=== PATIENT | female | born 1945 | race Caucasian/White ===

== ENCOUNTER 2017-04-23 22:03 | Emergency (ER) | payer MEDICARE ==
[~2017-04-23] VITALS: Ht 154.9 cm; Wt 93.9 kg
[~2017-04-23 22:03] MED LIST: ASPIR 8181 MG PO; ASPIRIN81 MG PO; ATORVASTATIN CA40 MG PO; BENAZEPRIL; BENAZEPRIL-HCT1 EA11 PO; CYMBALTA30 MG PO; DIAZEPAM5 MG PO; GEMFIBROZIL600 MG PO; GLIMEPIRIDE2 MG PO; HUMALOG MI100 UNITS/ SQ; HYDROCHLOROTHIA25 MG PO; HYDROCODONE; HYDROCODONE-AP1 EAC1 PO; LEVOTHYROXINE; MACRODANTIN100 MG PO; METFORMIN HCL500 MG PO; METOPROLOL PO; NORCO 7.5-3251 EACH PO; NOVOLOG; NOVOLOG 70100 UNITS/; OXYBUTYNIN CHLOR5 MG PO; PREMARIN; SYMBICORT 80-10.2 GM INH; TRICOR; ULTRAM50 MG PO; Z.0.GABAPENTIN600 MG; Z.0.TRICOR48 MG; Z.0.VESICARE10 MG PO; Z.1.LEVOTHYROXINE100 PO
[2017-04-23] MEDS ORDERED: ASPIRIN 81 MG CHEW TAB PO ONE (23:15)
[2017-04-23 23:24] LABS: BASOPHILS % 0.4 % (0.0-1.0); EOSINOPHILS # (AUTO) 0.2 (0.0-0.4); EOSINOPHILS % 1.6 % (0.0-6.0); HEMATOCRIT 41.4 % (34.2-44.1); HEMOGLOBIN 14.1 g/dL (12.0-16.0); LYMPHOCYTES # (AUTO) 4.1 (1.0-3.2); LYMPHOCYTES % 42.8 % (18.0-39.1); MEAN CORPUSCULAR HEMOGLOBIN 33.6 pg (28-32); MEAN CORPUSCULAR HGB CONC 34.1 g/dL (31-35); MEAN CORPUSCULAR VOLUME 98.6 fL (81-99); MONOCYTES # (AUTO) 0.6 (0.2-0.8); MONOCYTES % 6.2 % (4.4-11.3); NEUTROPHILS # (AUTO) 4.6 (2.1-6.9); NEUTROPHILS % 48.6 % (38.7-80.0); PLATELET COUNT 227 x10e3/uL (140-360); RED CELL DISTRIBUTION WIDTH 13.5 % (11.7-14.4)
[2017-04-23 23:28] LABS: INR 0.8; PARTIAL THROMBOPLASTIN TIME 29.9 seconds (23.8-35.5); PROTHROMBIN TIME 11.5 seconds (11.9-14.5)
[2017-04-23 23:40] LABS: ALANINE AMINOTRANSFERASE 43 IU/L (0-55); ALBUMIN 3.6 g/dL (3.5-5.0); ALBUMIN/GLOBULIN RATIO 0.8 (0.8-2.0); ALKALINE PHOSPHATASE 75 IU/L (40-150); BLOOD UREA NITROGEN 16 mg/dL (7-26); BUN/CREATININE RATIO 20 (6-25); CALCIUM 10.1 mg/dL (8.4-10.2); CARBON DIOXIDE 23 mmol/L (22-29); CHLORIDE 104 mmol/L (98-107); CREATINE KINASE 78 IU/L (29-168); CREATININE, SERUM 0.82 mg/dL (0.57-1.11); EST GLOMERULAR FILTRATION RATE > 60 ML/MIN (60-); GLUCOSE 73 mg/dL (74-118); SODIUM 138 mmol/L (136-145)
[2017-04-23 23:47] LABS: TROPONIN I 0.062 ng/mL (0-0.300)
--- NOTE | 2017-04-23 23:59 | Diagnostic Imaging Report ---
EXAMINATION: Head CT without contrast. HISTORY:Dizziness, headache and left-sided numbness. COMPARISON:Multiple prior studies, most recent CT brain from 12/06/2016 and MRI brain from 05/27/2016. TECHNIQUE: Multidetector axial images were obtained from the foramen magnum to the vertex without contrast. The images were reconstructed using brain and bone algorithms. Thin section brain images were reformatted into coronal and sagittal planes. Intravenous contrast: None IMAGE QUALITY: Acceptable. FINDINGS: Skull/scalp: No abnormality. Parenchyma: Nonspecific bilateral frontoparietal patchy white matter hypodensity are likely related to small vessel ischemic changes. Old lacunar infarct in left cerebellar hemisphere, right striato-capsular region, left thalamus, left stokes radiata and bilateral putamen. No acute hemorrhage, mass or acute major vascular territorial infarct. Arteries: Atherosclerotic calcification in bilateral carotid siphon and V4 segment of left vertebral artery. Dural sinuses: No abnormal density suggestive of thrombosis. Ventricles: No hydrocephalus or displacement. Extra-axial spaces: No abnormal density. Brain volume: Normal for age. Craniocervical junction: No mass, Chiari malformation, or basilar invagination. Sella: No mass. Paranasal/mastoid sinuses: Imaged portions unremarkable. IMPRESSION: No acute intracranial abnormality, particularly no acute hemorrhage, mass or acute major vascular territorial infarct. Chronic findings: Mild supratentorial white matter microvascular ischemic changes. Multifocal chronic lacunar infarcts as detailed above. Signed by: Dr. María Gee M.D. on 04/23/2017 11:56 PM
[2017-04-24 04:11] VITALS: BP 154/65
[2017-04-24 04:11] LABS: BILIRUBIN,URINE NEGATIVE (NEGATIVE); KETONES,URINE NEGATIVE (NEGATIVE); LEUKOCYTE ESTERASE ,URINE NEGATIVE (NEGATIVE); NITRITE,URINE NEGATIVE (NEGATIVE); URINE UROBILINOGEN 0.2 mg/dL (0.2 - 1)
[2017-04-24 04:13] LABS: CLARITY,URINE CLEAR (CLEAR); COLOR,URINE YELLOW (YELLOW); PROTEIN,URINE DIPSTICK 2+ (NEGATIVE)
[2017-04-24] MEDS ORDERED: ACETAMINOPHEN 325 MG TAB PO ONE (04:15)
[2017-04-24 04:16] LABS: AMPHETAMINES SCREEN,URINE NEGATIVE (NEGATIVE); BENZODIAZEPINES SCREEN,URINE POSITIVE (NEGATIVE); CANNABINOIDS SCREEN,URINE NEGATIVE (NEGATIVE); PHENCYCLIDINE SCREEN,URINE NEGATIVE (NEGATIVE)
[2017-04-24 04:25] LABS: BACTERIA,URINE RARE /HPF; EPITHELIAL CELLS,URINE RARE /LPF; RBC,URINE 0-5 /HPF (0-5)
== END 2017-04-24 04:25 | disposition home or self-care (01) ==
LOC: ER 22:11
DX: R20.2 Paresthesia of skin (principal); R51 Headache; I10 Essential (primary) hypertension; E11.9 Type 2 diabetes mellitus without complications; E03.9 Hypothyroidism, unspecified; Z86.73 Personal history of transient ischemic attack (TIA), and cerebral infarction without residual deficits
CPT/HCPCS: 36415; 70450; 80053; 80307; 81001; 82550; 82553; 84484; 85025; 85610; 85730; 87086; 93005; 99284

== ENCOUNTER 2017-08-26 17:26 | Inpatient (IN) | payer MEDICARE ==
[~2017-08-26] VITALS: Ht 152.4 cm; Wt 98.6 kg
--- OUTSIDE RECORDS SUMMARY | 2017-08-26 17:30 | XMS REPORT ---
Author Author [facility] Address Unknown Phone Unavailable Care Team Providers Care Tuber Operator Name Role Phone HANNAH MCDERMOTT Unavailable Unavailable Problems This patient has no known problems. Allergies, Adverse Reactions, Alerts This patient has no known allergies or adverse reactions. Medications This patient has no known medications. Results Test Description Test Time Test Comments Text Results Atomic Results Result Comments CT BRAIN WO [place] [address] Patient Name: IKE JEROME MR #: [id number] : 1945 Age/Sex: 72/F Req #: [id number] Adm Physician: Ordered by: HANNAH MCDERMOTT MD Report #: [id number] Location: ER Room/Bed: Procedure: [id number] CT/CT BRAIN WO Exam Date: 04/23/17 Exam Time: 2325 REPORT STATUS: Signed EXAMINATION: Head CT without contrast. HISTORY:Dizziness, headache and left-sided numbness. COMPARISON:Multiple prior studies, most recent CT brain from 12/06/2016 and MRI brain from 2016. TECHNIQUE: Multidetector axial images were obtained from the foramen magnum to the vertex without contrast. The images were reconstructed using brain and bone algorithms. Thin section brain images were reformatted into coronal and sagittal planes. Intravenous contrast: None IMAGE QUALITY: Acceptable. FINDINGS: Skull/scalp: No abnormality. Parenchyma: Nonspecific bilateral frontoparietal patchy white matter hypodensity are likely related to small vessel ischemic changes. Old lacunar infarct in left cerebellar hemisphere, right striato-capsular region, left thalamus, left stokes radiata and bilateral putamen. No acute hemorrhage, mass or acute major vascular territorial infarct. Arteries: Atherosclerotic calcification in bilateral carotid siphon and V4 segment of left vertebral artery. Dural sinuses: No abnormal density suggestive of thrombosis. Ventricles: No hydrocephalus or displacement. Extra- axial spaces: No abnormal density. Brain volume: Normal for age. Craniocervical junction: No mass, Chiari malformation, or basilar invagination. Sella: No mass. Paranasal/mastoid sinuses: Imaged portions unremarkable. IMPRESSION: No acute intracranial abnormality, particularly no acute hemorrhage, mass or acute major vascular territorial infarct. Chronic findings: Mild supratentorial white matter microvascular ischemic changes. Multifocal chronic lacunar infarcts as detailed above. Signed by: Dr. María Gee M.D. on 04/23/2017 11:56 PM Dictated By: MARÍA GEE MD [id number] Transcribed By: AURELIA on 04/23/17 9038 COPY TO: HANNAH MCDERMOTT MD
[2017-08-26] MEDS ORDERED: SODIUM CHLORIDE 0.9% 1000ML 1,000 ML IV STA (17:55)
[2017-08-26 18:48] LABS: BASOPHILS % 0.3 % (0.0-1.0); EOSINOPHILS # (AUTO) 0.1 (0.0-0.4); EOSINOPHILS % 2.1 % (0.0-6.0); HEMATOCRIT 40.1 % (34.2-44.1); HEMOGLOBIN 13.9 g/dL (12.0-16.0); LYMPHOCYTES # (AUTO) 1.9 (1.0-3.2); LYMPHOCYTES % 29.5 % (18.0-39.1); MEAN CORPUSCULAR HEMOGLOBIN 33.3 pg (28-32); MEAN CORPUSCULAR HGB CONC 34.7 g/dL (31-35); MEAN CORPUSCULAR VOLUME 96.2 fL (81-99); MONOCYTES # (AUTO) 0.4 (0.2-0.8); MONOCYTES % 5.3 % (4.4-11.3); NEUTROPHILS # (AUTO) 4.1 (2.1-6.9); NEUTROPHILS % 62.2 % (38.7-80.0); PLATELET COUNT 244 x10e3/uL (140-360); RED BLOOD COUNT 4.17 x10e6/uL (3.6-5.1); RED CELL DISTRIBUTION WIDTH 13.1 % (11.7-14.4)
[2017-08-26 18:54] LABS: INR 0.93; PROTHROMBIN TIME 11.7 seconds (11.9-14.5)
[2017-08-26 19:02] LABS: ALBUMIN 3.5 g/dL (3.5-5.0); ALBUMIN/GLOBULIN RATIO 0.8 (0.8-2.0); ANION GAP 18.7 mmol/L (8-16); CALCIUM 10.6 mg/dL (8.4-10.2); CREATININE, SERUM 1.15 mg/dL (0.57-1.11); MAGNESIUM 1.4 MG/DL (1.3-2.1); POTASSIUM 4.7 mmol/L (3.5-5.1)
[2017-08-26 19:08] LABS: CREATINE KINASE MB 2.1 ng/mL (0-5.0)
[2017-08-26] MEDS ORDERED: ASPIRIN 325 MG TAB PO ONE (19:15)
--- NOTE | 2017-08-26 19:42 | Diagnostic Imaging Report ---
EXAMINATION: Head CT without contrast. HISTORY:Altered mental status. COMPARISON:Multiple prior studies, most recent CT brain from 12/06/2016. TECHNIQUE: Multidetector axial images were obtained from the foramen magnum to the vertex without contrast. The images were reconstructed using brain and bone algorithms. Thin section brain images were reformatted into coronal and sagittal planes. Intravenous contrast: None IMAGE QUALITY: Acceptable. FINDINGS: Skull/scalp: No lytic or blastic. lesions. No surgical changes. Parenchyma: Unchanged nonspecific bilateral frontoparietal patchy white matter hypodensity are likely related to small vessel ischemic changes. Multifocal unchanged chronic lacunar infarcts in left stokes radiata, left thalamus, left putamen, right striata capsular region and left cerebellar hemisphere No acute hemorrhage, mass or acute major vascular territorial infarct.. Arteries: Atherosclerotic calcification in bilateral carotid siphon and V4 segment of left vertebral artery. Dural sinuses: No abnormal density suggestive of thrombosis. Ventricles: No hydrocephalus or displacement. Extra-axial spaces: No abnormal density. Brain volume: Normal for age. Craniocervical junction: No mass, Chiari malformation, or basilar invagination. Sella: No mass. Paranasal/mastoid sinuses: Imaged portions unremarkable. IMPRESSION: No acute intracranial abnormality. No change since CT brain from 12/06/2016. Chronic findings: 1. Mild supratentorial white matter microvascular ischemic changes. 2. Multifocal chronic lacunar infarcts as detailed above. 3. Mild generalized cerebral volume loss. Preliminary report was given by Neuroradiology fellow Dr. Alvarado at 6:39 PM on 08/26/2017. I have reviewed the study and agree with the findings in the preliminary report. Signed by: Dr. María Gee M.D. on 08/26/2017 7:38 PM
[2017-08-26] MEDS: SODIUM CHLORIDE 0.9% 1000ML 1,000 ML IV SCH (22:18)
[2017-08-26] MEDS ORDERED: NITROGLYCERIN 2% OINT 1 GM PKT TOP ONE (23:00)
[2017-08-27] VITALS (8 sets, daily range): BP systolic 157–221; BP diastolic 71–86
--- NOTE | 2017-08-27 02:04 | Diagnostic Imaging Report ---
CHEST XRAY LINE PLACEMENT, 08/27/2017 1:17 AM Technique: CHEST XRAY LINE PLACEMENT Comparison: 05/27/2016 Clinical history: PICC line placement Findings: See Impression Impression: Limited portable technique with soft tissue attenuation. 1. Lines/Tubes: Right PICC overlies the distal SVC. 2. Stable enlarged cardiomediastinal silhouette. 3. Mild bibasilar opacity may reflect vascular crowding/atelectasis. Aspiration/infection not excluded in the proper clinical context. 4. No pneumothorax or effusion. Signed by: Dr Alba Holman MD on 08/27/2017 2:00 AM
--- NOTE | 2017-08-27 03:30 | Diagnostic Imaging Report ---
EXAMINATION: CT angio of the neck and head with contrast. HISTORY:TIA. COMPARISON:MRA head and neck from 05/28/[address] brain from 08/26/2017. TECHNIQUE: Multidetector helical axial images were acquired through the neck and head during infusion of iodinated contrast material. Images were reviewed in multiplanar and 3-dimensional format. Contrast: 100 mL of Isovue-370. . FINDINGS: AORTIC ARCH: Moderate atherosclerotic calcification in the aortic arch and at the origin of the great vessels. Mixed atherosclerotic plaque at the origin of left subclavian artery without significant vascular stenosis. NECK: If carotid bulb stenosis is present, stenosis is measured with respect to the distal extracranial internal carotid artery. Right Carotid: Punctate focal hard atherosclerotic plaque in right carotid bulb without significant vascular stenosis. Right internal carotid artery is patent without abnormality. Left Carotid: Mild to moderate hard atherosclerotic plaque in the left carotid bulb extending to the proximal left internal carotid artery results in approximately 30% vascular stenosis. Vertebrals: Patent, no abnormality. HEAD: Anterior Circulation: Mild atherosclerotic calcification in the bilateral carotid siphon with patent M1 and A1 segments. Posterior Circulation: Focal hard atherosclerotic plaque in the proximal right V4 segment of the vertebral artery results in approximately 20% vascular stenosis with irregularity in the caliber of patent distal V4 segment. 2 focal hard atherosclerotic plaque in proximal left V4 segment results in approximately 70% vascular stenosis (image 306, series 3) origin of left posterior cerebral artery with hypoplastic left P1 segment. Age indeterminate occlusion of at the junction of left P2/P3 segment. Anatomical variants: Anterior communicating artery :Patent Posterior communicating arteries: Patent Vertebral arteries: Codominant. IMPRESSION: 1. Moderate atherosclerotic calcification in the aortic arch and at the origin of the great vessels. 2. Hard atherosclerotic plaque in left carotid bulb and proximal left internal carotid artery results in approximately 30% vascular stenosis. Focal hard atherosclerotic plaque in right carotid bulb without significant vascular stenosis. 3. Mild atherosclerotic plaque in bilateral carotid siphon. 4. Focal hard atherosclerotic plaque in proximal bilateral V4 segments, results in approximately 20% focal vascular stenosis on the right and 70% focal vascular stenosis on the left with distal flow. Irregularity in caliber of distal right V4 segment due to atherosclerosis. 5. Age indeterminate occlusion at the junction of left P2/P3 segment. Signed by: Dr. María Gee M.D. on 08/27/2017 3:26 AM
[2017-08-27] MEDS: SODIUM CHLORIDE 0.9% 1000ML 1,000 ML IV SCH ×3 (04:45→13:10)
[2017-08-27] MEDS ORDERED: DULOXETINE HCL 30 MG DELAYED RELEASE PO PRN (05:00)
[2017-08-27] MEDS ORDERED: SODIUM CHLORIDE 0.9% 100 ML ONE (06:08)
[2017-08-27] MEDS ORDERED: IOPAMIDOL 370 MG/ML 200 ML INFUS..BTL INJ ONE (06:08)
[2017-08-27 06:55] LABS: BASOPHILS % 0.2 % (0.0-1.0); EOSINOPHILS # (AUTO) 0.1 (0.0-0.4); EOSINOPHILS % 0.9 % (0.0-6.0); HEMATOCRIT 35.9 % (34.2-44.1); HEMOGLOBIN 12.5 g/dL (12.0-16.0); LYMPHOCYTES # (AUTO) 3.8 (1.0-3.2); LYMPHOCYTES % 43.1 % (18.0-39.1); MEAN CORPUSCULAR HEMOGLOBIN 33.3 pg (28-32); MEAN CORPUSCULAR HGB CONC 34.8 g/dL (31-35); MEAN CORPUSCULAR VOLUME 95.7 fL (81-99); MONOCYTES # (AUTO) 0.6 (0.2-0.8); MONOCYTES % 6.6 % (4.4-11.3); NEUTROPHILS # (AUTO) 4.3 (2.1-6.9); NEUTROPHILS % 48.9 % (38.7-80.0); PLATELET COUNT 233 x10e3/uL (140-360); RED BLOOD COUNT 3.75 x10e6/uL (3.6-5.1); RED CELL DISTRIBUTION WIDTH 13.1 % (11.7-14.4)
[2017-08-27 07:32] LABS: ALANINE AMINOTRANSFERASE 35 IU/L (0-55); ALBUMIN 3.1 g/dL (3.5-5.0); ALBUMIN/GLOBULIN RATIO 0.9 (0.8-2.0); ALKALINE PHOSPHATASE 72 IU/L (40-150); ANION GAP 13.7 mmol/L (8-16); BLOOD UREA NITROGEN 14 mg/dL (7-26); BUN/CREATININE RATIO 18 (6-25); CALCIUM 9.6 mg/dL (8.4-10.2); CARBON DIOXIDE 26 mmol/L (22-29); CHLORIDE 100 mmol/L (98-107); CREATINE KINASE 69 IU/L (29-168); CREATININE, SERUM 0.79 mg/dL (0.57-1.11); EST GLOMERULAR FILTRATION RATE > 60 ML/MIN (60-); GLUCOSE 127 mg/dL (74-118); POTASSIUM 3.7 mmol/L (3.5-5.1); SODIUM 136 mmol/L (136-145)
[2017-08-27] MEDS ORDERED: ASPIRIN 81 MG CHEW TAB PO SCH (09:00)
[2017-08-27] MEDS: ASPIRIN 325 MG TAB EC PO SCH (09:06)
[2017-08-27] MEDS: HYDROCHLOROTHIAZIDE 25 MG TAB PO SCH (09:06)
[2017-08-27] MEDS: GEMFIBROZIL 600 MG TAB PO SCH ×2 (09:07→17:15)
[2017-08-27] MEDS: METFORMIN HCL 500 MG TAB PO SCH ×2 (09:07→17:30)
[2017-08-27] MEDS: INS LISP PRO/LISP HUMAN 75/25 100 UNITS/ML VIAL SC SCH ×2 (09:22→18:39)
[2017-08-27] MEDS ORDERED: LORAZEPAM INJ 2 MG/ML VIAL IV PRN (17:15)
[2017-08-27 17:29] LABS: CHOL/HDL RATIO 7.1 (3.0-3.6); CHOLESTEROL 184 MD/DL (0-199); HDL CHOLESTEROL 26 MG/DL (40-60); TRIGLYCERIDES 528 MG/DL (0-149)
[2017-08-27] MEDS: HYDRALAZINE HCL 20 MG/ML VIAL IV PRN (18:37)
[2017-08-27] MEDS: OXYBUTYNIN CHLORIDE 5 MG TAB PO SCH (21:00)
[2017-08-27] MEDS: TRAMADOL HCL 50 MG TAB PO PRN (21:33)
[2017-08-28] VITALS (8 sets, daily range): BP systolic 148–208; BP diastolic 59–100
--- NOTE | 2017-08-28 00:08 | Consultation ---
DATE OF CONSULTATION: August 27, 2017 NEUROLOGY CONSULT HISTORY OF PRESENT ILLNESS: Ms. Nielsen is a 72-year-old [id number]-upsuyjlf woman with past medical history significant for hypertension, hyperlipidemia, diabetes mellitus type 2, and prior transient ischemic attacks/strokes, who presented to the emergency center at [facility] on the evening of August 26, 2017, with symptoms concerning for a transient ischemic attack/stroke. On the day of admission, the patient reports the gradual onset of tingling affecting the tips of the fingers of both hands. She endorses a headache which is described as follows: The pain was across the forehead and did not radiate. The pain was described as sharp and rated an 8 out of 10. There was no photophobia, phonophobia, or dizziness associated with headache. Ms. Nielsen does report mild nausea. The patient does not report a visual field cut or other disturbance, dysarthria, facial droop, weakness, numbness, or confusion. She does report mixed expressive and receptive aphasia. The patient's daughters, who are at the bedside, endorse mixed aphasia as well as a right facial droop. As stated above, Ms. Nielsen reports her symptoms came on gradually on the day of admission. On the evening of August 26, 2017, the patient decided to drive herself to the emergency center for further evaluation. Within minutes of leaving her home, the patient called her daughters because she was lost. One daughter reports the patient was speaking gibberish and could not understand when her daughter told her to hang up and call 9-1-1. A 2nd daughter, her son and his girlfriend drove around the patient's neighborhood until they were able to find Ms. Nielsen in her car. Ms. Nielsen refused to exit her car so her daughter and other family members could take her to the emergency center. At one point, while her daughter was moving her car, the patient drove off in her own car, unaccompanied. Ms. Nielsen drove herself to the emergency center at [facility] for further evaluation. Upon admission to the emergency center, the patient's blood pressure was 207/85 mmHg with a pulse of 87 beats per minute. The patient's neurological examination was documented as nonfocal. A CT of the brain without contrast was performed and did not show evidence of recent large territorial ischemia or hemorrhage. Ms. Nielsen was admitted to the hospital under observation status for further evaluation and treatment of her symptoms. Ms. Nielsen reports the symptoms described above lasted for approximately 1 day. She does report a prior stroke in February of 2015 as well as multiple transient ischemic attacks, with the most recent transient ischemic attack occurring approximately 1 year ago. The patient does report a history of a single migraine during adolescence. However, the patient reports having severe headaches as an adolescent and young adult, which were attributed to poor visual acuity. REVIEW OF SYSTEMS: Nausea, diarrhea, mixed aphasia, right facial weakness, tingling at the tips of the fingers of both hands, chronic low back pain, headache. Otherwise, the 12-point review of systems is negative. PAST MEDICAL HISTORY: Hypertension, hyperlipidemia, diabetes mellitus type 2, asthma, thyroid disease, prior peptic ulcer disease, mixed depression and anxiety disorder, prior history of migraine and other severe headaches, seizures beginning at the age of 14 years and resolving at 29 years secondary to "mental stress," multiple transient ischemic attacks, strokes, obesity, chronic pancreatitis. PAST SURGICAL HISTORY: Appendectomy, tonsillectomy, total hysterectomy, cholecystectomy, right knee surgery, Lap Band surgery, bilateral cataract surgery, bilateral corneal transplants. PAST HOSPITALIZATIONS: Surgeries/procedures listed, childbirth times 3, stroke in February 2015. FAMILY HISTORY: The patient's paternal and maternal grandparents are . Their medical histories are unknown. Ms. Nielsen' father is from COPD. Her mother is from COPD. One sister is from COPD. The sister had hypertension, diabetes mellitus, arthritis, and diverticulitis as well. The patient has 3 daughters. The oldest daughter has hypertension and had breast cancer. The second oldest daughter has thyroid disease. SOCIAL HISTORY: The patient is . Ms. Nielsen is a high school graduate. 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 The patient does not report current or prior tobacco or recreational drug use. She endorses rare alcohol use. HOME MEDICATIONS: Aspirin 81 mg by mouth daily, Symbicort 1 puff inhaled every 6 hours as needed for shortness of breath, Cymbalta 60 mg by mouth daily as needed, gemfibrozil 1200 mg by mouth twice daily, hydrochlorothiazide 25 mg daily, Humalog mix 75/25 at 140 units subcutaneously twice daily, levothyroxine 100 mcg by mouth daily, metformin 500 mg by mouth twice daily, oxybutynin 10 mg by mouth at bedtime daily, tramadol 50 mg by mouth every 6 hours as needed for pain. ALLERGIES: ALBUTEROL, CODEINE, POSSIBLE ALLERGY TO SULFA DRUGS. NO KNOWN FOOD ALLERGIES. THE PATIENT DOES REPORT AN ALLERGY TO THE ADHESIVE ON BAND-AIDS WELL LATEX. NO KNOWN ALLERGIES TO IODINE OR OTHER CONTRAST MATERIALS. PHYSICAL EXAMINATION VITAL SIGNS: Height 60 inches, weight 226 pounds, BMI 44.2 kg per meter squared. Blood pressure 197/72 mmHg, pulse 72 beats per minute, respiratory rate 20 breaths per minute, oxygen saturation 97% on room air. GENERAL: The patient is awake and alert, does not appear distressed. Obese. HEENT: Normocephalic, atraumatic. Pupils are surgical. Moist mucous membranes. NECK: Supple. No appreciable thyromegaly. No appreciable carotid bruits. CARDIOVASCULAR: S1, S2, regular rate and rhythm. Low-grade systolic ejection murmur. RESPIRATORY: Clear to auscultation bilaterally. No wheezes, rhonchi, or rales. EXTREMITIES: The skin is warm and dry. No clubbing, cyanosis, or edema. The posterior tibial and dorsalis pedis pulses are 1+ and symmetric. SKIN: No rashes or lesions. NEUROLOGIC Memory/Attention: The patient is awake and alert, oriented to person, place, time, and situation. Cranial Nerves: Cranial nerve 1--Not tested. Cranial nerve 2, 3, 4 and 6--Pupils are surgical, extraocular movements intact, no nystagmus. Cranial nerve 5--Sensation to light touch and pinprick is intact in the bilateral V1 through V3 distributions. Strength of the temporalis and masseter muscles was within normal limits. Cranial nerve 7--Flattening of the right nasolabial fold. Facial movements are symmetric. Strength is within normal limits. Cranial nerve 8--Hearing is intact to finger rub bilaterally. Cranial nerve 9, 10--The soft palate elevates equally and symmetrically. Cranial nerve 11--Normal strength of the bilateral sternocleidomastoid and trapezius muscles. Cranial nerve 12--The tongue protrudes midline and moves symmetrically from side to side. Strength: Bulk is normal. The patient is able to hold her arms against gravity for more than 10 seconds each. She is able to hold her legs against gravity for more than 5 seconds each. Strength is grossly 5/5 throughout. Tone is normal. DTRs: Deep tendon reflexes are 1+ and symmetric at the triceps, biceps, and brachioradialis. Deep tendon reflexes are absent and symmetric at the patellas and Achilles. The plantar responses are flexor bilaterally. Absent clonus. Sensation: Sensation is intact to light touch and pinprick in both arms and legs. Cerebellar: Wzzlak-jimp-lgajha and heel-de luna movements are intact without dysmetria or other impairment. Rapid alternating movements are intact. Gait: Deferred. Speech: Spontaneous speech is normal without appreciable dysarthria or aphasia. Repetition is intact. Involuntary Movements: None. Pronator Drift: None. LABORATORY DATA: Sodium 136, potassium 3.7, chloride 100, carbon dioxide 26, anion gap 13.7, BUN 14, creatinine 0.79, estimated GFR greater than 60, glucose 127, calcium 9.6. AST 26, ALT 35, alkaline phosphatase 72. Total protein 6.3, albumin 3.1, globulin 3.5, albumin to globulin ratio 0.9. B-natriuretic peptide 116.8. Creatine kinase 71, 69. CK-MB 2.10, 1.60. Troponin I 0.048, 0.089. The CBC with differential and platelets reveals a white blood cell count of 8.81 with 48.9% neutrophils, 43.1% lymphocytes, 6.6% monocytes, 0.9% eosinophils, and 0.2% basophils. The hemoglobin and hematocrit are 12.5 and 35.9, respectively. The platelet count is 233. PT 11.7, INR 0.93, PTT 29.0. DIAGNOSTIC STUDIES EKG August 26, 2017: Normal sinus rhythm at [address] of the brain without contrast August 26, 2017: On my review, there is no evidence of recent large territorial ischemia, hemorrhage, mass or mass effect. Remote lacunar infarcts are seen in the left stokes radiata, left thalamus, left putamen, right striata capsular region and left cerebellar hemisphere. There is mild to moderate chronic small-vessel ischemic disease. There is mild diffuse cerebral atrophy. CTA of the brain and neck on August 27, 2017: Moderate atherosclerotic calcification in the aortic arch and at the origin of the great vessels. Hard atherosclerotic plaque in left carotid bulb and proximal left internal carotid artery results in approximately 30% vascular stenosis. Focal hard atherosclerotic plaque in right carotid bulb without significant vascular stenosis. Mild atherosclerotic plaque in bilateral carotid siphon. Focal hard atherosclerotic plaque in proximal bilateral V4 segments results in approximately 20% focal vascular stenosis on the right and 70% focal vascular stenosis on the left with distal flow. Irregularity in caliber of distal right V4 segment due to atherosclerosis. Age-indeterminate occlusion at the junction of the left P2/P3 segments. ASSESSMENT AND PLAN: Ms. Nielsen is a 72-year-old pigdv-fonc-hfoxousu woman with multiple vascular risk factors, admitted to [facility] on August 26, 2017, with a transient ischemic attack/stroke. The patient's neurological examination is significant for surgical pupils, flattening of the right nasolabial fold, absent or diminished deep tendon reflexes in the legs and arms. The patient's laboratory data and diagnostic studies have been reviewed and are documented above. RECOMMENDATIONS ARE FOLLOWS 1. Lipid panel and hemoglobin A1c. 2. MRI brain without contrast. Ativan 1 mg IV immigration services officer for MRI of the brain has been ordered. May repeat dose x1 if needed. 3. Echocardiogram. 4. Aspirin 325 mg by mouth daily for stroke prophylaxis. 5. Given the findings of the patient's CTA of the brain and neck, allow permissive hypertension for the next 24 to 48 hours. An order for hydralazine 10 mg IV every 4 hours as needed for systolic blood pressure greater than 200 mmHg has been placed. 6. Follow up lipid panel. Continue home medication of gemfibrozil. 7. Follow up hemoglobin A1c. Tight glycemic control. 8. Speech and physical therapy consultations have been ordered. 9. Defer treatment of the remaining medical comorbidities to the primary and other services. Thank you for this consultation. I will continue to follow this patient while she remains in the hospital. Time spent: 70 minutes. Job#: [id number] EV DALE
[2017-08-28] MEDS: TRAMADOL HCL 50 MG TAB PO PRN (03:04)
[2017-08-28] MEDS: SODIUM CHLORIDE 0.9% 1000ML 1,000 ML IV SCH ×4 (03:13→21:11)
[2017-08-28] MEDS: HYDRALAZINE HCL 20 MG/ML VIAL IV PRN ×2 (03:17→20:47)
[2017-08-28] MEDS: METFORMIN HCL 500 MG TAB PO SCH ×2 (09:13→18:55)
[2017-08-28] MEDS: GEMFIBROZIL 600 MG TAB PO SCH ×2 (09:13→18:55)
[2017-08-28] MEDS: HYDROCHLOROTHIAZIDE 25 MG TAB PO SCH (09:13)
[2017-08-28] MEDS: ASPIRIN 325 MG TAB EC PO SCH (09:13)
[2017-08-28] MEDS: INS LISP PRO/LISP HUMAN 75/25 100 UNITS/ML VIAL SC SCH ×2 (09:21→18:55)
[2017-08-28] MEDS ORDERED: LORAZEPAM INJ 2 MG/ML VIAL IV PRN (11:45)
[2017-08-28] MEDS ORDERED: LORAZEPAM INJ 2 MG/ML VIAL IV ONE (16:00)
[2017-08-28] MEDS: OXYBUTYNIN CHLORIDE 5 MG TAB PO SCH (20:29)
[2017-08-29] VITALS (7 sets, daily range): BP systolic 158–205; BP diastolic 66–84
[2017-08-29] MEDS: TRAMADOL HCL 50 MG TAB PO PRN ×3 (04:12→22:18)
[2017-08-29] MEDS: HYDRALAZINE HCL 20 MG/ML VIAL IV PRN ×2 (08:03→12:13)
[2017-08-29] MEDS: INS LISP PRO/LISP HUMAN 75/25 100 UNITS/ML VIAL SC SCH ×2 (09:00→17:25)
[2017-08-29] MEDS: HYDROCHLOROTHIAZIDE 25 MG TAB PO SCH (09:51)
[2017-08-29] MEDS: GEMFIBROZIL 600 MG TAB PO SCH ×2 (09:51→16:33)
[2017-08-29] MEDS: ASPIRIN 325 MG TAB EC PO SCH (09:51)
[2017-08-29] MEDS: METFORMIN HCL 500 MG TAB PO SCH ×2 (09:51→16:33)
[2017-08-29] MEDS: ONDANSETRON HCL 4 MG ORAL DISINTEGRATING TAB SL PRN ×2 (11:06→13:36)
[2017-08-29] MEDS: SODIUM CHLORIDE 0.9% 1000ML 1,000 ML IV SCH (11:13)
[2017-08-29] MEDS: AMLODIPINE BESYLATE 10 MG TAB PO SCH (12:13)
[2017-08-29] MEDS ORDERED: DEXTROSE 50% SYRINGE 50 ML IV PRN (12:30)
[2017-08-29] MEDS ORDERED: ACETAMINOPHEN 325 MG TAB PO PRN (16:00)
[2017-08-29] MEDS: INSULIN LISPRO 100 UNIT/1 ML 3ML VIAL SQ SCH ×2 (17:25→21:50)
[2017-08-29] MEDS: OXYBUTYNIN CHLORIDE 5 MG TAB PO SCH (21:50)
[2017-08-30] VITALS: BP 162/70
[2017-08-30 04:00] VITALS: BP 171/72
[2017-08-30] MEDS ORDERED: KETOROLAC TROMETHAMINE 30 MG/ML VIAL IV STA (06:07)
[2017-08-30] MEDS: INSULIN LISPRO 100 UNIT/1 ML 3ML VIAL SQ SCH ×3 (07:30→16:30)
[2017-08-30 07:58] VITALS: BP 157/65
[2017-08-30] MEDS: GEMFIBROZIL 600 MG TAB PO SCH ×2 (08:44→17:15)
[2017-08-30] MEDS: METFORMIN HCL 500 MG TAB PO SCH ×2 (08:44→17:15)
[2017-08-30] MEDS: AMLODIPINE BESYLATE 10 MG TAB PO SCH (08:44)
[2017-08-30] MEDS: ASPIRIN 325 MG TAB EC PO SCH (08:44)
[2017-08-30] MEDS: INS LISP PRO/LISP HUMAN 75/25 100 UNITS/ML VIAL SC SCH ×2 (08:44→17:15)
[2017-08-30] MEDS: HYDROCHLOROTHIAZIDE 25 MG TAB PO SCH (08:44)
[2017-08-30 08:50] VITALS: BP 157/65
[2017-08-30 12:18] VITALS: BP 137/59
[2017-08-30] MEDS: ONDANSETRON HCL 4 MG ORAL DISINTEGRATING TAB SL PRN (14:53)
[2017-08-30] MEDS ORDERED: LISINOPRIL10 MG PO (16:53)
== END 2017-08-30 17:30 | disposition home or self-care (01) | DRG 68 ==
LOC: ER 17:40 → ERHOLD 21:00 → IMCU 08-27 04:03 → OBSVTOIN 08-29 08:21 → MED/SURG 08-29 13:23
PROVIDERS: ADMIT Internal Medicine; ATTEND Internal Medicine
PROC: 02HV33Z Insertion of Infusion Device into Superior Vena Cava, Percutaneous Approach (ICD-10-PCS; principal; 2017-08-27)
DX: I65.22 Occlusion and stenosis of left carotid artery (principal); R47.01 Aphasia; I10 Essential (primary) hypertension; E78.00 Pure hypercholesterolemia, unspecified; E11.65 Type 2 diabetes mellitus with hyperglycemia; J45.909 Unspecified asthma, uncomplicated; F41.8 Other specified anxiety disorders; Z91.11 Patient's noncompliance with dietary regimen; Z98.84 Bariatric surgery status; Z86.73 Personal history of transient ischemic attack (TIA), and cerebral infarction without residual deficits; Z79.82 Long term (current) use of aspirin; Z79.4 Long term (current) use of insulin; Z91.040 Latex allergy status; Z88.5 Allergy status to narcotic agent; Z88.2 Allergy status to sulfonamides; Z88.8 Allergy status to other drugs, medicaments and biological substances; Z91.048 Other nonmedicinal substance allergy status
CPT/HCPCS: 36415; 36569; 70450; 70496; 70498; 71045; 80053; 80061; 82550; 82553; 82948; 83036; 83735; 83880; 84484; 85025; 85610; 85730; 92523; 93005; 93306; 97139; 99284; G0378; J0360; J1815; J2060; J7030; J7050; Q9967

== ENCOUNTER 2018-01-12 03:38 | Inpatient (IN) | payer MEDICARE ==
[~2018-01-12] VITALS: Ht 154.9 cm; Wt 96.2 kg
[2018-01-12] VITALS (10 sets, daily range): BP systolic 166–187; BP diastolic 56–100
[~2018-01-12 03:38] MED LIST changes: +LISINOPRIL10 MG PO
[2018-01-12] MEDS ORDERED: SODIUM CHLORIDE 0.9% 1000ML 1,000 ML IV STA (03:42)
[2018-01-12] MEDS ORDERED: INSULIN REGULAR, HUMAN 100 UNIT/1 ML 3ML VIAL IV ONE (03:45)
[2018-01-12 04:12] LABS: INR 0.77; PROTHROMBIN TIME 11.5 seconds (11.9-14.5)
[2018-01-12 04:19] LABS: BASOPHILS % 0.2 % (0.0-1.0); EOSINOPHILS # (AUTO) 0.2 (0.0-0.4); EOSINOPHILS % 1.7 % (0.0-6.0); HEMATOCRIT 39.7 % (34.2-44.1); HEMOGLOBIN 14.3 g/dL (12.0-16.0); LYMPHOCYTES # (AUTO) 3.4 (1.0-3.2); MEAN CORPUSCULAR HEMOGLOBIN 33.6 pg (28-32); MEAN CORPUSCULAR VOLUME 93.2 fL (81-99); MONOCYTES # (AUTO) 0.5 (0.2-0.8); MONOCYTES % 5.4 % (4.4-11.3); NEUTROPHILS # (AUTO) 5.4 (2.1-6.9); NEUTROPHILS % 56.2 % (38.7-80.0); PLATELET COUNT 358 x10e3/uL (140-360); RED BLOOD COUNT 4.26 x10e6/uL (3.6-5.1); RED CELL DISTRIBUTION WIDTH 12.9 % (11.7-14.4)
[2018-01-12 04:22] LABS: ALBUMIN 4.1 g/dL (3.5-5.0); ALBUMIN/GLOBULIN RATIO 0.9 (0.8-2.0); ANION GAP 23.3 mmol/L (8-16); CALCIUM 11.1 mg/dL (8.4-10.2); CREATININE, SERUM 1.11 mg/dL (0.57-1.11); MAGNESIUM 2.1 MG/DL (1.3-2.1); POTASSIUM 4.3 mmol/L (3.5-5.1)
[2018-01-12] MEDS ORDERED: LORAZEPAM INJ 2 MG/ML VIAL ONE (04:28)
--- NOTE | 2018-01-12 04:32 | Diagnostic Imaging Report ---
EXAMINATION: Head CT without contrast. HISTORY:Aphasia, rule out possible stroke. COMPARISON:CT brain from 12/06/2016. TECHNIQUE: Multidetector axial images were obtained from the foramen magnum to the vertex without contrast. The images were reconstructed using brain and bone algorithms. Thin section brain images were reformatted into coronal and sagittal planes. Dose modulation, iterative reconstruction, and/or weight based adjustment of the mA/kV was utilized to reduce the radiation dose to as low as reasonably achievable. Intravenous contrast: None IMAGE QUALITY: Suboptimal evaluation due to motion artifacts. FINDINGS: Skull/scalp: No lytic or blastic. lesions. No surgical changes. Parenchyma: Nonspecific few, scattered supratentorial white matter patchy hypodensity are likely related to small vessel ischemic changes. Focal hypodensity in left stokes radiata, right caudate head, anterior limb of right internal capsule, left thalamus, left lentiform nucleus and left cerebellar hemisphere represents age indeterminate lacunar infarcts. No acute hemorrhage, mass or acute major vascular territorial infarct. Arteries: No density suggestive of thrombosis. Dural sinuses: No abnormal density suggestive of thrombosis. Ventricles: No hydrocephalus or displacement. Extra-axial spaces: No abnormal density. Brain volume: Mild generalized cerebral volume loss. Craniocervical junction: No mass, Chiari malformation, or basilar invagination. Sella: No mass. Paranasal/mastoid sinuses: Imaged portions unremarkable. IMPRESSION: 1. Mild supratentorial white matter microvascular ischemic changes. 2. Multifocal age indeterminate lacunar infarcts as detailed above. 3. Generalized age-related cerebral volume loss. Signed by: Dr. María Gee M.D. on 01/12/2018 4:26 AM
[2018-01-12 04:40] LABS: BILIRUBIN,URINE NEGATIVE (NEGATIVE); CLARITY,URINE CLEAR (CLEAR); COLOR,URINE YELLOW (YELLOW); KETONES,URINE NEGATIVE (NEGATIVE); LEUKOCYTE ESTERASE ,URINE NEGATIVE (NEGATIVE); NITRITE,URINE NEGATIVE (NEGATIVE); PROTEIN,URINE DIPSTICK 3+ (NEGATIVE); URINE UROBILINOGEN 0.2 mg/dL (0.2 - 1)
[2018-01-12] MEDS ORDERED: LORAZEPAM INJ 2 MG/ML VIAL IV ONE (04:45)
--- NOTE | 2018-01-12 04:51 | Diagnostic Imaging Report ---
CHEST SINGLE (PORTABLE), 01/12/2018 3:42 AM Technique: CHEST SINGLE (PORTABLE) Comparison: 08/27/2017 Clinical history: \S\aphasia \[id number] \S\0400 Findings: See Impression Impression: 1. Stable mildly enlarged cardiomediastinal silhouette. 2. Central vascular congestion. No consolidation. 3. No effusion or pneumothorax. Signed by: Dr Alba Holman MD on 01/12/2018 4:46 AM
[2018-01-12 04:58] LABS: RBC,URINE 0-5 /HPF (0-5)
[2018-01-12] MEDS ORDERED: ASPIRIN 325 MG TAB EC PO STA (05:21)
[2018-01-12] MEDS ORDERED: HYDRALAZINE HCL 20 MG/ML VIAL IV PRN (05:30)
[2018-01-12] MEDS ORDERED: DEXTROSE 50% SYRINGE 50 ML IV PRN (05:30)
[2018-01-12] MEDS: CEFTRIAXONE SOD 1 GM VIAL IV SCH (05:30)
[2018-01-12] MEDS ORDERED: MELOXICAM15 MG PO (05:41)
[2018-01-12] MEDS ORDERED: LEVOTHYROXINE100 MCG PO (05:41)
[2018-01-12] MEDS ORDERED: LISINOPRIL20 MG PO (05:41)
[2018-01-12] MEDS ORDERED: METOPROLOL TART50 MG PO (05:41)
[2018-01-12] MEDS ORDERED: ESIDRIX25 MG PO (05:41)
[2018-01-12] MEDS ORDERED: OXYBUTYNIN CHLO10 MG PO (05:41)
[2018-01-12] MEDS: SODIUM CHLORIDE 0.9% 1000ML 1,000 ML IV SCH ×3 (07:45→21:16)
[2018-01-12] MEDS: ACETAMINOPHEN 1000 MG/100 ML IV PRN (08:20)
[2018-01-12] MEDS: INSULIN REGULAR, HUMAN 100 UNIT/1 ML 3ML VIAL SQ SCH ×4 (08:25→21:15)
[2018-01-12 09:44] LABS: CHOLESTEROL 309 MD/DL (0-199); HDL CHOLESTEROL 28 MG/DL (40-60)
[2018-01-12 09:46] LABS: TRIGLYCERIDES > 1420 MG/DL (0-149)
--- NOTE | 2018-01-12 11:07 | Consultation ---
DATE OF CONSULTATION: January 12, 2018 NEUROLOGY CONSULTATION HISTORY OF PRESENT ILLNESS: Unfortunately, the patient is encephalopathic and unable to provide an accurate medical history. There are no family members present at the bedside. Therefore, history is obtained from the hospital staff, review of the electronic medical records, and prior notes dictated by myself. At approximately 2330 on January 11, 2018, Ms. Nielsen went to bed in her usual state of health. Several hours later, at approximately 0500, the patient awakened and came out of her bedroom. At that time, she said a few words which seemed "normal." Ms. Nielsen then began wandering in and out of rooms in the house, and her daughter noticed the patient was not "putting sentences together." According to documentation from the Emergency Center at [facility], no other symptoms were witnessed. Specifically, no weakness, numbness, tingling, visual disturbance, or impaired swallowing was noted. Ms. Nielsen has experienced transient ischemic attacks/strokes in the past. Concerned her difficulty with speech represented another transient ischemic attack or stroke, her daughter brought her to the Emergency Center at [facility] for further evaluation. Upon arrival in the Emergency Center, the patient was afebrile with a blood pressure of 227/101 mmHg and pulse of 77 beats per minute. In the Emergency Center, the patient's neurological examination was significant for expressive aphasia. No other deficits were noted. A CT of the brain without contrast was performed while the patient was in the Emergency Center. This study did not reveal new large territorial ischemia or hemorrhage. Ms. Nielsen was admitted to [facility] under observation status for further evaluation and treatment of her symptoms. While on the floor, the patient developed a fever documented as 102.1 degrees Fahrenheit. She has been intermittently tachycardic and diaphoretic. An infectious disease evaluation has been ordered and is pending. Ms. Nielsen was last seen by myself in August 2017 for a transient ischemic attack, the predominant symptom during that time being expressive aphasia. REVIEW OF SYSTEMS: Unable to obtain secondary to the patient being encephalopathic. PAST MEDICAL HISTORY: Hypertension, hyperlipidemia, diabetes mellitus type 2, asthma, thyroid disease, prior peptic ulcer disease, mixed depression and anxiety disorder, prior history of migraines, seizures beginning at the age of 14 years and resolving at approximately 29 years secondary to "mental stress," multiple transient ischemic attacks/strokes, obesity, chronic pancreatitis. PAST SURGICAL HISTORY: Appendectomy, tonsillectomy, total hysterectomy, cholecystectomy, right knee surgery, Lap-Band surgery, bilateral cataract removal, and bilateral corneal transplants. PAST HOSPITALIZATIONS: Surgeries/procedures as listed, childbirth times 3, stroke in February 2015, transient ischemic attack in August 2017. FAMILY MEDICAL HISTORY: Patient's paternal and maternal grandparents are . Their medical histories are unknown. Ms. Nielsen' father is from COPD. Her mother is from COPD. One sister is from COPD. That sister had hypertension, diabetes mellitus, arthritis, and diverticulitis as well. Ms. Nielsen has 3 daughters. The oldest daughter has hypertension and a history of breast cancer. The second oldest daughter has thyroid disease. The youngest daughter is reportedly healthy. SOCIAL HISTORY: Ms. Nielsen is . She is a high school graduate. 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 The patient does not report current or prior tobacco or recreational drug use. She does endorse rare alcohol use. HOME MEDICATIONS: Please see the list of home medications available in the electronic medical record. Of note, the patient does not have aspirin, statin or other cholesterol-lowering medications listed as part of her home medication regimen. These medications were prescribed during her prior hospitalization in August 2017. ALLERGIES: ALBUTEROL, CODEINE. NO KNOWN FOOD ALLERGIES. PATIENT DOES REPORT AN ALLERGY TO LATEX WELL THE ADHESIVE ON BAND-AIDS. NO KNOWN ALLERGIES TO IODINE OR OTHER CONTRAST MATERIALS. PHYSICAL EXAMINATION VITAL SIGNS: Height 61 inches, weight 217 pounds. BMI of 41.0 kg per meter squared. Blood pressure was 180/73 mmHg. Pulse 96 beats per minute. Respiratory rate 20 breaths per minute. Oxygen saturation 95% on 2 liters by nasal cannula. GENERAL: The patient is encephalopathic, does not appear distressed. Obese. HEENT: Normocephalic, atraumatic. Pupils are surgical. Moist mucous membranes. NECK: Supple. No appreciable thyromegaly. No appreciable carotid bruits. CARDIOVASCULAR: S1 and S2, mildly tachycardiac, regular rhythm. A low-grade systolic ejection murmur is appreciated. RESPIRATORY: Clear to auscultation bilaterally. No wheezes, rhonchi or rales. EXTREMITIES: The skin is warm. Diaphoretic. No clubbing, cyanosis, or edema. The posterior tibial and dorsalis pedis pulses are 1+ and symmetric. SKIN: No rashes or lesions. NEUROLOGIC EXAMINATION MEMORY/ATTENTION: The patient is encephalopathic. CRANIAL NERVES: Cranial nerve I: Not tested. Cranial nerves II, III, IV, and : Pupils are surgical. Extraocular movements are grossly intact. No nystagmus. Cranial nerve V: Sensation to light touch is grossly intact in the bilateral V1 through V3 distributions. Strength of the temporalis and masseter muscles appears to be within normal limits. Cranial nerve VII: There is flattening of the right nasolabial fold. Facial movements appear symmetric. Cranial nerve VIII: Hearing is grossly intact bilaterally. Cranial nerves IX and X: The soft palate elevates equally and symmetrically. Cranial nerve XI: Unable to assess secondary to encephalopathy. Cranial nerve XII: The tongue protrudes midline and moves symmetrically from side to side. STRENGTH: Bulk is normal. There are normal functional movements of both arms and both legs. Tone is normal. DTRs: Deep tendon reflexes are 1+ and symmetric at the triceps, biceps, brachial radialis. Deep tendon reflexes are absent and symmetric at the patellas and Achilles. Plantar responses are flexor bilaterally. SENSATION: The patient withdraws all 4 extremities to peripheral noxious stimulation. CEREBELLAR: Unable to assess secondary to patient being encephalopathic. GAIT: Deferred. SPEECH: Spontaneous speech is limited. The only word said by the patient is "okay." At present, Ms. Nielsen appears to have a mixed aphasia. Dysarthria cannot be adequately assessed for. INVOLUNTARY MOVEMENTS: None. PRONATOR DRIFT: As per motor examination. LABORATORY DATA: The patient's comprehensive metabolic panel is significant for hyponatremia with sodium 126, chloride 90, carbon dioxide 17, elevated anion gap of 23.3, estimated GFR 48, and serum glucose of 452. Calcium is mildly elevated at 11.1 as well. Cardiac enzymes are negative times 1. B-type natriuretic peptide is 99.3. CBC with differential and platelets reveals a white blood cell count of 9.55 with a normal differential. The hemoglobin and hematocrit are 14.3 and 39.7, respectively. The platelet count is 358. PT is 11.5, INR 0.77, PTT 32.0. A urinalysis is significant for 3+ protein, 3+ glucose, trace blood, and 6 to 10 white blood cells. Blood and urine cultures have been collected and are pending. DIAGNOSTIC STUDIES 1. Electrocardiogram of 01/12/2018: Normal sinus rhythm at 96 beats per minute. 2. Chest x-ray, 01/12/2018: 1) Stable, mildly enlarged cardiomediastinal silhouette. 2) Central venous congestion. No consolidation. 3) No effusion or pneumothorax. 3. CT of the brain without contrast, 01/12/2018: On my review, there is no evidence of recent large territorial ischemia, hemorrhage, mass, or mass effect. The patient has multiple chronic lacunar infarcts bilaterally. Cerebral volumes are appropriate for age. There are findings compatible with mild to moderate chronic small vessel ischemic disease. ASSESSMENT AND PLAN: Ms. Nielsen is a 72-year-old, [id number]-[id number] woman with an extensive past medical history admitted to [facility] with expressive aphasia in the setting of fever and tachycardia. Patient has undergone a thorough neurological examination with findings detailed above. Ms. Partida laboratory data and other diagnostic studies have been reviewed and are documented above. As stated in history of present illness, this is the 2nd time I have evaluated the patient for patient for expressive aphasia. Unlike her prior evaluation, the patient is afebrile with tachycardia and diaphoresis. She is hyponatremic and hyperglycemic. Therefore, it is less likely the patient is experiencing another transient acute ischemic attack or stroke. It is more likely the patient's expressive aphasia is due to recrudescence of prior deficits in the setting of probable infection, etiology to be determined, hyponatremia, and hyperglycemia. As noted previously, aspirin, a statin medication, and other cholesterol-lowering medications are not listed amongst the patient's home medications, though they were prescribed during Ms. Nielsen' prior hospitalization. Treatment with aspirin 325 mg by mouth daily for stroke prophylaxis will be resumed. A lipid panel and hemoglobin A1c will be ordered for evaluation of the patient's cardiovascular risk factors for stroke. The patient's nurse will make an effort to speak with the patient's daughter and obtain a current medication list. All other treatment is deferred to primary service. Thank you for this consultation. I will continue to follow this patient while she remains in the hospital. Time spent: 70 minutes. Job#: [id number] DALE
[2018-01-12 13:53] LABS: CREATINE KINASE MB 1.1 ng/mL (0-5.0)
[2018-01-12] MEDS ORDERED: HUMALOG MI100 UNITS/ SC (15:01)
[2018-01-12] MEDS ORDERED: PANTOPRAZOLE SO40 MG PO (15:01)
[2018-01-12] MEDS ORDERED: ZYZAL PO (15:01)
[2018-01-12] MEDS ORDERED: CYMBALTA30 MG PO (15:01)
[2018-01-12] MEDS ORDERED: ASPIRIN ENTERI325 MG PO (15:01)
[2018-01-12] MEDS ORDERED: VITAMIN D400 UNIT PO (15:01)
[2018-01-12] MEDS ORDERED: METFORMIN HCL500 MG PO (15:01)
[2018-01-12] MEDS ORDERED: GEMFIBROZIL600 MG PO (15:01)
[2018-01-12] MEDS ORDERED: TEMAZEPAM15 MG PO (15:01)
[2018-01-12] MEDS ORDERED: DIAZEPAM5 MG PO (15:01)
[2018-01-12] MEDS ORDERED: VOLTAREN-XR100 MG PO (15:01)
[2018-01-12] MEDS ORDERED: VITAMIN C500 M4 PO (15:01)
[2018-01-12] MEDS ORDERED: DICYCLOMINE HCL10 MG PO (15:01)
[2018-01-12] MEDS ORDERED: CLONIDINE HCL0.1 MG PO (15:01)
[2018-01-13] VITALS (8 sets, daily range): BP systolic 125–199; BP diastolic 47–85
[2018-01-13] MEDS: ACETAMINOPHEN 1000 MG/100 ML IV PRN (00:28)
[2018-01-13] MEDS: CEFTRIAXONE SOD 1 GM VIAL IV SCH (04:42)
[2018-01-13] MEDS ORDERED: TEMAZEPAM 15 MG CAP PO PRN (05:00)
[2018-01-13] MEDS ORDERED: DIAZEPAM 5 MG TAB PO PRN (05:00)
[2018-01-13 05:50] LABS: BASOPHILS % 0.2 % (0.0-1.0); EOSINOPHILS # (AUTO) 0.1 (0.0-0.4); EOSINOPHILS % 1.3 % (0.0-6.0); HEMATOCRIT 38.4 % (34.2-44.1); HEMOGLOBIN 13.3 g/dL (12.0-16.0); LYMPHOCYTES # (AUTO) 3.3 (1.0-3.2); MEAN CORPUSCULAR HEMOGLOBIN 33.3 pg (28-32); MEAN CORPUSCULAR HGB CONC 34.6 g/dL (31-35); MEAN CORPUSCULAR VOLUME 96.2 fL (81-99); MONOCYTES # (AUTO) 0.5 (0.2-0.8); MONOCYTES % 6.4 % (4.4-11.3); NEUTROPHILS # (AUTO) 4.5 (2.1-6.9); NEUTROPHILS % 52.9 % (38.7-80.0); PLATELET COUNT 299 x10e3/uL (140-360); RED BLOOD COUNT 3.99 x10e6/uL (3.6-5.1); RED CELL DISTRIBUTION WIDTH 13.2 % (11.7-14.4)
[2018-01-13 08:53] LABS: ALANINE AMINOTRANSFERASE 30 IU/L (0-55); ALBUMIN 3.4 g/dL (3.5-5.0); ALBUMIN/GLOBULIN RATIO 0.9 (0.8-2.0); ALKALINE PHOSPHATASE 77 IU/L (40-150); BLOOD UREA NITROGEN 10 mg/dL (7-26); BUN/CREATININE RATIO 12 (6-25); CALCIUM 9.3 mg/dL (8.4-10.2); CARBON DIOXIDE 20 mmol/L (22-29); CHLORIDE 101 mmol/L (98-107); CHOL/HDL RATIO 8.8 (3.0-3.6); CHOLESTEROL 228 MD/DL (0-199); CREATININE, SERUM 0.83 mg/dL (0.57-1.11); EST GLOMERULAR FILTRATION RATE > 60 ML/MIN (60-); GLUCOSE 392 mg/dL (74-118); HDL CHOLESTEROL 26 MG/DL (40-60); SODIUM 134 mmol/L (136-145); TRIGLYCERIDES 771 MG/DL (0-149)
[2018-01-13] MEDS: INSULIN REGULAR, HUMAN 100 UNIT/1 ML 3ML VIAL SQ SCH ×4 (08:59→20:50)
[2018-01-13] MEDS: ASPIRIN 325 MG TAB PO SCH (09:00)
[2018-01-13] MEDS: PANTOPRAZOLE SOD 40 MG TABEC PO SCH ×2 (09:00→21:00)
[2018-01-13] MEDS: LEVOTHYROXINE SODIUM 100 MCG TAB PO SCH (09:00)
[2018-01-13] MEDS: DICYCLOMINE HCL 10 MG CAP PO SCH ×2 (09:00→21:00)
[2018-01-13] MEDS ORDERED: PANTOPRAZOLE SOD 40 MG TABEC PO SCH (09:00)
[2018-01-13] MEDS: HYDROCHLOROTHIAZIDE 25 MG TAB PO SCH (09:00)
[2018-01-13] MEDS ORDERED: GEMFIBROZIL 600 MG TAB PO SCH (09:00)
[2018-01-13] MEDS: GEMFIBROZIL 600 MG TAB PO SCH ×2 (09:00→21:00)
[2018-01-13] MEDS: METFORMIN HCL 500 MG TAB PO SCH ×2 (09:00→17:00)
[2018-01-13] MEDS ORDERED: DICYCLOMINE HCL 10 MG CAP PO SCH (09:00)
[2018-01-13] MEDS ORDERED: ASPIRIN 325 MG TAB EC PO SCH (09:00)
[2018-01-13] MEDS ORDERED: ONDANSETRON HCL INJ 2 MG/ML VIAL ONE (09:02)
[2018-01-13] MEDS: ONDANSETRON HCL INJ 2 MG/ML VIAL IV PRN ×2 (09:10→17:42)
[2018-01-13] MEDS: INS LISP PRO/LISP HUMAN 75/25 100 UNITS/ML VIAL SC SCH ×3 (09:30→17:30)
[2018-01-13] MEDS ORDERED: INSULIN REGULAR, HUMAN 100 UNIT/1 ML 3ML VIAL SQ ONE (11:00)
[2018-01-13] MEDS: SODIUM CHLORIDE 0.9% 1000ML 1,000 ML IV SCH ×2 (11:48→21:30)
[2018-01-13] MEDS: DULOXETINE HCL 30 MG DELAYED RELEASE PO SCH (12:36)
[2018-01-13] MEDS: LISINOPRIL 20 MG TAB PO SCH (12:36)
[2018-01-13] MEDS: CLONIDINE HCL 0.1 MG TAB PO SCH ×3 (12:36→21:00)
[2018-01-13] MEDS ORDERED: LOPERAMIDE HCL 2 MG CAP PO PRN (19:00)
[2018-01-13] MEDS: ATORVASTATIN 20 MG TAB PO SCH (21:00)
[2018-01-14] VITALS (8 sets, daily range): BP systolic 132–136; BP diastolic 49–69
[2018-01-14] MEDS: CEFTRIAXONE SOD 1 GM VIAL IV SCH (05:28)
[2018-01-14] MEDS: SODIUM CHLORIDE 0.9% 1000ML 1,000 ML IV SCH ×2 (05:28→17:21)
[2018-01-14] MEDS: INSULIN REGULAR, HUMAN 100 UNIT/1 ML 3ML VIAL SQ SCH ×5 (05:39→21:14)
[2018-01-14] MEDS: INS LISP PRO/LISP HUMAN 75/25 100 UNITS/ML VIAL SC SCH ×3 (08:01→16:00)
[2018-01-14] MEDS: DICYCLOMINE HCL 10 MG CAP PO SCH ×2 (08:29→21:13)
[2018-01-14] MEDS: PANTOPRAZOLE SOD 40 MG TABEC PO SCH ×2 (08:29→21:14)
[2018-01-14] MEDS: HYDROCHLOROTHIAZIDE 25 MG TAB PO SCH (08:29)
[2018-01-14] MEDS: LISINOPRIL 20 MG TAB PO SCH (08:29)
[2018-01-14] MEDS: GEMFIBROZIL 600 MG TAB PO SCH ×2 (08:29→21:13)
[2018-01-14] MEDS: ASPIRIN 325 MG TAB PO SCH (08:29)
[2018-01-14] MEDS: CLONIDINE HCL 0.1 MG TAB PO SCH ×3 (08:29→21:13)
[2018-01-14] MEDS: METFORMIN HCL 500 MG TAB PO SCH ×2 (08:29→08:48)
[2018-01-14] MEDS: DULOXETINE HCL 30 MG DELAYED RELEASE PO SCH (08:29)
[2018-01-14] MEDS: LEVOTHYROXINE SODIUM 100 MCG TAB PO SCH (08:30)
[2018-01-14 10:41] LABS: BASOPHILS % 0.2 % (0.0-1.0); EOSINOPHILS # (AUTO) 0.2 (0.0-0.4); EOSINOPHILS % 2.5 % (0.0-6.0); HEMATOCRIT 34.3 % (34.2-44.1); HEMOGLOBIN 11.5 g/dL (12.0-16.0); LYMPHOCYTES # (AUTO) 2.6 (1.0-3.2); LYMPHOCYTES % 32.7 % (18.0-39.1); MEAN CORPUSCULAR HEMOGLOBIN 33.4 pg (28-32); MEAN CORPUSCULAR HGB CONC 33.5 g/dL (31-35); MEAN CORPUSCULAR VOLUME 99.7 fL (81-99); MONOCYTES # (AUTO) 0.6 (0.2-0.8); MONOCYTES % 6.9 % (4.4-11.3); NEUTROPHILS # (AUTO) 4.6 (2.1-6.9); NEUTROPHILS % 57.6 % (38.7-80.0); PLATELET COUNT 233 x10e3/uL (140-360); RED BLOOD COUNT 3.44 x10e6/uL (3.6-5.1); RED CELL DISTRIBUTION WIDTH 13.6 % (11.7-14.4)
[2018-01-14 11:02] LABS: ALBUMIN 3.1 g/dL (3.5-5.0); ALBUMIN/GLOBULIN RATIO 0.9 (0.8-2.0); ANION GAP 15.4 mmol/L (8-16); CALCIUM 8.8 mg/dL (8.4-10.2); CREATININE, SERUM 1.34 mg/dL (0.57-1.11); POTASSIUM 4.4 mmol/L (3.5-5.1)
[2018-01-14] MEDS: ATORVASTATIN 20 MG TAB PO SCH (21:13)
[2018-01-15] VITALS: BP_SYST 121; BP_SYST 139; BP_DIAS 52; BP_DIAS 66
[2018-01-15] MEDS: SODIUM CHLORIDE 0.9% 1000ML 1,000 ML IV SCH (03:30)
[2018-01-15] MEDS: CEFTRIAXONE SOD 1 GM VIAL IV SCH (06:15)
[2018-01-15 08:00] VITALS: BP 141/52
[2018-01-15] MEDS: INS LISP PRO/LISP HUMAN 75/25 100 UNITS/ML VIAL SC SCH ×3 (08:00→16:25)
[2018-01-15] MEDS: INSULIN REGULAR, HUMAN 100 UNIT/1 ML 3ML VIAL SQ SCH ×4 (08:11→20:52)
[2018-01-15] MEDS: METFORMIN HCL 500 MG TAB PO SCH ×3 (09:00→16:11)
[2018-01-15] MEDS: DULOXETINE HCL 30 MG DELAYED RELEASE PO SCH (09:35)
[2018-01-15] MEDS: CLONIDINE HCL 0.1 MG TAB PO SCH ×3 (09:35→20:51)
[2018-01-15] MEDS: DICYCLOMINE HCL 10 MG CAP PO SCH ×2 (09:35→20:51)
[2018-01-15] MEDS: HYDROCHLOROTHIAZIDE 25 MG TAB PO SCH (09:35)
[2018-01-15] MEDS: LEVOTHYROXINE SODIUM 100 MCG TAB PO SCH (09:35)
[2018-01-15] MEDS: ASPIRIN 325 MG TAB PO SCH (09:35)
[2018-01-15] MEDS: PANTOPRAZOLE SOD 40 MG TABEC PO SCH ×2 (09:36→20:51)
[2018-01-15] MEDS: GEMFIBROZIL 600 MG TAB PO SCH ×2 (09:36→20:51)
[2018-01-15] MEDS: LISINOPRIL 20 MG TAB PO SCH (09:36)
[2018-01-15 10:05] VITALS: BP 141/52
[2018-01-15] MEDS ORDERED: ACETAMINOPHEN 325 MG TAB PO PRN (10:15)
[2018-01-15 11:57] VITALS: BP 149/57
[2018-01-15 16:08] VITALS: BP 171/82
[2018-01-15 19:31] VITALS: BP 166/62
[2018-01-15] MEDS: ATORVASTATIN 20 MG TAB PO SCH (20:51)
[2018-01-16] VITALS: BP 158/70
[2018-01-16 04:00] VITALS: BP 166/68
[2018-01-16] MEDS: LEVOTHYROXINE SODIUM 100 MCG TAB PO SCH (05:58)
[2018-01-16] MEDS: CEFTRIAXONE SOD 1 GM VIAL IV SCH (05:58)
[2018-01-16] MEDS: INS LISP PRO/LISP HUMAN 75/25 100 UNITS/ML VIAL SC SCH ×2 (08:00→11:46)
[2018-01-16] MEDS: INSULIN REGULAR, HUMAN 100 UNIT/1 ML 3ML VIAL SQ SCH ×2 (08:00→11:40)
[2018-01-16 08:28] VITALS: BP 155/63
[2018-01-16] MEDS: ASPIRIN 325 MG TAB PO SCH (08:34)
[2018-01-16] MEDS: DICYCLOMINE HCL 10 MG CAP PO SCH (08:35)
[2018-01-16] MEDS: PANTOPRAZOLE SOD 40 MG TABEC PO SCH (08:35)
[2018-01-16] MEDS: CLONIDINE HCL 0.1 MG TAB PO SCH (08:36)
[2018-01-16] MEDS: HYDROCHLOROTHIAZIDE 25 MG TAB PO SCH (08:36)
[2018-01-16] MEDS: GEMFIBROZIL 600 MG TAB PO SCH (08:37)
[2018-01-16] MEDS: DULOXETINE HCL 30 MG DELAYED RELEASE PO SCH (08:38)
[2018-01-16] MEDS: LISINOPRIL 20 MG TAB PO SCH (08:38)
[2018-01-16] MEDS: METFORMIN HCL 500 MG TAB PO SCH (08:48)
[2018-01-16 08:52] VITALS: BP 155/63
[2018-01-16 12:04] VITALS: BP 164/60
[2018-01-16] MEDS ORDERED: CLONIDINE HCL 0.2 MG TAB PO SCH (15:00)
[2018-01-16] MEDS ORDERED: ATORVASTATIN 40 MG TAB PO SCH (21:00)
== END 2018-01-16 13:05 | disposition home or self-care (01) | DRG 689 ==
LOC: ER 03:38 → ERHOLD 05:53 → IMCU 05:55 → MED/SURG 01-15 21:25
PROVIDERS: ADMIT Internal Medicine; ATTEND Internal Medicine
DX: N30.00 Acute cystitis without hematuria (principal); G93.41 Metabolic encephalopathy; N17.9 Acute kidney failure, unspecified; E87.1 Hypo-osmolality and hyponatremia; K86.1 Other chronic pancreatitis; R47.01 Aphasia; B96.1 Klebsiella pneumoniae [K. pneumoniae] as the cause of diseases classified elsewhere; E11.22 Type 2 diabetes mellitus with diabetic chronic kidney disease; I12.9 Hypertensive chronic kidney disease with stage 1 through stage 4 chronic kidney disease, or unspecified chronic kidney disease; N18.3 Chronic kidney disease, stage 3 (moderate); E78.5 Hyperlipidemia, unspecified; E11.65 Type 2 diabetes mellitus with hyperglycemia; E03.9 Hypothyroidism, unspecified; E83.52 Hypercalcemia; F41.8 Other specified anxiety disorders; E66.9 Obesity, unspecified; G40.909 Epilepsy, unspecified, not intractable, without status epilepticus; G43.909 Migraine, unspecified, not intractable, without status migrainosus; Z87.11 Personal history of peptic ulcer disease; Z91.19 Patient's noncompliance with other medical treatment and regimen; Z79.4 Long term (current) use of insulin; Z68.41 Body mass index [BMI] 40.0-44.9, adult; Z98.84 Bariatric surgery status; Z79.82 Long term (current) use of aspirin; Z94.7 Corneal transplant status; Z88.5 Allergy status to narcotic agent; Z88.8 Allergy status to other drugs, medicaments and biological substances; Z91.040 Latex allergy status; Z86.73 Personal history of transient ischemic attack (TIA), and cerebral infarction without residual deficits
CPT/HCPCS: 36415; 51700; 70450; 71045; 80053; 80061; 81001; 82550; 82553; 82947; 82948; 83036; 83735; 83880; 84484; 85025; 85610; 85730; 87040; 87086; 87186; 93005; 96372; 97139; 99285; J0360; J0696; J1815; J2060; J2405; J7030

== ENCOUNTER → 2018-02-11 | Outpatient (CLI) | payer MEDICARE ==
[~2018-02-11] MED LIST changes: +ASPIRIN ENTERI325 MG PO; +CLONIDINE HCL0.1 MG PO; +DICYCLOMINE HCL10 MG PO; +ESIDRIX25 MG PO; +HUMALOG MI100 UNITS/ SC; +LEVOTHYROXINE100 MCG PO; +LISINOPRIL20 MG PO; +MELOXICAM15 MG PO; +METOPROLOL TART50 MG PO; +OXYBUTYNIN CHLO10 MG PO; +PANTOPRAZOLE SO40 MG PO; +TEMAZEPAM15 MG PO; +VITAMIN C500 M4 PO; +VITAMIN D400 UNIT PO; +VOLTAREN-XR100 MG PO; +ZYZAL PO
--- NOTE | 2018-03-03 08:28 | Diagnostic Imaging Report ---
#[id number] - [id number] #BILATERAL DIGITAL SCREENING MAMMOGRAM WITH CAD: 02/11/2018 CLINICAL: Routine screening. Comparison is made to exams dated: 12/08/2014 mammogram and 04/06/2014 mammogram - [facility]. Current study contains 7 films. The tissue of both breasts is heterogeneously dense. This may lower the sensitivity of mammography. Current study was also evaluated with a Computer Aided Detection (CAD) system. There are benign vascular calcifications in both breasts. There also are benign scattered calcifications in both breasts. Additionally there are post operative findings in the right breast with several scar markers present. There also is a biopsy clip in the left breast. No significant masses, calcifications, or other findings are seen in either breast. There has been no significant interval change. IMPRESSION: BENIGN There is no mammographic evidence of malignancy. A 1 year screening mammogram is recommended. The patient will be notified by letter of the results. Sang Lemons Jr., D.O. cw/:02/28/2018 16:43:17 Logistics Solution Manager: Hiral WESLEY(R)(M), [facility] letter sent: Compared to Prior B9 Mammogram BI-RADS: 2 Benign
== END ==
LOC: MAMMO 15:39
PROVIDERS: ATTEND Internal Medicine
DX: Z12.31 Encounter for screening mammogram for malignant neoplasm of breast (principal)
CPT/HCPCS: 77067

== ENCOUNTER 2020-01-10 01:57 | Observation (INO) | payer MEDICARE ==
[~2020-01-10] VITALS: Ht 154.9 cm; Wt 96.2 kg
[2020-01-10] VITALS (9 sets, daily range): BP systolic 105–166; BP diastolic 40–66
[2020-01-10] MEDS ORDERED: ONDANSETRON HCL INJ 2MG/ML 2ML 2 MG/ML VIAL IV STA (02:09)
[2020-01-10] MEDS ORDERED: MORPHINE SULFATE INJ 4 MG/ML INJ 1ML IV PRN (02:15)
[2020-01-10 02:33] LABS: BASOPHILS % 0.2 % (0.0-1.0); EOSINOPHILS # (AUTO) 0.3 (0.0-0.4); EOSINOPHILS % 2.5 % (0.0-6.0); HEMATOCRIT 33.2 % (34.2-44.1); HEMOGLOBIN 10.5 g/dL (12.0-16.0); LYMPHOCYTES # (AUTO) 3.1 (1.0-3.2); LYMPHOCYTES % 24.1 % (18.0-39.1); MEAN CORPUSCULAR HGB CONC 31.6 g/dL (31-35); MEAN CORPUSCULAR VOLUME 88.5 fL (81-99); MONOCYTES # (AUTO) 0.8 (0.2-0.8); MONOCYTES % 5.8 % (4.4-11.3); NEUTROPHILS # (AUTO) 8.6 (2.1-6.9); NEUTROPHILS % 66.9 % (38.7-80.0); PLATELET COUNT 328 x10e3/uL (140-360); RED BLOOD COUNT 3.75 x10e6/uL (3.6-5.1); RED CELL DISTRIBUTION WIDTH 15.4 % (11.7-14.4)
[2020-01-10 02:49] LABS: ALBUMIN 4.7 g/dL (3.5-5.0); ALBUMIN/GLOBULIN RATIO 1.3 (0.8-2.0); ANION GAP 18.1 mmol/L (8-16); CALCIUM 10.1 mg/dL (8.4-10.2); CREATININE, SERUM 1.23 mg/dL (0.57-1.11); POTASSIUM 4.1 mmol/L (3.5-5.1)
[2020-01-10 02:51] LABS: BACTERIA,URINE FEW /HPF; BILIRUBIN,URINE NEGATIVE (NEGATIVE); CLARITY,URINE SL CLOUDY (CLEAR); COLOR,URINE YELLOW (YELLOW); EPITHELIAL CELLS,URINE FEW /LPF; KETONES,URINE NEGATIVE (NEGATIVE); LEUKOCYTE ESTERASE ,URINE 1+ (NEGATIVE); NITRITE,URINE NEGATIVE (NEGATIVE); PROTEIN,URINE DIPSTICK NEGATIVE (NEGATIVE); URINE UROBILINOGEN 0.2 mg/dL (0.2 - 1); WBC,URINE (MAN) >50 /HPF (0-5)
[2020-01-10 03:01] LABS: AMPHETAMINES SCREEN,URINE NEGATIVE (NEGATIVE); BENZODIAZEPINES SCREEN,URINE POSITIVE (NEGATIVE); PHENCYCLIDINE SCREEN,URINE NEGATIVE (NEGATIVE)
[2020-01-10 03:12] LABS: CREATINE KINASE MB 1.5 ng/mL (0-5.0)
[2020-01-10] MEDS ORDERED: SODIUM CHLORIDE 0.9% 50ML 50 ML ONE (03:15)
[2020-01-10] MEDS ORDERED: IOPAMIDOL 370 MG/ML 200 ML INFUS..BTL INJ ONE (03:16)
--- NOTE | 2020-01-10 03:43 | Emergency Department Note ---
History of Present Illnes History of Present Illness Chief Complaint: Abdominal Complaints History of Present Illness This is a 74 year old female . 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 Historian: Patient Arrival Mode: Car Onset (how long ago): day(s) Radiation: Reports back Severity: moderate Onset quality: gradual ( ) Duration (how long): day(s) Timing of current episode: constant Progression: worsening Context: Reports trauma/injury Past Medical/Family History Physician Review I have reviewed the patient's past medical and family history. Any updates have been documented here. Past Medical History Recent Fever: No Clinical Suspicion of Infectio: No New/Unexplained Change in Ment: No Past Medical History: Hypertension, Diabetes, CHF, NE, CVA, Depression, Hyperlipedemia, Chronic Back Pain Other Medical History: CHRONIC BACK PAIN UNDER THE CARE OF PAIN MANAGMENT PCP DEPRESSION INCONTINECE "ACUTE SPASMATIC BACK' Past Surgical History: Cholecysctectomy, Appendectomy, Hysterectomy, T&A, Knee Replacement Other Surgery: LAP BAND RIGHT KNEE CARDIAC STENTS X3 Other Last Tetanus: unk Review of Systems Review of Systems Constitutional: Reports no symptoms EENTM: Reports no symptoms Cardiovascular: Reports no symptoms Respiratory: Reports no symptoms Gastrointestinal: Reports as per HPI, Reports abdominal pain Genitourinary: Reports no symptoms Musculoskeletal: Reports no symptoms Integumentary: Reports no symptoms Neurological: Reports no symptoms Psychological: Reports no symptoms Endocrine: Reports no symptoms Hematological/Lymphatic: Reports no symptoms Physical Exam Related Data Allergies: Coded Allergies: lisinopril (Verified Allergy, Severe, ANGIOEDEMA, 01/10/20) Sulfa (Sulfonamide Antibiotics) (Verified Allergy, Intermediate, 01/12/18) albuterol (Verified Allergy, Intermediate, rash, 12/06/16) codeine (Verified Allergy, Mild, 12/06/16) adhesive (Verified Allergy, Unknown, 12/06/16) Uncoded Allergies: STATIN (Allergy, Unknown, 01/10/20) Triage Vital Signs Vital Signs Date Time Temp Pulse Resp B/P (MAP) Pulse Ox O2 Delivery O2 Flow Rate FiO2 01/10/20 02:00 98.7 68 20 156/68 97 Room Air Vital signs reviewed: Yes Physical Exam CONSTITUTIONAL Constitutional: Present well-developed, Present well-nourished, Present morbidly obese HENT HENT: Present normocephalic, Present atraumatic, Present oropharynx clear/moist, Present nose normal HENT L/R: Present left ext ear normal, Present right ext ear normal EYES Eyes: Reports PERRL, Reports conjunctivae normal NECK Neck: Present ROM normal PULMONARY Pulmonary: Present effort normal, Present breath sounds normal CARDIOVASCULAR Cardiovascular: Present regular rhythm, Present heart sounds normal, Present capillary refill normal, Present normal rate GASTROINTESTINAL Abdominal: Present soft, Present bowel sounds normal, Present tender GENITOURINARY Genitourinary: Present exam deferred SKIN Skin: Present warm, Present dry MUSCULOSKELETAL Musculoskeletal: Present ROM normal NEUROLOGICAL Neurological: Present alert, Present oriented x 3, Present no gross motor or sensory deficits PSYCHOLOGICAL Psychological: Present mood/affect normal, Present judgement normal Results Laboratory Result Diagram: 01/10/20 0217 01/10/20 0217 Laboratory Laboratory Tests Test 01/10/20 02:17 White Blood Count 12.85 x10e3/uL (4.8-10.8) Red Blood Count 3.75 x10e6/uL (3.6-5.1) Hemoglobin 10.5 g/dL (12.0-16.0) Hematocrit 33.2 % (34.2-44.1) Mean Corpuscular Volume 88.5 fL (81-99) Mean Corpuscular Hemoglobin 28.0 pg (28-32) Mean Corpuscular Hemoglobin Concent 31.6 g/dL (31-35) Red Cell Distribution Width 15.4 % (11.7-14.4) Platelet Count 328 x10e3/uL (140-360) Neutrophils (%) (Auto) 66.9 % (38.7-80.0) Lymphocytes (%) (Auto) 24.1 % (18.0-39.1) Monocytes (%) (Auto) 5.8 % (4.4-11.3) Eosinophils (%) (Auto) 2.5 % (0.0-6.0) Basophils (%) (Auto) 0.2 % (0.0-1.0) Neutrophils # (Auto) 8.6 (2.1-6.9) Lymphocytes # (Auto) 3.1 (1.0-3.2) Monocytes # (Auto) 0.8 (0.2-0.8) Eosinophils # (Auto) 0.3 (0.0-0.4) Basophils # (Auto) 0.0 (0.0-0.1) Absolute Immature Granulocyte (auto 0.06 x10e3/uL (0-0.1) Urine Color Yellow (YELLOW) Urine Clarity Sl cloudy (CLEAR) Urine pH 7 (5 - 7) Urine Specific [place] 1.015 (1.010-1.025) Urine Protein Negative (NEGATIVE) Urine Glucose (UA) Negative (NEGATIVE) Urine Ketones Negative (NEGATIVE) Urine Blood Negative (NEGATIVE) Urine Nitrite Negative (NEGATIVE) Urine Bilirubin Negative (NEGATIVE) Urine Urobilinogen 0.2 mg/dL (0.2 - 1) Urine Leukocyte Esterase 1+ (NEGATIVE) Urine RBC 6-10 /HPF (0-5) Urine WBC >50 /HPF (0-5) Urine Epithelial Cells Few /LPF (NONE) Urine Bacteria Few /HPF (NONE) Sodium Level 133 mmol/L (136-145) Potassium Level 4.1 mmol/L (3.5-5.1) Chloride Level 94 mmol/L (98-107) Carbon Dioxide Level 25 mmol/L (22-29) Anion Gap 18.1 mmol/L (8-16) Blood Urea Nitrogen 42 mg/dL (7-26) Creatinine 1.23 mg/dL (0.57-1.11) Estimat Glomerular Filtration Rate 43 ML/MIN (60-) BUN/Creatinine Ratio 34 (6-25) Glucose Level 233 mg/dL (74-118) Calcium Level 10.1 mg/dL (8.4-10.2) Total Bilirubin 0.3 mg/dL (0.2-1.2) Aspartate Amino Transf (AST/SGOT) 9 IU/L (5-34) Alanine Aminotransferase (ALT/SGPT) 7 IU/L (0-55) Alkaline Phosphatase 112 IU/L (40-150) Creatine Kinase 71 IU/L (29-168) Total Protein 8.3 g/dL (6.5-8.1) Albumin 4.7 g/dL (3.5-5.0) Globulin 3.6 g/dL (2.3-3.5) Albumin/Globulin Ratio 1.3 (0.8-2.0) Lipase 22 U/L (8-78) Urine Opiates Screen Negative (NEGATIVE) Urine Methadone Screen Negative (NEGATIVE) Urine Barbiturates Screen Negative (NEGATIVE) Urine Phencyclidine Screen Negative (NEGATIVE) Urine Amphetamines Screen Negative (NEGATIVE) Urine Methamphetamines Screen Negative (NEGATIVE) Urine Benzodiazepines Screen Positive (NEGATIVE) Urine Cocaine Screen Negative (NEGATIVE) Urine Cannabinoids Screen Negative (NEGATIVE) Lab results reviewed: Yes Imaging Imaging results reviewed: Yes Impressions IMPRESSION: No acute abdominopelvic process. Signed by: Claude Hair MD on 01/10/2020 3:58 AM Assessment & Plan Medical Decision Making MDM 74 yo F arrived to the ED with abdominal pain, continued to complain of pain despite narcotics. Pt admitted for pain control. Assessment & Plan Final Impression: (1) Intractable abdominal pain Depart Disposition: ADMITTED Last Vital Signs Date Time Temp Pulse Resp B/P (MAP) Pulse Ox O2 Delivery O2 Flow Rate FiO2 01/10/20 02:00 98.7 68 20 156/68 97 Room Air Home Meds Reported Medications Ascorbate Calcium (VITAMIN C) 500 Mg Tablet, 500 MG PO DAILY 01/12/18 Cholecalciferol (Vitamin D3) (VITAMIN D) 400 Unit Capsule, 400 UNITS PO DAILY, #30 CAP 01/12/18 [Zyzal] No Conflict Check, 5 MG PO DAILY PRN for ALLERGY 01/12/18 Clonidine Hcl (CLONIDINE HCL) 0.1 Mg Tablet, 1 TAB PO TID, TAB 01/12/18 Dicyclomine Hcl (DICYCLOMINE HCL) 10 Mg Capsule, 20 MG PO BID 01/12/18 Diclofenac Sodium (VOLTAREN-XR) 100 Mg Tab.er.24h, 75 MG PO BID 01/12/18 Gemfibrozil (GEMFIBROZIL) 600 Mg Tablet, 600 MG PO BID 01/12/18 Aspirin (ASPIRIN ENTERIC COATED) 325 Mg Tabec, 325 MG PO DAILY, #30 TAB 01/12/18 Duloxetine Hcl (CYMBALTA) 30 Mg Capsule.dr, 60 MG PO DAILY, #30 CAP 01/12/18 Diazepam (DIAZEPAM) 5 Mg Tablet, 5 MG PO Daily PRN for ANXIETY, #30 TAB 01/12/18 Temazepam (TEMAZEPAM) 15 Mg Capsule, 30 MG PO HS PRN for INSOMNIA 01/12/18 Pantoprazole Sodium* (PROTONIX) 40 Mg Tablet.dr, 40 MG PO BID, TAB 01/12/18 Insulin Lisp Protam/Lisp Human (HUMALOG MIX 75-25 VIAL) 100 Units/Ml Ml, 140 SC QAM AND HS 01/12/18 Lisinopril (PRINAVIL / ZESTRIL) 20 Mg Tablet, 20 MG PO DAILY, #30 01/12/18 Levothyroxine Sodium (LEVOTHYROXINE SODIUM) 100 Mcg Tablet, 100 MCG PO DAILY, #90 01/12/18 Hydrochlorothiazide* (ESIDRIX*) 25 Mg Tab, 25 MG PO DAILY, #90 01/12/18 Oxybutynin Chloride (OXYBUTYNIN CHLORIDE ER) 10 Mg Tab.er.24, 10 MG PO DAILY, #90 01/12/18 Medications in the ED Morphine Sulfate 4 mg ONCE PRN IV SEVERE PAIN (7-10); Start 01/10/20 at 02:15; Stop 01/10/20 at 02:38; Status DC Ondansetron HCl 4 mg NOW STAT IV Last administered on 01/10/20at 02:53; Admin Dose 4 MG; Start 01/10/20 at 02:09; Stop 01/10/20 at 02:19; Status DC Sodium Chloride 50 ml @ ud STK-MED ONCE .ROUTE ; Start 01/10/20 at 03:15; Stop 01/10/20 at 03:09; Status DC Iopamidol 74,000 mg STK-MED ONCE INJ ; Start 01/10/20 at 03:16; Stop 01/10/20 at 03:09; Status DC TATIANA WARNER DO Jan 10, 2020 03:43
[2020-01-10] MEDS ORDERED: SODIUM CHLORIDE 0.9% 1000ML 1,000 ML IV ONE (03:45)
--- NOTE | 2020-01-10 04:02 | Diagnostic Imaging Report ---
EXAM: CT Abdomen and Pelvis WITH contrast INDICATION: abd pain COMPARISON: None. TECHNIQUE: Abdomen and pelvis were scanned utilizing a multidetector helical scanner from the lung base to the pubic symphysis after administration of IV contrast. Coronal and sagittal reformations were obtained. Routine protocol was performed. Scan was performed when during portal venous phase. IV CONTRAST: 100 mL of Isovue 370 ORAL CONTRAST: None COMPLICATIONS: None FINDINGS: LOWER THORAX: Mild dependent atelectasis. Mild cardiomegaly. HEPATOBILIARY: No focal hepatic lesions. No biliary ductal dilation. GALLBLADDER: Cholecystectomy clips. SPLEEN: No splenomegaly. PANCREAS: No focal masses or ductal dilatation. ADRENALS: No adrenal nodules KIDNEYS/URETERS: Kidneys enhance symmetrically. No hydronephrosis. 1 cm simple appearing cyst at the inferior pole the left kidney. No stones. GI TRACT: No abnormal distention, wall thickening, or evidence of bowel obstruction. Appendix is not clearly identified. There is however no fat stranding or adenopathy in the right lower quadrant to suggest appendicitis. Gastric band. PELVIC ORGANS/BLADDER: Hysterectomy. Urinary bladder is partially distended. LYMPH NODES: No lymphadenopathy. VESSELS: Mixed eccentric plaque in the SMA produce moderate stenosis. PERITONEUM / RETROPERITONEUM: No free air or fluid. BONES: Unremarkable. SOFT TISSUES: Small fat-containing umbilical hernia. IMPRESSION: No acute abdominopelvic process. Signed by: Claude Hair MD on 01/10/2020 3:58 AM
--- NOTE | 2020-01-10 05:12 | NUR ---
REPORT RECEIVED FROM ELECTION JUDGE. PT CAME IN WITH BACK PAIN. PT REPORTS SHE COULD NOT SLEEP AFTER AMBIEN. PT IS ALERT AND ORIENTED X3. RESPIRATIONS EVEN AND UNLABORED. PT HAD BACK SPASMS IN PAST WHICH REQUIRE DILAUDID SHOT. PT VOID PER BEDSIDE COMMODE. HX DIABETES.LAST BM DIARRHEA YESTERDAY.CALL LIGHT WITHIN REACH. BED LOCKED AND IN LOW POSITION.20 G SL IN RT FOREARM.
[2020-01-10] MEDS ORDERED: MORPHINE SULFATE 2 MG/ML SYR 1ML IV PRN (05:15)
[2020-01-10] MEDS ORDERED: AMBIEN10 MG PO (06:05)
--- NOTE | 2020-01-10 07:00 | NUR ---
RCD PT AT BED PT IS ALERT AND ORIENTED PT RESTING ON BED IV PATENT BY SALINE FLUSH BED LOW AND LOCKED CALL LIGHT IN REACH
[2020-01-10] MEDS ORDERED: SODIUM CHLORIDE 0.9% 1000ML 1,000 ML IV SCH (07:15)
[2020-01-10] MEDS ORDERED: INSULIN GLARGINE 100 UNITS/ML VIAL SQ SCH (07:15)
[2020-01-10] MEDS: TICAGRELOR 90 MG TABLET PO SCH ×2 (07:30→16:30)
[2020-01-10] MEDS: HYDROMORPHONE 1MG/1ML INJ IV PRN (07:40)
[2020-01-10] MEDS: INSULIN LISPRO 100 UNIT/1 ML 3ML VIAL SQ SCH ×3 (08:00→17:00)
--- NOTE | 2020-01-10 08:40 | NUR ---
PAGED AND NOTIFIED THE BNP REPORT TO DR EATON GOT THE ORDER TO DC IV FLUID
[2020-01-10] MEDS ORDERED: LASIX40 MG PO (10:55)
[2020-01-10] MEDS ORDERED: HYDRALAZINE HCL25 MG PO (10:55)
[2020-01-10] MEDS ORDERED: ATIVAN1 MG PO (10:55)
[2020-01-10] MEDS ORDERED: GABAPENTIN300 MG PO (10:55)
[2020-01-10] MEDS ORDERED: ATROVASTATIN (10:55)
[2020-01-10] MEDS ORDERED: AMLODIPINE BESY10 MG PO (10:55)
[2020-01-10] MEDS ORDERED: MONTELUKAST SOD10 MG PO (10:55)
[2020-01-10] MEDS ORDERED: SEROQUEL XR1 EACH PO (10:55)
[2020-01-10] MEDS ORDERED: BRILINTA90 MG PO (10:55)
--- NOTE | 2020-01-10 11:00 | NUR ---
TALKED TO PHARMACIST ON [facility] AT [place] ( [place]) AND UPDATE THE HOME MEDS AND NOTIFIED DR EATON GOT THE ORDER TO RENEW THW THE MEDICATIONS
--- NOTE | 2020-01-10 11:28 | History and Physical ---
CHIEF COMPLAINT: A 74-year-old female, who comes in with abdominal pain and back pain. HISTORY PRESENT ILLNESS: A 74-year-old female, who started out with abdominal pain in epigastric area and also back pain with muscle spasms, started after eating last night. The patient's pain got up to 10/10 with right-sided back pain and patient came into the emergency room, given history of pancreatitis, was admitted for back pain and pancreatitis, and intractable pain with nausea. Currently, patient has a pain scale of about 8/10 post morphine. PAST MEDICAL HISTORY: 1. History of hypertension. 2. History of hyperlipidemia. 3. History of pancreatitis in the past. 4. History of MO in the past. 5. History of diabetes mellitus. 6. History of depression. 7. History of chronic low back pain. PAST SURGICAL HISTORY: 1. History of right total knee replacement. 2. History of cholecystectomy. 3. History of appendectomy. 4. History of hysterectomy. 5. History of lap band surgery. 6. History of cardiac stents x3 by Dr. Abreu in September. MEDICATIONS: She takes at home include: 1. Amlodipine, dose unknown. 2. Aspirin once a day. 3. Brilinta once a day. 4. Vitamin D3. 5. Lasix, unknown dose. 6. Gabapentin 100 mg twice a day. 7. Gemfibrozil. 8. Hydralazine. 9. Oxybutynin. 10. Pantoprazole 40. 11. Ambien 10 mg at night time. 12. Question on whether she takes or not. ALLERGIES: ALLERGIC TO STATIN AND ALSO ADHESIVES, ALBUTEROL, CODEINE, AND LISINOPRIL. REVIEW OF SYSTEMS: Negative for chest pain, positive for shortness of breath. Positive for nausea. No vomiting. No diarrhea. No constipation. No rectal bleeding. Positive low back pain. Positive abdominal pain. No diplopia. No blurry vision either. PHYSICAL EXAMINATION: VITAL SIGNS: Temperature is 98.0, pulse of 68, respirations of 18, blood pressure is 166/60, pulse oximetry of 98% on 2 L of nasal cannula. HEENT: Normocephalic and atraumatic. The patient is in pain, grimacing in pain. CVS: S1 and S2, normal regular rhythm. ABDOMEN: Soft. There is a presence of a lap band port and otherwise nontender. BACK: Tender in the L4-L5 area and also thoracic area. EXTREMITIES: No clubbing, no cyanosis. Positive for 1+ edema. LABORATORY VALUES: Sodium was 133, potassium of 4.1, BUN of 42, creatinine of 1.23, total bilirubin of 0.3. Troponin was less than 0.037. Rest of the cardiac enzymes are normal. TOXICOLOGY: Positive for benzodiazepines, which she takes. SEROLOGY: Coronavirus is pending. Urine was more than WBCs and RBCs with positive. No new knee leukocyte esterase or nitrites present. IMAGING STUDIES: Abdominal CT done this morning shows no acute abdominal pelvic process. ASSESSMENT: This is . Donya Nielsen with abdominal pain, possibly radicular in nature. PLAN: 1. Continue with gabapentin. The patient will be given pain medication to control the pain. 2. Intractable pain with nausea. Stop the morphine. Give the patient Dilaudid which has helped her in the past 1 mg q.3 hours. Continue the same. 3. Hypertension, we will have to get the dosages of her medications, restart when dose is available. 4. History of congestive heart failure, continue with Lasix and strict I's and O's. 5. Hypertension, continue current medication. 6. Hyperlipidemia, continue with statin after doses determined. Further recommendation per clinical course. We will continue to monitor the patient. The patient's additional diagnosis includes acute on chronic renal failure. Trend her creatinine levels. Further recommendation per clinical course. MD JESSICA Agustin/GEORGIEL /[id number]
[2020-01-10] MEDS: QUETIAPINE FUMARATE 25 MG TAB PO SCH ×2 (11:30→16:35)
[2020-01-10] MEDS: FUROSEMIDE 40 MG TAB PO SCH (11:30)
[2020-01-10] MEDS ORDERED: LORAZEPAM 1 MG TAB PO PRN (12:00)
[2020-01-10] MEDS: HYDRALAZINE HCL 25 MG TAB PO SCH ×3 (13:00→21:00)
[2020-01-10] MEDS: PANTOPRAZOLE SOD 40 MG TABEC PO SCH (16:30)
[2020-01-10] MEDS: AMLODIPINE BESYLATE 10 MG TAB PO SCH (16:35)
[2020-01-10] MEDS: GABAPENTIN 300 MG CAP PO SCH (16:35)
[2020-01-10] MEDS: GEMFIBROZIL 600 MG TAB PO SCH (16:35)
--- NOTE | 2020-01-10 18:41 | NUR ---
PT RESTING ON BED BED SIDE REPORT GIVEN TO ONCOMING NURSE
--- NOTE | 2020-01-10 19:50 | NUR ---
RECEIVED PT IN BED AOX3 ,RESPIRATIONS ARE EVEN AND UNLABORED ,,TELE SHOWS SR ,CALL LIGHT WITH IN REACH CONTINUE TO MONITOR
[2020-01-10] MEDS: MONTELUKAST SODIUM 10 MG TAB PO SCH (20:55)
[2020-01-10] MEDS ORDERED: ZOLPIDEM TARTRATE 10 MG TAB PO PRN (21:00)
[2020-01-10] MEDS: ATORVASTATIN 20 MG TAB PO SCH (21:01)
[2020-01-11] VITALS (8 sets, daily range): BP systolic 126–168; BP diastolic 46–52
[2020-01-11] MEDS: HYDROMORPHONE 1MG/1ML INJ IV PRN (04:00)
--- NOTE | 2020-01-11 05:24 | NUR ---
PT C/O PAIN AND ANXIETY ,GIVEN DILAUDID AND ATIVAN .PT RESTING ,CALL LIGHT WITH IN REACH ,CONTINUE TO MONITOR
[2020-01-11] MEDS: LEVOTHYROXINE SODIUM 100 MCG TAB PO SCH (05:37)
[2020-01-11 06:09] LABS: BASOPHILS % 0.2 % (0.0-1.0); EOSINOPHILS # (AUTO) 0.2 (0.0-0.4); EOSINOPHILS % 1.9 % (0.0-6.0); HEMATOCRIT 32.7 % (34.2-44.1); HEMOGLOBIN 9.9 g/dL (12.0-16.0); LYMPHOCYTES # (AUTO) 1.8 (1.0-3.2); LYMPHOCYTES % 16.7 % (18.0-39.1); MEAN CORPUSCULAR HEMOGLOBIN 28.4 pg (28-32); MEAN CORPUSCULAR HGB CONC 30.3 g/dL (31-35); MONOCYTES # (AUTO) 0.5 (0.2-0.8); MONOCYTES % 4.9 % (4.4-11.3); NEUTROPHILS # (AUTO) 8.2 (2.1-6.9); PLATELET COUNT 315 x10e3/uL (140-360); RED BLOOD COUNT 3.48 x10e6/uL (3.6-5.1); RED CELL DISTRIBUTION WIDTH 15.6 % (11.7-14.4)
[2020-01-11 06:32] LABS: ALBUMIN 4.4 g/dL (3.5-5.0); ALBUMIN/GLOBULIN RATIO 1.4 (0.8-2.0); ANION GAP 16.8 mmol/L (8-16); CALCIUM 9.2 mg/dL (8.4-10.2); CREATININE, SERUM 1.29 mg/dL (0.57-1.11); POTASSIUM 4.8 mmol/L (3.5-5.1)
[2020-01-11 06:53] LABS: MAGNESIUM 2.3 MG/DL (1.3-2.1)
--- NOTE | 2020-01-11 07:11 | NUR ---
BEDSIDE REPORT GIVEN TO THE ONCOMING NURSE
[2020-01-11] MEDS: INSULIN GLARGINE 100 UNITS/ML VIAL SQ SCH (08:01)
[2020-01-11] MEDS: INSULIN LISPRO 100 UNIT/1 ML 3ML VIAL SQ SCH ×3 (08:03→17:25)
--- NOTE | 2020-01-11 09:05 | NUR ---
Pt. expressed no spiritual or emotional concerns at this time. Marketing Communications Specialist provided hospitality and information on how to reach rail car driver, if needed. No need to follow at this time. JOSE HANEY Marketing Communications Specialist Spiritual Care Department O: [phone]
[2020-01-11] MEDS: ONDANSETRON HCL INJ 2MG/ML 2ML 2 MG/ML VIAL IV PRN (10:35)
[2020-01-11] MEDS: TICAGRELOR 90 MG TABLET PO SCH ×2 (10:39→18:03)
[2020-01-11] MEDS: PANTOPRAZOLE SOD 40 MG TABEC PO SCH ×2 (10:39→18:03)
[2020-01-11] MEDS: ASPIRIN 325 MG TAB EC PO SCH (10:51)
[2020-01-11] MEDS: HYDRALAZINE HCL 25 MG TAB PO SCH ×4 (10:51→21:02)
[2020-01-11] MEDS: FUROSEMIDE 40 MG TAB PO SCH (10:52)
[2020-01-11] MEDS: OXYBUTYNIN CHLORIDE XL 5 MG TAB PO SCH (10:52)
[2020-01-11] MEDS: GABAPENTIN 300 MG CAP PO SCH ×2 (10:53→18:03)
[2020-01-11] MEDS: AMLODIPINE BESYLATE 10 MG TAB PO SCH (10:53)
[2020-01-11] MEDS: GEMFIBROZIL 600 MG TAB PO SCH ×2 (10:53→18:03)
[2020-01-11] MEDS: QUETIAPINE FUMARATE 25 MG TAB PO SCH ×2 (10:54→18:03)
[2020-01-11] MEDS: CHOLECALCIFEROL 400 UNIT TAB PO SCH (10:55)
[2020-01-11] MEDS: MONTELUKAST SODIUM 10 MG TAB PO SCH (18:04)
[2020-01-11] MEDS ORDERED: QUETIAPINE FUMARATE 25 MG TAB PO SCH (18:15)
[2020-01-11] MEDS ORDERED: LORAZEPAM 0.5 MG TAB PO PRN (18:15)
--- NOTE | 2020-01-11 19:20 | Consultation ---
DATE OF CONSULTATION: 01/11/2020 Psychiatric Consultation REASON FOR CONSULTATION: To evaluate the patient's anxiety. HISTORY OF PRESENT ILLNESS: The patient is a 74-year-old female, admitted to the hospital for intractable abdominal pain. Psychiatric consultation is called to evaluate the patient's mood. As per the medical record, the patient has history of hypertension, hyperlipidemia, pancreatitis in the past, NM in the past, diabetes, depression, and chronic lower back pain. Upon evaluation today, the patient is found to be in the room. She is alert, awake, and oriented to situation. The patient falls asleep easily multiple times during the assessment. She claims that she is depressed and she is anxious due to heart issues. She denies any feeling of hopelessness or helplessness. She denies any suicidal or homicidal ideation. She denies any hallucination. She complained of poor sleep and poor appetite. PAST PSYCHIATRIC HISTORY: The patient denies past psychiatric history. She denies past suicide attempts. She denies alcohol or drug use. The patient denies past psychiatric history, although as per record, the patient has history of depression. FAMILY HISTORY: Possible father with some psychiatric illness. SOCIAL HISTORY: The patient states she lives with her daughter. MENTAL STATUS EXAM: The patient is an elderly female. The patient is oriented to situation. She is obese. Mood is anxious and depressed. Affect is blunt. Psychomotor state is retardation. Denies suicidal or homicidal ideation. Denies any hallucination. Thought process is concrete. No delusion elicited. Insight and judgment are fair. Memory appears to be grossly intact. CURRENT MEDICATIONS: 1. Singulair. 2. Hydralazine. 3. Seroquel 25 mg p.o. b.i.d. 4. Pantoprazole. 5. Lopid. 6. Neurontin 300 mg p.o. b.i.d. 7. Insulin. 8. Vitamin D3. 9. Norvasc. 10. Oxybutynin. 11. Lasix. 12. Aspirin. 13. Ondansetron. 14. Levothyroxine. 15. Ativan 1 mg p.o. q.6 hours as needed. 16. Dilaudid. 17. Atorvastatin. 18. Ambien p.r.n. CURRENT LABORATORY DATA: WBC 10.77, RBC 3.48, hemoglobin 9.9, hematocrit 32.7, and platelets 315. Sodium 137, potassium 4.8, chloride 97, BUN 38, and creatinine 1.29. AST 11 and ALT 8. ASSESSMENT: Major depressive disorder, recurrent, moderate. PLAN: 1. To discontinue Seroquel. Reduce Ativan to 0.5 mg p.o. q.6 hours as needed for anxiety. Add low-dose Remeron. 2. Monitor for mood. 3. Supportive therapy. Dictated by Mihaela Holt PA-C Peng Shultz MD QTV/MODL /[id number]
[2020-01-11] MEDS ORDERED: MIRTAZAPINE 15 MG TAB PO SCH (21:00)
[2020-01-11] MEDS: ATORVASTATIN 20 MG TAB PO SCH (21:02)
[2020-01-12] VITALS: BP 131/46
--- NOTE | 2020-01-12 02:57 | NUR ---
Pt used BSC, back in bed, bed alarm on, call light within reach. denied pain at this time. no needs voiced.
[2020-01-12 04:00] VITALS: BP 123/45
[2020-01-12] MEDS ORDERED: ATIVAN1 MG PO (05:29)
[2020-01-12] MEDS: LEVOTHYROXINE SODIUM 100 MCG TAB PO SCH (05:59)
[2020-01-12] MEDS: INSULIN GLARGINE 100 UNITS/ML VIAL SQ SCH (06:01)
--- NOTE | 2020-01-12 07:00 | NUR ---
bedside shift report received from PM nurse. pt in stable condition.
[2020-01-12 07:14] VITALS: BP 123/45
[2020-01-12 08:01] VITALS: BP 131/52
[2020-01-12] MEDS: INSULIN LISPRO 100 UNIT/1 ML 3ML VIAL SQ SCH ×2 (08:15→12:00)
--- NOTE | 2020-01-12 08:25 | NUR ---
pt eating breakfast, tolerating well. pt denies any complaints at this time. in stable condition.
[2020-01-12] MEDS: ONDANSETRON HCL INJ 2MG/ML 2ML 2 MG/ML VIAL IV PRN (09:38)
[2020-01-12] MEDS: HYDROMORPHONE 1MG/1ML INJ IV PRN (09:39)
[2020-01-12 12:08] VITALS: BP 129/51
[2020-01-12] MEDS: PANTOPRAZOLE SOD 40 MG TABEC PO SCH (12:59)
[2020-01-12] MEDS: ASPIRIN 325 MG TAB EC PO SCH (12:59)
[2020-01-12] MEDS: OXYBUTYNIN CHLORIDE XL 5 MG TAB PO SCH (12:59)
[2020-01-12] MEDS: TICAGRELOR 90 MG TABLET PO SCH (12:59)
[2020-01-12] MEDS: HYDRALAZINE HCL 25 MG TAB PO SCH ×2 (12:59→13:00)
[2020-01-12] MEDS: FUROSEMIDE 40 MG TAB PO SCH (13:00)
[2020-01-12] MEDS: CHOLECALCIFEROL 400 UNIT TAB PO SCH (13:00)
[2020-01-12] MEDS: AMLODIPINE BESYLATE 10 MG TAB PO SCH (13:00)
[2020-01-12] MEDS: GEMFIBROZIL 600 MG TAB PO SCH (13:00)
[2020-01-12] MEDS: GABAPENTIN 300 MG CAP PO SCH (13:00)
--- NOTE | 2020-01-13 10:23 | Discharge Summary ---
DISCHARGE DIAGNOSES: 1. Pancreatitis. 2. Anxiety disorder. 3. Diabetes. HISTORY OF PRESENT ILLNESS AND HOSPITAL COURSE: The patient is a lady, who has history of pancreatitis, came in with severe abdominal pain, started about a day prior to admission, that she says that is similar to her previous pancreatitis attack, so she was brought in, placed on IV fluids, n.p.o., and pain medicine. Her chemical analysis for pancreatitis is unremarkable, but of note, the patient has been having lot of severe anxiety recently due to the of her brother, her failing health, and the COVID issues and family issues. So, I had the Psychiatry come see the patient while she was in the hospital since few things that we tried as an outpatient having seem to really help her much from her anxiety standpoint. They came and placed her on some Remeron, which the patient stated helped tremendously, so at the time of discharge, she was eating well. Abdominal pain resolved. She was feeling much better, wanting to go home, so she was discharged home with continuation of her home medication with the addition of Remeron and decrease of her Ativan to half a dose, and she will follow up with me in 1 to 2 weeks. Please see hospital chart for full details. MD ANTON Daniels/LENNOX /[id number]
--- OUTSIDE RECORDS SUMMARY | 2020-01-17 14:18 | XMS REPORT | Continuity of Care Document ---
Author Author [facility] t Organization [facility] Address [address] [place] [address] Phone Unavailable Care Team Providers Care Bulk Receiver Name Role Phone SAI BOWMAN, MD PAEZ PCP Harpal WARNER AMBICA Attphys Unavailable JEANNINE GIBBS Attphys Unavailable George MCDERMOTT LAIRD Attphys Unavailable JEANNINE GIBBS Admphys Unavailable Payers Payer Name Policy Type Policy Number Effective Date Expiration Date Harpal Gaytan Medicare Advantage [id number] 2016 00:00:00 [facility] Problems Condition Name Condition Details Condition Category Status Onset Date Resolution Date Last Treatment Date Treating Clinician Comments Source Cerebrovascular accident (CVA) Stroke Problem Active 2015-03-04 00:00: 00 [facility] Hypertension Hypertension Problem Active 2015-03-04 00:00:00 [facility] Allergic reaction Allergic reaction Problem Active [facility] Paresthesia Paresthesia Problem Active [facility] Aphasia Aphasia Problem Active [facility] Hypercalcemia Hypercalcemia Problem Active [facility] Type 2 diabetes mellitus with hyperglycemia Hyperglyce mena due to type 2 diabetes mellitus Problem Active [facility] Hyponatremia Hyponatremia Problem Active [facility] Noncompliance with treatment Non compliance with medical treatme nt Problem Active [facility] Transient cerebral ischemia Problem Active [facility] Intractable abdominal pain Problem Active [facility] Allergies, Adverse Reactions, Alerts Allergy Name Allergy Type Status Severity Reaction(s) Onset Date Inacti ve Date Treating Clinician Comments Source Lisinopril Allergy to substance Active Severe ANGIOEDEMA 2020-01-10 00 :00:00 [facility] STATIN Allergy to substance Active 2020-01-10 00:00:00 [facility] Sulfa (Sulfonamide Antibiotics) Allergy to substance Active Moder ate 2018-01-12 00:00:00 [facility] Codeine Allergy to substance Active Mild 2016-12-06 00:00:00 [facility] Albuterol Allergy to substance Active Moderate rash 2016-12-06 00:00:00 [facility] Adhesive Allergy to substance Active 2016-12-06 00:00:00 [facility] Family History Family Member Diagnosis Comments Start Date Stop Date Source 33 FATHER Family history of chronic obstructive pulmonary disease [facility] 32 MOTHER Family history of chronic obstructive pulmonary disease [facility] 32 MOTHER Family history of asthma [facility] 09 BROTHER Family history of chronic obstructive pulmonary disease [facility] 09 BROTHER Family history of diabetes mellitus [facility] 09 SISTER Family history of diabetes mellitus [facility] 09 SISTER Family history of chronic obstructive pulmonary disease [facility] 09 SISTER Family history of asthma [facility] 18 DAUGHTER Family history of malignant neoplasm of breast [facility] Social History Social Habit Start Date Stop Date Quantity Comments Source Sex Assigned At 1945 00:00:00 1945 00:00:00 Female [facility] Medications Ordered Medication Name Filled Medication Name Start Date Stop Da te Current Medication? Ordering Clinician Indication Dosage Frequency Signature (SIG) Comments Components Source Lorazepam (Ativan) 1 Mg TABLET Lorazepam (Ativan) 1 Mg TABLE T 2020-01-12 05:29:00 Yes .5 Every 6 Hours as needed for A nxiety [facility] Amlodipine Besylate Amlodipine Besylate Yes 10 Daily [facility] Aspirin (Aspirin Enteric Coated) 325 Mg TABEC Aspirin (Aspirin Enteric Coated) 325 Mg TABEC Yes 81 Daily [facility] Atrovastatin Atrovastatin Yes 40 Bedtime [facility] Cholecalciferol (Vitamin D3) (Vitamin D) 400 Unit CAPS ULE Cholecalciferol (Vitamin D3) (Vitamin D) 400 Unit CAPSULE Yes 400 Daily [facility] Furosemide (Lasix) 40 Mg TABLET Furosemide (Lasix) 40 Mg TABLET Yes 40 Daily [facility] Gabapentin Gabapentin Yes 300 Twice A Day [facility] Gemfibrozil Gemfibrozil Yes 600 Twice A Day [facility] Hydralazine Hcl Hydralazine Hcl Yes 25 [place] es Daily [facility] Levothyroxine Sodium Levothyroxine Sodium Yes 100 Daily [facility] Montelukast Sodium Montelukast Sodium Yes 10 Da gómez [facility] Oxybutynin Chloride (Oxybutynin Chloride Er) 10 Mg TAB .ER.24 Oxybutynin Chloride (Oxybutynin Chloride Er) 10 Mg TAB.ER.24 Yes 10 Daily [facility] Pantoprazole Sodium (Protonix) 40 Mg TABLET. Pantopr azole Sodium (Protonix) 40 Mg TABLET. Yes 40 Twice A Day C [facility] [place] [place] Ticagrelor (Brilinta) 90 Mg TABLET Ticagrelor (Brilinta) 90 Mg TABLET Yes Twice A Day [facility] Zolpidem Tartrate (Ambien) 10 Mg TABLET Zolpidem Tartrate (A mbien) 10 Mg TABLET Yes 5 Bedtime as needed for Sleep [facility] Lorazepam (Ativan) 1 Mg TABLET Lorazepam (Ativan) 1 Mg TABLET 2020-01-12 00:00:00 No Every [address] [facility] [place] [place] Quetiapine Fumarate (Seroquel Xr) 1 Each [id number] Qu etiapine Fumarate (Seroquel Xr) 1 Each [id number] 2020-01-12 00:00:00 No 25 Twice A Day [facility] Ascorbate Calcium (Vitamin C) 500 Mg TABLET Ascorbate Calcium (Vitamin C) 500 Mg TABLET 2020-01-10 00:00:00 No 500 Daily [facility] Clonidine Hcl Clonidine Hcl 2020-01-10 00:00:00 No 1 Three Times A Day [facility] Diazepam Diazepam 2020-01-10 00:00:00 No 5 Daily as needed for Anxiety [facility] Diclofenac Sodium (Voltaren-Xr) 100 Mg TAB.ER.24H Dicl ofenac Sodium (Voltaren- Xr) 100 Mg TAB.ER.24H 2020-01-10 00:00:00 No 75 Tw ice A Day [facility] Dicyclomine Hcl Dicyclomine Hcl 2020-01-10 00:00:00 No 20 Twice A Day [facility] Duloxetine Hcl (Cymbalta) 30 Mg CAPSULE. Duloxetine Hcl (Cymbalta) 30 Mg CAPSULE. 2020-01-10 00:00:00 No 60 Daily [facility] Hydrochlorothiazide (Esidrix*) 25 Mg TAB Hydrochloroth iazide (Esidrix*) 25 Mg TAB 2020-01-10 00:00:00 No 25 Daily [facility] Insulin Lisp Protam/Lisp Human (Humalog Mix 75-25 Vial ) 100 Units/Ml ML Insulin Lisp Protam/Lisp Human (Humalog Mix 75-25 Vial) 100 Units/Ml ML 2020-01-10 00:00:00 No 140 Qam And Hs [facility] Lisinopril (Prinavil / Zestril) 20 Mg TABLET Lisinopri l (Prinavil / Zestril) 20 Mg TABLET 2020-01-10 00:00:00 No 20 Daily [facility] Temazepam Temazepam 2020-01-10 00:00:00 No 30 Bedtime as needed for Insomnia [facility] Metformin Hcl Metformin Hcl 2018-01-16 00:00:00 No 500 Twice A Day [facility] Duloxetine Hcl (Cymbalta) 30 Mg CAPSULE. Duloxetine Hcl (Cymbalta) 30 Mg CAPSULE. 2018-01-12 00:00:00 No 60 Daily as need ed for Anxiety [facility] Meloxicam Meloxicam 2018-01-12 00:00:00 No 15 Daily [facility] Atorvastatin Calcium Atorvastatin Calcium 2016-12-06 00:00:00 No 1 Bedtime [facility] Nitrofurantoin Macrocrystal (Macrodantin) 100 Mg CAPSU LE Nitrofurantoin Macrocrystal (Macrodantin) 100 Mg CAPSULE 2016-12-06 00:00:00 No 100 Twice A Day [facility] Aspirin Aspirin 2016-05-27 00:00:00 No 81 Daily [facility] Benazepril/Hydrochlorothiazide (Benazepril-Hctz 20-25 Mg Tab) 1 Each TABLET Benazepril/Hydrochlorothiazide (Benazepril-Hctz 20-25 Mg Tab) 1 Each TABLET 2015-07-30 00:00:00 No 1 Daily [facility] Diazepam Diazepam 2015-07-30 00:00:00 No 5 Daily [facility] Glimepiride Glimepiride 2015-07-30 00:00:00 No 4 T wice A Day [facility] Hydrocodone Bit/Acetaminophen (Gerry 7.5-325 Tablet) 1 Each TABLET Hydrocodone Bit/Acetaminophen (Gerry 7.5-325 Tablet) 1 Each TABLET 00:00:00 No 1 [facility] Metoprolol Metoprolol 2015-07-30 00:00:00 No 50 Twi ce A Day [facility] Solifenacin Succinate (Vesicare) 10 Mg TABLET Solifena juan jose Succinate (Vesicare) 10 Mg TABLET 2015-07-30 00:00:00 No 10 Daily [facility] Hydrocodone Hydrocodone 2013-11-26 00:00:00 No [facility] Hydrocodone Bit/Acetaminophen (Hydrocodone-Apap 10-325 Tablet) 1 Each TABLET Hydrocodone Bit/Acetaminophen (Hydrocodone-Apap 10-325 Tablet) 1 Each TABLET 2013-11-26 00:00:00 No 1 As Needed [facility] Fenofibrate Nanocrystallized (Tricor) 48 Mg TABLET Fen ofibrate Nanocrystallized (Tricor) 48 Mg TABLET 2013-04-16 00:00:00 [facility] Gabapentin Gabapentin 2013-04-16 00:00:00 [facility] Insulin Aspart (Novolog 70/30 10ML Vial) 100 Units/Ml ML Insulin Aspart (Novolog 70/30 10ML Vial) 100 Units/Ml ML 2013-04-16 00:00:00 [facility] Benazepril Benazepril 2011-05-20 00:00:00 [facility] Levothyroxine Levothyroxine 2011-05-20 00:00:00 [facility] Novolog Novolog 2011-05-20 00:00:00 [facility] Premarin Premarin 2011-05-20 00:00:00 [facility] Tricor Tricor 2011-05-20 00:00:00 [facility] Vital Signs Vital Name Observation Time Observation Value Comments Source Body Temperature 2020-01-12 12:08:00 97.5 [degF] [facility] BMI (Body Mass Index) 2020-01-10 05:07:00 40.1 kg/m2 [facility] Weight 2020-01-10 02:00:00 212 [lb_av] [facility] Procedures Procedure Date / Time Performed Performing Clinician [facility] e Computed tomography of abdomen and pelvis with contrast 00:00:00 [facility] Plan of Care Planned Activity Planned Date Details Comments Source Instructions Abdominal [facility] Instructions Back Pain [facility] Encounters Start Date/Time End Date/Time Encounter Type Admission Type Attendi [facility] Facility Care Department Encounter ID Source 2020-01-10 04:44:00 2020-01-12 13:25:00 Discharged Inpatient (obs) 1 TATIANA WARNER [facility] [id number] [facility] 2019-11-20 20:54:00 2019-11-20 16:42:00 Inpatient E [id number] 2019-09-22 15:51:00 2019-09-21 15:26:00 Inpatient U [facility] CAR [id number] 2019-09-01 05:15:00 2019-09-01 02:55:00 Inpatient E [id number] 2018-01-12 05:53:00 2018-01-16 13:05:00 Discharged Inpatient 1 HANNAH MCDERMOTT [facility] [id number] [facility] 2017-08-29 08:21:00 2017-08-30 17:30:00 Discharged Inpatient ER JEANNINE GIBBS [facility] [id number] [facility] 2017-04-23 22:11:00 2017-04-24 04:25:00 Departed Emergency Room ER HANNAH MCDERMOTT [facility] [id number] [facility] 2016-12-06 15:45:00 2016-12-07 13:40:00 Discharged Inpatient (obs) [facility] [id number] [facility] Results Test Description Test Time Test Comments Results Result Comments Source Blood leukocytes automated count (number/volume) 2020-01-11 05:15:00 Test Item White Blood Count (test code = 6690-2) 10.77 4.8-10.8 [facility] automated count (number/volume)2020-01-11 05:15:00* Test Item Value Reference Range Interpretation Comments Red Blood Count (test code = 789-8) 3.48 3.6-5.1 [facility] hemoglobin measurement (moles/volume)2020-01-11 05:15:00* Test Item Value Reference Range Interpretation Comments Hemoglobin (test code = 26772-5) 9.9 12.0-16.0 [facility] Club[facility] blood hematocrit (volume fraction)2020-01-11 05:15:00* Test Item Value Reference Range Interpretation Comments Hematocrit (test code = 4544-3) 32.7 34.2-44.1 [facility] Club[facility] erythrocyte mean corpuscular [id number] 05:15:00* Test Item Value Reference Range Interpretation Comments Mean Corpuscular Volume (test code = 787-2) 94.0 81-99 [facility] erythrocyte mean corpuscular hemoglobin (mass per erythrocyte)2020-01-11 05:15:00* Test Item Value Reference Range Interpretation Comments Mean Corpuscular Hemoglobin (test code = 785-6) 28.4 28-32 [facility] Club[facility] erythrocyte mean corpuscular hemoglobin concentration measurement (mass/volume)2020-01-11 05:15:00* Test Item Value Reference Range Interpretation Comments Mean Corpuscular Hemoglobin Concent (test code = 786-4) 30.3 31-35 [facility] ClubRDW [id number] 05:15:00* Test Item Value Reference Range Interpretation Comments Red Cell Distribution Width (test code = 48350-3) 15.6 11.7 -14.4 [facility] Club[facility] blood platelet count (count/volume)2020-01-11 05:15:00* Test Item Value Reference Range Interpretation Comments Platelet Count (test code = 777-3) 315 140-360 [facility] ClubAutcritical access hospitaled blood segmented neutrophil count as percentage of total [id number] 05:15:00* Test Item Value Reference Range Interpretation Comments Neutrophils (%) (Auto) (test code = 89578-3) 76.0 38.7-80.0 [facility] Club[facility] blood lymphocyte count as percentage ot total [id number] 05:15:00* Test Item Value Reference Range Interpretation Comments Lymphocytes (%) (Auto) (test code = 736-9) 16.7 18.0-39.1 [facility] ClubAutom[facility] blood monocyte count as percentage of total [id number] 05:15:00* Test Item Value Reference Range Interpretation Comments Monocytes (%) (Auto) (test code = 5905-5) 4.9 4.4-11.3 [facility] Club[facility] blood eosinophil count as percentage of total [id number] 05:15:00* Test Item Value Reference Range Interpretation Comments Eosinophils (%) (Auto) (test code = 713-8) 1.9 0.0-6.0 [facility] ClubAutom[facility] blood basophil count as percentage of total veqbvgnuoh9670-48-23 05:15:00* Test Item Value Reference Range Interpretation Comments Basophils (%) (Auto) (test code = 706-2) 0.2 0.0-1.0 [facility] ClubFluoroscopic procedure less than one hour [id number] 05:15:00* Test Item Value Reference Range Interpretation Comments IM GRANULOCYTES % (test code = IM GRANULOCYTES %) 0.3 0.0- 1.0 [facility] ClubAutom[facility] blood neutrophil count 2020-01-11 05:15:00* Test Item Value Reference Range Interpretation Comments Neutrophils # (Auto) (test code = 751-8) 8.2 2.1-6.9 [facility] Club[facility] lymphocytes count (number/volume) 2020-01-11 05:15:00* Test Item Value Reference Range Interpretation Comments Lymphocytes # (Auto) (test code = 87273-0) 1.8 1.0-3.2 [facility] ClubBlood monocytes automated count (number/volume)2020-01-11 05:15:00* Test Item Value Reference Range Interpretation Comments Monocytes # (Auto) (test code = 742-7) 0.5 0.2-0.8 [facility] ClubAutomated blood eosinophil count 2020-01-11 05:15:00* Test Item Value Reference Range Interpretation Comments Eosinophils # (Auto) (test code = 711-2) 0.2 0.0-0.4 [facility] ClubAutomated blood basophil count (count/volume)2020-01-11 05:15:00* Test Item Value Reference Range Interpretation Comments Basophils # (Auto) (test code = 704-7) 0.0 0.0-0.1 [facility] ClubFluoroscopic procedure less than one hour [id number] 05:15:00* Test Item Value Reference Range Interpretation Comments Absolute Immature Granulocyte (auto (lalitha t code = Absolute Immature Granulocyte (auto) 0.03 0-0.1 [facility] sodium measurement (moles/volume)2020-01-11 05:15:00* Test Item Value Reference Range Interpretation Comments Sodium Level (test code = 2951-2) 137 136-145 [facility]er[facility] plasma potassium measurement (moles/volume)2020-01-11 05:15:00* Test Item Value Reference Range Interpretation Comments Potassium Level (test code = 2823-3) 4.8 3.5-5.1 [facility] plasma chloride measurement (moles/volume)2020-01-11 05:15:00* Test Item Value Reference Range Interpretation Comments Chloride Level (test code = 2075-0) 97 98-107 [facility]er[facility] or plasma carbon dioxide, total measurement (moles/volume)2020-01-11 05:15:00* Test Item Value Reference Range Interpretation Comments Carbon Dioxide Level (test code = 2028-9) 28 22-29 [facility] or plasma anion [id number] 05:15:00* Test Item Value Reference Range Interpretation Comments Anion Gap (test code = 85231-7) 16.8 8-16 [facility] plasma urea nitrogen measurement (mass/volume)2020-01-11 05:15:00* Test Item Value Reference Range Interpretation Comments Blood Urea Nitrogen (test code = 3094-0) 38 7-26 [facility] Hospitaler[facility] or plasma creatinine measurement (mass/volume)2020-01-11 05:15:00* Test Item Value Reference Range Interpretation Comments Creatinine (test code = 2160-0) 1.29 0.57-1.11 [facility]er[facility] or plasma urea nitrogen/creatinine mass [id number] 05:15:00* Test Item Value Reference Range Interpretation Comments BUN/Creatinine Ratio (test code = 3097-3) 29 6-25 [facility] ClubEstimated glomerular filtration rate (GFR) nnblqijrphkwx2806-56-15 05:15:00* Test Item Value Reference Range Interpretation Comments Estimat Glomerular Filtration Rate (test code = 488132609) 41 >60 Ranges were taken from the National Kidney Disease Education Program and the [facility] literature.Reference ranges:60 or greater: Oaqlvb25-55 ( for 3 consecutive months): Chronic kidney disease 15 or less: Kidney failureB[facility] ClubGlucose ctkusrbvgzg7005-81-06 05:15:00* Test Item Value Reference Range Interpretation Comments Glucose Level (test code = KCM7056) 226 74-118 [facility]er[facility] or plasma calcium measurement (mass/volume)2020-01-11 05:15:00* Test Item Value Reference Range Interpretation Comments Calcium Level (test code = 28475-8) 9.2 8.4-10.2 [facility] Hospitaler[facility] or plasma magnesium measurement (mass/volume)2020-01-11 05:15:00* Test Item Value Reference Range Interpretation Comments Magnesium Level (test code = 11563-7) 2.3 1.3-2.1 [facility] Hospitaler[facility] or plasma total bilirubin measurement (mass/volume)2020-01-11 05:15:00* Test Item Value Reference Range Interpretation Comments Total Bilirubin (test code = 1975-2) 0.3 0.2-1.2 [facility] ClubFluoroscopic procedure less than one hour [id number] 05:15:00* Test Item Value Reference Range Interpretation Comments Aspartate Amino Transf (AST/SGOT) (test code = Aspartate Amino Transf (AST/SGOT)) 11 5-34 [facility]er[facility] or plasma alanine aminotransferase measurement (enzymatic activity/volume)2020-01-11 05:15:00* Test Item Value Reference Range Interpretation Comments Alanine Aminotransferase (ALT/SGPT) (test code = 1742-6) 8 0-55 [facility] Hospitalerum or plasma protein measurement (mass/volume)2020-01-11 05:15:00* Test Item Value Reference Range Interpretation Comments Total Protein (test code = 2885-2) 7.6 6.5-8.1 [facility] Hospitaler[facility] or plasma albumin measurement (mass/volume)2020-01-11 05:15:00* Test Item Value Reference Range Interpretation Comments Albumin (test code = 1751-7) 4.4 3.5-5.0 [facility] ClubPlasma globulin measurement (mass/volume) 2020-01-11 05:15:00* Test Item Value Reference Range Interpretation Comments Globulin (test code = 76840-2) 3.2 2.3-3.5 [facility] or plasma albumin/globulin mass [id number] 05:15:00* Test Item Value Reference Range Interpretation Comments Albumin/Globulin Ratio (test code = 1759-0) 1.4 0.8-2.0 [facility] Hospitaler[facility] or plasma alkaline phosphatase measurement (enzymatic activity/volume)2020-01-11 05:15:00* Test Item Value Reference Range Interpretation Comments Alkaline Phosphatase (test code = 6768-6) 107 40-150 [facility]er[facility] or plasma amylase measurement (enzymatic activity/volume)2020-01-11 05:15:00* Test Item Value Reference Range Interpretation Comments Amylase Level (test code = 1798-8) 24 25-125 [facility]er[facility] or plasma lipase measurement (enzymatic activity/volume)2020-01-11 05:15:00* Test Item Value Reference Range Interpretation Comments Lipase (test code = 3040-3) 14 8-78 [facility] ClubFluoroscopic procedure less than one hour [id number] 04:40:00* Test Item Value Reference Range Interpretation Comments Coronavirus (PCR) (test code = Coronavirus (PCR)) NOT DETECTED NOTD ETECTED SARS-CoV-2 PCRHologic Aptima SARS-CoV-2 assay is a nucleic amplification test in tended for the qualitative detection of RNA from SARS-CoV-2 from nasopharyngeal ([employer]) specimens. It is used under Emergency Use Authorization (EUA) by FDA.A posi tive result is indicative of the presence of SARS-CoV-2 RNA. Clinical correlatio n with patient history and other diagnostic information is necessary to determin e patient infection status.A negative (Not Detected) result does not preclude SA RS-CoV-2 infection. Clinical Correlation with patient history and other diagnost ic information should be used in patient management decisions.Invalid: Unable to generate a valid result on this specimen. Please submit a new specimen for repr at testing oc clinically indicated.Tesing performed by:[facility] Laboratory Services[address] [facility] [id number], Talha valdovinos MD, PhDBaylor Scott & White [facility] Center – Trophy ClubCT ABDOMEN/PELVIS W 2020-01-10 03:47:00 [facility] [address] [address] Patient Name: IKE JEROME MR #: [id number] : 1945 Age/Sex: 74/F Req #: [id number] Adm Physician: Ordered by: TATIANA WARNER DO Report #: [id number] Location: ER Room/Bed: Procedure: [id number] CT/CT ABDOME N/PELVIS W Exam Date: 01/10/20 Exam Time: 0320 REPORT STATUS: Signed EXAM: CT Abdome n and Pelvis WITH contrast INDICATION: abd pain COMPARISON: None. TECH NIQUE: Abdomen and pelvis were scanned utilizing a multidetector helical scann er from the lung base to the pubic symphysis after administration of IV contra st. Coronal and sagittal reformations were obtained. Routine protocol was perf ormed. Scan was performed when during portal venous phase. IV CONTRAS T: 100 mL of Isovue 370 ORAL CONTRAST: None COMPLICATION S: None FINDINGS: LOWER THORAX: Mild dependent atelectasis. Mild card iomegaly. HEPATOBILIARY: No focal hepatic lesions. No biliary ductal dilat ion. GALLBLADDER: Cholecystectomy clips. SPLEEN: No splenomegaly . PANCREAS: No focal masses or ductal dilatation. ADRENALS: No adre nal nodules KIDNEYS/URETERS: Kidneys enhance symmetrically. No hydrone phrosis. 1 cm simple appearing cyst at the inferior pole the left kidney. No stones. GI TRACT: No abnormal distention, wall thickening, or evidence of b owel obstruction. Appendix is not clearly identified. There is however n o fat stranding or adenopathy in the right lower quadrant to suggest appendici tis. Gastric band. PELVIC ORGANS/BLADDER: Hysterectomy. Urinary bladder i s partially distended. LYMPH NODES: No lymphadenopathy. VESSELS: Mixed eccentric plaque in the SMA produce moderate stenosis. PERITONEUM / RETROP ERITONEUM: No free air or fluid. BONES: Unremarkable. SOFT TISSUES: Sm all fat-containing umbilical hernia. IMPRESSION: No acute abdominopel geoffrey process. Signed by: Kiya Hair MD on 01/10/2020 3:58 AM Dicta sridhar By: KIYA HAIR MD 7 Transcribed By: AURELIA on 01/10/20357 COPY TO: TATIANA WARNER DO Urine color kuujdazkeidbe5069-64-96 02:17:00* Test Item Value Reference Range Interpretation Comments Urine Color (test code = 5778-6) YELLOW YELLOW [facility] Trophy ClubUrine yjlwhvj4645-03-17 02:17:00* Test Item Value Reference Range Interpretation Comments Urine Clarity (test code = 89478-1) SL CLOUDY CLEAR [facility] Hospitalpecific gravity of Urine by Test strip 2020-01-10 02:17:00* Test Item Value Reference Range Interpretation Comments Urine Specific [place] (test code = 5811-5) 1.015 1.010-1.02 5 [facility] Trophy ClubUrine pH measurement by automated test lubmk1370-79-51 02:17:00* Test Item Value Reference Range Interpretation Comments Urine pH (test code = 58715-6) 7 5-7 [facility] ClubUrine leukocyte esterase detection by izmpnvov1191-25-25 02:17:00* Test Item Value Reference Range Interpretation Comments Urine Leukocyte Esterase (test code = 5799-2) 1+ NEGATIVE [facility] Trophy ClubUrine nitrite hglijtsbi6490-55-43 02:17:00* Test Item Value Reference Range Interpretation Comments Urine Nitrite (test code = 99500-6) NEGATIVE NEGATIVE [facility] ClubUrine protein measurement by test strip (mass/volume)2020-01-10 02:17:00* Test Item Value Reference Range Interpretation Comments Urine Protein (test code = 5804-0) NEGATIVE NEGATIVE [facility] ClubUrine glucose zppjjdoqr9989-26-62 02:17:00* Test Item Value Reference Range Interpretation Comments Urine Glucose (UA) (test code = 2349-9) NEGATIVE NEGATIVE [facility] ClubUrine ketones detection by automated test tvbqq4215-07-80 02:17:00* Test Item Value Reference Range Interpretation Comments Urine Ketones (test code = 18393-2) NEGATIVE NEGATIVE [facility] Trophy ClubUrine opiates screening gcen0171-77-09 02:17:00* Test Item Value Reference Range Interpretation Comments Urine Opiates Screen (test code = 40231-3) NEGATIVE NEGATIVE ALL TESTS PERFORMED MANUALLY ON [employer] TOX/SEE TESTBaylor Scott & [facility] Medical Center – Trophy ClubBarbiturates screen, vgbos0689-42-04 02:17:00* Test Item Value Reference Range Interpretation Comments Urine Barbiturates Screen (test code = 294747851) NEGATIVE NEGA TIVE [facility] Trophy ClubUrine phencyclidine detection by screening beiccl7119-21-56 02:17:00* Test Item Value Reference Range Interpretation Comments Urine Phencyclidine Screen (test code = 06739-8) NEGATIVE NEGAT CECILY [facility] Trophy ClubUrine amphetamines detection by screen method > 1000 ng/xF4109-97-56 02:17:00* Test Item Value Reference Range Interpretation Comments Urine Amphetamines Screen (test code = 71594-5) NEGATIVE NEGATI VE [facility] Trophy ClubFluoroscopic procedure less than one hour voxiebnu6385-73-58 02:17:00* Test Item Value Reference Range Interpretation Comments Urine Methamphetamines Screen (test code = Urine Metha mphetamines Screen) NEGATIVE NEGATIVE [facility] Trophy ClubUrine benzodiazepines detection by screening hvbprb7639-52-10 02:17:00* Test Item Value Reference Range Interpretation Comments Urine Benzodiazepines Screen (test code = 39613-8) POSITIVE NEG ATIVE This test provides only a screen. Positive results should be repeated by a confi rmatory test.[facility] ClubUrine cocaine measurement (mass/volume)2020-01-10 02:17:00* Test Item Value Reference Range Interpretation Comments Urine Cocaine Screen (test code = 3398-5) NEGATIVE NEGATIVE [facility] ClubUrine cannabinoids detection by screening fpxygv2365-92-98 02:17:00* Test Item Value Reference Range Interpretation Comments Urine Cannabinoids Screen (test code = 71782-6) NEGATIVE NEGATI VE THESE RESULTS ARE FOR MEDICAL TREATMENT ONLYTHIS REPORT CONTAINS UNCONFIR MED SCREENING RESULTS*POSITIVE RESULTS WILL BE CONFIRMED BY REFERENCE LAB UPON R EQUEST CUT-OFFDRUG CLASS CONCENTRATION ng/mLAmphetamines 1000Methamphetamines 1000Cocaine 300Opiate 300Phencyc lidine 25Cannabinoid 50Barbiturates 300Benzodiazepine 300Methadone 300[facility] Trophy ClubUrine methadone cjvmoh1745-19-56 02:17:00* Test Item Value Reference Range Interpretation Comments Urine Methadone Screen (test code = 74609-9) NEGATIVE NEGATIVE THESE RESULTS ARE FOR MEDICAL TREATMENT ONLYTHIS REPORT CONTAINS UNCONFIR MED SCREENING RESULTS*POSITIVE RESULTS WILL BE CONFIRMED BY REFERENCE LAB UPON R EQUEST CUT-OFFDRUG CLASS CONCENTRATION ng/mLAmphetamines 1000Methamphetamines 1000Cocaine Metabolite 300Opiate 300Phencyc lidine 25Cannabinoid 50Barbiturates 300Benzodiazepine 300Methadone 300[facility] ClubUrine urobilinogen measurement by test strip (mass/volume)2020-01-10 02:17:00* Test Item Value Reference Range Interpretation Comments Urine Urobilinogen (test code = 31349-1) 0.2 0.2-1 [facility] ClubUrine total bilirubin measurement (mass/volume)2020-01-10 02:17:00* Test Item Value Reference Range Interpretation Comments Urine Bilirubin (test code = 1978-6) NEGATIVE NEGATIVE [facility] ClubUrine erythrocytes nypdxljhg8262-78-63 02:17:00* Test Item Value Reference Range Interpretation Comments Urine Blood (test code = 35637-7) NEGATIVE NEGATIVE [facility] Trophy ClubAutomated urine sediment leukocyte count by microscopy (number/high power field)2020-01-10 02:17:00* Test Item Value Reference Range Interpretation Comments Urine WBC (test code = 5821-4) >50 0-5 [facility] ClubErythrocytes detection in urine sediment by light nweylpqlgi6639-60-44 02:17:00* Test Item Value Reference Range Interpretation Comments Urine RBC (test code = 21696-6) 6-10 0-5 [facility] ClubBacteria detection in urine sediment by light wkjoywtgyx6413-43-51 02:17:00* Test Item Value Reference Range Interpretation Comments Urine Bacteria (test code = 26852-7) FEW NONE [facility] Trophy ClubEpithelial cells detection in urine sediment by light bhicubrpsa7029-79-39 02:17:00* Test Item Value Reference Range Interpretation Comments Urine Epithelial Cells (test code = 05964-0) FEW NONE [facility] Trophy ClubBNP Xop-jOzd5191-22-20 02:17:00* Test Item Value Reference Range Interpretation Comments B-Type Natriuretic Peptide (test code = 13980-7) 148.1 0-100 [facility] Hospitalerum or plasma creatine kinase measurement (enzymatic activity/volume)2020-01-10 02:17:00* Test Item Value Reference Range Interpretation Comments Creatine Kinase (test code = 2157-6) 71 29-168 [facility] Hospitalerum or plasma creatine kinase MB measurement (mass/volume)2020-01-10 02:17:00* Test Item Value Reference Range Interpretation Comments Creatine Kinase MB (test code = 46443-4) 1.50 0-5.0 [facility] Trophy ClubTroponin I measurement by highly sensitive enzyme lajomeltvhu2752-94-78 02:17:00* Test Item Value Reference Range Interpretation Comments Troponin I (test code = 64371-9) 0.037 0-0.300 [facility] Hospitalerum or plasma thyrotropin measurement by detection limit <= 0.005 miu/l (units/volume)2020-01-10 02:17:00* Test Item Value Reference Range Interpretation Comments Thyroid Stimulating Hormone (TSH) (test code = 99127-3) 2.392 0.350-4.940 [facility] CIDWV6367-32-09 16:45:00 [facility] [address] [address] Patient Name: IKE JEROME MR #: [id number] : 1945 Age/Sex: 73/F Req #: [id number] Adm Physician: Ordered by: JEANNINE GIBBS MD Report #: [id number] Location: MAMMO Room/Bed: Procedure: [id number] MG/MA MMOGRAPHY DIGITAL SCR BILAT Exam Date: 02/11/18 Exam Time: 1600 REPORT STATUS: Signed #[id number] - MGSCRBIL #BILATERAL DIGITAL SCREENING MAMMOGRAM WITH CAD : 02/11/2018 CLINICAL: Routine screening. Comparison is made to exams d ated: 12/08/2014 mammogram and 04/06/2014 mammogram - [facility]. Current study contains 7 films. The tissue of both breasts is heterogeneously dense. This may lower the sensitivity of mammography. Curr ent study was also evaluated with a Computer Aided Detection (CAD) system. T here are benign vascular calcifications in both breasts. There also are benign scattered calcifications in both breasts. Additionally there are post operat cecily findings in the right breast with several scar markers present. There also is a biopsy clip in the left breast. No significant masses, calcificati ons, or other findings are seen in either breast. There has been no signific ant interval change. IMPRESSION: BENIGN There is no mammographic evidence of malignancy. A 1 year screening mammogram is recommended. The patient deepti l be notified by letter of the results. Sang Padilla Jr., D.O. cw/:02/28/2018 16:43:17 Human Factors Ergonomist: Hiral BARRETTR)(M) , [facility] letter sent: Compared to Prior B9 [facility] graceram BI-RADS: 2 Benign Dictated By: SANG PADILLA DO Electronically Miryam d By: SANG PADILLA DO on 02/28/181642 Transcribed By: ADONIS on 02/28/181642 COPY TO: JEANNINE GIBBS MD Bedside Twejqfk6271-35-04 08:17:00* Test Item Value Reference Range Interpretation Comments Bedside Glucose (test code = 87880-6) 395 70-120 H Meter ID: [id number] Scott & White [facility] Trophy ClubGlucose Level 2018-01-15 08:41:00* Test Item Value Reference Range Interpretation Comments Glucose Level (test code = VFG7463) 486 74-118 HH Results called to Ashley Mendez RN at 0840 on 01/15/18 by Rosemarie Hart. RB OK.[facility] Trophy ClubBlood Njbfzoz1973-48-38 04:01:00* Test Item Value Reference Range Interpretation Comments Blood Culture (test code = 06304898) NO GROWTH AFTER 72 HOURS [facility] Hospitalodium Bkcnl4600-54-33 11:05:00* Test Item Value Reference Range Interpretation Comments Sodium Level (test code = 2951-2) 132 136-145 L [facility] ClubPotassium Yfntr0799-79-64 11:05:00* Test Item Value Reference Range Interpretation Comments Potassium Level (test code = 2823-3) 4.4 3.5-5.1 [facility] Trophy ClubChloride Mthkt8263-29-76 11:05:00* Test Item Value Reference Range Interpretation Comments Chloride Level (test code = 2075-0) 101 98-107 [facility] Trophy ClubCarbon Dioxide Prbey8698-36-45 11:05:00* Test Item Value Reference Range Interpretation Comments Carbon Dioxide Level (test code = 2028-9) 20 22-29 L [facility] Trophy ClubAnion Bcl7943-20-17 11:05:00* Test Item Value Reference Range Interpretation Comments Anion Gap (test code = 50737-9) 15.4 8-16 [facility] Trophy ClubBlood Urea Bvfupknk3067-43-48 11:05:00* Test Item Value Reference Range Interpretation Comments Blood Urea Nitrogen (test code = 3094-0) 24 7-26 [facility] Trophy ClubCreatinine2018-09-25 11:05:00* Test Item Value Reference Range Interpretation Comments Creatinine (test code = 2160-0) 1.34 0.57-1.11 H [facility] Trophy ClubBUN/Creatinine Gudjc8158-40-85 11:05:00* Test Item Value Reference Range Interpretation Comments BUN/Creatinine Ratio (test code = 3097-3) 18 6-25 [facility] Trophy ClubEstimat Glomerular Filtration Rate 2018-01-14 11:05:00* Test Item Value Reference Range Interpretation Comments Estimat Glomerular Filtration Rate (test code = 210030929) 39 >60 L Ranges were taken from the National Kidney Disease Education Program and the [facility]al Kidney Foundation literature.Reference ranges:60 or greater: Firupz44-08 ( for 3 consecutive months): Chronic kidney disease 15 or less: Kidney failureBaylor Scott & White Medical Center – Trophy ClubCalcium Qtusu9968-58-95 11:05:00* Test Item Value Reference Range Interpretation Comments Calcium Level (test code = 96523-8) 8.8 8.4-10.2 [facility] Trophy ClubTotal Ogvpqvyrj3545-95-35 11:05:00* Test Item Value Reference Range Interpretation Comments Total Bilirubin (test code = 1975-2) 0.3 0.2-1.2 [facility] Trophy ClubAspartate Amino Transf (AST/SGOT) 2018-01-14 11:05:00* Test Item Value Reference Range Interpretation Comments Aspartate Amino Transf (AST/SGOT) (test code = Aspartate Amino Transf (AST/SGOT)) 32 5-34 [facility] Trophy ClubAlanine Aminotransferase (ALT/SGPT) 2018-01-14 11:05:00* Test Item Value Reference Range Interpretation Comments Alanine Aminotransferase (ALT/SGPT) (test code = 1742-6) 26 0-55 [facility] Trophy ClubTotal Qwirdiz6856-16-26 11:05:00* Test Item Value Reference Range Interpretation Comments Total Protein (test code = 2885-2) 6.4 6.5-8.1 L [facility] Trophy ClubAlbumin2018-09-25 11:05:00* Test Item Value Reference Range Interpretation Comments Albumin (test code = 1751-7) 3.1 3.5-5.0 L [facility] Trophy ClubGlobulin2018-09-25 11:05:00* Test Item Value Reference Range Interpretation Comments Globulin (test code = 50727-8) 3.3 2.3-3.5 [facility] Trophy ClubAlbumin/Globulin Svifa5574-40-58 11:05:00 * Test Item Value Reference Range Interpretation Comments Albumin/Globulin Ratio (test code = 1759-0) 0.9 0.8-2.0 [facility] Trophy ClubAlkaline Fvcirvsocop1464-91-65 11:05:00* Test Item Value Reference Range Interpretation Comments Alkaline Phosphatase (test code = 6768-6) 73 40-150 [facility] Trophy ClubWhite Blood Vlkwf6013-02-16 10:53:00* Test Item Value Reference Range Interpretation Comments White Blood Count (test code = 6690-2) 8.01 4.8-10.8 [facility] Trophy ClubRed Blood Eppvp1799-91-98 10:53:00* Test Item Value Reference Range Interpretation Comments Red Blood Count (test code = 789-8) 3.44 3.6-5.1 L [facility] Trophy ClubHemoglobin2018-09-25 10:53:00* Test Item Value Reference Range Interpretation Comments Hemoglobin (test code = 11273-4) 11.5 12.0-16.0 L [facility] Trophy ClubHematocrit2018-09-25 10:53:00* Test Item Value Reference Range Interpretation Comments Hematocrit (test code = 4544-3) 34.3 34.2-44.1 [facility] Trophy ClubMean Corpuscular Kotoea8615-94-19 10:53:00* Test Item Value Reference Range Interpretation Comments Mean Corpuscular Volume (test code = 787-2) 99.7 81-99 H [facility] Trophy ClubMean Corpuscular Dholsuqzyw3172-59-94 10:53:00* Test Item Value Reference Range Interpretation Comments Mean Corpuscular Hemoglobin (test code = 785-6) 33.4 28-32 H [facility] Trophy ClubMean Corpuscular Hemoglobin Concent 2018-01-14 10:53:00* Test Item Value Reference Range Interpretation Comments Mean Corpuscular Hemoglobin Concent (test code = 786-4) 33.5 31-35 [facility] Trophy ClubRed Cell Distribution Xqycy8607-66-78 10:53:00* Test Item Value Reference Range Interpretation Comments Red Cell Distribution Width (test code = 19730-3) 13.6 11.7 -14.4 [facility] Trophy ClubPlatelet Qujkl7924-06-45 10:53:00* Test Item Value Reference Range Interpretation Comments Platelet Count (test code = 777-3) 233 140-360 [facility] Trophy ClubNeutrophils (%) (Auto)2018-01-14 10:53:00 * Test Item Value Reference Range Interpretation Comments Neutrophils (%) (Auto) (test code = 94451-8) 57.6 38.7-80.0 [facility] Trophy ClubLymphocytes (%) (Auto)2018-01-14 10:53:00 * Test Item Value Reference Range Interpretation Comments Lymphocytes (%) (Auto) (test code = 736-9) 32.7 18.0-39.1 [facility] Trophy ClubMonocytes (%) (Auto)2018-01-14 10:53:00* Test Item Value Reference Range Interpretation Comments Monocytes (%) (Auto) (test code = 5905-5) 6.9 4.4-11.3 [facility] ClubEosinophils (%) (Auto)2018-01-14 10:53:00 * Test Item Value Reference Range Interpretation Comments Eosinophils (%) (Auto) (test code = 713-8) 2.5 0.0-6.0 [facility] Trophy ClubBasophils (%) (Auto)2018-01-14 10:53:00* Test Item Value Reference Range Interpretation Comments Basophils (%) (Auto) (test code = 706-2) 0.2 0.0-1.0 [facility] Trophy ClubIM GRANULOCYTES %2018-01-14 10:53:00* Test Item Value Reference Range Interpretation Comments IM GRANULOCYTES % (test code = IM GRANULOCYTES %) 0.1 0.0- 1.0 [facility] Trophy ClubNeutrophils # (Auto)2018-01-14 10:53:00* Test Item Value Reference Range Interpretation Comments Neutrophils # (Auto) (test code = 751-8) 4.6 2.1-6.9 [facility] Trophy ClubLymphocytes # (Auto)2018-01-14 10:53:00* Test Item Value Reference Range Interpretation Comments Lymphocytes # (Auto) (test code = 64562-8) 2.6 1.0-3.2 [facility] Trophy ClubMonocytes # (Auto)2018-01-14 10:53:00* Test Item Value Reference Range Interpretation Comments Monocytes # (Auto) (test code = 742-7) 0.6 0.2-0.8 [facility] ClubEosinophils # (Auto)2018-01-14 10:53:00* Test Item Value Reference Range Interpretation Comments Eosinophils # (Auto) (test code = 711-2) 0.2 0.0-0.4 [facility] Trophy ClubBasophils # (Auto)2018-01-14 10:53:00* Test Item Value Reference Range Interpretation Comments Basophils # (Auto) (test code = 704-7) 0.0 0.0-0.1 [facility] Trophy ClubAbsolute Immature Granulocyte (auto 2018-01-14 10:53:00* Test Item Value Reference Range Interpretation Comments Absolute Immature Granulocyte (auto (lalitha t code = Absolute Immature Granulocyte (auto) 0.01 0-0.1 [facility] Trophy ClubUrine Xowsbxm5142-55-37 09:04:00* Test Item Value Reference Range Interpretation Comments Urine Culture (test code = 630-4) Organism: KLEBSIELLA PNEUMONIAE [facility] Trophy ClubTriglycerides Jrcqs0832-45-33 09:12:00* Test Item Value Reference Range Interpretation Comments Triglycerides Level (test code = 2571-8) 771 0-149 H [facility] ClubCholesterol Cktrq6224-83-80 09:12:00* Test Item Value Reference Range Interpretation Comments Cholesterol Level (test code = 2093-3) 228 0-199 H Less than 200 mg/dL Low Llzv851 - 239 mg/dL Borderline Gghe526 m g/dl and greater High Risk [facility] Trophy ClubHDL Kjzpmlsmkyu4669-49-40 09:12:00* Test Item Value Reference Range Interpretation Comments HDL Cholesterol (test code = 2085-9) 26 40-60 L [facility] ClubCholesterol/HDL Ikidg9941-93-42 09:12:00 * Test Item Value Reference Range Interpretation Comments Cholesterol/HDL Ratio (test code = 9830-1) 8.8 3.0-3.6 H [facility] Trophy ClubCreatine Kinase XC1615-69-40 13:54:00* Test Item Value Reference Range Interpretation Comments Creatine Kinase MB (test code = 11465-7) 1.10 0-5.0 [facility] Trophy ClubTroponin C4098-61-56 13:54:00* Test Item Value Reference Range Interpretation Comments Troponin I (test code = COD9760) 0.064 0-0.300 [facility] Trophy ClubCreatine Gkhkho9027-50-15 13:44:00* Test Item Value Reference Range Interpretation Comments Creatine Kinase (test code = 2157-6) 86 29-168 [facility] Trophy ClubHemoglobin A1c Dcjwuzt8965-75-64 09:57:00 * Test Item Value Reference Range Interpretation Comments Hemoglobin A1c Percent (test code = Hemoglobin A1c Percent) 9.6 4.0-7.0 H [facility] Trophy ClubUrine HBG0607-15-91 04:59:00* Test Item Value Reference Range Interpretation Comments Urine WBC (test code = 5821-4) 6-10 0-5 H [facility] Trophy ClubUrine HAA4201-71-24 04:59:00* Test Item Value Reference Range Interpretation Comments Urine RBC (test code = 35296-5) 0-5 0-5 [facility] Trophy ClubUrine Umcjbbfk7973-44-52 04:59:00* Test Item Value Reference Range Interpretation Comments Urine Bacteria (test code = 44024-3) NONE NONE [facility] Trophy ClubUrine Epithelial Drtmu3094-09-66 04:59:00 * Test Item Value Reference Range Interpretation Comments Urine Epithelial Cells (test code = 10472-6) NONE NONE [facility] Trophy ClubCHEST SINGLE (PORTABLE)2018-01-12 04:42:00 [facility] [address] [address] Patient Name: IKE JEROME MR #: [id number] : 1945 Age/Sex: 72/F Req #: [id number] Adm Physician: Ordered by: HANNAH MCDERMOTT MD Report #: [id number] Location: ER Room/Bed: Procedure: [id number] DX/CHEST SINGLE (PORTABLE) Exa m Date: 01/12/18 Exam Time: 399 REPORT STATUS: Signed CHEST SINGLE (PORTABLE), 01/12/2018 3:42 AM Technique: CHEST SING LE (PORTABLE) Comparison: 08/27/2017 Clinical history: S aphasia S [id number] S 0 Findings: See Impression Impression: 1. Stable mildly enla rged cardiomediastinal silhouette. 2. Central vascular congestion. No consolid ation. 3. No effusion or pneumothorax. Signed by: Dr Gianna Cole MD on 01/12/2018 4:46 AM Dictated By: GIANNA COLE MD [id number] Transcribed By: AURELIA on 01/12/18 04 46 COPY TO: HANNAH MCDERMOTT MD Urine Lqebk1839-72-57 04:41:00* Test Item Value Reference Range Interpretation Comments Urine Color (test code = 5778-6) YELLOW YELLOW [facility] ClubUrine Zaczudi0850-96-85 04:41:00* Test Item Value Reference Range Interpretation Comments Urine Clarity (test code = 38496-9) CLEAR CLEAR [facility] ClubUrine Specific Oylkvuv9327-77-93 04:41:00 * Test Item Value Reference Range Interpretation Comments Urine Specific [place] (test code = 5811-5) 1.020 1.010-1.02 5 [facility] ClubUrine [id number] 04:41:00* Test Item Value Reference Range Interpretation Comments Urine pH (test code = 53736-4) 7 5-7 [facility] ClubUrine Leukocyte Yeltctdi0176-51-80 04:41:00* Test Item Value Reference Range Interpretation Comments Urine Leukocyte Esterase (test code = 5799-2) NEGATIVE NEGATIVE [facility] ClubUrine Sbkwqfm4941-58-01 04:41:00* Test Item Value Reference Range Interpretation Comments Urine Nitrite (test code = 73313-4) NEGATIVE NEGATIVE [facility] ClubUrine Mnycbzl4551-39-98 04:41:00* Test Item Value Reference Range Interpretation Comments Urine Protein (test code = 5804-0) 3+ NEGATIVE H [facility] ClubUrine Glucose (UA)2018-01-12 04:41:00* Test Item Value Reference Range Interpretation Comments Urine Glucose (UA) (test code = 2349-9) 3+ NEGATIVE H [facility] ClubUrine Hahboxa0111-00-06 04:41:00* Test Item Value Reference Range Interpretation Comments Urine Ketones (test code = 48263-9) NEGATIVE NEGATIVE [facility] ClubUrine Cxhugnczgowo3711-24-84 04:41:00* Test Item Value Reference Range Interpretation Comments Urine Urobilinogen (test code = 22617-3) 0.2 0.2-1 [facility] ClubUrine Gzbvfleha3709-02-90 04:41:00* Test Item Value Reference Range Interpretation Comments Urine Bilirubin (test code = 1978-6) NEGATIVE NEGATIVE [facility] ClubUrine Sxsbn4008-29-42 04:41:00* Test Item Value Reference Range Interpretation Comments Urine Blood (test code = 60314-9) TRACE NEGATIVE H [facility] ClubB-Type Natriuretic Vevhnhn4620-92-93 04:36:00* Test Item Value Reference Range Interpretation Comments B-Type Natriuretic Peptide (test code = 24039-0) 99.3 0-100 [facility] ClubMagnesium Mznaq4937-67-32 04:26:00* Test Item Value Reference Range Interpretation Comments Magnesium Level (test code = 13033-2) 2.1 1.3-2.1 [facility] ClubCT BRAIN [id number] 04:21:00 [facility] [address] [address] Patient Name: IKE JEROME MR #: [id number] : 1 Age/Sex: 72/F Req #: [id number] Adm Physician: Ordered by: HANNAH MCDERMOTT MD Report #: [id number] Location: ER Room/Bed: Procedure: [id number] CT/CT BRAIN WO Exam Date: 12/22 07/07 Exam Time: 0350 REPORT STATUS: Signed E XAMINATION: Head CT without contrast. HISTORY:Aphasia, rule out possib le stroke. COMPARISON:CT brain from 12/06/2016. TECHNIQUE: Multidetecto r axial images were obtained from the foramen magnum to the vertex without con trast. The images were reconstructed using brain and bone algorithms. Thin se ction brain images were reformatted into coronal and sagittal planes. Dose m odulation, iterative reconstruction, and/or weight based adjustment of the mA/ kV was utilized to reduce the radiation dose to as low as reasonably achievabl e. Intravenous contrast: None IMAGE QUALITY: Suboptimal evaluation d ue to motion artifacts. FINDINGS: Skull/scalp: No lytic or blastic. l esions. No surgical changes. Parenchyma: Nonspecific few, scattered supra tentorial white matter patchy hypodensity are likely related to small vessel i schemic changes. Focal hypodensity in left stokes radiata, right caudate head, anterior limb of right internal capsule, left thalamus, left lentiform nucleu s and left cerebellar hemisphere represents age indeterminate lacunar infarcts . No acute hemorrhage, mass or acute major vascular territorial infarct. Arteries: No density suggestive of thrombosis. Dural sinuses: No abnor mal density suggestive of thrombosis. Ventricles: No hydrocephalus or dis placement. Extra-axial spaces: No abnormal density. Brain volume: Mild generalized cerebral volume loss. Craniocervical junction: No mass, C hiari malformation, or basilar invagination. Sella: No mass. Para nasal/mastoid sinuses: Imaged portions unremarkable. IMPRESSION: 1. Mild supratentorial white matter microvascular ischemic changes. 2. 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 3. Generalized a ge-related cerebral volume loss. Signed by: Dr. María Gee M.D. on 4:26 AM Dictated By: MARÍA GEE MD 5 Transcribed By: AURELIA on 01/12/18425 COPY TO: HANNAH MCDERMOTT MD Prothrombin Zdxj1045-98-06 04:19:00* Test Item Value Reference Range Interpretation Comments Prothrombin Time (test code = 5902-2) 11.5 11.9-14.5 L [facility] ClubProthromb Time International Ratio 2018-01-12 04:19:00* Test Item Value Reference Range Interpretation Comments Prothromb Time International Ratio (test code = 6301-6) 0.77 Oral Anticoagulant Therapy INR Values:1. Low Intensity Therapy 1.5 - 2.02 . Moderate Intensity Therapy 2.0 - 3.03. High Intensity Therapy(1) 2.5 - 3. 54. High Intensity Therapy(2) 3.0 - 4.05. Panic Value INR > 5.0 [facility] ClubActivated Partial Thromboplast Time 2018-01-12 04:19:00* Test Item Value Reference Range Interpretation Comments Activated Partial Thromboplast Time (test code = 62598-4) 32.0 23.8-35.5 [facility] ClubBedside Cnvffqa6021-42-57 11:35:00* Test Item Value Reference Range Interpretation Comments Bedside Glucose (test code = 41912-9) 140 70-120 H Meter ID: [id number] [facility] & [facility] ClubTriglycerides Level 2017-08-27 17:32:00* Test Item Value Reference Range Interpretation Comments Triglycerides Level (test code = 2571-8) 528 0-149 H [facility] ClubCholesterol Tdeep0199-32-61 17:32:00* Test Item Value Reference Range Interpretation Comments Cholesterol Level (test code = 2093-3) 184 0-199 Less than 200 mg/dL Low Tibu869 - 239 mg/dL Borderline Lpuz706 m g/dl and greater High Risk [facility] ClubHDL Dlgezxmfynr4773-55-08 17:32:00* Test Item Value Reference Range Interpretation Comments HDL Cholesterol (test code = 2085-9) 26 40-60 L [facility] ClubCholesterol/HDL Lugvz0142-73-41 17:32:00 * Test Item Value Reference Range Interpretation Comments Cholesterol/HDL Ratio (test code = 9830-1) 7.1 3.0-3.6 H [facility] ClubHemoglobin A1c Ysmqzfr2137-04-16 17:28:00 * Test Item Value Reference Range Interpretation Comments Hemoglobin A1c Percent (test code = Hemoglobin A1c Percent) 9.2 4.0-7.0 H [facility] Hospitalodium Sgbag5457-57-24 07:37:00* Test Item Value Reference Range Interpretation Comments Sodium Level (test code = 2951-2) 136 136-145 [facility] ClubPotassium Vngrs1377-64-37 07:37:00* Test Item Value Reference Range Interpretation Comments Potassium Level (test code = 2823-3) 3.7 3.5-5.1 [facility] ClubChloride Ylggo6075-84-02 07:37:00* Test Item Value Reference Range Interpretation Comments Chloride Level (test code = 2075-0) 100 98-107 [facility] ClubCarbon Dioxide Ezqxo9639-03-23 07:37:00* Test Item Value Reference Range Interpretation Comments Carbon Dioxide Level (test code = 2028-9) 26 22-29 [facility] ClubAnion Ccs5510-79-52 07:37:00* Test Item Value Reference Range Interpretation Comments Anion Gap (test code = 33001-4) 13.7 8-16 [facility] ClubBlood Urea Knviawzk5881-33-43 07:37:00* Test Item Value Reference Range Interpretation Comments Blood Urea Nitrogen (test code = 3094-0) 14 7-26 [facility] ClubCreatinine2018-05-08 07:37:00* Test Item Value Reference Range Interpretation Comments Creatinine (test code = 2160-0) 0.79 0.57-1.11 [facility] ClubBUN/Creatinine Tkkrj4689-26-60 07:37:00* Test Item Value Reference Range Interpretation Comments BUN/Creatinine Ratio (test code = 3097-3) 18 6-25 [facility] Trophy ClubEstimat Glomerular Filtration Rate 2017-08-27 07:37:00* Test Item Value Reference Range Interpretation Comments Estimat Glomerular Filtration Rate (test code = 41259-7) 60- >60 Ranges were taken from the National Kidney Disease Education Program and the [facility] Kidney Foundation literature.Reference ranges:60 or greater: Pnrqxz36-57 ( for 3 consecutive months): Chronic kidney disease 15 or less: Kidney failureBaylor Scott & White Medical Center – Trophy ClubGlucose Abiaf4623-79-73 07:37:00* Test Item Value Reference Range Interpretation Comments Glucose Level (test code = VNN3449) 127 74-118 H [facility] ClubCalcium Jrmfc4629-44-53 07:37:00* Test Item Value Reference Range Interpretation Comments Calcium Level (test code = 56620-6) 9.6 8.4-10.2 [facility] ClubTotal Fqqaffcro1726-47-10 07:37:00* Test Item Value Reference Range Interpretation Comments Total Bilirubin (test code = 1975-2) 0.5 0.2-1.2 [facility] ClubAspartate Amino Transf (AST/SGOT) 2017-08-27 07:37:00* Test Item Value Reference Range Interpretation Comments Aspartate Amino Transf (AST/SGOT) (test code = Aspartate Amino Transf (AST/SGOT)) 26 5-34 [facility] ClubAlanine Aminotransferase (ALT/SGPT) 2017-08-27 07:37:00* Test Item Value Reference Range Interpretation Comments Alanine Aminotransferase (ALT/SGPT) (test code = 1742-6) 35 0-55 [facility] Qyvveqc5696-01-74 07:37:00* Test Item Value Reference Range Interpretation Comments Total Protein (test code = 2885-2) 6.6 6.5-8.1 [facility] ClubAlbumin2018-05-08 07:37:00* Test Item Value Reference Range Interpretation Comments Albumin (test code = 1751-7) 3.1 3.5-5.0 L [facility] ClubGlobulin2018-05-08 07:37:00* Test Item Value Reference Range Interpretation Comments Globulin (test code = 32453-7) 3.5 2.3-3.5 [facility] ClubAlbumin/Globulin Tmbmi6447-06-66 07:37:00 * Test Item Value Reference Range Interpretation Comments Albumin/Globulin Ratio (test code = 1759-0) 0.9 0.8-2.0 [facility] ClubAlkaline Lkzvbumrhse3188-71-72 07:37:00* Test Item Value Reference Range Interpretation Comments Alkaline Phosphatase (test code = 6768-6) 72 40-150 [facility] ClubCreatine Wcyxes0558-97-20 07:37:00* Test Item Value Reference Range Interpretation Comments Creatine Kinase (test code = 2157-6) 69 29-168 [facility] ClubCreatine Kinase ID3922-36-85 07:18:00* Test Item Value Reference Range Interpretation Comments Creatine Kinase MB (test code = 70116-0) 1.60 0-5.0 [facility] ClubTroponin Z7007-49-46 07:18:00* Test Item Value Reference Range Interpretation Comments Troponin I (test code = IIY9641) 0.089 0-0.300 [facility] ClubWhite Blood Uxsem0775-79-39 07:01:00* Test Item Value Reference Range Interpretation Comments White Blood Count (test code = 6690-2) 8.81 4.8-10.8 [facility] ClubRed Blood Rwify6415-98-47 07:01:00* Test Item Value Reference Range Interpretation Comments Red Blood Count (test code = 789-8) 3.75 3.6-5.1 [facility] ClubHemoglobin2018-05-08 07:01:00* Test Item Value Reference Range Interpretation Comments Hemoglobin (test code = 68835-7) 12.5 12.0-16.0 [facility] ClubHematocrit2018-05-08 07:01:00* Test Item Value Reference Range Interpretation Comments Hematocrit (test code = 4544-3) 35.9 34.2-44.1 [facility] Trophy ClubMean Corpuscular Pwwlmp2416-90-74 07:01:00* Test Item Value Reference Range Interpretation Comments Mean Corpuscular Volume (test code = 787-2) 95.7 81-99 [facility] ClubMean Corpuscular Gbzekuixrc0028-93-62 07:01:00* Test Item Value Reference Range Interpretation Comments Mean Corpuscular Hemoglobin (test code = 785-6) 33.3 28-32 H [facility] ClubMean Corpuscular Hemoglobin Concent 2017-08-27 07:01:00* Test Item Value Reference Range Interpretation Comments Mean Corpuscular Hemoglobin Concent (test code = 786-4) 34.8 31-35 [facility] ClubRed Cell Distribution Sxptp6642-50-53 07:01:00* Test Item Value Reference Range Interpretation Comments Red Cell Distribution Width (test code = 96989-2) 13.1 11.7 -14.4 [facility] ClubPlatelet Ltyac5510-63-79 07:01:00* Test Item Value Reference Range Interpretation Comments Platelet Count (test code = 777-3) 233 140-360 [facility] ClubNeutrophils (%) (Auto)2017-08-27 07:01:00 * Test Item Value Reference Range Interpretation Comments Neutrophils (%) (Auto) (test code = 32472-8) 48.9 38.7-80.0 [facility] ClubLymphocytes (%) (Auto)2017-08-27 07:01:00 * Test Item Value Reference Range Interpretation Comments Lymphocytes (%) (Auto) (test code = 736-9) 43.1 18.0-39.1 H [facility] ClubMonocytes (%) (Auto)2017-08-27 07:01:00* Test Item Value Reference Range Interpretation Comments Monocytes (%) (Auto) (test code = 5905-5) 6.6 4.4-11.3 [facility] ClubEosinophils (%) (Auto)2017-08-27 07:01:00 * Test Item Value Reference Range Interpretation Comments Eosinophils (%) (Auto) (test code = 713-8) 0.9 0.0-6.0 [facility] ClubBasophils (%) (Auto)2017-08-27 07:01:00* Test Item Value Reference Range Interpretation Comments Basophils (%) (Auto) (test code = 706-2) 0.2 0.0-1.0 [facility] ClubIM GRANULOCYTES %2017-08-27 07:01:00* Test Item Value Reference Range Interpretation Comments IM GRANULOCYTES % (test code = IM GRANULOCYTES %) 0.3 0.0- 1.0 [facility] ClubNeutrophils # (Auto)2017-08-27 07:01:00* Test Item Value Reference Range Interpretation Comments Neutrophils # (Auto) (test code = 751-8) 4.3 2.1-6.9 [facility] ClubLymphocytes # (Auto)2017-08-27 07:01:00* Test Item Value Reference Range Interpretation Comments Lymphocytes # (Auto) (test code = 83060-4) 3.8 1.0-3.2 H [facility] ClubMonocytes # (Auto)2017-08-27 07:01:00* Test Item Value Reference Range Interpretation Comments Monocytes # (Auto) (test code = 742-7) 0.6 0.2-0.8 [facility] ClubEosinophils # (Auto)2017-08-27 07:01:00* Test Item Value Reference Range Interpretation Comments Eosinophils # (Auto) (test code = 711-2) 0.1 0.0-0.4 [facility] ClubBasophils # (Auto)2017-08-27 07:01:00* Test Item Value Reference Range Interpretation Comments Basophils # (Auto) (test code = 704-7) 0.0 0.0-0.1 [facility] ClubAbsolute Immature Granulocyte (auto 2017-08-27 07:01:00* Test Item Value Reference Range Interpretation Comments Absolute Immature Granulocyte (auto (lalitha t code = Absolute Immature Granulocyte (auto) 0.03 0-0.1 [facility] Trophy ClubB-Type Natriuretic Mjeyrsw6539-23-65 19:11:00* Test Item Value Reference Range Interpretation Comments B-Type Natriuretic Peptide (test code = 02338-3) 116.8 0-100 H [facility] ClubMagnesium Csmgy9777-13-99 19:03:00* Test Item Value Reference Range Interpretation Comments Magnesium Level (test code = 05091-4) 1.4 1.3-2.1 [facility] ClubProthrombin Dkhm6921-51-15 18:55:00* Test Item Value Reference Range Interpretation Comments Prothrombin Time (test code = 5902-2) 11.7 11.9-14.5 L [facility] ClubProthromb Time International Ratio 2017-08-26 18:55:00* Test Item Value Reference Range Interpretation Comments Prothromb Time International Ratio (test code = 6301-6) 0.93 Oral Anticoagulant Therapy INR Values:1. Low Intensity Therapy 1.5 - 2.02 . Moderate Intensity Therapy 2.0 - 3.03. High Intensity Therapy(1) 2.5 - 3. 54. High Intensity Therapy(2) 3.0 - 4.05. Panic Value INR > 5.0 [facility] ClubActivated Partial Thromboplast Time 2017-08-26 18:55:00* Test Item Value Reference Range Interpretation Comments Activated Partial Thromboplast Time (test code = 81329-4) 29.0 23.8-35.5 [facility] ClubUrine WOA6801-64-67 04:25:00* Test Item Value Reference Range Interpretation Comments Urine WBC (test code = 5821-4) 6-10 0-5 H [facility] ClubUrine WXN5663-49-05 04:25:00* Test Item Value Reference Range Interpretation Comments Urine RBC (test code = 10239-9) 0-5 0-5 [facility] ClubUrine Xsycimza1844-08-80 04:25:00* Test Item Value Reference Range Interpretation Comments Urine Bacteria (test code = 68062-1) RARE NONE [facility] ClubUrine Epithelial Vrnnk3207-16-49 04:25:00 * Test Item Value Reference Range Interpretation Comments Urine Epithelial Cells (test code = 53572-8) RARE NONE [facility] ClubUrine Opiates Bcorgf4235-86-23 04:16:00* Test Item Value Reference Range Interpretation Comments Urine Opiates Screen (test code = 39001-4) NEGATIVE NEGATIVE [facility] ClubUrine Barbiturates Nzjkgh5878-68-14 04:16:00* Test Item Value Reference Range Interpretation Comments Urine Barbiturates Screen (test code = 063791137) NEGATIVE NEGA TIVE [facility] ClubUrine Phencyclidine Vpfjql4233-53-88 04:16:00* Test Item Value Reference Range Interpretation Comments Urine Phencyclidine Screen (test code = 50323-8) NEGATIVE NEGAT CECILY [facility] ClubUrine Amphetamines Wqhmhl0194-19-83 04:16:00* Test Item Value Reference Range Interpretation Comments Urine Amphetamines Screen (test code = 73122-1) NEGATIVE NEGATI VE [facility] ClubUrine Benzodiazepines Dtrhpn6699-58-38 04:16:00* Test Item Value Reference Range Interpretation Comments Urine Benzodiazepines Screen (test code = 78785-2) POSITIVE NEG ATIVE H This test provides only a screen. Positive results should be repeated by a confi rmatory test.[facility] ClubUrine Cocaine Screen 2017-04-24 04:16:00* Test Item Value Reference Range Interpretation Comments Urine Cocaine Screen (test code = Urine Cocaine Screen) NEGATIVE NEGATIVE [facility] ClubUrine Cannabinoids Gkkdrg1265-01-12 04:16:00* Test Item Value Reference Range Interpretation Comments Urine Cannabinoids Screen (test code = 30477-6) NEGATIVE NEGATI VE THESE RESULTS ARE FOR MEDICAL TREATMENT ONLYTHIS REPORT CONTAINS UNCONFIR MED SCREENING RESULTS*POSITIVE RESULTS WILL BE CONFIRMED BY REFERENCE LAB UPON R EQUEST CUT-OFFDRUG CLASS CONCENTRATION ng/mLAmphetamines 1000Methamphetamines 1000Cocaine 300Opiate 300Phencyc lidine 25Cannabinoid 50Barbiturates 300Benzodiazepine 300Methadone 300[facility] HospitalU[facility] Opiates Qxdphb9295-83-45 04:16:00* Test Item Value Reference Range Interpretation Comments Urine Opiates Screen (test code = 21038-9) NEGATIVE NEGATIVE [facility] ClubUrine Barbiturates Kksxez1843-46-99 04:16:00* Test Item Value Reference Range Interpretation Comments Urine Barbiturates Screen (test code = 337759549) NEGATIVE NEGA TIVE [facility] ClubUrine Phencyclidine Rchkvn5071-13-22 04:16:00* Test Item Value Reference Range Interpretation Comments Urine Phencyclidine Screen (test code = 07180-2) NEGATIVE NEGAT CECILY [facility] ClubUrine Amphetamines Dcxhhh0996-47-24 04:16:00* Test Item Value Reference Range Interpretation Comments Urine Amphetamines Screen (test code = 92886-4) NEGATIVE NEGATI VE [facility] ClubUrine Benzodiazepines Bidkxk8414-84-86 04:16:00* Test Item Value Reference Range Interpretation Comments Urine Benzodiazepines Screen (test code = 70802-3) POSITIVE NEG ATIVE H This test provides only a screen. Positive results should be repeated by a confi rmatory test.[facility] ClubUrine Cocaine Screen 2017-04-24 04:16:00* Test Item Value Reference Range Interpretation Comments Urine Cocaine Screen (test code = Urine Cocaine Screen) NEGATIVE NEGATIVE [facility] ClubUrine Cannabinoids Bkxjgu3907-71-85 04:16:00* Test Item Value Reference Range Interpretation Comments Urine Cannabinoids Screen (test code = 96349-7) NEGATIVE NEGATI VE THESE RESULTS ARE FOR MEDICAL TREATMENT ONLYTHIS REPORT CONTAINS UNCONFIR MED SCREENING RESULTS*POSITIVE RESULTS WILL BE CONFIRMED BY REFERENCE LAB UPON R EQUEST CUT-OFFDRUG CLASS CONCENTRATION ng/mLAmphetamines 1000Methamphetamines 1000Cocaine 300Opiate 300Phencyc lidine 25Cannabinoid 50Barbiturates 300Benzodiazepine 300Methadone 300[facility] HospitalUrine Ubhtj4025-27-87 04:13:00* Test Item Value Reference Range Interpretation Comments Urine Color (test code = 5778-6) YELLOW YELLOW [facility] ClubUrine Cuaavyb3319-89-26 04:13:00* Test Item Value Reference Range Interpretation Comments Urine Clarity (test code = 14001-6) CLEAR CLEAR [facility] ClubUrine Specific Tsucube6423-25-90 04:13:00 * Test Item Value Reference Range Interpretation Comments Urine Specific [place] (test code = 5811-5) 1.005 1.010-1.02 5 L [facility] ClubUrine hZ0576-74-27 04:13:00* Test Item Value Reference Range Interpretation Comments Urine pH (test code = 48412-2) 7 5-7 [facility] ClubUrine Leukocyte Nwvdmgyp8266-11-07 04:13:00* Test Item Value Reference Range Interpretation Comments Urine Leukocyte Esterase (test code = 5799-2) NEGATIVE NEGATIVE [facility] ClubUrine Yriuflp8670-44-82 04:13:00* Test Item Value Reference Range Interpretation Comments Urine Nitrite (test code = 50910-6) NEGATIVE NEGATIVE [facility] ClubUrine Eerzlfp0360-51-88 04:13:00* Test Item Value Reference Range Interpretation Comments Urine Protein (test code = 5804-0) 2+ NEGATIVE H [facility] ClubUrine Glucose (UA)2017-04-24 04:13:00* Test Item Value Reference Range Interpretation Comments Urine Glucose (UA) (test code = 2349-9) NEGATIVE NEGATIVE [facility] ClubUrine Fjiypxn6390-64-25 04:13:00* Test Item Value Reference Range Interpretation Comments Urine Ketones (test code = 82794-3) NEGATIVE NEGATIVE [facility] ClubUrine Mpmdkytdkxgb8711-23-00 04:13:00* Test Item Value Reference Range Interpretation Comments Urine Urobilinogen (test code = 55055-4) 0.2 0.2-1 [facility] ClubUrine Opxlafept0633-48-96 04:13:00* Test Item Value Reference Range Interpretation Comments Urine Bilirubin (test code = 1978-6) NEGATIVE NEGATIVE [facility] ClubUrine Okmju1250-37-55 04:13:00* Test Item Value Reference Range Interpretation Comments Urine Blood (test code = 83651-1) NEGATIVE NEGATIVE [facility] [facility] [address] [place] [address] Patient Name: IKE JEROME MR #: [id number] : 1945 Age/Sex: 72/F Req #: [id number] Adm Physician: JEANNINE GIBBS MD Ordered by: JEANNINE GIBBS MD Report #: [id number] Location: [facility] Room/Bed: [place] [address] Procedure: [id number] DX/CH EST XRAY LINE PLACEMENT Exam Date: 08/27/17 Exam Pedro e: 0120 REPORT STATUS: Signed CHEST XRAY LINE PLACEMENT, 08/27/2017 1:17 AM Technique: CHEST XRAY LINE PLACEMENT Comparison: 05/27/2016 Clinical h istory: PICC line placement Findings: See Impression Impression: L imited portable technique with soft tissue attenuation. 1. Lines/Tubes: Right PICC overlies the distal SVC. 2. Stable enlarged cardiomediastinal silhouette. 3. Mild bibasilar opacity may reflect vascular crowding/atelectasis. Aspira tion/infection not excluded in the proper clinical context. 4. No pneumothorax or effusion. Signed by: Dr Gianna Cole MD on 08/27/2017 2:00 AM Di ctated By: GIANNA COLE MD 020 COPY TO: JEANNINE GIBBS MD CTA BRAIN [place] [address] Patient Name: IKE JEROME MR #: [id number] : 1945 Age/Sex: 72/F Req #: [id number] Adm Physician: JEANNINE GIBBS MD Ordered by: RAO APPLE MD Report #: [id number] Location: [facility] Room/Bed: [place] [address] Procedure: [id number] CT/CTA BRAIN Exam Date: 08/27/17 Exam Time: 0246 REPORT STATUS: Signed EXAMINATION: CT angio of the neck and head with cont rast. HISTORY:TIA. COMPARISON:MRA head and neck from 05/28/2016 and C T brain from 08/26/2017. TECHNIQUE: Multidetector helical axial images were a cquired through the neck and head during infusion of iodinated contrast mater ial. Images were reviewed in multiplanar and 3-dimensional format. Contrast : 100 mL of Isovue-370. . FINDINGS: AORTIC ARCH: Moderate atheroscle rotic calcification in the aortic arch and at the origin of the great vessels. Mixed atherosclerotic plaque at the origin of left subclavian artery without significant vascular stenosis. NECK: If carotid bulb stenosis is presen t, stenosis is measured with respect to the distal extracranial internal carot id artery. Right Carotid: Punctate focal hard atherosclerotic plaque in right carotid bulb without significant vascular stenosis. Right internal carotid art cinthia is patent without abnormality. Left Carotid: Mild to moderate hard at herosclerotic plaque in the left carotid bulb extending to the proximal left i nternal carotid artery results in approximately 30% vascular stenosis. Ve rtebrals: Patent, no abnormality. HEAD: Anterior Circulation: Mild athero sclerotic calcification in the bilateral carotid siphon with patent M1 and A1 segments. Posterior Circulation: Focal hard atherosclerotic plaque in the p roximal right V4 segment of the vertebral artery results in approximately 20% vascular stenosis with irregularity in the caliber of patent distal V4 segment . 2 focal hard atherosclerotic plaque in proximal left V4 segment results in approximately 70% vascular stenosis (image 306, series 3) origin of lef t posterior cerebral artery with hypoplastic left P1 segment. Age indetermin ate occlusion of at the junction of left P2/P3 segment. Anatomical va riants: Anterior communicating artery :Patent Posterior communicating arteri es: Patent Vertebral arteries: Codominant. IMPRESSION: 1. Moderate a therosclerotic calcification in the aortic arch and at the origin of the great vessels. 2. Hard atherosclerotic plaque in left carotid bulb and proximal left internal carotid artery results in approximately 30% vascular stenosis. F ocal hard atherosclerotic plaque in right carotid bulb without significant vas cular stenosis. 3. Mild atherosclerotic plaque in bilateral carotid sipho n. 4. Focal hard atherosclerotic plaque in proximal bilateral V4 segments, results in approximately 20% focal vascular stenosis on the right and 70% foca l vascular stenosis on the left with distal flow. Irregularity in caliber of distal right V4 segment due to atherosclerosis. 5. Age indeterminate occlu edson at the junction of left P2/P3 segment. Signed by: Dr. María Gee M.D. on 08/27/2017 3:26 AM Dictated By: MARÍA GEE MD 0326 Transcribed By: AURELIA on 12/07 0326 COPY TO: RAO APPLE MD CTA NECK [place] [address] Patient Name: IKE JEROME MR #: [id number] : 1945 Age/Sex: 72/F Req #: [id number] Adm Physician: JEANNINE GIBBS MD Ordered by: RAO APPLE MD Report #: [id number] Loca tion: [facility] Room/Bed: [place] [address] Procedure: [id number] CT/CTA NECK Exam Date: 08/27/17 Exam Time: 215 REPORT STATUS: Signed EXAMINATION: CT angio of the neck and head with contr ast. HISTORY:TIA. COMPARISON:MRA head and neck from 05/28/[address] brain from 08/26/2017. TECHNIQUE: Multidetector helical axial images were ac quired through the neck and head during infusion of iodinated contrast materi al. Images were reviewed in multiplanar and 3-dimensional format. Contrast: 100 mL of Isovue-370. . FINDINGS: AORTIC ARCH: Moderate atheroscler otic calcification in the aortic arch and at the origin of the great vessels. Mixed atherosclerotic plaque at the origin of left subclavian artery without significant vascular stenosis. NECK: If carotid bulb stenosis is present , stenosis is measured with respect to the distal extracranial internal caroti d artery. Right Carotid: Punctate focal hard atherosclerotic plaque in right c arotid bulb without significant vascular stenosis. Right internal carotid adela ry is patent without abnormality. Left Carotid: Mild to moderate hard ath erosclerotic plaque in the left carotid bulb extending to the proximal left in ternal carotid artery results in approximately 30% vascular stenosis. Umm tebrals: Patent, no abnormality. HEAD: Anterior Circulation: Mild atheros clerotic calcification in the bilateral carotid siphon with patent M1 and A1 s egments. Posterior Circulation: Focal hard atherosclerotic plaque in the pr oximal right V4 segment of the vertebral artery results in approximately 20% v ascular stenosis with irregularity in the caliber of patent distal V4 segment. 2 focal hard atherosclerotic plaque in proximal left V4 segment results in approximately 70% vascular stenosis (image 306, series 3) origin of left posterior cerebral artery with hypoplastic left P1 segment. Age indetermina te occlusion of at the junction of left P2/P3 segment. Anatomical reginald iants: Anterior communicating artery :Patent Posterior communicating arterie s: Patent Vertebral arteries: Codominant. IMPRESSION: 1. Moderate at herosclerotic calcification in the aortic arch and at the origin of the great vessels. 2. Hard atherosclerotic plaque in left carotid bulb and proximal l eft internal carotid artery results in approximately 30% vascular stenosis. Fo meghan hard atherosclerotic plaque in right carotid bulb without significant vasc ular stenosis. 3. Mild atherosclerotic plaque in bilateral carotid siphon . 4. Focal hard atherosclerotic plaque in proximal bilateral V4 segments, r esults in approximately 20% focal vascular stenosis on the right and 70% focal vascular stenosis on the left with distal flow. Irregularity in caliber of distal right V4 segment due to atherosclerosis. 5. Age indeterminate occlus ion at the junction of left P2/P3 segment. Signed by: Dr. María Gee M.D. on 08/27/2017 3:26 AM Dictated By: MARÍA GEE MD 5 Transcribed By: AURELIA on 08/27 COPY TO: RAO APPLE MD CT BRAIN WO [place] [address] Patient Name: IKE JEROME MR #: [id number] : 1945 Age/Sex: 72/F Req #: [id number] Adm Physician: Ordered by: ANJUM EUCEDA NP Report #: [id number] Location: Room/Bed: Procedure: [id number] CT/CT BRAIN WO Exam Date: 11/06 Exam Time: 1730 REPORT STATUS: Signed E XAMINATION: Head CT without contrast. HISTORY:Altered mental status. COMPARISON:Multiple prior studies, most recent CT brain from 12/06/2016. TECHNIQUE: Multidetector axial images were obtained from the foramen magnum to the vertex without contrast. The images were reconstructed using brain and sridevi ne algorithms. Thin section brain images were reformatted into coronal and sagittal planes. Intravenous contrast: None IMAGE QUALITY: Acceptable . FINDINGS: Skull/scalp: No lytic or blastic. lesions. No surgical c hanges. Parenchyma: Unchanged nonspecific bilateral frontoparietal patchy white matter hypodensity are likely related to small vessel ischemic changes. Multifocal unchanged chronic lacunar infarcts in left stokes radiata, left t halamus, left putamen, right striata capsular region and left cerebellar hemis phere No acute hemorrhage, mass or acute major vascular territorial infarct.. Arteries: Atherosclerotic calcification in bilateral carotid siphon and V4 segment of left vertebral artery. Dural sinuses: No abnormal density villela ggestive of thrombosis. Ventricles: No hydrocephalus or displacement. Extra-axial spaces: No abnormal density. Brain volume: Normal for age . Craniocervical junction: No mass, Chiari malformation, or basilar inva gination. Sella: No mass. Paranasal/mastoid sinuses: Imaged portion s unremarkable. IMPRESSION: No acute intracranial abnormality. No bryan e since CT brain from 12/06/2016. Chronic findings: 1. Mild supratentorial white matter microvascular ischemic changes. 2. Multifocal chronic lacunar in farcts as detailed above. 3. Mild generalized cerebral volume loss. Preli minary report was given by Neuroradiology fellow Dr. Alvarado at 6:39 PM on 2017. I have reviewed the study and agree with the findings in the prelimin charlene report. Signed by: Dr. María Gee M.D. on 08/26/2017 7:38 PM Dictated By: MARÍA GEE MD 37 Transcribed By: AURELIA on 08/26/171937 COPY TO: ANJUM CERRATO ACE, NP CT BRAIN WO [place] [id number] [place] [address] Patient Name: IKE JEROME MR #: [id number] : 1945 Age/Sex: 72/F Req #: [id number] Adm Physician: Ordered by: HANNAH MCDERMOTT MD Report #: [id number] Location: ER Room/Bed: Procedure: [id number] CT/CT BRAIN WO Exam Date: 06/09 Exam Time: 2325 REPORT STATUS: Signed E XAMINATION: Head CT without contrast. HISTORY:Dizziness, headache and left-sided numbness. COMPARISON:Multiple prior studies, most recent CT brai n from 12/06/2016 and MRI brain from 05/27/2016. TECHNIQUE: Multidetector ax ial images were obtained from the foramen magnum to the vertex without contras t. The images were reconstructed using brain and bone algorithms. Thin sectio n brain images were reformatted into coronal and sagittal planes. Intraven ous contrast: None IMAGE QUALITY: Acceptable. FINDINGS: Skull/ scalp: No abnormality. Parenchyma: Nonspecific bilateral frontoparietal pa tchy white matter hypodensity are likely related to small vessel ischemic plunkett ges. Old lacunar infarct in left cerebellar hemisphere, right striato-capsular region, left thalamus, left stokes radiata and bilateral putamen. No acute hemorrhage, mass or acute major vascular territorial infarct. Arteries: At herosclerotic calcification in bilateral carotid siphon and V4 segment of left vertebral artery. Dural sinuses: No abnormal density suggestive of thromb osis. Ventricles: No hydrocephalus or displacement. Extra-axial spa joey: No abnormal density. Brain volume: Normal for age. Craniocerv ical junction: No mass, Chiari malformation, or basilar invagination. Se lla: No mass. Paranasal/mastoid sinuses: Imaged portions unremarkable. IMPRESSION: No acute intracranial abnormality, particularly no acute hemorr dion, mass or acute major vascular territorial infarct. Chronic findings: Mild supratentorial white matter microvascular ischemic changes. Multifocal chronic lacunar infarcts as detailed above. Signed by: Dr. María Gee M.D. on 04/23/2017 11:56 PM Dictated By: MARÍA GEE MD Electronical ly Signed By: MARÍA GEE MD on 04/23/17 8721 Transcribed By: AURELIA on 2527 COPY TO: HANNAH MCDERMOTT MD
--- OUTSIDE RECORDS SUMMARY | 2020-01-17 14:18 | XMS REPORT | Continuity of Care Document ---
Author Author [facility] t Organization [facility] Address [address] [place] [address] Phone Unavailable Care Team Providers Care Editorial Intern Name Role Phone SAI BOWMAN, MD PAEZ PCP Harpal WARNER AMBICA Attphys Unavailable JEANNINE GIBBS Attphys Unavailable George MCDERMOTT LAIRD Attphys Unavailable JEANNINE GIBBS Admphys Unavailable Payers Payer Name Policy Type Policy Number Effective Date Expiration Date Harpal Gaytan Medicare Advantage [id number] 2016 00:00:00 [facility] Problems Condition Name Condition Details Condition Category Status Onset Date Resolution Date Last Treatment Date Treating Clinician Comments Source Cerebrovascular accident (CVA) Stroke Problem Active 2015-03-04 00:00: 00 [facility] Hypertension Hypertension Problem Active 2015-03-04 00:00:00 [facility] Allergic reaction Allergic reaction Problem Active [facility] Paresthesia Paresthesia Problem Active [facility] Aphasia Aphasia Problem Active [facility] Hypercalcemia Hypercalcemia Problem Active [facility] Type 2 diabetes mellitus with hyperglycemia Hyperglyce mena due to type 2 diabetes mellitus Problem Active [facility] Hyponatremia Hyponatremia Problem Active [facility] Noncompliance with treatment Non compliance with medical treatme nt Problem Active [facility] Transient cerebral ischemia Problem Active [facility] Intractable abdominal pain Problem Active [facility] Allergies, Adverse Reactions, Alerts Allergy Name Allergy Type Status Severity Reaction(s) Onset Date Inacti ve Date Treating Clinician Comments Source Lisinopril Allergy to substance Active Severe ANGIOEDEMA 2020-01-10 00 :00:00 [facility] STATIN Allergy to substance Active 2020-01-10 00:00:00 [facility] Sulfa (Sulfonamide Antibiotics) Allergy to substance Active Moder ate 2018-01-12 00:00:00 [facility] Codeine Allergy to substance Active Mild 2016-12-06 00:00:00 [facility] Albuterol Allergy to substance Active Moderate rash 2016-12-06 00:00:00 [facility] Adhesive Allergy to substance Active 2016-12-06 00:00:00 [facility] Family History Family Member Diagnosis Comments Start Date Stop Date Source 33 FATHER Family history of chronic obstructive pulmonary disease [facility] 32 MOTHER Family history of chronic obstructive pulmonary disease [facility] 32 MOTHER Family history of asthma [facility] 09 BROTHER Family history of chronic obstructive pulmonary disease [facility] 09 BROTHER Family history of diabetes mellitus [facility] 09 SISTER Family history of diabetes mellitus [facility] 09 SISTER Family history of chronic obstructive pulmonary disease [facility] 09 SISTER Family history of asthma [facility] 18 DAUGHTER Family history of malignant neoplasm of breast [facility] Social History Social Habit Start Date Stop Date Quantity Comments Source Sex Assigned At 1945 00:00:00 1945 00:00:00 Female [facility] Medications Ordered Medication Name Filled Medication Name Start Date Stop Da te Current Medication? Ordering Clinician Indication Dosage Frequency Signature (SIG) Comments Components Source Lorazepam (Ativan) 1 Mg TABLET Lorazepam (Ativan) 1 Mg TABLE T 2020-01-12 05:29:00 Yes .5 Every 6 Hours as needed for A nxiety [facility] Amlodipine Besylate Amlodipine Besylate Yes 10 Daily [facility] Aspirin (Aspirin Enteric Coated) 325 Mg TABEC Aspirin (Aspirin Enteric Coated) 325 Mg TABEC Yes 81 Daily [facility] Atrovastatin Atrovastatin Yes 40 Bedtime [facility] Cholecalciferol (Vitamin D3) (Vitamin D) 400 Unit CAPS ULE Cholecalciferol (Vitamin D3) (Vitamin D) 400 Unit CAPSULE Yes 400 Daily [facility] Furosemide (Lasix) 40 Mg TABLET Furosemide (Lasix) 40 Mg TABLET Yes 40 Daily [facility] Gabapentin Gabapentin Yes 300 Twice A Day [facility] Gemfibrozil Gemfibrozil Yes 600 Twice A Day [facility] Hydralazine Hcl Hydralazine Hcl Yes 25 [place] es Daily [facility] Levothyroxine Sodium Levothyroxine Sodium Yes 100 Daily [facility] Montelukast Sodium Montelukast Sodium Yes 10 Da gómez [facility] Oxybutynin Chloride (Oxybutynin Chloride Er) 10 Mg TAB .ER.24 Oxybutynin Chloride (Oxybutynin Chloride Er) 10 Mg TAB.ER.24 Yes 10 Daily [facility] Pantoprazole Sodium (Protonix) 40 Mg TABLET. Pantopr azole Sodium (Protonix) 40 Mg TABLET. Yes 40 Twice A Day [facility] Ticagrelor (Brilinta) 90 Mg TABLET Ticagrelor (Brilinta) 90 Mg TABLET Yes Twice A Day [facility] Zolpidem Tartrate (Ambien) 10 Mg TABLET Zolpidem Tartrate (A mbien) 10 Mg TABLET Yes 5 Bedtime as needed for Sleep [facility] Lorazepam (Ativan) 1 Mg TABLET Lorazepam (Ativan) 1 Mg TABLET 2020-01-12 00:00:00 No Every 6 Hours [facility] Quetiapine Fumarate (Seroquel Xr) 1 Each [id number] Qu etiapine Fumarate (Seroquel Xr) 1 Each [id number] 2020-01-12 00:00:00 No 25 Twice A Day [facility] Ascorbate Calcium (Vitamin C) 500 Mg TABLET Ascorbate Calcium (Vitamin C) 500 Mg TABLET 2020-01-10 00:00:00 No 500 Daily [facility] Clonidine Hcl Clonidine Hcl 2020-01-10 00:00:00 No 1 Three Times A Day [facility] Diazepam Diazepam 2020-01-10 00:00:00 No 5 Daily as needed for Anxiety [facility] Diclofenac Sodium (Voltaren-Xr) 100 Mg TAB.ER.24H Dicl ofenac Sodium (Voltaren- Xr) 100 Mg TAB.ER.24H 2020-01-10 00:00:00 No 75 Tw ice A Day [facility] Dicyclomine Hcl Dicyclomine Hcl 2020-01-10 00:00:00 No 20 Twice A Day [facility] Duloxetine Hcl (Cymbalta) 30 Mg CAPSULE. Duloxetine Hcl (Cymbalta) 30 Mg CAPSULE. 2020-01-10 00:00:00 No 60 Daily [facility] Hydrochlorothiazide (Esidrix*) 25 Mg TAB Hydrochloroth iazide (Esidrix*) 25 Mg TAB 2020-01-10 00:00:00 No 25 Daily [facility] Insulin Lisp Protam/Lisp Human (Humalog Mix 75-25 Vial ) 100 Units/Ml ML Insulin Lisp Protam/Lisp Human (Humalog Mix 75-25 Vial) 100 Units/Ml ML 2020-01-10 00:00:00 No 140 Qam And Hs [facility] Lisinopril (Prinavil / Zestril) 20 Mg TABLET Lisinopri l (Prinavil / Zestril) 20 Mg TABLET 2020-01-10 00:00:00 No 20 Daily [facility] Temazepam Temazepam 2020-01-10 00:00:00 No 30 Bedtime as needed for Insomnia [facility] Metformin Hcl Metformin Hcl 2018-01-16 00:00:00 No 500 Twice A Day [facility] Duloxetine Hcl (Cymbalta) 30 Mg CAPSULE. Duloxetine Hcl (Cymbalta) 30 Mg CAPSULE. 2018-01-12 00:00:00 No 60 Daily as need ed for Anxiety [facility] Meloxicam Meloxicam 2018-01-12 00:00:00 No 15 Daily [facility] Atorvastatin Calcium Atorvastatin Calcium 2016-12-06 00:00:00 No 1 Bedtime [facility] Nitrofurantoin Macrocrystal (Macrodantin) 100 Mg CAPSU LE Nitrofurantoin Macrocrystal (Macrodantin) 100 Mg CAPSULE 2016-12-06 00:00:00 No [address] [facility] Aspirin Aspirin 2016-05-27 00:00:00 No 81 Daily [facility] Benazepril/Hydrochlorothiazide (Benazepril-Hctz 20-25 Mg Tab) 1 Each TABLET Benazepril/Hydrochlorothiazide (Benazepril-Hctz 20-25 Mg Tab) 1 Each TABLET 2015-07-30 00:00:00 No 1 Daily [facility] Diazepam Diazepam 2015-07-30 00:00:00 No 5 Daily [facility] Glimepiride Glimepiride 2015-07-30 00:00:00 No 4 T wice A Day [facility] Hydrocodone Bit/Acetaminophen ([place] 7.5-325 Tablet) 1 Each TABLET Hydrocodone Bit/Acetaminophen ([place] 7.5-325 Tablet) 1 Each TABLET 00:00:00 No 1 [facility] Metoprolol Metoprolol 2015-07-30 00:00:00 No 50 Twi ce A Day [facility] Solifenacin Succinate (Vesicare) 10 Mg TABLET Solifena juan jose Succinate (Vesicare) 10 Mg TABLET 2015-07-30 00:00:00 No 10 Daily [facility] Hydrocodone Hydrocodone 2013-11-26 00:00:00 No [facility] Hydrocodone Bit/Acetaminophen (Hydrocodone-Apap 10-325 Tablet) 1 Each TABLET Hydrocodone Bit/Acetaminophen (Hydrocodone-Apap 10-325 Tablet) 1 Each TABLET 2013-11-26 00:00:00 No 1 As Needed [facility] Fenofibrate Nanocrystallized (Tricor) 48 Mg TABLET Fen ofibrate Nanocrystallized (Tricor) 48 Mg TABLET 2013-04-16 00:00:00 [facility] Gabapentin Gabapentin 2013-04-16 00:00:00 [facility] Insulin Aspart (Novolog 70/30 10ML Vial) 100 Units/Ml ML Insulin Aspart (Novolog 70/30 10ML Vial) 100 Units/Ml ML 2013-04-16 00:00:00 [facility] Benazepril Benazepril 2011-05-20 00:00:00 [facility] Levothyroxine Levothyroxine 2011-05-20 00:00:00 [facility] Novolog Novolog 2011-05-20 00:00:00 [facility] Premarin Premarin 2011-05-20 00:00:00 [facility] Tricor Tricor 2011-05-20 00:00:00 [facility] Vital Signs Vital Name Observation Time Observation Value Comments Source Body Temperature 2020-01-12 12:08:00 97.5 [degF] [facility] BMI (Body Mass Index) 2020-01-10 05:07:00 40.1 kg/m2 [facility] Weight 2020-01-10 02:00:00 212 [lb_av] [facility] Procedures Procedure Date / Time Performed Performing Clinician [facility] e Computed tomography of abdomen and pelvis with contrast 00:00:00 [facility] Plan of Care Planned Activity Planned Date Details Comments Source Instructions Abdominal Pain - Adult [facility] Instructions Back Pain [facility] Encounters Start Date/Time End Date/Time Encounter Type Admission Type [facility] Care Department Encounter ID Source 2020-01-10 04:44:00 2020-01-12 13:25:00 Discharged Inpatient (obs) 1 TATIANA WARNER [facility] [id number] [facility] 2019-11-20 20:54:00 2019-11-20 16:42:00 Inpatient E [id number] 2019-09-22 15:51:00 2019-09-21 15:26:00 Inpatient U [facility] CAR [id number] [facility] 2019-09-01 05:15:00 2019-09-01 02:55:00 Inpatient E [id number] 2018-01-12 05:53:00 2018-01-16 13:05:00 Discharged Inpatient 1 HANNAH MCDERMOTT [facility] [id number] [facility] 2017-08-29 08:21:00 2017-08-30 17:30:00 Discharged Inpatient ER JEANNINE GIBBS [facility] [id number] [facility] 2017-04-23 22:11:00 2017-04-24 04:25:00 Departed Emergency Room ER HANNAH MCDERMOTT [facility] [id number] [facility] 2016-12-06 15:45:00 2016-12-07 13:40:00 Discharged Inpatient (obs) [facility] [id number] [facility] Results Test Description Test Time Test Comments Results Result Comments Source Blood leukocytes automated count (number/volume) 2020-01-11 05:15:00 Test Item White Blood Count (test code = 6690-2) 10.77 4.8-10.8 [facility] count (number/volume)2020-01-11 05:15:00* Test Item Value Reference Range Interpretation Comments Red Blood Count (test code = 789-8) 3.48 3.6-5.1 [facility] hemoglobin measurement (moles/volume)2020-01-11 05:15:00* Test Item Value Reference Range Interpretation Comments Hemoglobin (test code = 56397-6) 9.9 12.0-16.0 [facility] CenterAutomated blood hematocrit (volume fraction)2020-01-11 05:15:00* Test Item Value Reference Range Interpretation Comments Hematocrit (test code = 4544-3) 32.7 34.2-44.1 [facility] CenterAutomated erythrocyte mean corpuscular [id number] 05:15:00* Test Item Value Reference Range Interpretation Comments Mean Corpuscular Volume (test code = 787-2) 94.0 81-99 [facility] CenterAutomated erythrocyte mean corpuscular hemoglobin (mass per erythrocyte)2020-01-11 05:15:00* Test Item Value Reference Range Interpretation Comments Mean Corpuscular Hemoglobin (test code = 785-6) 28.4 28-32 [facility] CenterAutomated erythrocyte mean corpuscular hemoglobin concentration measurement (mass/volume)2020-01-11 05:15:00* Test Item Value Reference Range Interpretation Comments Mean Corpuscular Hemoglobin Concent (test code = 786-4) 30.3 31-35 [facility] CenterRDW LtlMe-Ion1024-40-21 05:15:00* Test Item Value Reference Range Interpretation Comments Red Cell Distribution Width (test code = 65312-2) 15.6 11.7 -14.4 [facility] CenterAutomated blood platelet count (count/volume)2020-01-11 05:15:00* Test Item Value Reference Range Interpretation Comments Platelet Count (test code = 777-3) 315 140-360 [facility] CenterAutcritical access hospitaled blood segmented neutrophil count as percentage of total svqlgsqdux3219-57-08 05:15:00* Test Item Value Reference Range Interpretation Comments Neutrophils (%) (Auto) (test code = 25512-1) 76.0 38.7-80.0 [facility] CenterAutomated blood lymphocyte count as percentage ot total eigbgkjbvm9658-39-98 05:15:00* Test Item Value Reference Range Interpretation Comments Lymphocytes (%) (Auto) (test code = 736-9) 16.7 18.0-39.1 [facility] CenterAutomated blood monocyte count as percentage of total qbkvtpuheq2859-82-69 05:15:00* Test Item Value Reference Range Interpretation Comments Monocytes (%) (Auto) (test code = 5905-5) 4.9 4.4-11.3 [facility] CenterAutomated blood eosinophil count as percentage of total ahhveictvx5741-19-03 05:15:00* Test Item Value Reference Range Interpretation Comments Eosinophils (%) (Auto) (test code = 713-8) 1.9 0.0-6.0 [facility] CenterAutomated blood basophil count as percentage of total wohedpvdnx7109-22-67 05:15:00* Test Item Value Reference Range Interpretation Comments Basophils (%) (Auto) (test code = 706-2) 0.2 0.0-1.0 [facility] CenterFluoroscopic procedure less than one hour tddluahz9382-32-99 05:15:00* Test Item Value Reference Range Interpretation Comments IM GRANULOCYTES % (test code = IM GRANULOCYTES %) 0.3 0.0- 1.0 [facility] CenterAutomated blood neutrophil count 2020-01-11 05:15:00* Test Item Value Reference Range Interpretation Comments Neutrophils # (Auto) (test code = 751-8) 8.2 2.1-6.9 [facility] CenterBlood lymphocytes count (number/volume) 2020-01-11 05:15:00* Test Item Value Reference Range Interpretation Comments Lymphocytes # (Auto) (test code = 53946-6) 1.8 1.0-3.2 [facility] CenterBlood monocytes automated count (number/volume)2020-01-11 05:15:00* Test Item Value Reference Range Interpretation Comments Monocytes # (Auto) (test code = 742-7) 0.5 0.2-0.8 [facility] CenterAutomated blood eosinophil count 2020-01-11 05:15:00* Test Item Value Reference Range Interpretation Comments Eosinophils # (Auto) (test code = 711-2) 0.2 0.0-0.4 [facility] CenterAutomated blood basophil count (count/volume)2020-01-11 05:15:00* Test Item Value Reference Range Interpretation Comments Basophils # (Auto) (test code = 704-7) 0.0 0.0-0.1 [facility] CenterFluoroscopic procedure less than one hour wujtcoag3741-72-55 05:15:00* Test Item Value Reference Range Interpretation Comments Absolute Immature Granulocyte (auto (lalitha t code = Absolute Immature Granulocyte (auto) 0.03 0-0.1 [facility] sodium measurement (moles/volume)2020-01-11 05:15:00* Test Item Value Reference Range Interpretation Comments Sodium Level (test code = 2951-2) 137 136-145 [facility] Centererum or plasma potassium measurement (moles/volume)2020-01-11 05:15:00* Test Item Value Reference Range Interpretation Comments Potassium Level (test code = 2823-3) 4.8 3.5-5.1 [facility] Centererum or plasma chloride measurement (moles/volume)2020-01-11 05:15:00* Test Item Value Reference Range Interpretation Comments Chloride Level (test code = 2075-0) 97 98-107 [facility] Centererum or plasma carbon dioxide, total measurement (moles/volume)2020-01-11 05:15:00* Test Item Value Reference Range Interpretation Comments Carbon Dioxide Level (test code = 2028-9) 28 22-29 [facility] Centererum or plasma anion [id number] 05:15:00* Test Item Value Reference Range Interpretation Comments Anion Gap (test code = 14550-5) 16.8 8-16 [facility] Centererum or plasma urea nitrogen measurement (mass/volume)2020-01-11 05:15:00* Test Item Value Reference Range Interpretation Comments Blood Urea Nitrogen (test code = 3094-0) 38 7-26 [facility] Centererum or plasma creatinine measurement (mass/volume)2020-01-11 05:15:00* Test Item Value Reference Range Interpretation Comments Creatinine (test code = 2160-0) 1.29 0.57-1.11 [facility] Centererum or plasma urea nitrogen/creatinine mass keaiz2426-93-06 05:15:00* Test Item Value Reference Range Interpretation Comments BUN/Creatinine Ratio (test code = 3097-3) 29 6-25 [facility] CenterEstimated glomerular filtration rate (GFR) bbeezvatdswit2430-20-83 05:15:00* Test Item Value Reference Range Interpretation Comments Estimat Glomerular Filtration Rate (test code = 915606859) 41 >60 Ranges were taken from the National Kidney Disease Education Program and the [facility] literature.Reference ranges:60 or greater: Ctabtn89-70 ( for 3 consecutive months): Chronic kidney disease 15 or less: Kidney failureBaylor University Medical CenterGlucose glgnjsxfyos5147-00-70 05:15:00* Test Item Value Reference Range Interpretation Comments Glucose Level (test code = ZHG0805) 226 74-118 [facility] Centererum or plasma calcium measurement (mass/volume)2020-01-11 05:15:00* Test Item Value Reference Range Interpretation Comments Calcium Level (test code = 01560-9) 9.2 8.4-10.2 [facility] Centererum or plasma magnesium measurement (mass/volume)2020-01-11 05:15:00* Test Item Value Reference Range Interpretation Comments Magnesium Level (test code = 61688-9) 2.3 1.3-2.1 [facility] Centererum or plasma total bilirubin measurement (mass/volume)2020-01-11 05:15:00* Test Item Value Reference Range Interpretation Comments Total Bilirubin (test code = 1975-2) 0.3 0.2-1.2 [facility] CenterFluoroscopic procedure less than one hour jkvvsgvo3429-49-86 05:15:00* Test Item Value Reference Range Interpretation Comments Aspartate Amino Transf (AST/SGOT) (test code = Aspartate Amino Transf (AST/SGOT)) 11 5-34 [facility] Centererum or plasma alanine aminotransferase measurement (enzymatic activity/volume)2020-01-11 05:15:00* Test Item Value Reference Range Interpretation Comments Alanine Aminotransferase (ALT/SGPT) (test code = 1742-6) 8 0-55 [facility] Centererum or plasma protein measurement (mass/volume)2020-01-11 05:15:00* Test Item Value Reference Range Interpretation Comments Total Protein (test code = 2885-2) 7.6 6.5-8.1 [facility] Centererum or plasma albumin measurement (mass/volume)2020-01-11 05:15:00* Test Item Value Reference Range Interpretation Comments Albumin (test code = 1751-7) 4.4 3.5-5.0 [facility] CenterPlasma globulin measurement (mass/volume) 2020-01-11 05:15:00* Test Item Value Reference Range Interpretation Comments Globulin (test code = 15556-9) 3.2 2.3-3.5 [facility] Centererum or plasma albumin/globulin mass ejyxu5283-04-25 05:15:00* Test Item Value Reference Range Interpretation Comments Albumin/Globulin Ratio (test code = 1759-0) 1.4 0.8-2.0 [facility] Centererum or plasma alkaline phosphatase measurement (enzymatic activity/volume)2020-01-11 05:15:00* Test Item Value Reference Range Interpretation Comments Alkaline Phosphatase (test code = 6768-6) 107 40-150 [facility] Centererum or plasma amylase measurement (enzymatic activity/volume)2020-01-11 05:15:00* Test Item Value Reference Range Interpretation Comments Amylase Level (test code = 1798-8) 24 25-125 [facility] Centererum or plasma lipase measurement (enzymatic activity/volume)2020-01-11 05:15:00* Test Item Value Reference Range Interpretation Comments Lipase (test code = 3040-3) 14 8-78 [facility] CenterFluoroscopic procedure less than one hour bscxmsuu8415-86-15 04:40:00* Test Item Value Reference Range Interpretation Comments Coronavirus (PCR) (test code = Coronavirus (PCR)) NOT DETECTED NOTD ETECTED SARS-CoV-2 PCRHologic Aptima SARS-CoV-2 assay is a nucleic amplification test in tended for the qualitative detection of RNA from SARS-CoV-2 from nasopharyngeal (PRIEST) specimens. It is used under Emergency Use [...] repr at testing oc clinically indicated.Tesing performed by:[facility] Laboratory Services3 [address] [facility] [id number], Talha valdovinos MD, PhDBaylor University Medical CenterCT ABDOMEN/PELVIS W 2020-01-10 03:47:00 [facility] [address] [address] Patient Name: IKE JEROME MR #: [id number] : 1945 Age/Sex: 74/F Req #: [id number] Adm Physician: Ordered by: TATIANA WARNER DO Report #: [id number] Location: ER Room/Bed: Procedure: [id number] CT/CT ABDOME N/PELVIS W Exam Date: 01/10/20 [...] COPY TO: TATIANA WARNER DO Urine color oxtekusxfhupf2032-92-21 02:17:00* Test Item Value Reference Range Interpretation Comments Urine Color (test code = 5778-6) YELLOW YELLOW [facility] CenterUrine mzblryc9787-24-74 02:17:00* Test Item Value Reference Range Interpretation Comments Urine Clarity (test code = 63293-4) SL CLOUDY CLEAR [facility] Centerpecific gravity of Urine by Test strip 2020-01-10 02:17:00* Test Item Value Reference Range Interpretation Comments Urine Specific [place] (test code = 5811-5) 1.015 1.010-1.02 5 [facility] CenterUrine pH measurement by automated test kiczs8787-90-49 02:17:00* Test Item Value Reference Range Interpretation Comments Urine pH (test code = 77996-0) 7 5-7 [facility] CenterUrine leukocyte esterase detection by yquyrxlk2854-29-64 02:17:00* Test Item Value Reference Range Interpretation Comments Urine Leukocyte Esterase (test code = 5799-2) 1+ NEGATIVE [facility] CenterUrine nitrite mcomifxtk0287-29-23 02:17:00* Test Item Value Reference Range Interpretation Comments Urine Nitrite (test code = 09749-4) NEGATIVE NEGATIVE [facility] CenterUrine protein measurement by test strip (mass/volume)2020-01-10 02:17:00* Test Item Value Reference Range Interpretation Comments Urine Protein (test code = 5804-0) NEGATIVE NEGATIVE [facility] CenterUrine glucose gtrogmkhi8955-82-19 02:17:00* Test Item Value Reference Range Interpretation Comments Urine Glucose (UA) (test code = 2349-9) NEGATIVE NEGATIVE [facility] CenterUrine ketones detection by automated test enjua6235-83-39 02:17:00* Test Item Value Reference Range Interpretation Comments Urine Ketones (test code = 05906-1) NEGATIVE NEGATIVE [facility] CenterUrine opiates screening fcoh0052-41-31 02:17:00* Test Item Value Reference Range Interpretation Comments Urine Opiates Screen (test code = 99942-9) NEGATIVE NEGATIVE ALL TESTS PERFORMED MANUALLY ON [employer] TOX/SEE TESTBaylor University Medical CenterBarbiturates screen, wqgxj5445-68-50 02:17:00* Test Item Value Reference Range Interpretation Comments Urine Barbiturates Screen (test code = 776738711) NEGATIVE NEGA TIVE [facility] CenterUrine phencyclidine detection by screening gsbxdf2212-14-24 02:17:00* Test Item Value Reference Range Interpretation Comments Urine Phencyclidine Screen (test code = 95419-6) NEGATIVE NEGAT CECILY [facility] CenterUrine amphetamines detection by screen method > 1000 ng/fD9092-42-29 02:17:00* Test Item Value Reference Range Interpretation Comments Urine Amphetamines Screen (test code = 84872-5) NEGATIVE NEGATI VE [facility] CenterFluoroscopic procedure less than one hour tjmlowei4815-11-68 02:17:00* Test Item Value Reference Range Interpretation Comments Urine Methamphetamines Screen (test code = Urine Metha mphetamines Screen) NEGATIVE NEGATIVE [facility] CenterUrine benzodiazepines detection by screening grjtuk5554-50-69 02:17:00* Test Item Value Reference Range Interpretation Comments Urine Benzodiazepines Screen (test code = 79996-6) POSITIVE NEG ATIVE This test provides only a screen. Positive results should be repeated by a confi rmatory test.[facility] CenterUrine cocaine measurement (mass/volume)2020-01-10 02:17:00* Test Item Value Reference Range Interpretation Comments Urine Cocaine Screen (test code = 3398-5) NEGATIVE NEGATIVE [facility] CenterUrine cannabinoids detection by screening dsortm9705-46-30 02:17:00* Test Item Value Reference Range Interpretation Comments Urine Cannabinoids Screen (test code = 36149-4) NEGATIVE NEGATI VE THESE RESULTS ARE FOR MEDICAL TREATMENT ONLYTHIS REPORT CONTAINS UNCONFIR MED SCREENING RESULTS*POSITIVE RESULTS WILL BE CONFIRMED BY REFERENCE LAB UPON R EQUEST CUT-OFFDRUG CLASS CONCENTRATION ng/mLAmphetamines 1000Methamphetamines 1000Cocaine 300Opiate 300Phencyc lidine 25Cannabinoid 50Barbiturates 300Benzodiazepine 300Methadone 300[facility] CenterUrine methadone eddzzq8907-70-81 02:17:00* Test Item Value Reference Range Interpretation Comments Urine Methadone Screen (test code = 32353-5) NEGATIVE NEGATIVE THESE RESULTS ARE FOR MEDICAL TREATMENT ONLYTHIS REPORT CONTAINS UNCONFIR MED SCREENING RESULTS*POSITIVE RESULTS WILL BE CONFIRMED BY REFERENCE LAB UPON R EQUEST CUT-OFFDRUG CLASS CONCENTRATION ng/mLAmphetamines 1000Methamphetamines 1000Cocaine Metabolite 300Opiate 300Phencyc lidine 25Cannabinoid 50Barbiturates 300Benzodiazepine 300Methadone 300[facility] CenterUrine urobilinogen measurement by test strip (mass/volume)2020-01-10 02:17:00* Test Item Value Reference Range Interpretation Comments Urine Urobilinogen (test code = 03316-5) 0.2 0.2-1 [facility] CenterUrine total bilirubin measurement (mass/volume)2020-01-10 02:17:00* Test Item Value Reference Range Interpretation Comments Urine Bilirubin (test code = 1978-6) NEGATIVE NEGATIVE [facility] CenterUrine erythrocytes wrgnkndyt0331-15-27 02:17:00* Test Item Value Reference Range Interpretation Comments Urine Blood (test code = 00282-2) NEGATIVE NEGATIVE [facility] CenterAutomated urine sediment leukocyte count by microscopy (number/high power field)2020-01-10 02:17:00* Test Item Value Reference Range Interpretation Comments Urine WBC (test code = 5821-4) >50 0-5 [facility] CenterErythrocytes detection in urine sediment by light zzpvvbkzge9919-30-26 02:17:00* Test Item Value Reference Range Interpretation Comments Urine RBC (test code = 80710-0) 6-10 0-5 [facility] CenterBacteria detection in urine sediment by light hjwdxgyilt2112-25-79 02:17:00* Test Item Value Reference Range Interpretation Comments Urine Bacteria (test code = 87530-0) FEW NONE [facility] CenterEpithelial cells detection in urine sediment by light bsirflewtv1752-85-46 02:17:00* Test Item Value Reference Range Interpretation Comments Urine Epithelial Cells (test code = 09111-4) FEW NONE [facility] CenterBNP Wrd-wYyp2109-52-20 02:17:00* Test Item Value Reference Range Interpretation Comments B-Type Natriuretic Peptide (test code = 73589-2) 148.1 0-100 [facility] Centererum or plasma creatine kinase measurement (enzymatic activity/volume)2020-01-10 02:17:00* Test Item Value Reference Range Interpretation Comments Creatine Kinase (test code = 2157-6) 71 29-168 [facility] Centererum or plasma creatine kinase MB measurement (mass/volume)2020-01-10 02:17:00* Test Item Value Reference Range Interpretation Comments Creatine Kinase MB (test code = 36779-7) 1.50 0-5.0 [facility] CenterTroponin I measurement by highly sensitive enzyme xwyfmslrlcg1923-20-91 02:17:00* Test Item Value Reference Range Interpretation Comments Troponin I (test code = 13602-3) 0.037 0-0.300 [facility] Centererum or plasma thyrotropin measurement by detection limit <= 0.005 miu/l (units/volume)2020-01-10 02:17:00* Test Item Value Reference Range Interpretation Comments Thyroid Stimulating Hormone (TSH) (test code = 06977-1) 2.392 0.350-4.940 [facility] SCR FGTMR3249-03-51 16:45:00 [facility] [address] [address] Patient Name: IKE JEROME MR #: [id number] : 1945 Age/Sex: 73/F Req #: [id number] Adm Physician: Ordered by: JEANNINE GIBBS MD Report #: [id number] Location: MAMMO Room/Bed: Procedure: [id number] MG/MA MMOGRAPHY DIGITAL SCR BILAT Exam Date: 02/11/18 Exam Time: 1600 REPORT STATUS: Signed #[id number] - MGSCRBIL #BILATERAL DIGITAL SCREENING MAMMOGRAM WITH CAD : 02/11/2018 CLINICAL: Routine screening. Comparison is made to exams d ated: 12/08/2014 mammogram and 04/06/2014 mammogram - [facility]. Current study contains 7 films. The [...] results. Sang Padilla Jr., D.O. cw/:02/28/2018 16:43:17 [employer]: Hiral BARRETTR)(M) , [facility] letter sent: Compared to Prior B9 Promise graceram BI-RADS: 2 Benign Dictated By: SANG PADILLA DO Electronically Miryam d By: SANG PADILLA DO on 02/28/181642 Transcribed By: ADONIS on 02/28/181642 COPY TO: JEANNINE GIBBS MD Bedside Rtrlbni6507-90-35 08:17:00* Test Item Value Reference Range Interpretation Comments Bedside Glucose (test code = 38334-6) 395 70-120 H Meter ID: [id number] University Medical CenterGlucose Level 2018-01-15 08:41:00* Test Item Value Reference Range Interpretation Comments Glucose Level (test code = MDU7380) 486 74-118 HH Results called to Ashley Mendez RN at 0840 on 01/15/18 by Rosemarie Hart. RB [place].[facility] CenterBlood Hzvycdq9058-88-17 04:01:00* Test Item Value Reference Range Interpretation Comments Blood Culture (test code = 85403954) NO GROWTH AFTER 72 HOURS [facility] Centerodium Nshyk0324-22-60 11:05:00* Test Item Value Reference Range Interpretation Comments Sodium Level (test code = 2951-2) 132 136-145 L [facility] CenterPotassium Mhbpw4165-88-25 11:05:00* Test Item Value Reference Range Interpretation Comments Potassium Level (test code = 2823-3) 4.4 3.5-5.1 [facility] CenterChloride Fkohn2903-89-67 11:05:00* Test Item Value Reference Range Interpretation Comments Chloride Level (test code = 2075-0) 101 98-107 [facility] CenterCarbon Dioxide Mogft3569-96-33 11:05:00* Test Item Value Reference Range Interpretation Comments Carbon Dioxide Level (test code = 2028-9) 20 22-29 L [facility] CenterAnion Chi9344-56-77 11:05:00* Test Item Value Reference Range Interpretation Comments Anion Gap (test code = 19313-9) 15.4 8-16 [facility] CenterBlood Urea Bytxsbdm6823-47-55 11:05:00* Test Item Value Reference Range Interpretation Comments Blood Urea Nitrogen (test code = 3094-0) 24 7-26 [facility] CenterCreatinine2018-09-25 11:05:00* Test Item Value Reference Range Interpretation Comments Creatinine (test code = 2160-0) 1.34 0.57-1.11 H [facility] CenterBUN/Creatinine Tkxct5019-98-99 11:05:00* Test Item Value Reference Range Interpretation Comments BUN/Creatinine Ratio (test code = 3097-3) 18 6-25 [facility] CenterEstimat Glomerular Filtration Rate 2018-01-14 11:05:00* Test Item Value Reference Range Interpretation Comments Estimat Glomerular Filtration Rate (test code = 150328300) 39 >60 L Ranges were taken from the National Kidney Disease Education Program and the [facility] Kidney Foundation literature.Reference ranges:60 or greater: Kdmmlo73-84 ( for 3 consecutive months): Chronic kidney disease 15 or less: Kidney failureBaylor University Medical CenterCalcium Lgbfu4229-75-38 11:05:00* Test Item Value Reference Range Interpretation Comments Calcium Level (test code = 97172-0) 8.8 8.4-10.2 [facility] CenterTotal Myvjgqyfk3585-50-50 11:05:00* Test Item Value Reference Range Interpretation Comments Total Bilirubin (test code = 1975-2) 0.3 0.2-1.2 [facility] CenterAspartate Amino Transf (AST/SGOT) 2018-01-14 11:05:00* Test Item Value Reference Range Interpretation Comments Aspartate Amino Transf (AST/SGOT) (test code = Aspartate Amino Transf (AST/SGOT)) 32 5-34 [facility] CenterAlanine Aminotransferase (ALT/SGPT) 2018-01-14 11:05:00* Test Item Value Reference Range Interpretation Comments Alanine Aminotransferase (ALT/SGPT) (test code = 1742-6) 26 0-55 [facility] CenterTotal Osxbghy9260-49-77 11:05:00* Test Item Value Reference Range Interpretation Comments Total Protein (test code = 2885-2) 6.4 6.5-8.1 L [facility] CenterAlbumin2018-09-25 11:05:00* Test Item Value Reference Range Interpretation Comments Albumin (test code = 1751-7) 3.1 3.5-5.0 L [facility] CenterGlobulin2018-09-25 11:05:00* Test Item Value Reference Range Interpretation Comments Globulin (test code = 90943-2) 3.3 2.3-3.5 [facility] CenterAlbumin/Globulin Jxfep4605-71-79 11:05:00 * Test Item Value Reference Range Interpretation Comments Albumin/Globulin Ratio (test code = 1759-0) 0.9 0.8-2.0 [facility] CenterAlkaline Jxphfnfeptq5489-59-72 11:05:00* Test Item Value Reference Range Interpretation Comments Alkaline Phosphatase (test code = 6768-6) 73 40-150 [facility] CenterWhite Blood Jyjhf1123-33-42 10:53:00* Test Item Value Reference Range Interpretation Comments White Blood Count (test code = 6690-2) 8.01 4.8-10.8 [facility] CenterRed Blood Joqug1335-81-75 10:53:00* Test Item Value Reference Range Interpretation Comments Red Blood Count (test code = 789-8) 3.44 3.6-5.1 L [facility] CenterHemoglobin2018-09-25 10:53:00* Test Item Value Reference Range Interpretation Comments Hemoglobin (test code = 35893-4) 11.5 12.0-16.0 L [facility] CenterHematocrit2018-09-25 10:53:00* Test Item Value Reference Range Interpretation Comments Hematocrit (test code = 4544-3) 34.3 34.2-44.1 [facility] CenterMean Corpuscular Ywbxjf9455-39-43 10:53:00* Test Item Value Reference Range Interpretation Comments Mean Corpuscular Volume (test code = 787-2) 99.7 81-99 H [facility] CenterMean Corpuscular Kmlycqyrba2905-21-18 10:53:00* Test Item Value Reference Range Interpretation Comments Mean Corpuscular Hemoglobin (test code = 785-6) 33.4 28-32 H [facility] CenterMean Corpuscular Hemoglobin Concent 2018-01-14 10:53:00* Test Item Value Reference Range Interpretation Comments Mean Corpuscular Hemoglobin Concent (test code = 786-4) 33.5 31-35 [facility] CenterRed Cell Distribution Iblmu4548-81-77 10:53:00* Test Item Value Reference Range Interpretation Comments Red Cell Distribution Width (test code = 15128-0) 13.6 11.7 -14.4 [facility] CenterPlatelet Gkuyb0893-54-13 10:53:00* Test Item Value Reference Range Interpretation Comments Platelet Count (test code = 777-3) 233 140-360 [facility] CenterNeutrophils (%) (Auto)2018-01-14 10:53:00 * Test Item Value Reference Range Interpretation Comments Neutrophils (%) (Auto) (test code = 78085-2) 57.6 38.7-80.0 [facility] CenterLymphocytes (%) (Auto)2018-01-14 10:53:00 * Test Item Value Reference Range Interpretation Comments Lymphocytes (%) (Auto) (test code = 736-9) 32.7 18.0-39.1 [facility] CenterMonocytes (%) (Auto)2018-01-14 10:53:00* Test Item Value Reference Range Interpretation Comments Monocytes (%) (Auto) (test code = 5905-5) 6.9 4.4-11.3 [facility] CenterEosinophils (%) (Auto)2018-01-14 10:53:00 * Test Item Value Reference Range Interpretation Comments Eosinophils (%) (Auto) (test code = 713-8) 2.5 0.0-6.0 [facility] CenterBasophils (%) (Auto)2018-01-14 10:53:00* Test Item Value Reference Range Interpretation Comments Basophils (%) (Auto) (test code = 706-2) 0.2 0.0-1.0 [facility] CenterIM GRANULOCYTES %2018-01-14 10:53:00* Test Item Value Reference Range Interpretation Comments IM GRANULOCYTES % (test code = IM GRANULOCYTES %) 0.1 0.0- 1.0 [facility] CenterNeutrophils # (Auto)2018-01-14 10:53:00* Test Item Value Reference Range Interpretation Comments Neutrophils # (Auto) (test code = 751-8) 4.6 2.1-6.9 [facility] CenterLymphocytes # (Auto)2018-01-14 10:53:00* Test Item Value Reference Range Interpretation Comments Lymphocytes # (Auto) (test code = 49846-6) 2.6 1.0-3.2 [facility] CenterMonocytes # (Auto)2018-01-14 10:53:00* Test Item Value Reference Range Interpretation Comments Monocytes # (Auto) (test code = 742-7) 0.6 0.2-0.8 [facility] CenterEosinophils # (Auto)2018-01-14 10:53:00* Test Item Value Reference Range Interpretation Comments Eosinophils # (Auto) (test code = 711-2) 0.2 0.0-0.4 [facility] CenterBasophils # (Auto)2018-01-14 10:53:00* Test Item Value Reference Range Interpretation Comments Basophils # (Auto) (test code = 704-7) 0.0 0.0-0.1 [facility] CenterAbsolute Immature Granulocyte (auto 2018-01-14 10:53:00* Test Item Value Reference Range Interpretation Comments Absolute Immature Granulocyte (auto (lalitha t code = Absolute Immature Granulocyte (auto) 0.01 0-0.1 [facility] CenterUrine Dhdtdbu3569-20-68 09:04:00* Test Item Value Reference Range Interpretation Comments Urine Culture (test code = 630-4) Organism: KLEBSIELLA PNEUMONIAE [facility] CenterTriglycerides Bkvxn4390-06-55 09:12:00* Test Item Value Reference Range Interpretation Comments Triglycerides Level (test code = 2571-8) 771 0-149 H [facility] CenterCholesterol Sqdnv8893-72-79 09:12:00* Test Item Value Reference Range Interpretation Comments Cholesterol Level (test code = 2093-3) 228 0-199 H Less than 200 mg/dL Low Cddh602 - 239 mg/dL Borderline Ztmp085 m g/dl and greater High Risk [facility] CenterHDL Ydxnbjugvnv3777-55-70 09:12:00* Test Item Value Reference Range Interpretation Comments HDL Cholesterol (test code = 2085-9) 26 40-60 L [facility] CenterCholesterol/HDL Cbyrm7892-55-41 09:12:00 * Test Item Value Reference Range Interpretation Comments Cholesterol/HDL Ratio (test code = 9830-1) 8.8 3.0-3.6 H [facility] CenterCreatine Kinase RW1441-54-86 13:54:00* Test Item Value Reference Range Interpretation Comments Creatine Kinase MB (test code = 84962-2) 1.10 0-5.0 [facility] CenterTroponin U0126-05-71 13:54:00* Test Item Value Reference Range Interpretation Comments Troponin I (test code = NNA3939) 0.064 0-0.300 [facility] CenterCreatine Dnvdmm8884-33-23 13:44:00* Test Item Value Reference Range Interpretation Comments Creatine Kinase (test code = 2157-6) 86 29-168 [facility] CenterHemoglobin A1c Xdbtnsn4189-52-95 09:57:00 * Test Item Value Reference Range Interpretation Comments Hemoglobin A1c Percent (test code = Hemoglobin A1c Percent) 9.6 4.0-7.0 H [facility] CenterUrine XTJ7775-77-44 04:59:00* Test Item Value Reference Range Interpretation Comments Urine WBC (test code = 5821-4) 6-10 0-5 H [facility] CenterUrine KWL2409-82-11 04:59:00* Test Item Value Reference Range Interpretation Comments Urine RBC (test code = 43235-0) 0-5 0-5 [facility] CenterUrine Wtfbxdty6362-30-84 04:59:00* Test Item Value Reference Range Interpretation Comments Urine Bacteria (test code = 44383-9) NONE NONE [facility] CenterUrine Epithelial Nkaau5505-66-25 04:59:00 * Test Item Value Reference Range Interpretation Comments Urine Epithelial Cells (test code = 25266-2) NONE NONE [facility] CenterCHEST SINGLE (PORTABLE)2018-01-12 04:42:00 [facility] [address] [address] Patient Name: IKE JEROME MR #: [id number] : 1945 Age/Sex: 72/F Req #: [id number] Adm Physician: Ordered by: HANNAH MCDERMOTT MD Report #: [id number] Location: ER Room/Bed: Procedure: [id number] DX/CHEST SINGLE (PORTABLE) Exa m Date: 01/12/18 Exam Time: 399 REPORT STATUS: Signed CHEST SINGLE (PORTABLE), 01/12/2018 3:42 AM Technique: CHEST SING LE (PORTABLE) Comparison: 08/27/2017 Clinical history: S aphasia S [id number] S 0 Findings: See Impression Impression: 1. Stable mildly enla rged cardiomediastinal silhouette. 2. Central vascular congestion. No consolid ation. 3. No effusion or pneumothorax. Signed by: Dr Gianan Cole MD on 01/12/2018 4:46 AM Dictated By: GIANNA COLE MD [id number] Transcribed By: AURELIA on 01/12/18 04 46 COPY TO: HANNAH MCDERMOTT MD Urine Ufeqr7294-41-93 04:41:00* Test Item Value Reference Range Interpretation Comments Urine Color (test code = 5778-6) YELLOW YELLOW [facility] CenterUrine Hlbmrmr1083-76-13 04:41:00* Test Item Value Reference Range Interpretation Comments Urine Clarity (test code = 21105-0) CLEAR CLEAR [facility] CenterUrine Specific Fcvkwgs1464-92-23 04:41:00 * Test Item Value Reference Range Interpretation Comments Urine Specific [place] (test code = 5811-5) 1.020 1.010-1.02 5 [facility] CenterUrine xV7229-40-72 04:41:00* Test Item Value Reference Range Interpretation Comments Urine pH (test code = 51329-4) 7 5-7 [facility] CenterUrine Leukocyte Nrbsvpcl4187-42-22 04:41:00* Test Item Value Reference Range Interpretation Comments Urine Leukocyte Esterase (test code = 5799-2) NEGATIVE NEGATIVE [facility] CenterUrine Ycinzum6552-90-76 04:41:00* Test Item Value Reference Range Interpretation Comments Urine Nitrite (test code = 90043-1) NEGATIVE NEGATIVE [facility] CenterUrine Hsxtfuz3590-87-37 04:41:00* Test Item Value Reference Range Interpretation Comments Urine Protein (test code = 5804-0) 3+ NEGATIVE H [facility] CenterUrine Glucose (UA)2018-01-12 04:41:00* Test Item Value Reference Range Interpretation Comments Urine Glucose (UA) (test code = 2349-9) 3+ NEGATIVE H [facility] CenterUrine Gmdoivn4624-70-03 04:41:00* Test Item Value Reference Range Interpretation Comments Urine Ketones (test code = 85150-8) NEGATIVE NEGATIVE [facility] CenterUrine Uswmlucyhtuw5815-61-54 04:41:00* Test Item Value Reference Range Interpretation Comments Urine Urobilinogen (test code = 58909-7) 0.2 0.2-1 [facility] CenterUrine Qvgprrans3970-42-01 04:41:00* Test Item Value Reference Range Interpretation Comments Urine Bilirubin (test code = 1978-6) NEGATIVE NEGATIVE [facility] CenterUrine Jijyu3613-33-64 04:41:00* Test Item Value Reference Range Interpretation Comments Urine Blood (test code = 14031-6) TRACE NEGATIVE H [facility] CenterB-Type Natriuretic Oslyctk7697-07-56 04:36:00* Test Item Value Reference Range Interpretation Comments B-Type Natriuretic Peptide (test code = 10185-1) 99.3 0-100 [facility] CenterMagnesium Gydwc3008-93-33 04:26:00* Test Item Value Reference Range Interpretation Comments Magnesium Level (test code = 06619-2) 2.1 1.3-2.1 [facility] CenterCT BRAIN ZJ8531-72-48 04:21:00 [facility] [address] [address] Patient Name: IKE JEROME MR #: [id number] : 1 Age/Sex: 72/F Req #: [id number] Adm Physician: Ordered by: HANNAH MCDERMOTT MD Report #: [id number] Location: ER Room/Bed: Procedure: [id number] CT/CT BRAIN WO Exam Date: 12/22 07/07 [...] 01/12/18425 COPY TO: HANNAH MCDERMOTT MD Prothrombin Qhyh6914-94-01 04:19:00* Test Item Value Reference Range Interpretation Comments Prothrombin Time (test code = 5902-2) 11.5 11.9-14.5 L [facility] CenterProthromb Time International Ratio 2018-01-12 04:19:00* Test Item Value Reference Range Interpretation Comments Prothromb Time International Ratio (test code = 6301-6) 0.77 Oral Anticoagulant Therapy INR Values:1. Low Intensity Therapy 1.5 - 2.02 . Moderate Intensity Therapy 2.0 - 3.03. High Intensity Therapy(1) 2.5 - 3. 54. High Intensity Therapy(2) 3.0 - 4.05. Panic Value INR > 5.0 [facility] CenterActivated Partial Thromboplast Time 2018-01-12 04:19:00* Test Item Value Reference Range Interpretation Comments Activated Partial Thromboplast Time (test code = 07262-3) 32.0 23.8-35.5 [facility] CenterBedside Jaqbgpx9576-07-71 11:35:00* Test Item Value Reference Range Interpretation Comments Bedside Glucose (test code = 01038-9) 140 70-120 H Meter ID: [id number] University Medical CenterTriglycerides Level 2017-08-27 17:32:00* Test Item Value Reference Range Interpretation Comments Triglycerides Level (test code = 2571-8) 528 0-149 H [facility] CenterCholesterol Wxpwz2656-43-04 17:32:00* Test Item Value Reference Range Interpretation Comments Cholesterol Level (test code = 2093-3) 184 0-199 Less than 200 mg/dL Low Drbe294 - 239 mg/dL Borderline Cgmt981 m g/dl and greater High Risk [facility] CenterHDL Aglqikfwrrd3200-52-74 17:32:00* Test Item Value Reference Range Interpretation Comments HDL Cholesterol (test code = 2085-9) 26 40-60 L [facility] CenterCholesterol/HDL Rpumw3557-37-24 17:32:00 * Test Item Value Reference Range Interpretation Comments Cholesterol/HDL Ratio (test code = 9830-1) 7.1 3.0-3.6 H [facility] CenterHemoglobin A1c Ytlghgn6605-48-47 17:28:00 * Test Item Value Reference Range Interpretation Comments Hemoglobin A1c Percent (test code = Hemoglobin A1c Percent) 9.2 4.0-7.0 [facility] Centerodium Rofdq0314-53-63 07:37:00* Test Item Value Reference Range Interpretation Comments Sodium Level (test code = 2951-2) 136 136-145 [facility] CenterPotassium Linjk3144-32-05 07:37:00* Test Item Value Reference Range Interpretation Comments Potassium Level (test code = 2823-3) 3.7 3.5-5.1 [facility] CenterChloride Ynhfh7132-10-45 07:37:00* Test Item Value Reference Range Interpretation Comments Chloride Level (test code = 2075-0) 100 98-107 [facility] CenterCarbon Dioxide Iqtfc9699-95-06 07:37:00* Test Item Value Reference Range Interpretation Comments Carbon Dioxide Level (test code = 2028-9) 26 22-29 [facility] CenterAnion Lng7173-91-94 07:37:00* Test Item Value Reference Range Interpretation Comments Anion Gap (test code = 30540-3) 13.7 8-16 [facility] CenterBlood Urea Gsacfmqt3541-81-82 07:37:00* Test Item Value Reference Range Interpretation Comments Blood Urea Nitrogen (test code = 3094-0) 14 7-26 [facility] CenterCreatinine2018-05-08 07:37:00* Test Item Value Reference Range Interpretation Comments Creatinine (test code = 2160-0) 0.79 0.57-1.11 [facility] CenterBUN/Creatinine Crfqn6411-42-81 07:37:00* Test Item Value Reference Range Interpretation Comments BUN/Creatinine Ratio (test code = 3097-3) 18 6-25 [facility] CenterEstimat Glomerular Filtration Rate 2017-08-27 07:37:00* Test Item Value Reference Range Interpretation Comments Estimat Glomerular Filtration Rate (test code = 43973-6) 60- >60 Ranges were taken from the National Kidney Disease Education Program and the [facility] literature.Reference ranges:60 or greater: Xktkhd53-04 ( for 3 consecutive months): Chronic kidney disease 15 or less: Kidney failureB[facility] Medical CenterGlucose Rvepv7754-24-89 07:37:00* Test Item Value Reference Range Interpretation Comments Glucose Level (test code = UMU4638) 127 74-118 H [facility] CenterCalcium Mbpxy2535-25-79 07:37:00* Test Item Value Reference Range Interpretation Comments Calcium Level (test code = 21226-0) 9.6 8.4-10.2 [facility] CenterTotal Mswbkaowr7936-75-01 07:37:00* Test Item Value Reference Range Interpretation Comments Total Bilirubin (test code = 1975-2) 0.5 0.2-1.2 [facility] CenterAspartate Amino Transf (AST/SGOT) 2017-08-27 07:37:00* Test Item Value Reference Range Interpretation Comments Aspartate Amino Transf (AST/SGOT) (test code = Aspartate Amino Transf (AST/SGOT)) 26 5-34 [facility] CenterAlanine Aminotransferase (ALT/SGPT) 2017-08-27 07:37:00* Test Item Value Reference Range Interpretation Comments Alanine Aminotransferase (ALT/SGPT) (test code = 1742-6) 35 0-55 [facility] Kjmtyjy4597-06-71 07:37:00* Test Item Value Reference Range Interpretation Comments Total Protein (test code = 2885-2) 6.6 6.5-8.1 [facility] CenterAlbumin2018-05-08 07:37:00* Test Item Value Reference Range Interpretation Comments Albumin (test code = 1751-7) 3.1 3.5-5.0 L [facility] CenterGlobulin2018-05-08 07:37:00* Test Item Value Reference Range Interpretation Comments Globulin (test code = 57655-0) 3.5 2.3-3.5 [facility] CenterAlbumin/Globulin Fzzpz2770-73-13 07:37:00 * Test Item Value Reference Range Interpretation Comments Albumin/Globulin Ratio (test code = 1759-0) 0.9 0.8-2.0 [facility] CenterAlkaline Bqwrbbifkld9179-05-62 07:37:00* Test Item Value Reference Range Interpretation Comments Alkaline Phosphatase (test code = 6768-6) 72 40-150 [facility] CenterCreatine Cllrue4971-05-34 07:37:00* Test Item Value Reference Range Interpretation Comments Creatine Kinase (test code = 2157-6) 69 29-168 [facility] CenterCreatine Kinase IY7678-29-65 07:18:00* Test Item Value Reference Range Interpretation Comments Creatine Kinase MB (test code = 24859-5) 1.60 0-5.0 [facility] CenterTroponin Z4464-94-27 07:18:00* Test Item Value Reference Range Interpretation Comments Troponin I (test code = TAQ5168) 0.089 0-0.300 [facility] CenterWhite Blood Crujc4141-40-81 07:01:00* Test Item Value Reference Range Interpretation Comments White Blood Count (test code = 6690-2) 8.81 4.8-10.8 [facility] CenterRed Blood Yxmsc4948-25-07 07:01:00* Test Item Value Reference Range Interpretation Comments Red Blood Count (test code = 789-8) 3.75 3.6-5.1 [facility] CenterHemoglobin2018-05-08 07:01:00* Test Item Value Reference Range Interpretation Comments Hemoglobin (test code = 67630-4) 12.5 12.0-16.0 [facility] CenterHematocrit2018-05-08 07:01:00* Test Item Value Reference Range Interpretation Comments Hematocrit (test code = 4544-3) 35.9 34.2-44.1 [facility] CenterMean Corpuscular Jqhatk1261-16-79 07:01:00* Test Item Value Reference Range Interpretation Comments Mean Corpuscular Volume (test code = 787-2) 95.7 81-99 [facility] CenterMean Corpuscular Efzduglbnv7425-81-24 07:01:00* Test Item Value Reference Range Interpretation Comments Mean Corpuscular Hemoglobin (test code = 785-6) 33.3 28-32 H [facility] CenterMean Corpuscular Hemoglobin Concent 2017-08-27 07:01:00* Test Item Value Reference Range Interpretation Comments Mean Corpuscular Hemoglobin Concent (test code = 786-4) 34.8 31-35 [facility] CenterRed Cell Distribution Weudn6060-49-29 07:01:00* Test Item Value Reference Range Interpretation Comments Red Cell Distribution Width (test code = 81092-9) 13.1 11.7 -14.4 [facility] CenterPlatelet Hqznn0150-87-91 07:01:00* Test Item Value Reference Range Interpretation Comments Platelet Count (test code = 777-3) 233 140-360 [facility] CenterNeutrophils (%) (Auto)2017-08-27 07:01:00 * Test Item Value Reference Range Interpretation Comments Neutrophils (%) (Auto) (test code = 52751-0) 48.9 38.7-80.0 [facility] CenterLymphocytes (%) (Auto)2017-08-27 07:01:00 * Test Item Value Reference Range Interpretation Comments Lymphocytes (%) (Auto) (test code = 736-9) 43.1 18.0-39.1 H [facility] CenterMonocytes (%) (Auto)2017-08-27 07:01:00* Test Item Value Reference Range Interpretation Comments Monocytes (%) (Auto) (test code = 5905-5) 6.6 4.4-11.3 [facility] CenterEosinophils (%) (Auto)2017-08-27 07:01:00 * Test Item Value Reference Range Interpretation Comments Eosinophils (%) (Auto) (test code = 713-8) 0.9 0.0-6.0 [facility] CenterBasophils (%) (Auto)2017-08-27 07:01:00* Test Item Value Reference Range Interpretation Comments Basophils (%) (Auto) (test code = 706-2) 0.2 0.0-1.0 [facility] CenterIM GRANULOCYTES %2017-08-27 07:01:00* Test Item Value Reference Range Interpretation Comments IM GRANULOCYTES % (test code = IM GRANULOCYTES %) 0.3 0.0- 1.0 [facility] CenterNeutrophils # (Auto)2017-08-27 07:01:00* Test Item Value Reference Range Interpretation Comments Neutrophils # (Auto) (test code = 751-8) 4.3 2.1-6.9 [facility] CenterLymphocytes # (Auto)2017-08-27 07:01:00* Test Item Value Reference Range Interpretation Comments Lymphocytes # (Auto) (test code = 56094-8) 3.8 1.0-3.2 H [facility] CenterMonocytes # (Auto)2017-08-27 07:01:00* Test Item Value Reference Range Interpretation Comments Monocytes # (Auto) (test code = 742-7) 0.6 0.2-0.8 [facility] CenterEosinophils # (Auto)2017-08-27 07:01:00* Test Item Value Reference Range Interpretation Comments Eosinophils # (Auto) (test code = 711-2) 0.1 0.0-0.4 [facility] CenterBasophils # (Auto)2017-08-27 07:01:00* Test Item Value Reference Range Interpretation Comments Basophils # (Auto) (test code = 704-7) 0.0 0.0-0.1 [facility] CenterAbsolute Immature Granulocyte (auto 2017-08-27 07:01:00* Test Item Value Reference Range Interpretation Comments Absolute Immature Granulocyte (auto (lalitha t code = Absolute Immature Granulocyte (auto) 0.03 0-0.1 [facility] CenterB-Type Natriuretic Tqculbk0997-21-73 19:11:00* Test Item Value Reference Range Interpretation Comments B-Type Natriuretic Peptide (test code = 24556-9) 116.8 0-100 H [facility] CenterMagnesium Rnyyp5840-24-64 19:03:00* Test Item Value Reference Range Interpretation Comments Magnesium Level (test code = 12944-7) 1.4 1.3-2.1 [facility] CenterProthrombin Evyj7793-71-72 18:55:00* Test Item Value Reference Range Interpretation Comments Prothrombin Time (test code = 5902-2) 11.7 11.9-14.5 L [facility] CenterProthromb Time International Ratio 2017-08-26 18:55:00* Test Item Value Reference Range Interpretation Comments Prothromb Time International Ratio (test code = 6301-6) 0.93 Oral Anticoagulant Therapy INR Values:1. Low Intensity Therapy 1.5 - 2.02 . Moderate Intensity Therapy 2.0 - 3.03. High Intensity Therapy(1) 2.5 - 3. 54. High Intensity Therapy(2) 3.0 - 4.05. Panic Value INR > 5.0 [facility] CenterActivated Partial Thromboplast Time 2017-08-26 18:55:00* Test Item Value Reference Range Interpretation Comments Activated Partial Thromboplast Time (test code = 67675-5) 29.0 23.8-35.5 [facility] CenterUrine EZU8663-24-86 04:25:00* Test Item Value Reference Range Interpretation Comments Urine WBC (test code = 5821-4) 6-10 0-5 H [facility] CenterUrine RSE2306-08-15 04:25:00* Test Item Value Reference Range Interpretation Comments Urine RBC (test code = 63624-2) 0-5 0-5 [facility] CenterUrine Bmaghtck5537-82-48 04:25:00* Test Item Value Reference Range Interpretation Comments Urine Bacteria (test code = 46604-2) RARE NONE [facility] CenterUrine Epithelial Xypav0922-27-68 04:25:00 * Test Item Value Reference Range Interpretation Comments Urine Epithelial Cells (test code = 63893-3) RARE NONE [facility] CenterUrine Opiates Fujbnp0560-92-43 04:16:00* Test Item Value Reference Range Interpretation Comments Urine Opiates Screen (test code = 59258-1) NEGATIVE NEGATIVE [facility] CenterUrine Barbiturates Moszmi5860-42-79 04:16:00* Test Item Value Reference Range Interpretation Comments Urine Barbiturates Screen (test code = 569847500) NEGATIVE NEGA TIVE [facility] CenterUrine Phencyclidine Fqucdq4587-24-81 04:16:00* Test Item Value Reference Range Interpretation Comments Urine Phencyclidine Screen (test code = 10994-0) NEGATIVE NEGAT CECILY [facility] CenterUrine Amphetamines Ckolsl3124-80-41 04:16:00* Test Item Value Reference Range Interpretation Comments Urine Amphetamines Screen (test code = 11898-1) NEGATIVE NEGATI VE [facility] CenterUrine Benzodiazepines Eqmlwa7286-02-24 04:16:00* Test Item Value Reference Range Interpretation Comments Urine Benzodiazepines Screen (test code = 17466-6) POSITIVE NEG ATIVE H This test provides only a screen. Positive results should be repeated by a confi rmatory test.[facility] CenterUrine Cocaine Screen 2017-04-24 04:16:00* Test Item Value Reference Range Interpretation Comments Urine Cocaine Screen (test code = Urine Cocaine Screen) NEGATIVE NEGATIVE [facility] CenterUrine Cannabinoids Ybchvb6129-00-93 04:16:00* Test Item Value Reference Range Interpretation Comments Urine Cannabinoids Screen (test code = 99605-5) NEGATIVE NEGATI VE THESE RESULTS ARE FOR MEDICAL TREATMENT ONLYTHIS REPORT CONTAINS UNCONFIR MED SCREENING RESULTS*POSITIVE RESULTS WILL BE CONFIRMED BY REFERENCE LAB UPON R EQUEST CUT-OFFDRUG CLASS CONCENTRATION ng/mLAmphetamines 1000Methamphetamines 1000Cocaine 300Opiate 300Phencyc lidine 25Cannabinoid 50Barbiturates 300Benzodiazepine 300Methadone 300[facility] HospitalUrine Opiates Hbwnkg9096-04-24 04:16:00* Test Item Value Reference Range Interpretation Comments Urine Opiates Screen (test code = 07678-6) NEGATIVE NEGATIVE [facility] CenterUrine Barbiturates Yfkvsc8961-74-74 04:16:00* Test Item Value Reference Range Interpretation Comments Urine Barbiturates Screen (test code = 754587292) NEGATIVE NEGA TIVE [facility] CenterUrine Phencyclidine Wzopcx5829-31-01 04:16:00* Test Item Value Reference Range Interpretation Comments Urine Phencyclidine Screen (test code = 36741-5) NEGATIVE NEGAT CECILY [facility] CenterUrine Amphetamines Folacr4487-26-70 04:16:00* Test Item Value Reference Range Interpretation Comments Urine Amphetamines Screen (test code = 43224-4) NEGATIVE NEGATI VE [facility] CenterUrine Benzodiazepines Llzegy1668-99-97 04:16:00* Test Item Value Reference Range Interpretation Comments Urine Benzodiazepines Screen (test code = 09146-0) POSITIVE NEG ATIVE H This test provides only a screen. Positive results should be repeated by a confi rmatory test.[facility] CenterUrine Cocaine Screen 2017-04-24 04:16:00* Test Item Value Reference Range Interpretation Comments Urine Cocaine Screen (test code = Urine Cocaine Screen) NEGATIVE NEGATIVE [facility] CenterUrine Cannabinoids Apmlym3010-06-75 04:16:00* Test Item Value Reference Range Interpretation Comments Urine Cannabinoids Screen (test code = 15827-9) NEGATIVE NEGATI VE THESE RESULTS ARE FOR MEDICAL TREATMENT ONLYTHIS REPORT CONTAINS UNCONFIR MED SCREENING RESULTS*POSITIVE RESULTS WILL BE CONFIRMED BY REFERENCE LAB UPON R EQUEST CUT-OFFDRUG CLASS CONCENTRATION ng/mLAmphetamines 1000Methamphetamines 1000Cocaine 300Opiate 300Phencyc lidine 25Cannabinoid 50Barbiturates 300Benzodiazepine 300Methadone 300[facility] HospitalUrine Wlory0545-12-55 04:13:00* Test Item Value Reference Range Interpretation Comments Urine Color (test code = 5778-6) YELLOW YELLOW [facility] CenterUrine Rxdeazm0992-86-69 04:13:00* Test Item Value Reference Range Interpretation Comments Urine Clarity (test code = 81914-6) CLEAR CLEAR [facility] CenterUrine Specific Zuqacng8639-72-64 04:13:00 * Test Item Value Reference Range Interpretation Comments Urine Specific [place] (test code = 5811-5) 1.005 1.010-1.02 5 L [facility] CenterUrine fC3405-93-86 04:13:00* Test Item Value Reference Range Interpretation Comments Urine pH (test code = 13407-4) 7 5-7 [facility] CenterUrine Leukocyte Qfbfcvee7633-43-23 04:13:00* Test Item Value Reference Range Interpretation Comments Urine Leukocyte Esterase (test code = 5799-2) NEGATIVE NEGATIVE [facility] CenterUrine Fmcqqpw8333-90-67 04:13:00* Test Item Value Reference Range Interpretation Comments Urine Nitrite (test code = 93394-6) NEGATIVE NEGATIVE [facility] CenterUrine Laykuqa2376-68-22 04:13:00* Test Item Value Reference Range Interpretation Comments Urine Protein (test code = 5804-0) 2+ NEGATIVE H [facility] CenterUrine Glucose (UA)2017-04-24 04:13:00* Test Item Value Reference Range Interpretation Comments Urine Glucose (UA) (test code = 2349-9) NEGATIVE NEGATIVE [facility] CenterUrine Hagkodp0257-60-66 04:13:00* Test Item Value Reference Range Interpretation Comments Urine Ketones (test code = 19460-5) NEGATIVE NEGATIVE [facility] CenterUrine Wjwskafnvdvo5241-97-53 04:13:00* Test Item Value Reference Range Interpretation Comments Urine Urobilinogen (test code = 42223-7) 0.2 0.2-1 [facility] CenterUrine Fvwqsqcye8002-76-65 04:13:00* Test Item Value Reference Range Interpretation Comments Urine Bilirubin (test code = 1978-6) NEGATIVE NEGATIVE [facility] CenterUrine Bolqr5984-63-51 04:13:00* Test Item Value Reference Range Interpretation Comments Urine Blood (test code = 99643-2) NEGATIVE NEGATIVE [facility] CenterCHEST XRAY LINE PLACEMENT [facility] [address] [place] [address] Patient Name: IKE JEROME MR #: [id number] : 1945 Age/Sex: 72/F Req #: [id number] Adm Physician: JEANNINE IGBBS MD Ordered by: JEANNINE GIBBS MD Report #: [id number] Location: [facility] Room/Bed: [place] [address] Procedure: [id number] DX/CH EST XRAY LINE PLACEMENT Exam Date: [...] COPY TO: JEANNINE GIBBS MD CTA BRAIN [place] [address] Patient Name: IKE JEROME MR #: [id number] : 1945 Age/Sex: 72/F Req #: [id number] Adm Physician: JEANNINE GIBBS MD Ordered by: RAO APPLE MD Report #: [id number] Location: [facility] Room/Bed: [place] [address] Procedure: [id number] CT/CTA BRAIN Exam Date: 08/27/17 Exam Time: [...] COPY TO: RAO APPLE MD CTA NECK [place] [address] Patient Name: IKE JEROME MR #: [id number] : 1945 Age/Sex: 72/F Req #: [id number] Adm Physician: JEANNINE GIBBS MD Ordered by: RAO APPLE MD Report #: [id number] Loca tion: [facility] Room/Bed: [place] [address] Procedure: [id number] CT/CTA NECK Exam Date: 08/27/17 Exam Time: [...] TO: RAO APPLE MD CT BRAIN WO [place] [address] Patient Name: IKE JEROME MR #: [id number] : 1945 Age/Sex: 72/F Req #: [id number] Adm Physician: Ordered by: ANJUM EUCEDA NP Report #: [id number] Location: Room/Bed: Procedure: [id number] CT/CT BRAIN WO Exam Date: 11/06 Exam [...] ANJUM CERRATO ACE, NP CT BRAIN WO [place] [id number] [place] [address] Patient Name: IKE JEROME MR #: [id number] : 1945 Age/Sex: 72/F Req #: [id number] Adm Physician: Ordered by: HANNAH MCDERMOTT MD Report #: [id number] Location: ER Room/Bed: Procedure: [id number] CT/CT BRAIN WO Exam Date: 06/09 Exam [...] Signed By: MARÍA GEE MD on 04/23/17 1905 Transcribed By: AURELIA on 4810 COPY TO: HANNAH MCDERMOTT MD
== END 2020-01-12 13:25 | disposition home or self-care (01) ==
LOC: ER 02:04 → ERHOLD 04:44 → MED/SURG 05:10
PROVIDERS: ADMIT Internal Medicine; ATTEND Internal Medicine
DX: K85.90 Acute pancreatitis without necrosis or infection, unspecified (principal); N17.9 Acute kidney failure, unspecified; F33.1 Major depressive disorder, recurrent, moderate; E11.22 Type 2 diabetes mellitus with diabetic chronic kidney disease; N18.3 Chronic kidney disease, stage 3 (moderate); E78.00 Pure hypercholesterolemia, unspecified; F41.9 Anxiety disorder, unspecified; I50.9 Heart failure, unspecified; E78.5 Hyperlipidemia, unspecified; I25.2 Old myocardial infarction; M54.9 Dorsalgia, unspecified; I13.0 Hypertensive heart and chronic kidney disease with heart failure and stage 1 through stage 4 chronic kidney disease, or unspecified chronic kidney disease; N18.9 Chronic kidney disease, unspecified; Z88.5 Allergy status to narcotic agent; Z88.2 Allergy status to sulfonamides; Z88.8 Allergy status to other drugs, medicaments and biological substances; Z91.048 Other nonmedicinal substance allergy status; Z95.5 Presence of coronary angioplasty implant and graft; Z96.653 Presence of artificial knee joint, bilateral; Z90.49 Acquired absence of other specified parts of digestive tract; Z98.84 Bariatric surgery status; Z11.59 Encounter for screening for other viral diseases
CPT/HCPCS: 36415 ×3; 74177; 80053 ×2; 80307; 81001; 82150; 82550; 82553; 82948 ×3; 83690 ×2; 83735; 83880; 84443; 84484; 85025 ×2; 93005; 99284; G0378 ×3; J1170 ×3; J1815; J2270; J2405 ×3; J7030; Q9967; S0164 ×3; U0002

== ENCOUNTER 2020-02-05 23:44 | Inpatient (IN) | payer MEDICARE ==
[~2020-02-05] VITALS: Ht 154.9 cm; Wt 96.2 kg
[~2020-02-05 23:44] MED LIST changes: +AMBIEN10 MG PO; +AMLODIPINE BESY10 MG PO; +ATIVAN1 MG PO; +ATROVASTATIN; +BRILINTA90 MG PO; +GABAPENTIN300 MG PO; +HYDRALAZINE HCL25 MG PO; +LASIX40 MG PO; +MONTELUKAST SOD10 MG PO; +SEROQUEL XR1 EACH PO
[2020-02-06] VITALS (10 sets, daily range): BP systolic 112–169; BP diastolic 44–68
[2020-02-06] MEDS ORDERED: LIDOCAINE 4% PATCH TP STA (00:01)
[2020-02-06] MEDS: METHYLPREDNISOLONE SOD SUCC 125 MG/2ML VIAL IV ONE ×2 (00:03→00:16)
[2020-02-06] MEDS ORDERED: METHYLPREDNISOLONE SOD SUCC 125 MG/2ML VIAL ONE (00:03)
[2020-02-06] MEDS ORDERED: LIDOCAINE 4% PATCH TP ONE (00:03)
[2020-02-06] MEDS ORDERED: KETOROLAC TROMETHAMINE 60 MG/2 ML VIAL ONE (00:03)
[2020-02-06] MEDS ORDERED: KETOROLAC TROMETHAMINE 60 MG/2 ML VIAL IM ONE (00:15)
[2020-02-06] MEDS ORDERED: METHYLPREDNISOLONE SOD SUCC 125 MG/2ML VIAL IM ONE (00:15)
[2020-02-06] MEDS ORDERED: ONDANSETRON HCL INJ 2MG/ML 2ML 2 MG/ML VIAL IV STA (00:37)
[2020-02-06] MEDS ORDERED: MORPHINE SULFATE INJ 4 MG/ML INJ 1ML IV ONE (00:45)
[2020-02-06] MEDS ORDERED: MORPHINE SULFATE INJ 4 MG/ML INJ 1ML IV PRN (01:00)
[2020-02-06] MEDS ORDERED: ONDANSETRON HCL INJ 2MG/ML 2ML 2 MG/ML VIAL IV PRN (02:00)
[2020-02-06] MEDS: HYDROMORPHONE 1MG/1ML INJ IV PRN ×4 (02:30→23:00)
[2020-02-06] MEDS ORDERED: HUMALOG100 UNIT/1 SQ (06:53)
[2020-02-06] MEDS ORDERED: LANTUS 3ML100 UNITS/ SQ (06:53)
[2020-02-06] MEDS ORDERED: METHOCARBAMOL 750 MG TAB PO PRN (07:30)
[2020-02-06] MEDS ORDERED: LORAZEPAM 0.5 MG TAB PO PRN (07:45)
[2020-02-06] MEDS ORDERED: DIPHENOXYLATE/ATROPINE TAB PO PRN (08:00)
[2020-02-06] MEDS: PANTOPRAZOLE SOD 40 MG TABEC PO SCH ×2 (08:51→17:21)
[2020-02-06] MEDS: TICAGRELOR 90 MG TABLET PO SCH ×2 (08:52→17:20)
[2020-02-06] MEDS: MONTELUKAST SODIUM 10 MG TAB PO SCH (08:52)
[2020-02-06] MEDS: GEMFIBROZIL 600 MG TAB PO SCH ×2 (08:52→17:20)
[2020-02-06] MEDS: OXYBUTYNIN CHLORIDE XL 5 MG TAB PO SCH (08:52)
[2020-02-06] MEDS: INSULIN LISPRO 100 UNIT/1 ML 3ML VIAL SQ SCH ×6 (08:52→22:00)
[2020-02-06] MEDS: GABAPENTIN 300 MG CAP PO SCH ×2 (08:52→17:20)
[2020-02-06] MEDS: CHOLECALCIFEROL 400 UNIT TAB PO SCH (08:52)
[2020-02-06] MEDS: ASPIRIN 81 MG ENTERIC COATED PO SCH (08:52)
[2020-02-06] MEDS: HYDRALAZINE HCL 25 MG TAB PO SCH ×4 (08:52→21:00)
[2020-02-06] MEDS: AMLODIPINE BESYLATE 10 MG TAB PO SCH (08:52)
[2020-02-06] MEDS: FUROSEMIDE 40 MG TAB PO SCH (08:52)
[2020-02-06] MEDS ORDERED: DEXTROSE 50% SYRINGE 50 ML IV PRN (11:00)
[2020-02-06] MEDS ORDERED: INSULIN LISPRO 100 UNIT/1 ML 3ML VIAL SQ SCH (11:30)
[2020-02-06] MEDS ORDERED: CARVEDILOL3.125 MG PO (18:01)
[2020-02-06] MEDS ORDERED: ATROVASTATIN 40 MG SCH (21:00)
[2020-02-06] MEDS: ATORVASTATIN 40 MG TAB PO SCH (22:00)
[2020-02-07] VITALS (7 sets, daily range): BP systolic 96–125; BP diastolic 34–67
[2020-02-07] MEDS: LEVOTHYROXINE SODIUM 100 MCG TAB PO SCH (06:18)
[2020-02-07] MEDS: PANTOPRAZOLE SOD 40 MG TABEC PO SCH ×2 (06:18→16:07)
[2020-02-07] MEDS: INSULIN GLARGINE 100 UNITS/ML VIAL SQ SCH (06:18)
[2020-02-07] MEDS: CARVEDILOL 3.125 MG TAB PO SCH ×2 (07:47→15:51)
[2020-02-07] MEDS: HYDRALAZINE HCL 25 MG TAB PO SCH ×4 (07:47→21:00)
[2020-02-07] MEDS: AMLODIPINE BESYLATE 10 MG TAB PO SCH (07:48)
[2020-02-07 07:52] LABS: BASOPHILS % 0.1 % (0.0-1.0); EOSINOPHILS # (AUTO) 0.2 (0.0-0.4); EOSINOPHILS % 1.2 % (0.0-6.0); HEMATOCRIT 31.5 % (34.2-44.1); HEMOGLOBIN 9.5 g/dL (12.0-16.0); LYMPHOCYTES # (AUTO) 1.6 (1.0-3.2); LYMPHOCYTES % 11.1 % (18.0-39.1); MEAN CORPUSCULAR HEMOGLOBIN 26.8 pg (28-32); MEAN CORPUSCULAR HGB CONC 30.2 g/dL (31-35); MEAN CORPUSCULAR VOLUME 88.7 fL (81-99); MONOCYTES # (AUTO) 1.1 (0.2-0.8); MONOCYTES % 7.7 % (4.4-11.3); NEUTROPHILS # (AUTO) 11.3 (2.1-6.9); NEUTROPHILS % 79.6 % (38.7-80.0); PLATELET COUNT 260 x10e3/uL (140-360); RED BLOOD COUNT 3.55 x10e6/uL (3.6-5.1)
[2020-02-07 08:11] LABS: CALCIUM 8.9 mg/dL (8.4-10.2); CREATININE, SERUM 1.63 mg/dL (0.57-1.11)
[2020-02-07] MEDS: SODIUM CHLORIDE 0.9% 1000ML 1,000 ML IV SCH ×3 (08:26→21:00)
[2020-02-07] MEDS: GABAPENTIN 300 MG CAP PO SCH ×2 (08:34→16:07)
[2020-02-07] MEDS: FUROSEMIDE 40 MG TAB PO SCH (08:34)
[2020-02-07] MEDS: CHOLECALCIFEROL 400 UNIT TAB PO SCH (08:34)
[2020-02-07] MEDS: TICAGRELOR 90 MG TABLET PO SCH ×2 (08:34→16:07)
[2020-02-07] MEDS: GEMFIBROZIL 600 MG TAB PO SCH ×2 (08:34→16:07)
[2020-02-07] MEDS: MONTELUKAST SODIUM 10 MG TAB PO SCH (08:34)
[2020-02-07] MEDS: INSULIN LISPRO 100 UNIT/1 ML 3ML VIAL SQ SCH ×3 (08:34→15:50)
[2020-02-07] MEDS: ASPIRIN 81 MG ENTERIC COATED PO SCH (08:34)
[2020-02-07] MEDS: OXYBUTYNIN CHLORIDE XL 5 MG TAB PO SCH (08:34)
[2020-02-07] MEDS: AZITHROMYCIN 500MG/NS 250 ML 250 ML IV SCH (09:02)
[2020-02-07] MEDS: PIPER-TAZ 3.375 GM 50 ML IV SCH ×3 (10:30→21:06)
[2020-02-07] MEDS: ATORVASTATIN 40 MG TAB PO SCH (21:06)
[2020-02-08] VITALS (8 sets, daily range): BP systolic 122–139; BP diastolic 45–60
[2020-02-08] MEDS: ZOLPIDEM TARTRATE 5 MG TAB PO PRN (00:10)
[2020-02-08] MEDS: PIPER-TAZ 3.375 GM 50 ML IV SCH ×4 (04:20→21:58)
[2020-02-08 06:01] LABS: BASOPHILS % 0.2 % (0.0-1.0); EOSINOPHILS # (AUTO) 0.2 (0.0-0.4); EOSINOPHILS % 2.2 % (0.0-6.0); HEMATOCRIT 28.6 % (34.2-44.1); HEMOGLOBIN 8.7 g/dL (12.0-16.0); LYMPHOCYTES # (AUTO) 2.1 (1.0-3.2); LYMPHOCYTES % 21.8 % (18.0-39.1); MEAN CORPUSCULAR HEMOGLOBIN 26.9 pg (28-32); MEAN CORPUSCULAR HGB CONC 30.4 g/dL (31-35); MEAN CORPUSCULAR VOLUME 88.3 fL (81-99); MONOCYTES # (AUTO) 0.6 (0.2-0.8); NEUTROPHILS # (AUTO) 6.8 (2.1-6.9); NEUTROPHILS % 69.5 % (38.7-80.0); PLATELET COUNT 242 x10e3/uL (140-360); RED BLOOD COUNT 3.24 x10e6/uL (3.6-5.1); RED CELL DISTRIBUTION WIDTH 16.2 % (11.7-14.4)
[2020-02-08] MEDS: LEVOTHYROXINE SODIUM 100 MCG TAB PO SCH (06:15)
[2020-02-08] MEDS: INSULIN GLARGINE 100 UNITS/ML VIAL SQ SCH (06:15)
[2020-02-08] MEDS: PANTOPRAZOLE SOD 40 MG TABEC PO SCH ×2 (06:15→17:35)
[2020-02-08] MEDS: SODIUM CHLORIDE 0.9% 1000ML 1,000 ML IV SCH ×2 (06:20→17:16)
[2020-02-08 06:25] LABS: ALBUMIN/GLOBULIN RATIO 0.9 (0.8-2.0); CALCIUM 8.5 mg/dL (8.4-10.2); CREATININE, SERUM 1.35 mg/dL (0.57-1.11)
[2020-02-08 07:10] LABS: FERRITIN 34.85 ng/mL (4.63-204.00)
[2020-02-08] MEDS: INSULIN LISPRO 100 UNIT/1 ML 3ML VIAL SQ SCH ×3 (07:54→16:30)
[2020-02-08 09:06] LABS: ANION GAP 14.1 mmol/L (8-16); CALCIUM 8.8 mg/dL (8.4-10.2); CREATININE, SERUM 1.32 mg/dL (0.57-1.11); POTASSIUM 4.1 mmol/L (3.5-5.1)
[2020-02-08] MEDS: HYDRALAZINE HCL 25 MG TAB PO SCH ×4 (09:11→21:00)
[2020-02-08] MEDS: TICAGRELOR 90 MG TABLET PO SCH ×2 (09:11→17:35)
[2020-02-08] MEDS: CARVEDILOL 3.125 MG TAB PO SCH ×2 (09:11→17:35)
[2020-02-08] MEDS: CHOLECALCIFEROL 400 UNIT TAB PO SCH (09:11)
[2020-02-08] MEDS: FUROSEMIDE 40 MG TAB PO SCH (09:11)
[2020-02-08] MEDS: MONTELUKAST SODIUM 10 MG TAB PO SCH (09:11)
[2020-02-08] MEDS: GABAPENTIN 300 MG CAP PO SCH ×2 (09:11→17:35)
[2020-02-08] MEDS: AMLODIPINE BESYLATE 10 MG TAB PO SCH (09:11)
[2020-02-08] MEDS: ASPIRIN 81 MG ENTERIC COATED PO SCH (09:11)
[2020-02-08] MEDS: GEMFIBROZIL 600 MG TAB PO SCH ×2 (09:11→17:35)
[2020-02-08] MEDS: AZITHROMYCIN 500MG/NS 250 ML 250 ML IV SCH (09:13)
[2020-02-08] MEDS: OXYBUTYNIN CHLORIDE XL 5 MG TAB PO SCH (09:13)
[2020-02-08] MEDS: PROMETHAZINE 25MG/ NS 50ML (IV) IV PRN (11:18)
[2020-02-08] MEDS ORDERED: CYANOCOBALAMIN INJ 1,000 MCG/ML VIAL IM ONE (13:00)
[2020-02-08] MEDS ORDERED: ONDANSETRON HCL 4 MG ORAL DISINTEGRATING TAB PO PRN (13:15)
[2020-02-08] MEDS: IRON SUCROSE 100 MG in SODIUM CHLORIDE 0.9% 100 ML 100 ML IV SCH (13:28)
[2020-02-08] MEDS: LORAZEPAM 1 MG TAB PO PRN (13:28)
[2020-02-08] MEDS ORDERED: SODIUM CHLORIDE 0.9% 250ML 250 ML ONE (14:35)
[2020-02-08] MEDS: ATORVASTATIN 40 MG TAB PO SCH (21:00)
[2020-02-09] VITALS (8 sets, daily range): BP systolic 115–155; BP diastolic 46–63
[2020-02-09] MEDS: SODIUM CHLORIDE 0.9% 1000ML 1,000 ML IV SCH ×4 (00:31→18:16)
[2020-02-09] MEDS: PIPER-TAZ 3.375 GM 50 ML IV SCH ×2 (03:29→10:58)
[2020-02-09] MEDS: HYDROMORPHONE 1MG/1ML INJ IV PRN ×2 (03:29→11:08)
[2020-02-09] MEDS: LEVOTHYROXINE SODIUM 100 MCG TAB PO SCH (05:15)
[2020-02-09] MEDS: INSULIN GLARGINE 100 UNITS/ML VIAL SQ SCH (05:16)
[2020-02-09 06:04] LABS: BASOPHILS % 0.4 % (0.0-1.0); EOSINOPHILS # (AUTO) 0.3 (0.0-0.4); EOSINOPHILS % 3.4 % (0.0-6.0); HEMATOCRIT 29.5 % (34.2-44.1); HEMOGLOBIN 9.1 g/dL (12.0-16.0); LYMPHOCYTES # (AUTO) 2.3 (1.0-3.2); LYMPHOCYTES % 29.6 % (18.0-39.1); MEAN CORPUSCULAR HGB CONC 30.8 g/dL (31-35); MEAN CORPUSCULAR VOLUME 90.8 fL (81-99); MONOCYTES # (AUTO) 0.5 (0.2-0.8); MONOCYTES % 6.9 % (4.4-11.3); NEUTROPHILS # (AUTO) 4.7 (2.1-6.9); NEUTROPHILS % 59.1 % (38.7-80.0); PLATELET COUNT 225 x10e3/uL (140-360); RED BLOOD COUNT 3.25 x10e6/uL (3.6-5.1); RED CELL DISTRIBUTION WIDTH 16.1 % (11.7-14.4)
[2020-02-09 06:43] LABS: ALBUMIN 3.1 g/dL (3.5-5.0); ALBUMIN/GLOBULIN RATIO 0.9 (0.8-2.0); CALCIUM 8.7 mg/dL (8.4-10.2); CREATININE, SERUM 1.19 mg/dL (0.57-1.11); MAGNESIUM 2.1 MG/DL (1.3-2.1)
[2020-02-09] MEDS: INSULIN LISPRO 100 UNIT/1 ML 3ML VIAL SQ SCH ×3 (08:00→16:30)
[2020-02-09] MEDS: AZITHROMYCIN 500MG/NS 250 ML 250 ML IV SCH (08:41)
[2020-02-09] MEDS: PANTOPRAZOLE SOD 40 MG TABEC PO SCH ×2 (08:41→16:40)
[2020-02-09] MEDS: CYANOCOBALAMIN INJ 1,000 MCG/ML VIAL IM SCH (08:41)
[2020-02-09] MEDS: GABAPENTIN 300 MG CAP PO SCH ×2 (08:42→16:42)
[2020-02-09] MEDS: CHOLECALCIFEROL 400 UNIT TAB PO SCH (08:42)
[2020-02-09] MEDS: HYDRALAZINE HCL 25 MG TAB PO SCH ×4 (08:42→21:00)
[2020-02-09] MEDS: OXYBUTYNIN CHLORIDE XL 5 MG TAB PO SCH (08:42)
[2020-02-09] MEDS: BALSAM PERU/CASTOR OIL 60 GM OINT...G. TP SCH (08:42)
[2020-02-09] MEDS: CARVEDILOL 3.125 MG TAB PO SCH ×2 (08:42→16:42)
[2020-02-09] MEDS: TICAGRELOR 90 MG TABLET PO SCH ×2 (08:42→16:42)
[2020-02-09] MEDS: MONTELUKAST SODIUM 10 MG TAB PO SCH (08:42)
[2020-02-09] MEDS: FUROSEMIDE 40 MG TAB PO SCH (08:42)
[2020-02-09] MEDS: AMLODIPINE BESYLATE 10 MG TAB PO SCH (08:42)
[2020-02-09] MEDS: ASPIRIN 81 MG ENTERIC COATED PO SCH (08:42)
[2020-02-09] MEDS: GEMFIBROZIL 600 MG TAB PO SCH ×2 (08:42→16:42)
[2020-02-09] MEDS: IRON SUCROSE 100 MG in SODIUM CHLORIDE 0.9% 100 ML 100 ML IV SCH (12:39)
[2020-02-09] MEDS: LORAZEPAM 1 MG TAB PO PRN ×2 (13:31→21:38)
[2020-02-09] MEDS ORDERED: MEROPENEM 1GRAM 1 GM in SODIUM CHLORIDE 0.9% 100 ML 100 ML IV SCH (21:00)
[2020-02-09] MEDS: MEROPENEM 1GM 100 ML IV SCH (21:26)
[2020-02-09] MEDS: ATORVASTATIN 40 MG TAB PO SCH (21:26)
[2020-02-10] VITALS (8 sets, daily range): BP systolic 136–178; BP diastolic 44–80
[2020-02-10] MEDS: ZOLPIDEM TARTRATE 5 MG TAB PO PRN (00:39)
[2020-02-10] MEDS: SODIUM CHLORIDE 0.9% 1000ML 1,000 ML IV SCH (02:57)
[2020-02-10] MEDS: LEVOTHYROXINE SODIUM 100 MCG TAB PO SCH (05:39)
[2020-02-10] MEDS: INSULIN GLARGINE 100 UNITS/ML VIAL SQ SCH (05:39)
[2020-02-10] MEDS: PANTOPRAZOLE SOD 40 MG TABEC PO SCH ×2 (07:01→16:49)
[2020-02-10] MEDS: LORAZEPAM 1 MG TAB PO PRN (07:02)
[2020-02-10] MEDS: TICAGRELOR 90 MG TABLET PO SCH ×2 (08:17→17:07)
[2020-02-10] MEDS: HYDRALAZINE HCL 25 MG TAB PO SCH ×4 (08:17→21:00)
[2020-02-10] MEDS: CARVEDILOL 3.125 MG TAB PO SCH ×2 (08:17→17:07)
[2020-02-10] MEDS: ASPIRIN 81 MG ENTERIC COATED PO SCH (08:17)
[2020-02-10] MEDS: GEMFIBROZIL 600 MG TAB PO SCH ×2 (08:18→17:07)
[2020-02-10] MEDS: FUROSEMIDE 40 MG TAB PO SCH (08:18)
[2020-02-10] MEDS: GABAPENTIN 300 MG CAP PO SCH ×2 (08:18→17:07)
[2020-02-10] MEDS: OXYBUTYNIN CHLORIDE XL 5 MG TAB PO SCH (08:18)
[2020-02-10] MEDS: MONTELUKAST SODIUM 10 MG TAB PO SCH (08:19)
[2020-02-10] MEDS: CHOLECALCIFEROL 400 UNIT TAB PO SCH (08:19)
[2020-02-10] MEDS: AMLODIPINE BESYLATE 10 MG TAB PO SCH (08:19)
[2020-02-10] MEDS: BALSAM PERU/CASTOR OIL 60 GM OINT...G. TP SCH (08:19)
[2020-02-10] MEDS: INSULIN LISPRO 100 UNIT/1 ML 3ML VIAL SQ SCH ×3 (08:20→16:30)
[2020-02-10] MEDS: MEROPENEM 1GM 100 ML IV SCH ×2 (08:21→20:51)
[2020-02-10] MEDS: CYANOCOBALAMIN INJ 1,000 MCG/ML VIAL IM SCH (08:21)
[2020-02-10] MEDS: PROMETHAZINE 25MG/ NS 50ML (IV) IV PRN (10:01)
[2020-02-10] MEDS: IRON SUCROSE 100 MG in SODIUM CHLORIDE 0.9% 100 ML 100 ML IV SCH (12:38)
[2020-02-10] MEDS ORDERED: SODIUM CHLORIDE 0.9% 250ML 250 ML ONE (15:28)
[2020-02-10] MEDS ORDERED: DEXTROSE 50% SYRINGE 50 ML IV PRN (19:30)
[2020-02-10] MEDS: ATORVASTATIN 40 MG TAB PO SCH (20:51)
[2020-02-10] MEDS ORDERED: INSULIN LISPRO 100 UNIT/1 ML 3ML VIAL SQ SCH (21:00)
[2020-02-11] VITALS: BP 142/57
[2020-02-11 04:00] VITALS: BP 144/62
[2020-02-11] MEDS: INSULIN GLARGINE 100 UNITS/ML VIAL SQ SCH (05:46)
[2020-02-11] MEDS: LEVOTHYROXINE SODIUM 100 MCG TAB PO SCH (05:46)
[2020-02-11 06:36] LABS: BASOPHILS % 0.2 % (0.0-1.0); EOSINOPHILS # (AUTO) 0.3 (0.0-0.4); HEMOGLOBIN 9.5 g/dL (12.0-16.0); LYMPHOCYTES # (AUTO) 2.7 (1.0-3.2); LYMPHOCYTES % 32.9 % (18.0-39.1); MEAN CORPUSCULAR HEMOGLOBIN 27.3 pg (28-32); MEAN CORPUSCULAR HGB CONC 30.6 g/dL (31-35); MEAN CORPUSCULAR VOLUME 89.1 fL (81-99); MONOCYTES # (AUTO) 0.5 (0.2-0.8); MONOCYTES % 6.4 % (4.4-11.3); NEUTROPHILS # (AUTO) 4.7 (2.1-6.9); NEUTROPHILS % 56.7 % (38.7-80.0); PLATELET COUNT 279 x10e3/uL (140-360); RED BLOOD COUNT 3.48 x10e6/uL (3.6-5.1); RED CELL DISTRIBUTION WIDTH 15.9 % (11.7-14.4)
[2020-02-11 07:07] LABS: ALBUMIN 3.2 g/dL (3.5-5.0); ALBUMIN/GLOBULIN RATIO 0.9 (0.8-2.0); ANION GAP 13.9 mmol/L (8-16); CALCIUM 9.2 mg/dL (8.4-10.2); CREATININE, SERUM 1.01 mg/dL (0.57-1.11); POTASSIUM 3.9 mmol/L (3.5-5.1)
[2020-02-11 07:19] VITALS: BP 166/69
[2020-02-11] MEDS: PANTOPRAZOLE SOD 40 MG TABEC PO SCH ×2 (08:07→16:21)
[2020-02-11] MEDS: MEROPENEM 1GM 100 ML IV SCH (08:12)
[2020-02-11] MEDS: INSULIN LISPRO 100 UNIT/1 ML 3ML VIAL SQ SCH ×3 (08:12→16:23)
[2020-02-11] MEDS: GABAPENTIN 300 MG CAP PO SCH ×2 (08:13→16:21)
[2020-02-11] MEDS: HYDRALAZINE HCL 25 MG TAB PO SCH ×3 (08:13→17:00)
[2020-02-11] MEDS: OXYBUTYNIN CHLORIDE XL 5 MG TAB PO SCH (08:13)
[2020-02-11] MEDS: ASPIRIN 81 MG ENTERIC COATED PO SCH (08:13)
[2020-02-11] MEDS: CHOLECALCIFEROL 400 UNIT TAB PO SCH (08:13)
[2020-02-11] MEDS: BALSAM PERU/CASTOR OIL 60 GM OINT...G. TP SCH (08:13)
[2020-02-11] MEDS: TICAGRELOR 90 MG TABLET PO SCH ×2 (08:13→16:21)
[2020-02-11] MEDS: GEMFIBROZIL 600 MG TAB PO SCH ×2 (08:13→16:21)
[2020-02-11] MEDS: MONTELUKAST SODIUM 10 MG TAB PO SCH (08:13)
[2020-02-11] MEDS: FUROSEMIDE 40 MG TAB PO SCH (08:13)
[2020-02-11] MEDS: AMLODIPINE BESYLATE 10 MG TAB PO SCH (08:13)
[2020-02-11] MEDS: CARVEDILOL 3.125 MG TAB PO SCH ×2 (08:13→16:21)
[2020-02-11] MEDS: LORAZEPAM 1 MG TAB PO PRN ×2 (08:52→17:13)
[2020-02-11] MEDS: CYANOCOBALAMIN INJ 1,000 MCG/ML VIAL IM SCH (09:00)
[2020-02-11] MEDS: PROMETHAZINE 25MG/ NS 50ML (IV) IV PRN (10:25)
[2020-02-11 11:41] VITALS: BP 157/48
[2020-02-11] MEDS: IRON SUCROSE 100 MG in SODIUM CHLORIDE 0.9% 100 ML 100 ML IV SCH (12:10)
[2020-02-11 15:42] VITALS: BP 145/58
[2020-02-11 16:51] VITALS: BP 140/60
[2020-02-11] MEDS ORDERED: FOSFOMYCIN TROMETHAMINE 3 GM PACKET PO ONE (17:00)
== END 2020-02-11 18:34 | disposition home or self-care (01) | DRG 698 ==
LOC: ER 23:56 → ERHOLD 02-06 02:07 → MED/SURG3 02-06 02:14 → OBSVTOIN 02-07 17:31
PROVIDERS: ADMIT Internal Medicine; ATTEND Internal Medicine
DX: T83.518A Infection and inflammatory reaction due to other urinary catheter, initial encounter (principal); A41.9 Sepsis, unspecified organism; Z16.12 Extended spectrum beta lactamase (ESBL) resistance; Z68.41 Body mass index [BMI] 40.0-44.9, adult; K92.2 Gastrointestinal hemorrhage, unspecified; I13.0 Hypertensive heart and chronic kidney disease with heart failure and stage 1 through stage 4 chronic kidney disease, or unspecified chronic kidney disease; M54.9 Dorsalgia, unspecified; Z86.73 Personal history of transient ischemic attack (TIA), and cerebral infarction without residual deficits; I25.10 Atherosclerotic heart disease of native coronary artery without angina pectoris; E11.9 Type 2 diabetes mellitus without complications; E78.5 Hyperlipidemia, unspecified; Z11.59 Encounter for screening for other viral diseases; E66.01 Morbid (severe) obesity due to excess calories; F41.9 Anxiety disorder, unspecified; I50.9 Heart failure, unspecified; N18.30 Chronic kidney disease, stage 3 unspecified; E11.22 Type 2 diabetes mellitus with diabetic chronic kidney disease
CPT/HCPCS: 36415; 71045; 72125; 72128; 72131; 76770; 80048; 80053; 82270; 82607; 82728; 82746; 82948; 83540; 83605; 83735; 83880; 84466; 85025; 85045; 87040; 87086; 87186; 99251; 99284; G0378; J0456; J1170; J1756; J1815; J1885; J2270; J2405; J2543; J2550; J2930; J3420; J7030; J7050; Q0162; U0002

== ENCOUNTER → 2021-01-18 | Outpatient (CLI) | payer MEDICARE ==
[~2021-01-18] MED LIST changes: +CARVEDILOL3.125 MG PO; +HUMALOG100 UNIT/1 SQ; +LANTUS 3ML100 UNITS/ SQ
== END ==
LOC: MAMMO 12:42
PROVIDERS: ATTEND Internal Medicine
DX: Z12.31 Encounter for screening mammogram for malignant neoplasm of breast (principal)
CPT/HCPCS: 77067

== ENCOUNTER 2021-05-25 20:46 | Emergency (ER) | payer MEDICARE, OTHER ==
[~2021-05-25] VITALS: Ht 154.9 cm; Wt 96.2 kg
== END 2021-05-25 23:09 | disposition home or self-care (01) ==
LOC: ER 21:05
DX: S05.12XA Contusion of eyeball and orbital tissues, left eye, initial encounter (principal); W01.198A Fall on same level from slipping, tripping and stumbling with subsequent striking against other object, initial encounter; Y93.01 Activity, walking, marching and hiking; Y92.008 Other place in unspecified non-institutional (private) residence as the place of occurrence of the external cause; I10 Essential (primary) hypertension; E11.9 Type 2 diabetes mellitus without complications; I50.9 Heart failure, unspecified; E03.9 Hypothyroidism, unspecified; E78.5 Hyperlipidemia, unspecified; Z86.73 Personal history of transient ischemic attack (TIA), and cerebral infarction without residual deficits; I25.2 Old myocardial infarction; Z98.84 Bariatric surgery status; Z95.5 Presence of coronary angioplasty implant and graft
CPT/HCPCS: 70450; 70486; 72125; 99283

== ENCOUNTER 2021-08-19 11:59 | Emergency (ER) | payer MEDICARE ==
[~2021-08-19] VITALS: Ht 154.9 cm; Wt 100.2 kg
[~2021-08-19 11:59] MED LIST changes: +POTASSIUM CHLO10 ME1 PO
[2021-08-19] MEDS ORDERED: ONDANSETRON HCL INJ 2MG/ML 2ML 2 MG/ML VIAL IV NR (13:00)
[2021-08-19] MEDS ORDERED: ONDANSETRON HCL 4 MG ORAL DISINTEGRATING TAB PO ONE (13:00)
[2021-08-19] MEDS ORDERED: ALLOPURINOL300 MG PO (13:34)
[2021-08-19] MEDS ORDERED: DOXAZOSIN MESYLA2 MG PO (13:34)
== END 2021-08-19 14:53 | disposition home or self-care (01) ==
LOC: ER 12:05
DX: R53.1 Weakness (principal); N39.0 Urinary tract infection, site not specified; R62.7 Adult failure to thrive; I10 Essential (primary) hypertension; E11.65 Type 2 diabetes mellitus with hyperglycemia; E78.5 Hyperlipidemia, unspecified; I50.9 Heart failure, unspecified; E03.9 Hypothyroidism, unspecified; D64.9 Anemia, unspecified; M54.9 Dorsalgia, unspecified; G89.29 Other chronic pain; I25.2 Old myocardial infarction; Z95.5 Presence of coronary angioplasty implant and graft; Z86.73 Personal history of transient ischemic attack (TIA), and cerebral infarction without residual deficits
CPT/HCPCS: 99283; J2405

== ENCOUNTER 2022-05-20 16:41 | Inpatient (IN) | payer MEDICARE ==
[~2022-05-20] VITALS: Ht 154.9 cm; Wt 93.4 kg
[~2022-05-20 16:41] MED LIST changes: +ALLOPURINOL300 MG PO; +DOXAZOSIN MESYLA2 MG PO
[2022-05-20 17:57] LABS: BASOPHILS % 0.2 % (0.0-1.0); EOSINOPHILS # (AUTO) 0.1 (0.0-0.4); HEMATOCRIT 37.8 % (34.2-44.1); HEMOGLOBIN 11.3 g/dL (12.0-16.0); LYMPHOCYTES # (AUTO) 1.1 (1.0-3.2); LYMPHOCYTES % 12.9 % (18.0-39.1); MEAN CORPUSCULAR HEMOGLOBIN 29.7 pg (28-32); MEAN CORPUSCULAR HGB CONC 29.9 g/dL (31-35); MEAN CORPUSCULAR VOLUME 99.5 fL (81-99); MONOCYTES # (AUTO) 0.4 (0.2-0.8); MONOCYTES % 4.4 % (4.4-11.3); NEUTROPHILS % 81.2 % (38.7-80.0); PLATELET COUNT 286 x10e3/uL (140-360); RED CELL DISTRIBUTION WIDTH 16.6 % (11.7-14.4)
[2022-05-20 18:07] LABS: INR 1.11; PROTHROMBIN TIME 14.5 seconds (11.9-14.5)
[2022-05-20 18:09] LABS: CLARITY,URINE HAZY (CLEAR); COLOR,URINE YELLOW (YELLOW); KETONES,URINE NEGATIVE (NEGATIVE); LEUKOCYTE ESTERASE ,URINE NEGATIVE (NEGATIVE); NITRITE,URINE NEGATIVE (NEGATIVE); PROTEIN,URINE DIPSTICK NEGATIVE (NEGATIVE); URINE UROBILINOGEN 0.2 mg/dL (0.2 - 1)
[2022-05-20 18:10] LABS: BACTERIA,URINE FEW /HPF; EPITHELIAL CELLS,URINE FEW /LPF; RBC,URINE 0-5 /HPF (0-5); WBC,URINE (MAN) 0-5 /HPF (0-5)
[2022-05-20 18:14] LABS: ALBUMIN 3.3 g/dL (3.5-5.0); ALBUMIN/GLOBULIN RATIO 0.8 (0.8-2.0); ANION GAP 17.5 mmol/L (8-16); CALCIUM 9.6 mg/dL (8.4-10.2); CREATININE, SERUM 1.78 mg/dL (0.57-1.11); MAGNESIUM 2.4 MG/DL (1.3-2.1); POTASSIUM 4.5 mmol/L (3.5-5.1)
[2022-05-20 18:21] LABS: CREATINE KINASE MB 1.8 ng/mL (0-5.0)
[2022-05-20] MEDS ORDERED: FUROSEMIDE INJ 10 MG/ML 4 ML VIAL IV ONE (19:30)
[2022-05-20] MEDS ORDERED: DEXTROSE 50% SYRINGE 50 ML IV PRN (19:45)
[2022-05-20] MEDS: INSULIN REGULAR, HUMAN 100 UNIT/1 ML SQ SCH (21:00)
[2022-05-20 21:30] VITALS: BP 158/61
[2022-05-20 23:02] VITALS: BP 158/61
[2022-05-20 23:10] VITALS: BP 158/61
[2022-05-21] VITALS (8 sets, daily range): BP systolic 132–158; BP diastolic 52–62
[2022-05-21] MEDS: LEVALBUTEROL HCL SOLN NEBU 0.63 MG/3 ML NEB INH PRN ×2 (00:42→19:20)
[2022-05-21] MEDS ORDERED: ULTRAM 50MG50 MG PO (01:24)
[2022-05-21] MEDS ORDERED: NORVASC10 MG PO (01:24)
[2022-05-21] MEDS ORDERED: HYDRALAZINE HCL25 MG PO (01:24)
[2022-05-21] MEDS ORDERED: AMBIEN10 MG PO (01:24)
[2022-05-21] MEDS ORDERED: CITALOPRAM HBR20 MG PO (01:24)
[2022-05-21] MEDS ORDERED: ZOLPIDEM TARTRATE 10 MG TAB PO PRN (03:45)
[2022-05-21] MEDS: ACETAMINOPHEN 325 MG TAB PO PRN ×2 (03:52→13:13)
[2022-05-21] MEDS: ONDANSETRON HCL INJ 2MG/ML 2ML 2 MG/ML VIAL IV PRN ×2 (03:52→08:59)
[2022-05-21] MEDS ORDERED: HUMULIN 70100 UNIT/1 SC ×2 (04:07)
[2022-05-21 04:10] LABS: CREATINE KINASE MB 1.4 ng/mL (0-5.0)
[2022-05-21] MEDS: LORAZEPAM 0.5 MG TAB PO PRN ×2 (04:16→14:45)
[2022-05-21 05:46] LABS: BASOPHILS % 0.3 % (0.0-1.0); EOSINOPHILS # (AUTO) 0.2 (0.0-0.4); EOSINOPHILS % 2.3 % (0.0-6.0); HEMATOCRIT 38.8 % (34.2-44.1); HEMOGLOBIN 11.4 g/dL (12.0-16.0); LYMPHOCYTES # (AUTO) 1.2 (1.0-3.2); LYMPHOCYTES % 14.9 % (18.0-39.1); MEAN CORPUSCULAR HEMOGLOBIN 30.1 pg (28-32); MEAN CORPUSCULAR HGB CONC 29.4 g/dL (31-35); MEAN CORPUSCULAR VOLUME 102.4 fL (81-99); MONOCYTES # (AUTO) 0.4 (0.2-0.8); MONOCYTES % 5.1 % (4.4-11.3); NEUTROPHILS # (AUTO) 6.1 (2.1-6.9); NEUTROPHILS % 76.9 % (38.7-80.0); PLATELET COUNT 341 x10e3/uL (140-360); RED BLOOD COUNT 3.79 x10e6/uL (3.6-5.1); RED CELL DISTRIBUTION WIDTH 16.8 % (11.7-14.4)
[2022-05-21] MEDS: FUROSEMIDE INJ 10 MG/ML 2 ML VIAL IV SCH ×2 (06:12→17:53)
[2022-05-21 06:14] LABS: ALBUMIN 3.2 g/dL (3.5-5.0); ALBUMIN/GLOBULIN RATIO 0.7 (0.8-2.0); CALCIUM 9.7 mg/dL (8.4-10.2); CREATININE, SERUM 1.52 mg/dL (0.57-1.11)
[2022-05-21] MEDS ORDERED: ALBUTEROL SULFATE HFA 8GM INHALATION AEROSOL INH PRN (08:45)
[2022-05-21] MEDS ORDERED: ALBUTEROL SULFATE HFA 8GM INHALATION AEROSOL INH ONE (08:45)
[2022-05-21] MEDS: INSULIN REGULAR, HUMAN 100 UNIT/1 ML SQ SCH ×4 (09:00→22:19)
[2022-05-21] MEDS: LEVOTHYROXINE SODIUM 100 MCG TAB PO SCH (09:01)
[2022-05-21] MEDS: ASPIRIN 81 MG ENTERIC COATED PO SCH (09:28)
[2022-05-21] MEDS: CITALOPRAM HYDROBROMIDE 20 MG TAB PO SCH (09:28)
[2022-05-21] MEDS: CARVEDILOL 12.5 MG TAB PO SCH ×2 (09:29→16:18)
[2022-05-21] MEDS: GABAPENTIN 300 MG CAP PO SCH ×3 (09:30→22:15)
[2022-05-21] MEDS: POTASSIUM CHLORIDE 10MEQ EA PO SCH (09:30)
[2022-05-21] MEDS: GEMFIBROZIL 600 MG TAB PO SCH ×2 (09:30→16:17)
[2022-05-21] MEDS: PANTOPRAZOLE SOD 40 MG TABEC PO SCH (09:31)
[2022-05-21] MEDS: MONTELUKAST SODIUM 10 MG TAB PO SCH (09:31)
[2022-05-21] MEDS: ALLOPURINOL 300 MG TAB PO SCH (09:31)
[2022-05-21] MEDS: AMLODIPINE BESYLATE 10 MG TAB PO SCH (09:31)
[2022-05-21 10:29] LABS: THYROID STIMULATING HORMONE 9.575 uIU/mL (0.350-4.940)
[2022-05-21] MEDS ORDERED: FUROSEMIDE INJ 10 MG/ML 4 ML VIAL IV ONE (12:00)
[2022-05-21 16:02] LABS: CREATINE KINASE MB 1.4 ng/mL (0-5.0)
[2022-05-21] MEDS: ENOXAPARIN 30 MG/0.3 ML SYR SC SCH (16:39)
[2022-05-22] VITALS (7 sets, daily range): BP systolic 128–152; BP diastolic 45–65
[2022-05-22] MEDS: ACETAMINOPHEN 325 MG TAB PO PRN ×2 (01:10→08:52)
[2022-05-22] MEDS: LORAZEPAM 0.5 MG TAB PO PRN ×2 (02:25→22:52)
[2022-05-22] MEDS: LEVALBUTEROL HCL SOLN NEBU 0.63 MG/3 ML NEB INH PRN ×4 (03:02→19:25)
[2022-05-22] MEDS ORDERED: KETOROLAC TROMETHAMINE 30 MG/ML VIAL IV STA (04:07)
[2022-05-22] MEDS: FUROSEMIDE INJ 10 MG/ML 2 ML VIAL IV SCH ×2 (05:04→17:26)
[2022-05-22 06:23] LABS: BASOPHILS % 0.3 % (0.0-1.0); EOSINOPHILS # (AUTO) 0.2 (0.0-0.4); EOSINOPHILS % 2.8 % (0.0-6.0); HEMATOCRIT 39.5 % (34.2-44.1); HEMOGLOBIN 11.4 g/dL (12.0-16.0); LYMPHOCYTES # (AUTO) 1.4 (1.0-3.2); LYMPHOCYTES % 19.5 % (18.0-39.1); MEAN CORPUSCULAR HEMOGLOBIN 29.6 pg (28-32); MEAN CORPUSCULAR HGB CONC 28.9 g/dL (31-35); MEAN CORPUSCULAR VOLUME 102.6 fL (81-99); MONOCYTES # (AUTO) 0.6 (0.2-0.8); MONOCYTES % 7.6 % (4.4-11.3); NEUTROPHILS % 69.4 % (38.7-80.0); PLATELET COUNT 309 x10e3/uL (140-360); RED BLOOD COUNT 3.85 x10e6/uL (3.6-5.1); RED CELL DISTRIBUTION WIDTH 16.6 % (11.7-14.4)
[2022-05-22 06:55] LABS: ALBUMIN 3.2 g/dL (3.5-5.0); ALBUMIN/GLOBULIN RATIO 0.7 (0.8-2.0); ANION GAP 17.1 mmol/L (8-16); CALCIUM 9.3 mg/dL (8.4-10.2); CREATININE, SERUM 1.56 mg/dL (0.57-1.11); MAGNESIUM 2.3 MG/DL (1.3-2.1); POTASSIUM 4.1 mmol/L (3.5-5.1)
[2022-05-22] MEDS: LEVOTHYROXINE SODIUM 100 MCG TAB PO SCH (07:57)
[2022-05-22] MEDS: INSULIN REGULAR, HUMAN 100 UNIT/1 ML SQ SCH ×4 (08:00→21:25)
[2022-05-22] MEDS: ASPIRIN 81 MG ENTERIC COATED PO SCH (08:02)
[2022-05-22] MEDS: CITALOPRAM HYDROBROMIDE 20 MG TAB PO SCH (08:02)
[2022-05-22] MEDS: CARVEDILOL 12.5 MG TAB PO SCH ×2 (08:02→16:31)
[2022-05-22] MEDS: GEMFIBROZIL 600 MG TAB PO SCH ×2 (08:03→16:32)
[2022-05-22] MEDS: POTASSIUM CHLORIDE 10MEQ EA PO SCH (08:03)
[2022-05-22] MEDS: GABAPENTIN 300 MG CAP PO SCH ×3 (08:03→21:20)
[2022-05-22] MEDS: AMLODIPINE BESYLATE 10 MG TAB PO SCH (08:04)
[2022-05-22] MEDS: ALLOPURINOL 300 MG TAB PO SCH (08:04)
[2022-05-22] MEDS: MONTELUKAST SODIUM 10 MG TAB PO SCH (08:04)
[2022-05-22] MEDS: PANTOPRAZOLE SOD 40 MG TABEC PO SCH (08:04)
[2022-05-22] MEDS: ENOXAPARIN 30 MG/0.3 ML SYR SC SCH (16:34)
[2022-05-23] VITALS (8 sets, daily range): BP systolic 125–169; BP diastolic 50–67
[2022-05-23] MEDS: LEVALBUTEROL HCL SOLN NEBU 0.63 MG/3 ML NEB INH PRN ×3 (01:30→13:50)
[2022-05-23] MEDS: ONDANSETRON HCL 4 MG ORAL DISINTEGRATING TAB PO PRN (02:16)
[2022-05-23] MEDS: FUROSEMIDE INJ 10 MG/ML 2 ML VIAL IV SCH (05:24)
[2022-05-23 05:53] LABS: BASOPHILS % 0.5 % (0.0-1.0); EOSINOPHILS # (AUTO) 0.3 (0.0-0.4); EOSINOPHILS % 4.4 % (0.0-6.0); HEMATOCRIT 35.8 % (34.2-44.1); HEMOGLOBIN 11.1 g/dL (12.0-16.0); LYMPHOCYTES # (AUTO) 1.4 (1.0-3.2); LYMPHOCYTES % 22.2 % (18.0-39.1); MEAN CORPUSCULAR HEMOGLOBIN 29.8 pg (28-32); MEAN CORPUSCULAR VOLUME 96.2 fL (81-99); MONOCYTES # (AUTO) 0.5 (0.2-0.8); MONOCYTES % 7.7 % (4.4-11.3); NEUTROPHILS # (AUTO) 3.9 (2.1-6.9); NEUTROPHILS % 64.9 % (38.7-80.0); PLATELET COUNT 313 x10e3/uL (140-360); RED BLOOD COUNT 3.72 x10e6/uL (3.6-5.1); RED CELL DISTRIBUTION WIDTH 16.8 % (11.7-14.4)
[2022-05-23 06:17] LABS: ALBUMIN 3.2 g/dL (3.5-5.0); ALBUMIN/GLOBULIN RATIO 0.8 (0.8-2.0); ANION GAP 15.3 mmol/L (8-16); CALCIUM 9.5 mg/dL (8.4-10.2); CREATININE, SERUM 1.61 mg/dL (0.57-1.11); MAGNESIUM 2.1 MG/DL (1.3-2.1); POTASSIUM 4.3 mmol/L (3.5-5.1)
[2022-05-23] MEDS: INSULIN REGULAR, HUMAN 100 UNIT/1 ML SQ SCH ×4 (09:01→20:50)
[2022-05-23] MEDS: AMLODIPINE BESYLATE 10 MG TAB PO SCH (09:05)
[2022-05-23] MEDS: ALLOPURINOL 300 MG TAB PO SCH (09:05)
[2022-05-23] MEDS: POTASSIUM CHLORIDE 10MEQ EA PO SCH (09:05)
[2022-05-23] MEDS: MONTELUKAST SODIUM 10 MG TAB PO SCH (09:05)
[2022-05-23] MEDS: GABAPENTIN 300 MG CAP PO SCH ×3 (09:05→20:44)
[2022-05-23] MEDS: PANTOPRAZOLE SOD 40 MG TABEC PO SCH (09:05)
[2022-05-23] MEDS: ASPIRIN 81 MG ENTERIC COATED PO SCH (09:06)
[2022-05-23] MEDS: CARVEDILOL 12.5 MG TAB PO SCH ×2 (09:06→16:53)
[2022-05-23] MEDS: CITALOPRAM HYDROBROMIDE 20 MG TAB PO SCH (09:06)
[2022-05-23] MEDS: GEMFIBROZIL 600 MG TAB PO SCH ×2 (09:06→16:53)
[2022-05-23] MEDS: LEVOTHYROXINE SODIUM 100 MCG TAB PO SCH (09:06)
[2022-05-23] MEDS ORDERED: SODIUM CHLORIDE 0.9% 250ML 250 ML ONE (09:25)
[2022-05-23] MEDS: LORAZEPAM 0.5 MG TAB PO PRN (10:56)
[2022-05-23] MEDS: ACETAMINOPHEN 325 MG TAB PO PRN ×2 (11:01→23:58)
[2022-05-23] MEDS: FUROSEMIDE INJ 10 MG/ML 4 ML VIAL IV SCH ×2 (14:28→20:45)
[2022-05-23] MEDS: ENOXAPARIN 30 MG/0.3 ML SYR SC SCH (16:52)
[2022-05-23] MEDS: HYDRALAZINE HCL 25 MG TAB PO SCH (16:54)
[2022-05-24] VITALS (8 sets, daily range): BP systolic 133–165; BP diastolic 53–67
[2022-05-24] MEDS: ACETAMINOPHEN 325 MG TAB PO PRN (06:20)
[2022-05-24 06:41] LABS: BASOPHILS % 0.3 % (0.0-1.0); EOSINOPHILS # (AUTO) 0.3 (0.0-0.4); HEMATOCRIT 36.1 % (34.2-44.1); LYMPHOCYTES # (AUTO) 1.4 (1.0-3.2); LYMPHOCYTES % 21.7 % (18.0-39.1); MEAN CORPUSCULAR HEMOGLOBIN 29.4 pg (28-32); MEAN CORPUSCULAR HGB CONC 30.5 g/dL (31-35); MEAN CORPUSCULAR VOLUME 96.5 fL (81-99); MONOCYTES # (AUTO) 0.4 (0.2-0.8); MONOCYTES % 6.4 % (4.4-11.3); NEUTROPHILS # (AUTO) 4.2 (2.1-6.9); NEUTROPHILS % 67.3 % (38.7-80.0); PLATELET COUNT 295 x10e3/uL (140-360); RED BLOOD COUNT 3.74 x10e6/uL (3.6-5.1); RED CELL DISTRIBUTION WIDTH 16.7 % (11.7-14.4)
[2022-05-24 07:18] LABS: ALBUMIN 3.2 g/dL (3.5-5.0); ALBUMIN/GLOBULIN RATIO 0.8 (0.8-2.0); ANION GAP 15.4 mmol/L (8-16); CALCIUM 9.4 mg/dL (8.4-10.2); CREATININE, SERUM 1.49 mg/dL (0.57-1.11); POTASSIUM 4.4 mmol/L (3.5-5.1)
[2022-05-24] MEDS ORDERED: SODIUM CHLORIDE 0.9% 250ML 250 ML ONE (07:54)
[2022-05-24] MEDS: LORAZEPAM 0.5 MG TAB PO PRN ×2 (08:53→21:32)
[2022-05-24] MEDS: CARVEDILOL 12.5 MG TAB PO SCH ×2 (08:53→16:54)
[2022-05-24] MEDS: ALLOPURINOL 300 MG TAB PO SCH (08:54)
[2022-05-24] MEDS: GABAPENTIN 300 MG CAP PO SCH ×3 (08:54→20:35)
[2022-05-24] MEDS: POTASSIUM CHLORIDE 10MEQ EA PO SCH (08:54)
[2022-05-24] MEDS: MONTELUKAST SODIUM 10 MG TAB PO SCH (08:54)
[2022-05-24] MEDS: PANTOPRAZOLE SOD 40 MG TABEC PO SCH (08:54)
[2022-05-24] MEDS: CITALOPRAM HYDROBROMIDE 20 MG TAB PO SCH (08:54)
[2022-05-24] MEDS: GEMFIBROZIL 600 MG TAB PO SCH ×2 (08:54→16:52)
[2022-05-24] MEDS: LEVOTHYROXINE SODIUM 100 MCG TAB PO SCH (08:54)
[2022-05-24] MEDS: ASPIRIN 81 MG ENTERIC COATED PO SCH (08:54)
[2022-05-24] MEDS: FUROSEMIDE INJ 10 MG/ML 4 ML VIAL IV SCH ×2 (08:55→16:55)
[2022-05-24] MEDS: HYDRALAZINE HCL 25 MG TAB PO SCH ×3 (08:55→20:35)
[2022-05-24] MEDS: AMLODIPINE BESYLATE 10 MG TAB PO SCH (08:55)
[2022-05-24] MEDS: INSULIN REGULAR, HUMAN 100 UNIT/1 ML SQ SCH ×4 (08:57→20:33)
[2022-05-24] MEDS ORDERED: NITROGLYCERIN 0.4 MG SUBL SL ONE (10:00)
[2022-05-24] MEDS ORDERED: INSULIN REGULAR, HUMAN 100 UNIT/1 ML SQ ONE (11:45)
[2022-05-24] MEDS: BISACODYL 5 MG TAB EC PO PRN ×2 (11:50→21:14)
[2022-05-24] MEDS: ISOSORBIDE MONONITRATE 30 MG TAB CR PO SCH (16:54)
[2022-05-24] MEDS: ENOXAPARIN 30 MG/0.3 ML SYR SC SCH ×2 (16:56→17:00)
[2022-05-24] MEDS: LEVALBUTEROL HCL SOLN NEBU 0.63 MG/3 ML NEB INH PRN (19:45)
[2022-05-25] VITALS (8 sets, daily range): BP systolic 120–151; BP diastolic 50–58
[2022-05-25] MEDS ORDERED: METHYLPREDNISOLONE SOD SUCC 40 MG/ML VIAL 1ML IV ONE (05:00)
[2022-05-25] MEDS: LEVOTHYROXINE SODIUM 100 MCG TAB PO SCH (05:29)
[2022-05-25 06:37] LABS: BASOPHILS % 0.3 % (0.0-1.0); EOSINOPHILS # (AUTO) 0.3 (0.0-0.4); EOSINOPHILS % 3.2 % (0.0-6.0); HEMATOCRIT 35.5 % (34.2-44.1); HEMOGLOBIN 10.8 g/dL (12.0-16.0); LYMPHOCYTES # (AUTO) 1.3 (1.0-3.2); LYMPHOCYTES % 16.3 % (18.0-39.1); MEAN CORPUSCULAR HEMOGLOBIN 29.6 pg (28-32); MEAN CORPUSCULAR HGB CONC 30.4 g/dL (31-35); MEAN CORPUSCULAR VOLUME 97.3 fL (81-99); MONOCYTES # (AUTO) 0.4 (0.2-0.8); MONOCYTES % 5.3 % (4.4-11.3); NEUTROPHILS # (AUTO) 5.8 (2.1-6.9); NEUTROPHILS % 74.4 % (38.7-80.0); PLATELET COUNT 278 x10e3/uL (140-360); RED BLOOD COUNT 3.65 x10e6/uL (3.6-5.1); RED CELL DISTRIBUTION WIDTH 16.7 % (11.7-14.4)
[2022-05-25 07:01] LABS: ALBUMIN 3.2 g/dL (3.5-5.0); ALBUMIN/GLOBULIN RATIO 0.8 (0.8-2.0); ANION GAP 16.5 mmol/L (8-16); CALCIUM 9.6 mg/dL (8.4-10.2); CREATININE, SERUM 1.7 mg/dL (0.57-1.11); POTASSIUM 4.5 mmol/L (3.5-5.1)
[2022-05-25] MEDS: LORAZEPAM 0.5 MG TAB PO PRN (09:27)
[2022-05-25] MEDS: BISACODYL 5 MG TAB EC PO PRN (09:27)
[2022-05-25] MEDS: ALLOPURINOL 300 MG TAB PO SCH (09:28)
[2022-05-25] MEDS: POTASSIUM CHLORIDE 10MEQ EA PO SCH (09:28)
[2022-05-25] MEDS: CITALOPRAM HYDROBROMIDE 20 MG TAB PO SCH (09:28)
[2022-05-25] MEDS: ISOSORBIDE MONONITRATE 30 MG TAB CR PO SCH ×2 (09:28→16:05)
[2022-05-25] MEDS: ASPIRIN 81 MG ENTERIC COATED PO SCH (09:29)
[2022-05-25] MEDS: PANTOPRAZOLE SOD 40 MG TABEC PO SCH (09:29)
[2022-05-25] MEDS: HYDRALAZINE HCL 25 MG TAB PO SCH ×3 (09:29→21:50)
[2022-05-25] MEDS: GEMFIBROZIL 600 MG TAB PO SCH ×2 (09:29→16:04)
[2022-05-25] MEDS: AMLODIPINE BESYLATE 10 MG TAB PO SCH (09:29)
[2022-05-25] MEDS: MONTELUKAST SODIUM 10 MG TAB PO SCH (09:30)
[2022-05-25] MEDS: GABAPENTIN 300 MG CAP PO SCH ×3 (09:30→21:49)
[2022-05-25] MEDS: FUROSEMIDE INJ 10 MG/ML 4 ML VIAL IV SCH (09:30)
[2022-05-25] MEDS: CARVEDILOL 12.5 MG TAB PO SCH ×2 (09:30→16:05)
[2022-05-25] MEDS: INSULIN REGULAR, HUMAN 100 UNIT/1 ML SQ SCH ×4 (09:31→22:08)
[2022-05-25] MEDS: ONDANSETRON HCL 4 MG ORAL DISINTEGRATING TAB PO PRN ×2 (09:39→16:04)
[2022-05-25] MEDS ORDERED: INSULIN REGULAR, HUMAN 100 UNIT/1 ML SQ ONE ×3 (12:45→17:15)
[2022-05-25] MEDS: ACETAMINOPHEN 325 MG TAB PO PRN (12:49)
[2022-05-25] MEDS: HUMULIN 70/30 VIAL SQ SCH (15:09)
[2022-05-25] MEDS: ENOXAPARIN 30 MG/0.3 ML SYR SC SCH (16:06)
[2022-05-25] MEDS: LEVALBUTEROL HCL SOLN NEBU 0.63 MG/3 ML NEB INH PRN (19:40)
[2022-05-26 00:52] VITALS: BP 123/54
[2022-05-26] MEDS: LORAZEPAM 0.5 MG TAB PO PRN ×2 (01:14→19:09)
[2022-05-26] MEDS: ACETAMINOPHEN 325 MG TAB PO PRN ×2 (03:21→16:45)
[2022-05-26 05:25] VITALS: BP 134/52
[2022-05-26] MEDS: LEVOTHYROXINE SODIUM 100 MCG TAB PO SCH (05:33)
[2022-05-26 08:59] VITALS: BP 140/56
[2022-05-26 09:02] VITALS: BP 140/56
[2022-05-26] MEDS: FUROSEMIDE INJ 10 MG/ML 4 ML VIAL IV SCH (09:35)
[2022-05-26] MEDS: HYDRALAZINE HCL 25 MG TAB PO SCH ×3 (09:36→20:51)
[2022-05-26] MEDS: CITALOPRAM HYDROBROMIDE 20 MG TAB PO SCH (09:36)
[2022-05-26] MEDS: ALLOPURINOL 300 MG TAB PO SCH (09:38)
[2022-05-26] MEDS: MONTELUKAST SODIUM 10 MG TAB PO SCH (09:38)
[2022-05-26] MEDS: AMLODIPINE BESYLATE 10 MG TAB PO SCH (09:38)
[2022-05-26] MEDS: POTASSIUM CHLORIDE 10MEQ EA PO SCH (09:38)
[2022-05-26] MEDS: GABAPENTIN 300 MG CAP PO SCH ×3 (09:38→20:51)
[2022-05-26] MEDS: ISOSORBIDE MONONITRATE 30 MG TAB CR PO SCH ×2 (09:38→16:29)
[2022-05-26] MEDS: GEMFIBROZIL 600 MG TAB PO SCH ×2 (09:38→16:29)
[2022-05-26] MEDS: ASPIRIN 81 MG ENTERIC COATED PO SCH (09:39)
[2022-05-26] MEDS: PANTOPRAZOLE SOD 40 MG TABEC PO SCH (09:39)
[2022-05-26] MEDS: CARVEDILOL 12.5 MG TAB PO SCH ×2 (09:39→16:29)
[2022-05-26] MEDS: INSULIN REGULAR, HUMAN 100 UNIT/1 ML SQ SCH ×4 (09:48→21:05)
[2022-05-26] MEDS: HUMULIN 70/30 VIAL SQ SCH ×2 (09:48→16:39)
[2022-05-26 11:30] VITALS: BP 136/52
[2022-05-26] MEDS: LEVALBUTEROL HCL SOLN NEBU 0.63 MG/3 ML NEB INH PRN ×2 (12:50→19:45)
[2022-05-26] MEDS: ENOXAPARIN 30 MG/0.3 ML SYR SC SCH (16:39)
[2022-05-26 20:00] VITALS: BP 119/92
[2022-05-26] MEDS: ONDANSETRON HCL 4 MG ORAL DISINTEGRATING TAB PO PRN (22:52)
[2022-05-27] VITALS (9 sets, daily range): BP systolic 133–153; BP diastolic 50–66
[2022-05-27] MEDS: LEVOTHYROXINE SODIUM 100 MCG TAB PO SCH (05:46)
[2022-05-27 06:58] LABS: BASOPHILS % 0.3 % (0.0-1.0); EOSINOPHILS # (AUTO) 0.4 (0.0-0.4); EOSINOPHILS % 4.8 % (0.0-6.0); HEMATOCRIT 36.2 % (34.2-44.1); HEMOGLOBIN 10.3 g/dL (12.0-16.0); LYMPHOCYTES # (AUTO) 1.5 (1.0-3.2); LYMPHOCYTES % 19.7 % (18.0-39.1); MEAN CORPUSCULAR HEMOGLOBIN 29.2 pg (28-32); MEAN CORPUSCULAR HGB CONC 28.5 g/dL (31-35); MEAN CORPUSCULAR VOLUME 102.5 fL (81-99); MONOCYTES # (AUTO) 0.4 (0.2-0.8); MONOCYTES % 5.3 % (4.4-11.3); NEUTROPHILS # (AUTO) 5.3 (2.1-6.9); NEUTROPHILS % 69.5 % (38.7-80.0); PLATELET COUNT 267 x10e3/uL (140-360); RED BLOOD COUNT 3.53 x10e6/uL (3.6-5.1); RED CELL DISTRIBUTION WIDTH 16.2 % (11.7-14.4)
[2022-05-27 07:18] LABS: ALBUMIN 3.4 g/dL (3.5-5.0); ALBUMIN/GLOBULIN RATIO 0.9 (0.8-2.0); ANION GAP 16.3 mmol/L (8-16); CALCIUM 9.4 mg/dL (8.4-10.2); CREATININE, SERUM 1.62 mg/dL (0.57-1.11); POTASSIUM 4.3 mmol/L (3.5-5.1)
[2022-05-27] MEDS: INSULIN REGULAR, HUMAN 100 UNIT/1 ML SQ SCH ×4 (07:30→20:25)
[2022-05-27] MEDS: FUROSEMIDE INJ 10 MG/ML 4 ML VIAL IV SCH (09:26)
[2022-05-27] MEDS: MONTELUKAST SODIUM 10 MG TAB PO SCH (09:34)
[2022-05-27] MEDS: ISOSORBIDE MONONITRATE 30 MG TAB CR PO SCH ×2 (09:34→16:55)
[2022-05-27] MEDS: HYDRALAZINE HCL 25 MG TAB PO SCH ×3 (09:35→20:06)
[2022-05-27] MEDS: ALLOPURINOL 300 MG TAB PO SCH (09:35)
[2022-05-27] MEDS: GEMFIBROZIL 600 MG TAB PO SCH ×2 (09:35→16:54)
[2022-05-27] MEDS: AMLODIPINE BESYLATE 10 MG TAB PO SCH (09:35)
[2022-05-27] MEDS: GABAPENTIN 300 MG CAP PO SCH ×3 (09:35→20:05)
[2022-05-27] MEDS: CARVEDILOL 12.5 MG TAB PO SCH ×2 (09:35→16:55)
[2022-05-27] MEDS: PANTOPRAZOLE SOD 40 MG TABEC PO SCH (09:36)
[2022-05-27] MEDS: ACETAMINOPHEN 325 MG TAB PO PRN (09:36)
[2022-05-27] MEDS: ASPIRIN 81 MG ENTERIC COATED PO SCH (09:36)
[2022-05-27] MEDS: POTASSIUM CHLORIDE 10MEQ EA PO SCH (09:36)
[2022-05-27] MEDS: CITALOPRAM HYDROBROMIDE 20 MG TAB PO SCH (09:36)
[2022-05-27] MEDS: HUMULIN 70/30 VIAL SQ SCH ×2 (09:52→16:53)
[2022-05-27] MEDS: LEVALBUTEROL HCL SOLN NEBU 0.63 MG/3 ML NEB INH PRN ×2 (11:00→19:05)
[2022-05-27] MEDS: ENOXAPARIN 30 MG/0.3 ML SYR SC SCH (16:54)
[2022-05-27] MEDS: LORAZEPAM 0.5 MG TAB PO PRN (20:04)
[2022-05-27] MEDS ORDERED: LOPERAMIDE HCL 2 MG CAP PO PRN (21:30)
[2022-05-27] MEDS: LOPERAMIDE HCL 2 MG CAP PO PRN (22:42)
[2022-05-27] MEDS: TRAMADOL HCL 50 MG TAB PO PRN (22:42)
[2022-05-28] VITALS (8 sets, daily range): BP systolic 129–152; BP diastolic 49–77
[2022-05-28 05:40] LABS: BASOPHILS % 0.2 % (0.0-1.0); EOSINOPHILS # (AUTO) 0.3 (0.0-0.4); EOSINOPHILS % 3.1 % (0.0-6.0); HEMATOCRIT 34.5 % (34.2-44.1); HEMOGLOBIN 10.5 g/dL (12.0-16.0); LYMPHOCYTES # (AUTO) 1.3 (1.0-3.2); LYMPHOCYTES % 15.5 % (18.0-39.1); MEAN CORPUSCULAR HEMOGLOBIN 29.7 pg (28-32); MEAN CORPUSCULAR HGB CONC 30.4 g/dL (31-35); MEAN CORPUSCULAR VOLUME 97.5 fL (81-99); MONOCYTES # (AUTO) 0.4 (0.2-0.8); NEUTROPHILS # (AUTO) 6.3 (2.1-6.9); NEUTROPHILS % 75.5 % (38.7-80.0); PLATELET COUNT 277 x10e3/uL (140-360); RED BLOOD COUNT 3.54 x10e6/uL (3.6-5.1); RED CELL DISTRIBUTION WIDTH 16.8 % (11.7-14.4)
[2022-05-28] MEDS: LEVOTHYROXINE SODIUM 100 MCG TAB PO SCH (05:43)
[2022-05-28 06:15] LABS: ANION GAP 16.8 mmol/L (8-16); CALCIUM 9.6 mg/dL (8.4-10.2); CREATININE, SERUM 1.75 mg/dL (0.57-1.11); POTASSIUM 4.8 mmol/L (3.5-5.1)
[2022-05-28] MEDS: FUROSEMIDE INJ 10 MG/ML 4 ML VIAL IV SCH (08:26)
[2022-05-28] MEDS: HUMULIN 70/30 VIAL SQ SCH ×2 (08:26→16:37)
[2022-05-28] MEDS: MONTELUKAST SODIUM 10 MG TAB PO SCH (08:34)
[2022-05-28] MEDS: PANTOPRAZOLE SOD 40 MG TABEC PO SCH (08:34)
[2022-05-28] MEDS: ALLOPURINOL 300 MG TAB PO SCH (08:34)
[2022-05-28] MEDS: GEMFIBROZIL 600 MG TAB PO SCH ×2 (08:34→16:31)
[2022-05-28] MEDS: ASPIRIN 81 MG ENTERIC COATED PO SCH (08:34)
[2022-05-28] MEDS: ISOSORBIDE MONONITRATE 30 MG TAB CR PO SCH ×2 (08:34→16:30)
[2022-05-28] MEDS: POTASSIUM CHLORIDE 10MEQ EA PO SCH (08:35)
[2022-05-28] MEDS: CARVEDILOL 12.5 MG TAB PO SCH ×2 (08:35→16:31)
[2022-05-28] MEDS: INSULIN REGULAR, HUMAN 100 UNIT/1 ML SQ SCH ×4 (08:35→21:29)
[2022-05-28] MEDS: HYDRALAZINE HCL 25 MG TAB PO SCH ×3 (08:35→21:23)
[2022-05-28] MEDS: AMLODIPINE BESYLATE 10 MG TAB PO SCH (08:36)
[2022-05-28] MEDS: GABAPENTIN 300 MG CAP PO SCH ×3 (08:36→21:22)
[2022-05-28] MEDS: CITALOPRAM HYDROBROMIDE 20 MG TAB PO SCH (08:36)
[2022-05-28] MEDS ORDERED: ZOLPIDEM TARTRATE 5 MG TAB PO PRN (10:15)
[2022-05-28] MEDS: LEVALBUTEROL HCL SOLN NEBU 0.63 MG/3 ML NEB INH SCH ×2 (13:10→23:00)
[2022-05-28] MEDS: ENOXAPARIN 30 MG/0.3 ML SYR SC SCH (16:32)
[2022-05-28 21:10] LABS: ABG HCO3 35 mmol/L (22-26); ABG PCO2 57 mmHg (35-45); ABG PO2 75 mmHg (80-105); ABG TCO2 37
[2022-05-29] VITALS (9 sets, daily range): BP systolic 137–152; BP diastolic 52–59
[2022-05-29] MEDS: LEVOTHYROXINE SODIUM 100 MCG TAB PO SCH (05:52)
[2022-05-29] MEDS: LEVALBUTEROL HCL SOLN NEBU 0.63 MG/3 ML NEB INH SCH ×3 (06:32→22:55)
[2022-05-29] MEDS: PANTOPRAZOLE SOD 40 MG TABEC PO SCH (08:27)
[2022-05-29] MEDS: AMLODIPINE BESYLATE 10 MG TAB PO SCH (08:28)
[2022-05-29] MEDS: ISOSORBIDE MONONITRATE 30 MG TAB CR PO SCH ×2 (08:28→16:10)
[2022-05-29] MEDS: POTASSIUM CHLORIDE 10MEQ EA PO SCH (08:28)
[2022-05-29] MEDS: GABAPENTIN 300 MG CAP PO SCH ×3 (08:28→21:58)
[2022-05-29] MEDS: GEMFIBROZIL 600 MG TAB PO SCH ×2 (08:29→16:10)
[2022-05-29] MEDS: ASPIRIN 81 MG ENTERIC COATED PO SCH (08:29)
[2022-05-29] MEDS: MONTELUKAST SODIUM 10 MG TAB PO SCH (08:29)
[2022-05-29] MEDS: ALLOPURINOL 300 MG TAB PO SCH (08:29)
[2022-05-29] MEDS: CARVEDILOL 12.5 MG TAB PO SCH ×2 (08:29→16:12)
[2022-05-29] MEDS: FUROSEMIDE INJ 10 MG/ML 4 ML VIAL IV SCH (08:29)
[2022-05-29] MEDS: CITALOPRAM HYDROBROMIDE 20 MG TAB PO SCH (08:29)
[2022-05-29] MEDS: HYDRALAZINE HCL 25 MG TAB PO SCH ×3 (08:54→21:58)
[2022-05-29] MEDS: TRAMADOL HCL 50 MG TAB PO PRN (09:01)
[2022-05-29] MEDS: LORAZEPAM 0.5 MG TAB PO PRN (09:57)
[2022-05-29] MEDS: INSULIN REGULAR, HUMAN 100 UNIT/1 ML SQ SCH ×4 (10:43→21:59)
[2022-05-29] MEDS: HUMULIN 70/30 VIAL SQ SCH ×2 (10:43→16:13)
[2022-05-29] MEDS: IPRATROPIUM BROMIDE 0.02% 2.5 ML NEB NEB PRN ×2 (14:06→20:05)
[2022-05-29] MEDS: IRON SUCROSE 100 MG in SODIUM CHLORIDE 0.9% 100 ML IV SCH (16:05)
[2022-05-30] VITALS (17 sets, daily range): BP systolic 117–143; BP diastolic 45–61
[2022-05-30] MEDS: TRAMADOL HCL 50 MG TAB PO PRN ×2 (00:45→07:41)
[2022-05-30] MEDS: ONDANSETRON HCL 4 MG ORAL DISINTEGRATING TAB PO PRN (04:10)
[2022-05-30] MEDS: FUROSEMIDE INJ 10 MG/ML 4 ML VIAL IV SCH ×3 (04:10→17:00)
[2022-05-30 05:52] LABS: BASOPHILS % 0.3 % (0.0-1.0); EOSINOPHILS # (AUTO) 0.2 (0.0-0.4); EOSINOPHILS % 2.9 % (0.0-6.0); HEMATOCRIT 32.2 % (34.2-44.1); HEMOGLOBIN 10.1 g/dL (12.0-16.0); LYMPHOCYTES # (AUTO) 1.2 (1.0-3.2); LYMPHOCYTES % 16.7 % (18.0-39.1); MEAN CORPUSCULAR HEMOGLOBIN 30.1 pg (28-32); MEAN CORPUSCULAR HGB CONC 31.4 g/dL (31-35); MEAN CORPUSCULAR VOLUME 95.8 fL (81-99); MONOCYTES # (AUTO) 0.6 (0.2-0.8); MONOCYTES % 7.7 % (4.4-11.3); NEUTROPHILS # (AUTO) 5.2 (2.1-6.9); PLATELET COUNT 252 x10e3/uL (140-360); RED BLOOD COUNT 3.36 x10e6/uL (3.6-5.1); RED CELL DISTRIBUTION WIDTH 16.7 % (11.7-14.4)
[2022-05-30] MEDS: LEVOTHYROXINE SODIUM 100 MCG TAB PO SCH (06:25)
[2022-05-30 06:29] LABS: ALANINE AMINOTRANSFERASE < 6 IU/L (0-55); ALBUMIN 3.1 g/dL (3.5-5.0); ALBUMIN/GLOBULIN RATIO 0.7 (0.8-2.0); ALKALINE PHOSPHATASE 75 IU/L (40-150); ANION GAP 16.7 mmol/L (8-16); BLOOD UREA NITROGEN 90 mg/dL (7-26); BUN/CREATININE RATIO 46 (6-25); CALCIUM 9.7 mg/dL (8.4-10.2); CARBON DIOXIDE 29 mmol/L (22-29); CHLORIDE 91 mmol/L (98-107); CREATININE, SERUM 1.97 mg/dL (0.57-1.11); GLUCOSE 148 mg/dL (74-118); MAGNESIUM 2.6 MG/DL (1.3-2.1); POTASSIUM 4.7 mmol/L (3.5-5.1); SODIUM 132 mmol/L (136-145)
[2022-05-30] MEDS: LEVALBUTEROL HCL SOLN NEBU 0.63 MG/3 ML NEB INH SCH ×3 (06:35→23:50)
[2022-05-30] MEDS: ALLOPURINOL 300 MG TAB PO SCH (07:41)
[2022-05-30] MEDS: CITALOPRAM HYDROBROMIDE 20 MG TAB PO SCH (07:41)
[2022-05-30] MEDS: GEMFIBROZIL 600 MG TAB PO SCH ×2 (07:41→16:51)
[2022-05-30] MEDS: GABAPENTIN 300 MG CAP PO SCH ×3 (07:42→20:59)
[2022-05-30] MEDS: PANTOPRAZOLE SOD 40 MG TABEC PO SCH (07:42)
[2022-05-30] MEDS: POTASSIUM CHLORIDE 10MEQ EA PO SCH (07:42)
[2022-05-30] MEDS: MONTELUKAST SODIUM 10 MG TAB PO SCH (07:42)
[2022-05-30] MEDS: ASPIRIN 81 MG ENTERIC COATED PO SCH (07:42)
[2022-05-30] MEDS: ISOSORBIDE MONONITRATE 30 MG TAB CR PO SCH ×2 (07:43→16:49)
[2022-05-30] MEDS: CARVEDILOL 12.5 MG TAB PO SCH ×2 (07:43→16:49)
[2022-05-30] MEDS: AMLODIPINE BESYLATE 10 MG TAB PO SCH (07:44)
[2022-05-30] MEDS: HYDRALAZINE HCL 25 MG TAB PO SCH ×3 (07:44→20:59)
[2022-05-30] MEDS: HUMULIN 70/30 VIAL SQ SCH ×2 (08:11→16:52)
[2022-05-30] MEDS: INSULIN REGULAR, HUMAN 100 UNIT/1 ML SQ SCH ×4 (08:21→21:44)
[2022-05-30] MEDS: LORAZEPAM 0.5 MG TAB PO PRN (10:41)
[2022-05-30 13:40] LABS: ABG PH 7.33 (7.35-7.45)
[2022-05-30 13:41] LABS: ABG HCO3 35 mmol/L (22-26); ABG PCO2 66 mmHg (35-45); ABG PO2 80 mmHg (80-105); ABG TCO2 37
[2022-05-30] MEDS ORDERED: FUROSEMIDE INJ 10 MG/ML 4 ML VIAL IV ONE (13:45)
[2022-05-30] MEDS ORDERED: HEPARIN SOD (PORCINE) 5,000 UNIT/ML VIAL IV ONE (13:45)
[2022-05-30] MEDS ORDERED: HEPARIN 25,000 UNIT 1,200 UNIT in DEXTROSE 5% 250ML 250 ML IV SCH (14:15)
[2022-05-30] MEDS: IPRATROPIUM BROMIDE 0.02% 2.5 ML NEB NEB SCH ×2 (15:01→23:50)
[2022-05-30] MEDS: IRON SUCROSE 100 MG in SODIUM CHLORIDE 0.9% 100 ML IV SCH (16:00)
[2022-05-30] MEDS ORDERED: METOLAZONE 5 MG TAB PO ONE (16:15)
[2022-05-30] MEDS ORDERED: METHYLPREDNISOLONE SOD SUCC 40 MG/ML VIAL 1ML IV ONE (16:15)
[2022-05-30] MEDS ORDERED: DOXYCYCLINE HYCLATE TABLET 100 MG TAB PO ONE (16:30)
[2022-05-31] VITALS (23 sets, daily range): BP systolic 106–142; BP diastolic 42–57
[2022-05-31] MEDS: LEVOTHYROXINE SODIUM 100 MCG TAB PO SCH (04:39)
[2022-05-31 05:13] LABS: BASOPHILS % 0.1 % (0.0-1.0); HEMATOCRIT 33.2 % (34.2-44.1); LYMPHOCYTES # (AUTO) 0.5 (1.0-3.2); LYMPHOCYTES % 7.5 % (18.0-39.1); MEAN CORPUSCULAR HEMOGLOBIN 29.1 pg (28-32); MEAN CORPUSCULAR HGB CONC 30.1 g/dL (31-35); MEAN CORPUSCULAR VOLUME 96.5 fL (81-99); MONOCYTES # (AUTO) 0.1 (0.2-0.8); MONOCYTES % 1.1 % (4.4-11.3); NEUTROPHILS # (AUTO) 6.5 (2.1-6.9); NEUTROPHILS % 90.3 % (38.7-80.0); PLATELET COUNT 268 x10e3/uL (140-360); RED BLOOD COUNT 3.44 x10e6/uL (3.6-5.1); RED CELL DISTRIBUTION WIDTH 16.7 % (11.7-14.4)
[2022-05-31 05:36] LABS: ALBUMIN 3.2 g/dL (3.5-5.0); ALBUMIN/GLOBULIN RATIO 0.7 (0.8-2.0); ANION GAP 20.1 mmol/L (8-16); CALCIUM 9.5 mg/dL (8.4-10.2); CREATININE, SERUM 1.89 mg/dL (0.57-1.11); POTASSIUM 5.1 mmol/L (3.5-5.1)
[2022-05-31] MEDS: IPRATROPIUM BROMIDE 0.02% 2.5 ML NEB NEB SCH ×3 (07:16→23:00)
[2022-05-31] MEDS: LEVALBUTEROL HCL SOLN NEBU 0.63 MG/3 ML NEB INH SCH ×3 (07:16→23:00)
[2022-05-31] MEDS: INSULIN REGULAR, HUMAN 100 UNIT/1 ML SQ SCH ×4 (07:33→20:54)
[2022-05-31] MEDS: ASPIRIN 81 MG ENTERIC COATED PO SCH (08:17)
[2022-05-31] MEDS: POTASSIUM CHLORIDE 10MEQ EA PO SCH (08:17)
[2022-05-31] MEDS: GABAPENTIN 300 MG CAP PO SCH (08:17)
[2022-05-31] MEDS: AMLODIPINE BESYLATE 10 MG TAB PO SCH (08:18)
[2022-05-31] MEDS: DOXYCYCLINE HYCLATE TABLET 100 MG TAB PO SCH (08:19)
[2022-05-31] MEDS: ISOSORBIDE MONONITRATE 30 MG TAB CR PO SCH ×2 (08:19→16:26)
[2022-05-31] MEDS: CARVEDILOL 12.5 MG TAB PO SCH ×2 (08:20→16:25)
[2022-05-31] MEDS: PANTOPRAZOLE SOD 40 MG TABEC PO SCH (08:20)
[2022-05-31] MEDS: HYDRALAZINE HCL 25 MG TAB PO SCH ×3 (08:21→20:43)
[2022-05-31] MEDS: ALLOPURINOL 300 MG TAB PO SCH (08:21)
[2022-05-31] MEDS: GEMFIBROZIL 600 MG TAB PO SCH ×2 (08:21→16:27)
[2022-05-31] MEDS: MONTELUKAST SODIUM 10 MG TAB PO SCH (08:21)
[2022-05-31] MEDS: CITALOPRAM HYDROBROMIDE 20 MG TAB PO SCH (08:21)
[2022-05-31] MEDS: FUROSEMIDE INJ 10 MG/ML 4 ML VIAL IV SCH ×2 (08:22→16:27)
[2022-05-31] MEDS: HUMULIN 70/30 VIAL SQ SCH ×2 (08:24→16:27)
[2022-05-31] MEDS: IRON SUCROSE 100 MG in SODIUM CHLORIDE 0.9% 100 ML IV SCH (16:28)
[2022-05-31] MEDS: TRAMADOL HCL 50 MG TAB PO PRN (20:51)
[2022-06-01] VITALS (26 sets, daily range): BP systolic 112–134; BP diastolic 38–59
[2022-06-01] MEDS: LORAZEPAM 0.5 MG TAB PO PRN ×2 (01:22→12:16)
[2022-06-01] MEDS: TRAMADOL HCL 50 MG TAB PO PRN ×4 (04:48→21:17)
[2022-06-01] MEDS: LEVOTHYROXINE SODIUM 100 MCG TAB PO SCH (04:48)
[2022-06-01 07:16] LABS: BASOPHILS % 0.1 % (0.0-1.0); EOSINOPHILS # (AUTO) 0.1 (0.0-0.4); EOSINOPHILS % 1.6 % (0.0-6.0); HEMATOCRIT 31.5 % (34.2-44.1); HEMOGLOBIN 9.7 g/dL (12.0-16.0); LYMPHOCYTES # (AUTO) 1.1 (1.0-3.2); LYMPHOCYTES % 11.9 % (18.0-39.1); MEAN CORPUSCULAR HEMOGLOBIN 29.8 pg (28-32); MEAN CORPUSCULAR HGB CONC 30.8 g/dL (31-35); MEAN CORPUSCULAR VOLUME 96.9 fL (81-99); MONOCYTES # (AUTO) 0.7 (0.2-0.8); MONOCYTES % 7.4 % (4.4-11.3); NEUTROPHILS # (AUTO) 7.1 (2.1-6.9); NEUTROPHILS % 78.3 % (38.7-80.0); PLATELET COUNT 252 x10e3/uL (140-360); RED BLOOD COUNT 3.25 x10e6/uL (3.6-5.1); RED CELL DISTRIBUTION WIDTH 16.9 % (11.7-14.4)
[2022-06-01] MEDS: IPRATROPIUM BROMIDE 0.02% 2.5 ML NEB NEB SCH ×3 (07:17→23:40)
[2022-06-01] MEDS: LEVALBUTEROL HCL SOLN NEBU 0.63 MG/3 ML NEB INH SCH ×3 (07:17→23:40)
[2022-06-01] MEDS: INSULIN REGULAR, HUMAN 100 UNIT/1 ML SQ SCH ×4 (07:30→21:18)
[2022-06-01 07:41] LABS: ALBUMIN 3.2 g/dL (3.5-5.0); ALBUMIN/GLOBULIN RATIO 0.8 (0.8-2.0); ANION GAP 16.7 mmol/L (8-16); CALCIUM 9.7 mg/dL (8.4-10.2); CREATININE, SERUM 1.81 mg/dL (0.57-1.11); MAGNESIUM 2.6 MG/DL (1.3-2.1); POTASSIUM 4.7 mmol/L (3.5-5.1)
[2022-06-01] MEDS: ASPIRIN 81 MG ENTERIC COATED PO SCH (08:50)
[2022-06-01] MEDS: DOXYCYCLINE HYCLATE TABLET 100 MG TAB PO SCH (08:50)
[2022-06-01] MEDS: ISOSORBIDE MONONITRATE 30 MG TAB CR PO SCH ×2 (08:50→16:50)
[2022-06-01] MEDS: CITALOPRAM HYDROBROMIDE 20 MG TAB PO SCH (08:50)
[2022-06-01] MEDS: ALLOPURINOL 300 MG TAB PO SCH (08:51)
[2022-06-01] MEDS: GEMFIBROZIL 600 MG TAB PO SCH ×2 (08:51→16:50)
[2022-06-01] MEDS: AMLODIPINE BESYLATE 10 MG TAB PO SCH (08:51)
[2022-06-01] MEDS: PANTOPRAZOLE SOD 40 MG TABEC PO SCH (08:51)
[2022-06-01] MEDS: MONTELUKAST SODIUM 10 MG TAB PO SCH (08:51)
[2022-06-01] MEDS: FUROSEMIDE INJ 10 MG/ML 4 ML VIAL IV SCH ×2 (08:52→16:49)
[2022-06-01] MEDS: CARVEDILOL 12.5 MG TAB PO SCH ×2 (08:52→16:50)
[2022-06-01] MEDS: HYDRALAZINE HCL 25 MG TAB PO SCH ×3 (09:00→21:00)
[2022-06-01] MEDS: HUMULIN 70/30 VIAL SQ SCH ×2 (09:00→17:02)
[2022-06-01] MEDS: POTASSIUM CHLORIDE 10MEQ EA PO SCH (09:12)
[2022-06-02] VITALS (26 sets, daily range): BP systolic 124–143; BP diastolic 48–83
[2022-06-02 04:51] LABS: BASOPHILS % 0.1 % (0.0-1.0); EOSINOPHILS # (AUTO) 0.1 (0.0-0.4); EOSINOPHILS % 1.7 % (0.0-6.0); HEMOGLOBIN 9.6 g/dL (12.0-16.0); LYMPHOCYTES # (AUTO) 0.9 (1.0-3.2); LYMPHOCYTES % 11.6 % (18.0-39.1); MEAN CORPUSCULAR HEMOGLOBIN 29.4 pg (28-32); MEAN CORPUSCULAR HGB CONC 28.2 g/dL (31-35); MONOCYTES # (AUTO) 0.9 (0.2-0.8); NEUTROPHILS # (AUTO) 5.9 (2.1-6.9); NEUTROPHILS % 75.2 % (38.7-80.0); PLATELET COUNT 251 x10e3/uL (140-360); RED BLOOD COUNT 3.27 x10e6/uL (3.6-5.1); RED CELL DISTRIBUTION WIDTH 16.7 % (11.7-14.4)
[2022-06-02 05:14] LABS: ALBUMIN 3.1 g/dL (3.5-5.0); ALBUMIN/GLOBULIN RATIO 0.8 (0.8-2.0); ANION GAP 16.4 mmol/L (8-16); CALCIUM 10.1 mg/dL (8.4-10.2); CREATININE, SERUM 1.71 mg/dL (0.57-1.11); MAGNESIUM 2.7 MG/DL (1.3-2.1); POTASSIUM 4.4 mmol/L (3.5-5.1)
[2022-06-02] MEDS: LEVOTHYROXINE SODIUM 100 MCG TAB PO SCH (05:20)
[2022-06-02] MEDS: TRAMADOL HCL 50 MG TAB PO PRN ×2 (05:20→21:22)
[2022-06-02] MEDS: LEVALBUTEROL HCL SOLN NEBU 0.63 MG/3 ML NEB INH SCH ×3 (07:15→23:50)
[2022-06-02] MEDS: IPRATROPIUM BROMIDE 0.02% 2.5 ML NEB NEB SCH ×3 (07:15→23:50)
[2022-06-02] MEDS: INSULIN REGULAR, HUMAN 100 UNIT/1 ML SQ SCH ×4 (07:18→21:24)
[2022-06-02] MEDS: FUROSEMIDE INJ 10 MG/ML 4 ML VIAL IV SCH ×2 (08:06→17:46)
[2022-06-02] MEDS: ALLOPURINOL 300 MG TAB PO SCH (08:07)
[2022-06-02] MEDS: ASPIRIN 81 MG ENTERIC COATED PO SCH (08:07)
[2022-06-02] MEDS: DOXYCYCLINE HYCLATE TABLET 100 MG TAB PO SCH (08:07)
[2022-06-02] MEDS: CITALOPRAM HYDROBROMIDE 20 MG TAB PO SCH (08:07)
[2022-06-02] MEDS: GEMFIBROZIL 600 MG TAB PO SCH ×2 (08:07→17:23)
[2022-06-02] MEDS: PANTOPRAZOLE SOD 40 MG TABEC PO SCH (08:08)
[2022-06-02] MEDS: POTASSIUM CHLORIDE 10MEQ EA PO SCH (08:08)
[2022-06-02] MEDS: MONTELUKAST SODIUM 10 MG TAB PO SCH (08:08)
[2022-06-02] MEDS: CARVEDILOL 12.5 MG TAB PO SCH ×2 (08:13→17:23)
[2022-06-02] MEDS: ISOSORBIDE MONONITRATE 30 MG TAB CR PO SCH ×2 (08:13→17:22)
[2022-06-02] MEDS: AMLODIPINE BESYLATE 10 MG TAB PO SCH (08:14)
[2022-06-02] MEDS: HYDRALAZINE HCL 25 MG TAB PO SCH ×3 (08:14→21:00)
[2022-06-02] MEDS: HUMULIN 70/30 VIAL SQ SCH ×2 (09:00→17:31)
[2022-06-02] MEDS: METHYLPREDNISOLONE SOD SUCC 40 MG/ML VIAL 1ML IV SCH (09:51)
[2022-06-02] MEDS: BISACODYL 5 MG TAB EC PO PRN (10:51)
[2022-06-02] MEDS: ONDANSETRON HCL 4 MG ORAL DISINTEGRATING TAB PO PRN (12:45)
[2022-06-02] MEDS: LORAZEPAM 0.5 MG TAB PO PRN (14:24)
[2022-06-02] MEDS: CELECOXIB 100 MG CAP PO PRN (17:50)
[2022-06-03] VITALS (26 sets, daily range): BP systolic 119–149; BP diastolic 45–62
[2022-06-03] MEDS: LEVOTHYROXINE SODIUM 100 MCG TAB PO SCH ×2 (05:14→06:00)
[2022-06-03 05:53] LABS: BASOPHILS % 0.2 % (0.0-1.0); EOSINOPHILS % 0.2 % (0.0-6.0); HEMOGLOBIN 9.6 g/dL (12.0-16.0); LYMPHOCYTES # (AUTO) 0.7 (1.0-3.2); LYMPHOCYTES % 12.7 % (18.0-39.1); MEAN CORPUSCULAR HEMOGLOBIN 29.6 pg (28-32); MEAN CORPUSCULAR VOLUME 95.7 fL (81-99); MONOCYTES # (AUTO) 0.4 (0.2-0.8); MONOCYTES % 6.8 % (4.4-11.3); NEUTROPHILS # (AUTO) 4.3 (2.1-6.9); NEUTROPHILS % 79.4 % (38.7-80.0); PLATELET COUNT 245 x10e3/uL (140-360); RED BLOOD COUNT 3.24 x10e6/uL (3.6-5.1); RED CELL DISTRIBUTION WIDTH 16.2 % (11.7-14.4)
[2022-06-03] MEDS: IPRATROPIUM BROMIDE 0.02% 2.5 ML NEB NEB SCH ×3 (06:00→22:40)
[2022-06-03] MEDS: LEVALBUTEROL HCL SOLN NEBU 0.63 MG/3 ML NEB INH SCH ×3 (06:00→22:40)
[2022-06-03 06:13] LABS: ALBUMIN/GLOBULIN RATIO 0.7 (0.8-2.0); ANION GAP 18.2 mmol/L (8-16); CALCIUM 10.2 mg/dL (8.4-10.2); CREATININE, SERUM 1.62 mg/dL (0.57-1.11); POTASSIUM 4.2 mmol/L (3.5-5.1)
[2022-06-03] MEDS: INSULIN REGULAR, HUMAN 100 UNIT/1 ML SQ SCH ×4 (07:30→21:00)
[2022-06-03] MEDS: METHYLPREDNISOLONE SOD SUCC 40 MG/ML VIAL 1ML IV SCH (08:43)
[2022-06-03] MEDS: FUROSEMIDE INJ 10 MG/ML 4 ML VIAL IV SCH ×2 (08:43→16:10)
[2022-06-03] MEDS: ASPIRIN 81 MG ENTERIC COATED PO SCH (08:44)
[2022-06-03] MEDS: MONTELUKAST SODIUM 10 MG TAB PO SCH (08:44)
[2022-06-03] MEDS: POTASSIUM CHLORIDE 10MEQ EA PO SCH (08:44)
[2022-06-03] MEDS: BISACODYL 5 MG TAB EC PO PRN (08:45)
[2022-06-03] MEDS: ISOSORBIDE MONONITRATE 30 MG TAB CR PO SCH ×2 (08:45→16:05)
[2022-06-03] MEDS: GEMFIBROZIL 600 MG TAB PO SCH ×2 (08:46→16:49)
[2022-06-03] MEDS: DOXYCYCLINE HYCLATE TABLET 100 MG TAB PO SCH (08:46)
[2022-06-03] MEDS: ALLOPURINOL 300 MG TAB PO SCH (08:46)
[2022-06-03] MEDS: CARVEDILOL 12.5 MG TAB PO SCH ×2 (08:46→16:09)
[2022-06-03] MEDS: AMLODIPINE BESYLATE 10 MG TAB PO SCH (08:47)
[2022-06-03] MEDS: CITALOPRAM HYDROBROMIDE 20 MG TAB PO SCH (08:47)
[2022-06-03] MEDS: PANTOPRAZOLE SOD 40 MG TABEC PO SCH (08:48)
[2022-06-03] MEDS: HUMULIN 70/30 VIAL SQ SCH ×2 (09:00→16:48)
[2022-06-03] MEDS: HYDRALAZINE HCL 25 MG TAB PO SCH ×3 (09:00→21:00)
[2022-06-03] MEDS: TRAMADOL HCL 50 MG TAB PO PRN (09:29)
[2022-06-03] MEDS: LORAZEPAM 0.5 MG TAB PO PRN (21:53)
[2022-06-04] VITALS (25 sets, daily range): BP systolic 120–159; BP diastolic 45–68
[2022-06-04] MEDS: ACETAMINOPHEN 325 MG TAB PO PRN (04:27)
[2022-06-04] MEDS: LORAZEPAM 0.5 MG TAB PO PRN (04:27)
[2022-06-04 05:38] LABS: BASOPHILS % 0.2 % (0.0-1.0); EOSINOPHILS % 0.2 % (0.0-6.0); HEMATOCRIT 37.4 % (34.2-44.1); HEMOGLOBIN 10.4 g/dL (12.0-16.0); LYMPHOCYTES # (AUTO) 0.8 (1.0-3.2); LYMPHOCYTES % 15.8 % (18.0-39.1); MEAN CORPUSCULAR HEMOGLOBIN 29.1 pg (28-32); MEAN CORPUSCULAR HGB CONC 27.8 g/dL (31-35); MEAN CORPUSCULAR VOLUME 104.5 fL (81-99); MONOCYTES # (AUTO) 0.5 (0.2-0.8); MONOCYTES % 9.3 % (4.4-11.3); NEUTROPHILS # (AUTO) 3.7 (2.1-6.9); NEUTROPHILS % 73.9 % (38.7-80.0); PLATELET COUNT 241 x10e3/uL (140-360); RED BLOOD COUNT 3.58 x10e6/uL (3.6-5.1)
[2022-06-04 05:54] LABS: ALBUMIN 3.1 g/dL (3.5-5.0); ALBUMIN/GLOBULIN RATIO 0.7 (0.8-2.0); ANION GAP 19.1 mmol/L (8-16); CREATININE, SERUM 1.42 mg/dL (0.57-1.11); POTASSIUM 4.1 mmol/L (3.5-5.1)
[2022-06-04] MEDS: LEVOTHYROXINE SODIUM 100 MCG TAB PO SCH (06:13)
[2022-06-04] MEDS: LEVALBUTEROL HCL SOLN NEBU 0.63 MG/3 ML NEB INH SCH ×3 (06:48→23:46)
[2022-06-04] MEDS: IPRATROPIUM BROMIDE 0.02% 2.5 ML NEB NEB SCH ×3 (06:48→23:46)
[2022-06-04] MEDS: INSULIN REGULAR, HUMAN 100 UNIT/1 ML SQ SCH ×4 (07:43→20:09)
[2022-06-04] MEDS: METHYLPREDNISOLONE SOD SUCC 40 MG/ML VIAL 1ML IV SCH (08:13)
[2022-06-04] MEDS: FUROSEMIDE INJ 10 MG/ML 4 ML VIAL IV SCH ×2 (08:14→16:18)
[2022-06-04] MEDS: MONTELUKAST SODIUM 10 MG TAB PO SCH (08:15)
[2022-06-04] MEDS: FLUCONAZOLE 100 MG TAB PO SCH (08:15)
[2022-06-04] MEDS: DOXYCYCLINE HYCLATE TABLET 100 MG TAB PO SCH (08:16)
[2022-06-04] MEDS: ASPIRIN 81 MG ENTERIC COATED PO SCH (08:16)
[2022-06-04] MEDS: POTASSIUM CHLORIDE 10MEQ EA PO SCH (08:16)
[2022-06-04] MEDS: CITALOPRAM HYDROBROMIDE 20 MG TAB PO SCH (08:16)
[2022-06-04] MEDS: GEMFIBROZIL 600 MG TAB PO SCH ×2 (08:16→16:15)
[2022-06-04] MEDS: ISOSORBIDE MONONITRATE 30 MG TAB CR PO SCH ×2 (08:17→16:16)
[2022-06-04] MEDS: AMLODIPINE BESYLATE 10 MG TAB PO SCH (08:18)
[2022-06-04] MEDS: HYDRALAZINE HCL 25 MG TAB PO SCH ×3 (08:18→20:09)
[2022-06-04] MEDS: CARVEDILOL 12.5 MG TAB PO SCH ×2 (08:19→16:16)
[2022-06-04] MEDS: PANTOPRAZOLE SOD 40 MG TABEC PO SCH (08:20)
[2022-06-04] MEDS: HUMULIN 70/30 VIAL SQ SCH ×3 (08:20→16:22)
[2022-06-04] MEDS: ALLOPURINOL 300 MG TAB PO SCH (08:21)
[2022-06-04] MEDS: BISACODYL 5 MG TAB EC PO PRN (14:57)
[2022-06-04] MEDS: TRAMADOL HCL 50 MG TAB PO PRN (16:44)
[2022-06-05] VITALS (25 sets, daily range): BP systolic 118–148; BP diastolic 44–63
[2022-06-05] MEDS: LORAZEPAM 0.5 MG TAB PO PRN ×2 (04:17→23:44)
[2022-06-05] MEDS ORDERED: SOD PHOSPHATE/SOD BIPHOSPHATE ENEMA 132 ML BTL PR ONE (04:30)
[2022-06-05] MEDS: LEVOTHYROXINE SODIUM 100 MCG TAB PO SCH (05:52)
[2022-06-05] MEDS: IPRATROPIUM BROMIDE 0.02% 2.5 ML NEB NEB SCH ×3 (07:01→23:20)
[2022-06-05] MEDS: LEVALBUTEROL HCL SOLN NEBU 0.63 MG/3 ML NEB INH SCH ×3 (07:01→23:20)
[2022-06-05 07:03] LABS: BASOPHILS % 0.2 % (0.0-1.0); EOSINOPHILS % 0.6 % (0.0-6.0); HEMATOCRIT 34.5 % (34.2-44.1); HEMOGLOBIN 10.6 g/dL (12.0-16.0); LYMPHOCYTES # (AUTO) 1.1 (1.0-3.2); LYMPHOCYTES % 16.5 % (18.0-39.1); MEAN CORPUSCULAR HGB CONC 30.7 g/dL (31-35); MEAN CORPUSCULAR VOLUME 97.7 fL (81-99); MONOCYTES # (AUTO) 0.5 (0.2-0.8); MONOCYTES % 7.8 % (4.4-11.3); NEUTROPHILS # (AUTO) 4.8 (2.1-6.9); NEUTROPHILS % 74.3 % (38.7-80.0); PLATELET COUNT 307 x10e3/uL (140-360); RED BLOOD COUNT 3.53 x10e6/uL (3.6-5.1); RED CELL DISTRIBUTION WIDTH 16.5 % (11.7-14.4)
[2022-06-05 07:32] LABS: ALBUMIN 3.1 g/dL (3.5-5.0); ALBUMIN/GLOBULIN RATIO 0.7 (0.8-2.0); ANION GAP 20.8 mmol/L (8-16); CALCIUM 10.7 mg/dL (8.4-10.2); CREATININE, SERUM 1.28 mg/dL (0.57-1.11); MAGNESIUM 2.3 MG/DL (1.3-2.1); POTASSIUM 3.8 mmol/L (3.5-5.1)
[2022-06-05] MEDS: INSULIN REGULAR, HUMAN 100 UNIT/1 ML SQ SCH ×4 (07:44→20:28)
[2022-06-05] MEDS: GEMFIBROZIL 600 MG TAB PO SCH ×2 (08:19→16:08)
[2022-06-05] MEDS: FLUCONAZOLE 100 MG TAB PO SCH (08:19)
[2022-06-05] MEDS: DOXYCYCLINE HYCLATE TABLET 100 MG TAB PO SCH (08:20)
[2022-06-05] MEDS: MONTELUKAST SODIUM 10 MG TAB PO SCH (08:20)
[2022-06-05] MEDS: ALLOPURINOL 300 MG TAB PO SCH (08:20)
[2022-06-05] MEDS: POTASSIUM CHLORIDE 10MEQ EA PO SCH (08:21)
[2022-06-05] MEDS: HYDRALAZINE HCL 25 MG TAB PO SCH ×3 (08:21→21:35)
[2022-06-05] MEDS: ASPIRIN 81 MG ENTERIC COATED PO SCH (08:22)
[2022-06-05] MEDS: CARVEDILOL 12.5 MG TAB PO SCH ×2 (08:23→16:08)
[2022-06-05] MEDS: CITALOPRAM HYDROBROMIDE 20 MG TAB PO SCH (08:23)
[2022-06-05] MEDS: PANTOPRAZOLE SOD 40 MG TABEC PO SCH (08:23)
[2022-06-05] MEDS: FUROSEMIDE INJ 10 MG/ML 4 ML VIAL IV SCH ×2 (08:24→16:08)
[2022-06-05] MEDS: AMLODIPINE BESYLATE 10 MG TAB PO SCH (08:24)
[2022-06-05] MEDS: HUMULIN 70/30 VIAL SQ SCH ×2 (08:29→16:02)
[2022-06-05] MEDS: BALSAM PERU/CASTOR OIL 60 GM OINT...G. TP SCH (08:30)
[2022-06-05] MEDS ORDERED: BALSAM PERU/CASTOR OIL 60 GM OINT...G. TP SCH ×2 (09:00)
[2022-06-05] MEDS: ISOSORBIDE MONONITRATE 30 MG TAB CR PO SCH ×2 (09:14→16:07)
[2022-06-06] VITALS (16 sets, daily range): BP systolic 128–140; BP diastolic 47–61
[2022-06-06] MEDS: TRAMADOL HCL 50 MG TAB PO PRN (04:24)
[2022-06-06] MEDS: LEVOTHYROXINE SODIUM 100 MCG TAB PO SCH (05:32)
[2022-06-06] MEDS: IPRATROPIUM BROMIDE 0.02% 2.5 ML NEB NEB SCH ×3 (06:50→22:35)
[2022-06-06] MEDS: LEVALBUTEROL HCL SOLN NEBU 0.63 MG/3 ML NEB INH SCH ×3 (06:50→22:35)
[2022-06-06 06:58] LABS: BASOPHILS % 0.2 % (0.0-1.0); EOSINOPHILS # (AUTO) 0.1 (0.0-0.4); HEMATOCRIT 33.4 % (34.2-44.1); HEMOGLOBIN 10.2 g/dL (12.0-16.0); LYMPHOCYTES # (AUTO) 1.3 (1.0-3.2); LYMPHOCYTES % 20.7 % (18.0-39.1); MEAN CORPUSCULAR HEMOGLOBIN 29.3 pg (28-32); MEAN CORPUSCULAR HGB CONC 30.5 g/dL (31-35); MONOCYTES # (AUTO) 0.5 (0.2-0.8); MONOCYTES % 8.7 % (4.4-11.3); NEUTROPHILS # (AUTO) 4.1 (2.1-6.9); NEUTROPHILS % 68.1 % (38.7-80.0); PLATELET COUNT 288 x10e3/uL (140-360); RED BLOOD COUNT 3.48 x10e6/uL (3.6-5.1); RED CELL DISTRIBUTION WIDTH 16.5 % (11.7-14.4)
[2022-06-06 07:23] LABS: ALBUMIN 3.1 g/dL (3.5-5.0); ALBUMIN/GLOBULIN RATIO 0.8 (0.8-2.0); ANION GAP 19.6 mmol/L (8-16); CALCIUM 10.6 mg/dL (8.4-10.2); CREATININE, SERUM 1.3 mg/dL (0.57-1.11); POTASSIUM 3.6 mmol/L (3.5-5.1)
[2022-06-06] MEDS: INSULIN REGULAR, HUMAN 100 UNIT/1 ML SQ SCH ×4 (07:30→21:49)
[2022-06-06] MEDS: AMLODIPINE BESYLATE 10 MG TAB PO SCH ×2 (09:00→10:45)
[2022-06-06] MEDS: CARVEDILOL 12.5 MG TAB PO SCH ×2 (09:00→17:00)
[2022-06-06] MEDS: HYDRALAZINE HCL 25 MG TAB PO SCH ×4 (09:00→21:44)
[2022-06-06] MEDS: FUROSEMIDE INJ 10 MG/ML 4 ML VIAL IV SCH (10:43)
[2022-06-06] MEDS: ASPIRIN 81 MG ENTERIC COATED PO SCH (10:44)
[2022-06-06] MEDS: DOXYCYCLINE HYCLATE TABLET 100 MG TAB PO SCH (10:44)
[2022-06-06] MEDS: ISOSORBIDE MONONITRATE 30 MG TAB CR PO SCH (10:44)
[2022-06-06] MEDS: ALLOPURINOL 300 MG TAB PO SCH (10:44)
[2022-06-06] MEDS: SERTRALINE HCL 50 MG TAB PO SCH (10:44)
[2022-06-06] MEDS: CITALOPRAM HYDROBROMIDE 20 MG TAB PO SCH (10:45)
[2022-06-06] MEDS: FLUCONAZOLE 100 MG TAB PO SCH (10:45)
[2022-06-06] MEDS: POTASSIUM CHLORIDE 10MEQ EA PO SCH (10:45)
[2022-06-06] MEDS: PANTOPRAZOLE SOD 40 MG TABEC PO SCH (10:45)
[2022-06-06] MEDS: MONTELUKAST SODIUM 10 MG TAB PO SCH (10:47)
[2022-06-06] MEDS: GEMFIBROZIL 600 MG TAB PO SCH ×2 (10:49→17:00)
[2022-06-06] MEDS: HUMULIN 70/30 VIAL SQ SCH ×2 (13:06→17:00)
[2022-06-06] MEDS: ONDANSETRON HCL 4 MG ORAL DISINTEGRATING TAB PO PRN (15:59)
[2022-06-06] MEDS ORDERED: PROMETHAZINE 12.5MG/ NACL 0.9% 12.5 MG/50 ML BAG IV ONE (16:45)
[2022-06-06] MEDS: LORAZEPAM 0.5 MG TAB PO PRN (19:43)
[2022-06-06] MEDS: CELECOXIB 100 MG CAP PO PRN (19:43)
[2022-06-07] VITALS (24 sets, daily range): BP systolic 109–141; BP diastolic 42–94
[2022-06-07] MEDS: TRAMADOL HCL 50 MG TAB PO PRN (02:33)
[2022-06-07] MEDS: LORAZEPAM 0.5 MG TAB PO PRN (02:34)
[2022-06-07 05:01] LABS: BASOPHILS % 0.3 % (0.0-1.0); EOSINOPHILS # (AUTO) 0.2 (0.0-0.4); EOSINOPHILS % 2.5 % (0.0-6.0); HEMATOCRIT 34.2 % (34.2-44.1); HEMOGLOBIN 10.6 g/dL (12.0-16.0); LYMPHOCYTES # (AUTO) 1.2 (1.0-3.2); LYMPHOCYTES % 16.6 % (18.0-39.1); MEAN CORPUSCULAR HEMOGLOBIN 29.8 pg (28-32); MEAN CORPUSCULAR VOLUME 96.1 fL (81-99); MONOCYTES # (AUTO) 0.5 (0.2-0.8); MONOCYTES % 7.4 % (4.4-11.3); NEUTROPHILS # (AUTO) 5.2 (2.1-6.9); NEUTROPHILS % 72.6 % (38.7-80.0); PLATELET COUNT 287 x10e3/uL (140-360); RED BLOOD COUNT 3.56 x10e6/uL (3.6-5.1); RED CELL DISTRIBUTION WIDTH 16.2 % (11.7-14.4)
[2022-06-07 05:27] LABS: ALBUMIN 3.2 g/dL (3.5-5.0); ALBUMIN/GLOBULIN RATIO 0.8 (0.8-2.0); ANION GAP 22.8 mmol/L (8-16); CALCIUM 10.3 mg/dL (8.4-10.2); CREATININE, SERUM 1.27 mg/dL (0.57-1.11); MAGNESIUM 2.1 MG/DL (1.3-2.1); POTASSIUM 3.8 mmol/L (3.5-5.1)
[2022-06-07] MEDS: LEVOTHYROXINE SODIUM 100 MCG TAB PO SCH (05:44)
[2022-06-07] MEDS: LEVALBUTEROL HCL SOLN NEBU 0.63 MG/3 ML NEB INH SCH ×2 (07:12→13:46)
[2022-06-07] MEDS: IPRATROPIUM BROMIDE 0.02% 2.5 ML NEB NEB SCH ×2 (07:12→13:46)
[2022-06-07] MEDS: ISOSORBIDE MONONITRATE 30 MG TAB CR PO SCH ×2 (08:20→17:56)
[2022-06-07] MEDS: CELECOXIB 100 MG CAP PO PRN (08:20)
[2022-06-07] MEDS: MONTELUKAST SODIUM 10 MG TAB PO SCH (08:20)
[2022-06-07] MEDS: FLUCONAZOLE 100 MG TAB PO SCH (08:20)
[2022-06-07] MEDS: CITALOPRAM HYDROBROMIDE 20 MG TAB PO SCH (08:21)
[2022-06-07] MEDS: ALLOPURINOL 300 MG TAB PO SCH (08:21)
[2022-06-07] MEDS: GEMFIBROZIL 600 MG TAB PO SCH ×2 (08:21→17:54)
[2022-06-07] MEDS: HYDRALAZINE HCL 25 MG TAB PO SCH ×3 (08:21→21:09)
[2022-06-07] MEDS: DOXYCYCLINE HYCLATE TABLET 100 MG TAB PO SCH (08:22)
[2022-06-07] MEDS: AMLODIPINE BESYLATE 10 MG TAB PO SCH (08:22)
[2022-06-07] MEDS: POTASSIUM CHLORIDE 10MEQ EA PO SCH (08:22)
[2022-06-07] MEDS: PANTOPRAZOLE SOD 40 MG TABEC PO SCH (08:23)
[2022-06-07] MEDS: CARVEDILOL 12.5 MG TAB PO SCH ×2 (08:23→17:56)
[2022-06-07] MEDS: SERTRALINE HCL 50 MG TAB PO SCH (08:23)
[2022-06-07] MEDS: ASPIRIN 81 MG ENTERIC COATED PO SCH (08:23)
[2022-06-07] MEDS: HUMULIN 70/30 VIAL SQ SCH ×2 (08:29→17:00)
[2022-06-07] MEDS: INSULIN REGULAR, HUMAN 100 UNIT/1 ML SQ SCH ×4 (08:29→21:20)
[2022-06-07] MEDS: FUROSEMIDE INJ 10 MG/ML 4 ML VIAL IV SCH (09:00)
[2022-06-07] MEDS: BALSAM PERU/CASTOR OIL 60 GM OINT...G. TP SCH ×2 (09:00→18:26)
[2022-06-08] VITALS (20 sets, daily range): BP systolic 120–138; BP diastolic 46–57
[2022-06-08] MEDS: LEVALBUTEROL HCL SOLN NEBU 0.63 MG/3 ML NEB INH SCH ×4 (00:45→21:15)
[2022-06-08] MEDS: IPRATROPIUM BROMIDE 0.02% 2.5 ML NEB NEB SCH ×4 (00:45→21:15)
[2022-06-08] MEDS: LOPERAMIDE HCL 2 MG CAP PO PRN (03:38)
[2022-06-08] MEDS: TRAMADOL HCL 50 MG TAB PO PRN ×2 (04:28→23:51)
[2022-06-08] MEDS: LEVOTHYROXINE SODIUM 100 MCG TAB PO SCH (05:31)
[2022-06-08 06:56] LABS: BASOPHILS % 0.1 % (0.0-1.0); EOSINOPHILS # (AUTO) 0.3 (0.0-0.4); EOSINOPHILS % 3.4 % (0.0-6.0); HEMATOCRIT 30.6 % (34.2-44.1); HEMOGLOBIN 9.8 g/dL (12.0-16.0); LYMPHOCYTES # (AUTO) 1.1 (1.0-3.2); LYMPHOCYTES % 13.7 % (18.0-39.1); MEAN CORPUSCULAR HEMOGLOBIN 29.8 pg (28-32); MONOCYTES # (AUTO) 0.5 (0.2-0.8); MONOCYTES % 6.2 % (4.4-11.3); NEUTROPHILS % 76.2 % (38.7-80.0); PLATELET COUNT 242 x10e3/uL (140-360); RED BLOOD COUNT 3.29 x10e6/uL (3.6-5.1)
[2022-06-08 07:15] LABS: ALBUMIN 2.3 g/dL (3.5-5.0); ALKALINE PHOSPHATASE 44 IU/L (40-150); ANION GAP 12.3 mmol/L (8-16); BLOOD UREA NITROGEN 51 mg/dL (7-26); BUN/CREATININE RATIO 62 (6-25); CARBON DIOXIDE 29 mmol/L (22-29); CHLORIDE 105 mmol/L (98-107); CREATININE, SERUM 0.82 mg/dL (0.57-1.11); GLUCOSE 165 mg/dL (74-118); SODIUM 144 mmol/L (136-145)
[2022-06-08 07:21] LABS: ALANINE AMINOTRANSFERASE < 6 IU/L (0-55); POTASSIUM 2.3 mmol/L (3.5-5.1)
[2022-06-08] MEDS: INSULIN REGULAR, HUMAN 100 UNIT/1 ML SQ SCH ×4 (07:30→20:38)
[2022-06-08] MEDS: GEMFIBROZIL 600 MG TAB PO SCH ×2 (08:07→17:13)
[2022-06-08] MEDS: SERTRALINE HCL 50 MG TAB PO SCH (08:07)
[2022-06-08] MEDS: POTASSIUM CHLORIDE 10MEQ EA PO SCH (08:08)
[2022-06-08] MEDS: ASPIRIN 81 MG ENTERIC COATED PO SCH (08:08)
[2022-06-08] MEDS: HYDRALAZINE HCL 25 MG TAB PO SCH ×3 (08:08→20:38)
[2022-06-08] MEDS: CITALOPRAM HYDROBROMIDE 20 MG TAB PO SCH (08:08)
[2022-06-08] MEDS: ISOSORBIDE MONONITRATE 30 MG TAB CR PO SCH ×2 (08:09→17:12)
[2022-06-08] MEDS: CARVEDILOL 12.5 MG TAB PO SCH ×2 (08:09→16:53)
[2022-06-08] MEDS: PANTOPRAZOLE SOD 40 MG TABEC PO SCH (08:09)
[2022-06-08] MEDS: FLUCONAZOLE 100 MG TAB PO SCH (08:09)
[2022-06-08] MEDS: MONTELUKAST SODIUM 10 MG TAB PO SCH (08:09)
[2022-06-08] MEDS: ALLOPURINOL 300 MG TAB PO SCH (08:09)
[2022-06-08] MEDS: FUROSEMIDE INJ 10 MG/ML 4 ML VIAL IV SCH (08:10)
[2022-06-08] MEDS: BALSAM PERU/CASTOR OIL 60 GM OINT...G. TP SCH (08:10)
[2022-06-08] MEDS: HUMULIN 70/30 VIAL SQ SCH ×2 (08:16→17:00)
[2022-06-08] MEDS ORDERED: FUROSEMIDE 40 MG TAB PO SCH (09:00)
[2022-06-08] MEDS ORDERED: POTASSIUM CHLORIDE 20 MEQ TAB CR PO ONE (09:30)
[2022-06-08] MEDS: ONDANSETRON HCL INJ 2MG/ML 2ML 2 MG/ML VIAL IV PRN ×2 (11:36→17:57)
[2022-06-08] MEDS ORDERED: POTASSIUM CHLORIDE 20MEQ/100ML 200 ML IV ONE (16:30)
[2022-06-09] VITALS (9 sets, daily range): BP systolic 88–147; BP diastolic 44–74
[2022-06-09] MEDS: LEVOTHYROXINE SODIUM 100 MCG TAB PO SCH (05:23)
[2022-06-09] MEDS: ONDANSETRON HCL INJ 2MG/ML 2ML 2 MG/ML VIAL IV PRN ×2 (05:59→14:45)
[2022-06-09 06:00] LABS: BASOPHILS % 0.1 % (0.0-1.0); EOSINOPHILS # (AUTO) 0.2 (0.0-0.4); EOSINOPHILS % 2.5 % (0.0-6.0); HEMATOCRIT 30.3 % (34.2-44.1); HEMOGLOBIN 9.4 g/dL (12.0-16.0); LYMPHOCYTES # (AUTO) 1.1 (1.0-3.2); LYMPHOCYTES % 12.4 % (18.0-39.1); MEAN CORPUSCULAR HEMOGLOBIN 29.7 pg (28-32); MEAN CORPUSCULAR VOLUME 95.6 fL (81-99); MONOCYTES # (AUTO) 0.4 (0.2-0.8); MONOCYTES % 4.9 % (4.4-11.3); NEUTROPHILS # (AUTO) 6.7 (2.1-6.9); NEUTROPHILS % 79.5 % (38.7-80.0); PLATELET COUNT 237 x10e3/uL (140-360); RED BLOOD COUNT 3.17 x10e6/uL (3.6-5.1); RED CELL DISTRIBUTION WIDTH 15.9 % (11.7-14.4)
[2022-06-09 06:21] LABS: ALBUMIN 3.2 g/dL (3.5-5.0); ALBUMIN/GLOBULIN RATIO 0.8 (0.8-2.0); ANION GAP 15.4 mmol/L (8-16); CALCIUM 9.8 mg/dL (8.4-10.2); CREATININE, SERUM 1.43 mg/dL (0.57-1.11); MAGNESIUM 2.2 MG/DL (1.3-2.1); POTASSIUM 4.4 mmol/L (3.5-5.1)
[2022-06-09] MEDS: IPRATROPIUM BROMIDE 0.02% 2.5 ML NEB NEB SCH ×3 (07:15→22:05)
[2022-06-09] MEDS: LEVALBUTEROL HCL SOLN NEBU 0.63 MG/3 ML NEB INH SCH ×3 (07:15→22:05)
[2022-06-09] MEDS: INSULIN REGULAR, HUMAN 100 UNIT/1 ML SQ SCH ×4 (08:09→20:42)
[2022-06-09] MEDS: FUROSEMIDE INJ 10 MG/ML 4 ML VIAL IV SCH (09:04)
[2022-06-09] MEDS: ISOSORBIDE MONONITRATE 30 MG TAB CR PO SCH ×2 (09:06→17:00)
[2022-06-09] MEDS: MONTELUKAST SODIUM 10 MG TAB PO SCH (09:06)
[2022-06-09] MEDS: ASPIRIN 81 MG ENTERIC COATED PO SCH (09:06)
[2022-06-09] MEDS: HYDRALAZINE HCL 25 MG TAB PO SCH ×3 (09:06→20:36)
[2022-06-09] MEDS: FLUCONAZOLE 100 MG TAB PO SCH (09:07)
[2022-06-09] MEDS: CITALOPRAM HYDROBROMIDE 20 MG TAB PO SCH (09:07)
[2022-06-09] MEDS: PANTOPRAZOLE SOD 40 MG TABEC PO SCH (09:07)
[2022-06-09] MEDS: SERTRALINE HCL 50 MG TAB PO SCH (09:07)
[2022-06-09] MEDS: GEMFIBROZIL 600 MG TAB PO SCH ×2 (09:07→17:00)
[2022-06-09] MEDS: CARVEDILOL 12.5 MG TAB PO SCH ×2 (09:07→17:00)
[2022-06-09] MEDS: ALLOPURINOL 300 MG TAB PO SCH (09:07)
[2022-06-09] MEDS: POTASSIUM CHLORIDE 10MEQ EA PO SCH (09:07)
[2022-06-09] MEDS: TRAMADOL HCL 50 MG TAB PO PRN (09:08)
[2022-06-09] MEDS: BALSAM PERU/CASTOR OIL 60 GM OINT...G. TP SCH (10:20)
[2022-06-09] MEDS: HUMULIN 70/30 VIAL SQ SCH ×2 (10:20→17:00)
[2022-06-09] MEDS ORDERED: INSULIN REGULAR, HUMAN 100 UNIT/1 ML SQ ONE (20:45)
[2022-06-09] MEDS: LORAZEPAM 0.5 MG TAB PO PRN (23:08)
[2022-06-10] MEDS: TRAMADOL HCL 50 MG TAB PO PRN ×2 (02:36→16:12)
[2022-06-10] MEDS: LEVOTHYROXINE SODIUM 100 MCG TAB PO SCH (05:19)
[2022-06-10 06:02] LABS: BASOPHILS % 0.1 % (0.0-1.0); EOSINOPHILS # (AUTO) 0.3 (0.0-0.4); EOSINOPHILS % 2.6 % (0.0-6.0); HEMATOCRIT 29.4 % (34.2-44.1); LYMPHOCYTES # (AUTO) 0.7 (1.0-3.2); LYMPHOCYTES % 7.3 % (18.0-39.1); MEAN CORPUSCULAR HEMOGLOBIN 29.6 pg (28-32); MEAN CORPUSCULAR HGB CONC 30.6 g/dL (31-35); MEAN CORPUSCULAR VOLUME 96.7 fL (81-99); MONOCYTES # (AUTO) 0.4 (0.2-0.8); MONOCYTES % 4.4 % (4.4-11.3); NEUTROPHILS # (AUTO) 8.1 (2.1-6.9); NEUTROPHILS % 85.2 % (38.7-80.0); PLATELET COUNT 214 x10e3/uL (140-360); RED BLOOD COUNT 3.04 x10e6/uL (3.6-5.1)
[2022-06-10 06:20] LABS: ALBUMIN/GLOBULIN RATIO 0.8 (0.8-2.0); ANION GAP 17.6 mmol/L (8-16); CALCIUM 9.9 mg/dL (8.4-10.2); CREATININE, SERUM 1.57 mg/dL (0.57-1.11); MAGNESIUM 2.3 MG/DL (1.3-2.1); POTASSIUM 4.6 mmol/L (3.5-5.1)
[2022-06-10] MEDS: LEVALBUTEROL HCL SOLN NEBU 0.63 MG/3 ML NEB INH SCH ×3 (07:13→19:10)
[2022-06-10] MEDS: IPRATROPIUM BROMIDE 0.02% 2.5 ML NEB NEB SCH ×3 (07:13→19:10)
[2022-06-10 07:33] VITALS: BP 138/47
[2022-06-10] MEDS: HUMULIN 70/30 VIAL SQ SCH ×2 (07:49→16:18)
[2022-06-10] MEDS: FUROSEMIDE INJ 10 MG/ML 4 ML VIAL IV SCH (08:27)
[2022-06-10] MEDS: ISOSORBIDE MONONITRATE 30 MG TAB CR PO SCH ×2 (08:27→16:13)
[2022-06-10] MEDS: ASPIRIN 81 MG ENTERIC COATED PO SCH (08:27)
[2022-06-10] MEDS: GEMFIBROZIL 600 MG TAB PO SCH ×2 (08:27→16:13)
[2022-06-10] MEDS: MONTELUKAST SODIUM 10 MG TAB PO SCH (08:27)
[2022-06-10] MEDS: POTASSIUM CHLORIDE 10MEQ EA PO SCH (08:28)
[2022-06-10] MEDS: PANTOPRAZOLE SOD 40 MG TABEC PO SCH (08:28)
[2022-06-10] MEDS: CARVEDILOL 12.5 MG TAB PO SCH ×2 (08:28→15:48)
[2022-06-10] MEDS: HYDRALAZINE HCL 25 MG TAB PO SCH ×3 (08:28→20:23)
[2022-06-10] MEDS: CITALOPRAM HYDROBROMIDE 20 MG TAB PO SCH (08:28)
[2022-06-10] MEDS: ALLOPURINOL 300 MG TAB PO SCH (08:28)
[2022-06-10] MEDS: FLUCONAZOLE 100 MG TAB PO SCH (08:28)
[2022-06-10] MEDS: BALSAM PERU/CASTOR OIL 60 GM OINT...G. TP SCH (08:29)
[2022-06-10] MEDS: SERTRALINE HCL 50 MG TAB PO SCH (08:30)
[2022-06-10] MEDS: INSULIN REGULAR, HUMAN 100 UNIT/1 ML SQ SCH ×4 (08:30→20:23)
[2022-06-10 09:00] VITALS: BP 138/47
[2022-06-10] MEDS ORDERED: FUROSEMIDE INJ 10 MG/ML 4 ML VIAL IV ONE (10:00)
[2022-06-10] MEDS: AZITHROMYCIN ORAL SUSP 200 MG/5 ML PO SCH (11:33)
[2022-06-10 12:06] VITALS: BP 146/57
[2022-06-10] MEDS ORDERED: FUROSEMIDE INJ 10 MG/ML 4 ML VIAL IV SCH (14:00)
[2022-06-10 16:00] VITALS: BP 123/50
[2022-06-10 19:56] VITALS: BP 128/49
[2022-06-11] VITALS (18 sets, daily range): BP systolic 118–145; BP diastolic 49–70
[2022-06-11] MEDS: ONDANSETRON HCL INJ 2MG/ML 2ML 2 MG/ML VIAL IV PRN ×3 (05:29→20:13)
[2022-06-11] MEDS: LEVOTHYROXINE SODIUM 100 MCG TAB PO SCH (05:35)
[2022-06-11 05:45] LABS: BASOPHILS % 0.1 % (0.0-1.0); EOSINOPHILS # (AUTO) 0.2 (0.0-0.4); EOSINOPHILS % 1.9 % (0.0-6.0); HEMATOCRIT 27.6 % (34.2-44.1); HEMOGLOBIN 8.4 g/dL (12.0-16.0); LYMPHOCYTES # (AUTO) 0.6 (1.0-3.2); MEAN CORPUSCULAR HEMOGLOBIN 29.3 pg (28-32); MEAN CORPUSCULAR HGB CONC 30.4 g/dL (31-35); MEAN CORPUSCULAR VOLUME 96.2 fL (81-99); MONOCYTES # (AUTO) 0.5 (0.2-0.8); MONOCYTES % 4.8 % (4.4-11.3); NEUTROPHILS # (AUTO) 8.6 (2.1-6.9); NEUTROPHILS % 86.8 % (38.7-80.0); PLATELET COUNT 213 x10e3/uL (140-360); RED BLOOD COUNT 2.87 x10e6/uL (3.6-5.1); RED CELL DISTRIBUTION WIDTH 15.9 % (11.7-14.4)
[2022-06-11] MEDS: LEVALBUTEROL HCL SOLN NEBU 0.63 MG/3 ML NEB INH SCH ×3 (07:05→23:40)
[2022-06-11] MEDS: IPRATROPIUM BROMIDE 0.02% 2.5 ML NEB NEB SCH ×3 (07:05→23:40)
[2022-06-11 07:55] LABS: ALBUMIN 2.9 g/dL (3.5-5.0); ALBUMIN/GLOBULIN RATIO 0.8 (0.8-2.0); ALKALINE PHOSPHATASE 62 IU/L (40-150); ANION GAP 19.9 mmol/L (8-16); BLOOD UREA NITROGEN 63 mg/dL (7-26); BUN/CREATININE RATIO 40 (6-25); CALCIUM 10.2 mg/dL (8.4-10.2); CARBON DIOXIDE 33 mmol/L (22-29); CHLORIDE 87 mmol/L (98-107); CREATININE, SERUM 1.56 mg/dL (0.57-1.11); GLUCOSE 279 mg/dL (74-118); POTASSIUM 4.9 mmol/L (3.5-5.1); SODIUM 135 mmol/L (136-145)
[2022-06-11 07:56] LABS: ALANINE AMINOTRANSFERASE < 6 IU/L (0-55)
[2022-06-11] MEDS: INSULIN REGULAR, HUMAN 100 UNIT/1 ML SQ SCH ×4 (08:25→21:20)
[2022-06-11] MEDS: ASPIRIN 81 MG ENTERIC COATED PO SCH (08:27)
[2022-06-11] MEDS: CITALOPRAM HYDROBROMIDE 20 MG TAB PO SCH (08:27)
[2022-06-11] MEDS: HYDRALAZINE HCL 25 MG TAB PO SCH ×3 (08:27→21:04)
[2022-06-11] MEDS: CARVEDILOL 12.5 MG TAB PO SCH ×2 (08:28→16:13)
[2022-06-11] MEDS: POTASSIUM CHLORIDE 10MEQ EA PO SCH (08:30)
[2022-06-11] MEDS: ISOSORBIDE MONONITRATE 30 MG TAB CR PO SCH ×2 (08:30→16:12)
[2022-06-11] MEDS: SERTRALINE HCL 50 MG TAB PO SCH (08:31)
[2022-06-11] MEDS: PANTOPRAZOLE SOD 40 MG TABEC PO SCH ×2 (08:31→16:12)
[2022-06-11] MEDS: ALLOPURINOL 300 MG TAB PO SCH (08:31)
[2022-06-11] MEDS: GEMFIBROZIL 600 MG TAB PO SCH ×2 (08:31→16:13)
[2022-06-11] MEDS: MONTELUKAST SODIUM 10 MG TAB PO SCH (08:31)
[2022-06-11] MEDS: AZITHROMYCIN ORAL SUSP 200 MG/5 ML PO SCH (08:31)
[2022-06-11] MEDS: HUMULIN 70/30 VIAL SQ SCH ×2 (08:39→16:34)
[2022-06-11] MEDS: BALSAM PERU/CASTOR OIL 60 GM OINT...G. TP SCH (08:42)
[2022-06-11] MEDS: METOLAZONE 5 MG TAB PO SCH (09:43)
[2022-06-11] MEDS: FUROSEMIDE INJ 10 MG/ML 4 ML VIAL IV SCH (09:44)
[2022-06-11] MEDS ORDERED: SODIUM CHLORIDE 0.9% 250ML 250 ML ONE (10:05)
[2022-06-11] MEDS: CELECOXIB 100 MG CAP PO PRN (10:59)
[2022-06-11] MEDS: LORAZEPAM 0.5 MG TAB PO PRN (11:32)
[2022-06-11] MEDS ORDERED: FUROSEMIDE INJ 10 MG/ML 4 ML VIAL IV ONE (15:00)
[2022-06-11] MEDS ORDERED: METOCLOPRAMIDE HCL 10 MG TAB PO SCH (16:30)
[2022-06-12] VITALS (24 sets, daily range): BP systolic 111–146; BP diastolic 47–66
[2022-06-12] MEDS: ONDANSETRON HCL INJ 2MG/ML 2ML 2 MG/ML VIAL IV PRN (03:40)
[2022-06-12] MEDS: LEVOTHYROXINE SODIUM 100 MCG TAB PO SCH (05:17)
[2022-06-12 05:50] LABS: BASOPHILS % 0.2 % (0.0-1.0); EOSINOPHILS # (AUTO) 0.2 (0.0-0.4); EOSINOPHILS % 1.4 % (0.0-6.0); HEMATOCRIT 28.5 % (34.2-44.1); HEMOGLOBIN 8.8 g/dL (12.0-16.0); LYMPHOCYTES # (AUTO) 0.7 (1.0-3.2); LYMPHOCYTES % 6.9 % (18.0-39.1); MEAN CORPUSCULAR HEMOGLOBIN 29.6 pg (28-32); MEAN CORPUSCULAR HGB CONC 30.9 g/dL (31-35); MONOCYTES # (AUTO) 0.7 (0.2-0.8); MONOCYTES % 6.5 % (4.4-11.3); NEUTROPHILS % 84.5 % (38.7-80.0); PLATELET COUNT 240 x10e3/uL (140-360); RED BLOOD COUNT 2.97 x10e6/uL (3.6-5.1); RED CELL DISTRIBUTION WIDTH 15.6 % (11.7-14.4)
[2022-06-12 06:12] LABS: ALBUMIN 2.8 g/dL (3.5-5.0); ALBUMIN/GLOBULIN RATIO 0.6 (0.8-2.0); ANION GAP 18.7 mmol/L (8-16); CALCIUM 10.7 mg/dL (8.4-10.2); CREATININE, SERUM 1.75 mg/dL (0.57-1.11); POTASSIUM 4.7 mmol/L (3.5-5.1)
[2022-06-12] MEDS: PROMETHAZINE 12.5MG/ NACL 0.9% 12.5 MG/50 ML BAG IV PRN ×3 (06:14→15:28)
[2022-06-12] MEDS ORDERED: ALTEPLASE RECOMBINANT 2 MG/2 ML VIAL IV PRN (06:15)
[2022-06-12] MEDS: IPRATROPIUM BROMIDE 0.02% 2.5 ML NEB NEB SCH ×3 (06:44→23:37)
[2022-06-12] MEDS: LEVALBUTEROL HCL SOLN NEBU 0.63 MG/3 ML NEB INH SCH ×3 (06:44→23:37)
[2022-06-12] MEDS: LORAZEPAM 0.5 MG TAB PO PRN (07:18)
[2022-06-12] MEDS: INSULIN REGULAR, HUMAN 100 UNIT/1 ML SQ SCH ×4 (07:30→20:25)
[2022-06-12] MEDS: PANTOPRAZOLE SOD 40 MG TABEC PO SCH ×2 (07:46→16:30)
[2022-06-12] MEDS: FUROSEMIDE INJ 10 MG/ML 4 ML VIAL IV SCH (08:24)
[2022-06-12] MEDS: METOLAZONE 5 MG TAB PO SCH (08:26)
[2022-06-12] MEDS: HYDRALAZINE HCL 25 MG TAB PO SCH ×3 (08:26→20:23)
[2022-06-12] MEDS: GEMFIBROZIL 600 MG TAB PO SCH ×2 (08:26→16:55)
[2022-06-12] MEDS: ISOSORBIDE MONONITRATE 30 MG TAB CR PO SCH ×2 (08:26→16:55)
[2022-06-12] MEDS: MONTELUKAST SODIUM 10 MG TAB PO SCH (08:26)
[2022-06-12] MEDS: ALLOPURINOL 300 MG TAB PO SCH (08:26)
[2022-06-12] MEDS: SERTRALINE HCL 50 MG TAB PO SCH (08:26)
[2022-06-12] MEDS: CARVEDILOL 12.5 MG TAB PO SCH ×2 (08:27→16:55)
[2022-06-12] MEDS: ASPIRIN 81 MG ENTERIC COATED PO SCH (08:27)
[2022-06-12] MEDS: POTASSIUM CHLORIDE 10MEQ EA PO SCH (08:30)
[2022-06-12] MEDS: CITALOPRAM HYDROBROMIDE 20 MG TAB PO SCH (08:30)
[2022-06-12] MEDS: BALSAM PERU/CASTOR OIL 60 GM OINT...G. TP SCH (08:32)
[2022-06-12] MEDS: AZITHROMYCIN ORAL SUSP 200 MG/5 ML PO SCH (08:32)
[2022-06-12] MEDS: HUMULIN 70/30 VIAL SQ SCH ×2 (08:34→17:00)
[2022-06-12] MEDS: METOCLOPRAMIDE HCL 10 MG TAB PO SCH ×3 (10:12→20:23)
[2022-06-12 14:19] LABS: CLARITY,URINE SL CLOUDY (CLEAR); COLOR,URINE YELLOW (YELLOW); KETONES,URINE NEGATIVE (NEGATIVE); LEUKOCYTE ESTERASE ,URINE SMALL (NEGATIVE); NITRITE,URINE NEGATIVE (NEGATIVE); PROTEIN,URINE DIPSTICK >=300 (NEGATIVE); URINE UROBILINOGEN 0.2 mg/dL (0.2 - 1)
[2022-06-12] MEDS: ONDANSETRON HCL 4 MG ORAL DISINTEGRATING TAB PO PRN (14:30)
[2022-06-12 14:33] LABS: BACTERIA,URINE MODERATE /HPF; RBC,URINE 0-5 /HPF (0-5); RENAL EPITHELIAL CELLS,URINE FEW; YEAST,URINE MODERATE
[2022-06-12] MEDS ORDERED: GUAIFENESIN/CODEINE 5 ML LIQD PO PRN (15:00)
[2022-06-12] MEDS ORDERED: GUAIFENESIN 200 MG/10 ML UDC PO PRN (15:15)
[2022-06-12] MEDS ORDERED: METHYLPREDNISOLONE SOD SUCC 40 MG/ML VIAL 1ML IV ONE (17:00)
[2022-06-12] MEDS ORDERED: HUMULIN 70/30 VIAL SQ ONE (17:30)
[2022-06-13] VITALS (22 sets, daily range): BP systolic 111–149; BP diastolic 41–76
[2022-06-13] MEDS: LEVOTHYROXINE SODIUM 100 MCG TAB PO SCH (05:23)
[2022-06-13 05:34] LABS: HEMATOCRIT 27.2 % (34.2-44.1); HEMOGLOBIN 8.2 g/dL (12.0-16.0); LYMPHOCYTES # (AUTO) 0.3 (1.0-3.2); LYMPHOCYTES % 5.1 % (18.0-39.1); MEAN CORPUSCULAR HEMOGLOBIN 29.1 pg (28-32); MEAN CORPUSCULAR HGB CONC 30.1 g/dL (31-35); MEAN CORPUSCULAR VOLUME 96.5 fL (81-99); MONOCYTES % 0.7 % (4.4-11.3); NEUTROPHILS # (AUTO) 5.1 (2.1-6.9); NEUTROPHILS % 93.6 % (38.7-80.0); PLATELET COUNT 238 x10e3/uL (140-360); RED BLOOD COUNT 2.82 x10e6/uL (3.6-5.1); RED CELL DISTRIBUTION WIDTH 15.5 % (11.7-14.4)
[2022-06-13 05:49] LABS: ALBUMIN 2.6 g/dL (3.5-5.0); ALBUMIN/GLOBULIN RATIO 0.5 (0.8-2.0); CALCIUM 10.5 mg/dL (8.4-10.2); CREATININE, SERUM 2.05 mg/dL (0.57-1.11); MAGNESIUM 2.2 MG/DL (1.3-2.1)
[2022-06-13] MEDS: IPRATROPIUM BROMIDE 0.02% 2.5 ML NEB NEB SCH ×3 (07:10→22:30)
[2022-06-13] MEDS: LEVALBUTEROL HCL SOLN NEBU 0.63 MG/3 ML NEB INH SCH ×3 (07:10→22:30)
[2022-06-13] MEDS: METOCLOPRAMIDE HCL 10 MG TAB PO SCH ×4 (07:30→21:00)
[2022-06-13] MEDS: INSULIN REGULAR, HUMAN 100 UNIT/1 ML SQ SCH ×4 (07:30→21:00)
[2022-06-13] MEDS: PANTOPRAZOLE SOD 40 MG TABEC PO SCH ×2 (07:30→15:53)
[2022-06-13] MEDS: CITALOPRAM HYDROBROMIDE 20 MG TAB PO SCH (09:00)
[2022-06-13] MEDS: ALLOPURINOL 300 MG TAB PO SCH (09:00)
[2022-06-13] MEDS: SERTRALINE HCL 50 MG TAB PO SCH (09:00)
[2022-06-13] MEDS: GEMFIBROZIL 600 MG TAB PO SCH ×2 (09:00→15:53)
[2022-06-13] MEDS: CARVEDILOL 12.5 MG TAB PO SCH ×2 (09:00→15:54)
[2022-06-13] MEDS: POTASSIUM CHLORIDE 10MEQ EA PO SCH (09:00)
[2022-06-13] MEDS: ISOSORBIDE MONONITRATE 30 MG TAB CR PO SCH ×2 (09:00→15:53)
[2022-06-13] MEDS: MONTELUKAST SODIUM 10 MG TAB PO SCH (09:00)
[2022-06-13] MEDS: AZITHROMYCIN ORAL SUSP 200 MG/5 ML PO SCH (09:00)
[2022-06-13] MEDS: METOLAZONE 5 MG TAB PO SCH (09:00)
[2022-06-13] MEDS: HYDRALAZINE HCL 25 MG TAB PO SCH ×3 (09:00→21:00)
[2022-06-13] MEDS: BALSAM PERU/CASTOR OIL 60 GM OINT...G. TP SCH (09:19)
[2022-06-13] MEDS: HUMULIN 70/30 VIAL SQ SCH ×2 (09:19→17:00)
[2022-06-13] MEDS: METHYLPREDNISOLONE SOD SUCC 40 MG/ML VIAL 1ML IV SCH (11:15)
[2022-06-13] MEDS: ONDANSETRON HCL INJ 2MG/ML 2ML 2 MG/ML VIAL IV PRN ×2 (13:12→21:52)
[2022-06-14] VITALS (22 sets, daily range): BP systolic 106–173; BP diastolic 44–87
[2022-06-14] MEDS: LEVOTHYROXINE SODIUM 100 MCG TAB PO SCH (05:07)
[2022-06-14 05:09] LABS: BASOPHILS % 0.1 % (0.0-1.0); EOSINOPHILS # (AUTO) 0.1 (0.0-0.4); HEMATOCRIT 26.3 % (34.2-44.1); HEMOGLOBIN 8.1 g/dL (12.0-16.0); LYMPHOCYTES # (AUTO) 0.6 (1.0-3.2); LYMPHOCYTES % 8.3 % (18.0-39.1); MEAN CORPUSCULAR HEMOGLOBIN 29.7 pg (28-32); MEAN CORPUSCULAR HGB CONC 30.8 g/dL (31-35); MEAN CORPUSCULAR VOLUME 96.3 fL (81-99); MONOCYTES # (AUTO) 0.4 (0.2-0.8); MONOCYTES % 5.4 % (4.4-11.3); NEUTROPHILS # (AUTO) 6.1 (2.1-6.9); NEUTROPHILS % 84.5 % (38.7-80.0); PLATELET COUNT 269 x10e3/uL (140-360); RED BLOOD COUNT 2.73 x10e6/uL (3.6-5.1); RED CELL DISTRIBUTION WIDTH 15.9 % (11.7-14.4)
[2022-06-14 05:37] LABS: ANION GAP 21.6 mmol/L (8-16); CALCIUM 10.4 mg/dL (8.4-10.2); CREATININE, SERUM 2.3 mg/dL (0.57-1.11); POTASSIUM 4.6 mmol/L (3.5-5.1)
[2022-06-14] MEDS: IPRATROPIUM BROMIDE 0.02% 2.5 ML NEB NEB SCH ×2 (07:25→15:00)
[2022-06-14] MEDS: LEVALBUTEROL HCL SOLN NEBU 0.63 MG/3 ML NEB INH SCH ×2 (07:25→15:00)
[2022-06-14] MEDS: PANTOPRAZOLE SOD 40 MG TABEC PO SCH (07:30)
[2022-06-14] MEDS: METOCLOPRAMIDE HCL 10 MG TAB PO SCH ×2 (07:30→11:20)
[2022-06-14] MEDS: METHYLPREDNISOLONE SOD SUCC 40 MG/ML VIAL 1ML IV SCH (07:57)
[2022-06-14] MEDS: HUMULIN 70/30 VIAL SQ SCH ×2 (07:58→16:16)
[2022-06-14] MEDS: INSULIN REGULAR, HUMAN 100 UNIT/1 ML SQ SCH ×4 (07:59→20:28)
[2022-06-14] MEDS: CARVEDILOL 12.5 MG TAB PO SCH ×2 (08:00→16:15)
[2022-06-14] MEDS: CITALOPRAM HYDROBROMIDE 20 MG TAB PO SCH (08:00)
[2022-06-14] MEDS: ISOSORBIDE MONONITRATE 30 MG TAB CR PO SCH ×2 (08:00→16:14)
[2022-06-14] MEDS: HYDRALAZINE HCL 25 MG TAB PO SCH ×3 (08:00→20:12)
[2022-06-14] MEDS: MONTELUKAST SODIUM 10 MG TAB PO SCH (08:01)
[2022-06-14] MEDS: GEMFIBROZIL 600 MG TAB PO SCH ×2 (08:01→16:13)
[2022-06-14] MEDS: ALLOPURINOL 300 MG TAB PO SCH (08:01)
[2022-06-14] MEDS: BALSAM PERU/CASTOR OIL 60 GM OINT...G. TP SCH (08:01)
[2022-06-14] MEDS: AZITHROMYCIN ORAL SUSP 200 MG/5 ML PO SCH (08:01)
[2022-06-14] MEDS: SERTRALINE HCL 50 MG TAB PO SCH (08:01)
[2022-06-14] MEDS ORDERED: METOLAZONE 5 MG TAB PO SCH (09:00)
[2022-06-14] MEDS: ONDANSETRON HCL INJ 2MG/ML 2ML 2 MG/ML VIAL IV PRN (10:48)
[2022-06-14] MEDS: ACETAMINOPHEN 325 MG TAB PO PRN (12:25)
[2022-06-14] MEDS: BUSPIRONE HCL 5 MG TAB PO SCH ×2 (13:14→20:12)
[2022-06-14] MEDS: METOCLOPRAMIDE HCL 10 MG/2ML VIAL IV SCH ×2 (13:15→21:07)
[2022-06-14] MEDS ORDERED: FUROSEMIDE INJ 10 MG/ML 4 ML VIAL IV ONE (13:30)
[2022-06-14] MEDS ORDERED: LORAZEPAM 0.5 MG TAB PO ONE (13:45)
[2022-06-14] MEDS ORDERED: METOCLOPRAMIDE HCL 10 MG/2ML VIAL IV SCH (14:00)
== END 2022-06-14 21:30 | DRG 291 ==
LOC: ER 16:49 → ERHOLD 19:47 → INTOOBSV 19:47 → MED/SURG3 21:16 → OBSVTOIN 05-22 10:00 → ICU 05-30 13:56
PROVIDERS: ADMIT Internal Medicine; ATTEND Internal Medicine
PROC: 5A09357 Assistance with Respiratory Ventilation, Less than 24 Consecutive Hours, Continuous Positive Airway Pressure (ICD-10-PCS; principal; 2022-05-31)
PROC: 02HV33Z Insertion of Infusion Device into Superior Vena Cava, Percutaneous Approach (ICD-10-PCS; 2022-06-07)
DX: I13.0 Hypertensive heart and chronic kidney disease with heart failure and stage 1 through stage 4 chronic kidney disease, or unspecified chronic kidney disease (principal); I50.33 Acute on chronic diastolic (congestive) heart failure; J96.22 Acute and chronic respiratory failure with hypercapnia; J96.21 Acute and chronic respiratory failure with hypoxia; J18.9 Pneumonia, unspecified organism; N17.9 Acute kidney failure, unspecified; L03.116 Cellulitis of left lower limb; L03.115 Cellulitis of right lower limb; J44.1 Chronic obstructive pulmonary disease with (acute) exacerbation; N18.30 Chronic kidney disease, stage 3 unspecified; E11.22 Type 2 diabetes mellitus with diabetic chronic kidney disease; I27.20 Pulmonary hypertension, unspecified; I25.2 Old myocardial infarction; E03.9 Hypothyroidism, unspecified; D63.1 Anemia in chronic kidney disease; F41.9 Anxiety disorder, unspecified; F32.A Depression, unspecified; E78.5 Hyperlipidemia, unspecified; M54.9 Dorsalgia, unspecified; G89.29 Other chronic pain; I44.7 Left bundle-branch block, unspecified; E11.65 Type 2 diabetes mellitus with hyperglycemia; E66.9 Obesity, unspecified; G47.33 Obstructive sleep apnea (adult) (pediatric); J40 Bronchitis, not specified as acute or chronic; M10.9 Gout, unspecified; I25.10 Atherosclerotic heart disease of native coronary artery without angina pectoris; Z20.822 Contact with and (suspected) exposure to COVID-19; Z90.49 Acquired absence of other specified parts of digestive tract; Z86.73 Personal history of transient ischemic attack (TIA), and cerebral infarction without residual deficits; Z95.1 Presence of aortocoronary bypass graft; Z98.84 Bariatric surgery status; Z96.659 Presence of unspecified artificial knee joint; Z95.5 Presence of coronary angioplasty implant and graft; Z88.2 Allergy status to sulfonamides; Z79.4 Long term (current) use of insulin; Z79.82 Long term (current) use of aspirin; Z68.38 Body mass index [BMI] 38.0-38.9, adult; Z60.2 Problems related to living alone
CPT/HCPCS: 36415; 36569; 36600; 71045; 71250; 74018; 74230; 76770; 78580; 80048; 80053; 81001; 82550; 82553; 82607; 82805; 82948; 83540; 83735; 83880; 83921; 83970; 84443; 84466; 84484; 85025; 85379; 85610; 85730; 86021; 86039; 86335; 87040; 87086; 93005; 93306; 93970; 94060; 94640; 94660; 94667; 94669; 94799; 96372; 99252; 99284; A9540; G0378; J0692; J0696; J1644; J1650; J1756; J1817; J1885; J1940; J2405; J2550; J2765; J2920; J3480; J7050; Q0162